=== PATIENT | female | born 1950 | race Caucasian/White ===

== ENCOUNTER 2016-08-06 13:12 | Emergency (ER) | payer OTHER ==
[~2016-08-06] VITALS: Ht 165.1 cm; Wt 105.0 kg
[~2016-08-06 13:12] MED LIST: ASPI81 PO; CALC600T34 PO; CYAN100017 PO; D32000CA PO; FISH1000 PO; GLYB1TAB51 PO; LISI-357 PO; METF-324 PO; SERT-132 PO; TAB-TAB PO
[2016-08-06 13:16] VITALS: BP 152/86; PULSE 102; RESP 18; TEMP 98; O2SAT 97
[2016-08-06] MEDS ORDERED: CALC1TAB87 PO (13:39)
[2016-08-06] MEDS ORDERED: SERT-132 PO (13:39)
[2016-08-06] MEDS ORDERED: LISI-519 PO (13:39)
[2016-08-06] MEDS ORDERED: ASPI1TAB69 PO (13:39)
[2016-08-06] MEDS ORDERED: GLYB5TAB3 PO (13:39)
[2016-08-06] MEDS ORDERED: METF1000 PO (13:39)
[2016-08-06] MEDS ORDERED: OMEG100037 PO (13:39)
[2016-08-06] MEDS ORDERED: D-20TAB3 PO (13:39)
[2016-08-06] MEDS ORDERED: MULT1TAB84 PO (13:39)
[2016-08-06] MEDS ORDERED: MOBI7.5T PO (13:39)
[2016-08-06] MEDS ORDERED: CYAN100025 SL (13:39)
[2016-08-06] MEDS ORDERED: LEVEMIR SQ (13:41)
--- NOTE | 2016-08-06 13:57 | PD ---
HPI Chief Complaint: Headache Time Seen by Provider: 13:37 Travel History International Travel<30 days: No Contact w/Intl Traveler<30days: No Traveled to known affect area: No History of Present Illness HPI The patient was seen and examined in the presence of the nurse. This patient complains of headache. Location is frontal in the forehead region. Duration 28 hours. Severity is moderate. No vomiting or fever or head injury. She takes a baby aspirin daily but no blood thinners. No thunderclap onset. No alleviating factors. PFSH Past Medical History Arthritis: Yes Blood Disorders: No Anxiety: No Depression: Yes Cancer: Yes (KIDNEY) Cardiovascular Problems: No High Cholesterol: Yes Diabetes: Yes Patient Takes Glucophage: Yes Diminished Hearing: No Endocrine: Yes Gastrointestinal Disorders: Yes (MULTIPLE HERNIA REPAIRS) Genitourinary: Yes (LEFT KIDNEY RENAL CELL CARCINOMA) Headaches: Yes Hypertension: Yes Immune Disorder: No Musculoskeletal: Yes Neurologic: Yes Psychiatric: Yes Reproductive: No Respiratory: No Tetanus Vaccination: < 5 Years Influenza Vaccination: Yes ?: Not Menopausal: Yes Past Surgical History Abdominal Surgery: Yes (MULTIPLE HERNIA REPAIRS) Appendectomy: Yes Cardiac Surgery: No Section: Yes Ear Surgery: No Endocrine Surgery: No Eye Surgery: No Genitourinary Surgery: No Gynecologic Surgery: Yes () Oral Surgery: No Thoracic Surgery: No Other Surgery: Yes (RENAL BIOPSY) Social History Alcohol Use: No Tobacco Use: No Substance Use: No Allergies-Medications (Allergen,Severity, Reaction): Coded Allergies: Rifampin (Verified Allergy, Severe, Nausea/Vomiting, 08/06/16) STOMACH CRAMPS Reported Meds & Prescriptions Reported Meds & Active Scripts Active Reported Mobic (Meloxicam) 7.5 Mg Tab Unknown Dose PO DAILY Sertraline (Sertraline HCl) 50 Mg Tab 50 Mg PO DAILY Fish Oil 1000 mg ([place]-3 Fatty Acids) 1 Cap Cap 1 Cap PO DAILY Multivitamin Adults (Multiple Vitamins W/ Minerals) 1 Tab 1 Tab PO DAILY Metformin (Metformin HCl) 1,000 Mg Tab 1,000 Mg PO TID With meals Lisinopril 5 Mg Tab 5 Mg PO DAILY Glyburide 5 Mg Tab 5 Mg PO DAILY Take with meals at the same time each day B-12 (Cyanocobalamin) 1,000 Mcg Subl 1,000 Mcg SL DAILY D-2000 Maximum Strength (Cholecalciferol) 2,000 Unit Tab 2,000 Units PO DAILY Calcium 600 with Vitamin D (Calcium Carbonate-Cholecalciferol) 600-400 mg-Unit Tab 1 Tab PO DAILY Aspirin 81 Mg Tabdr 81 Mg PO DAILY Levemir Inj (Insulin Detemir) 1,000 unit/ 10 ML Vial 20 Units SQ HS Do not mix with any other Insulin. Review of Systems General / Constitutional: No: Fever Eyes: No: Visual changes HENT: Positive: Headaches Cardiovascular: No: Chest Pain or Discomfort Respiratory: No: Shortness of Breath Gastrointestinal: No: Abdominal Pain Genitourinary: No: Dysuria Musculoskeletal: No: Pain Skin: No Rash Neurologic: Positive: Headache, No: Weakness Psychiatric: No: Depression Endocrine: No: Polydipsia Hematologic/Lymphatic: No: Easy Bruising Physical Exam Narrative GENERAL: Well-nourished, well-developed patient in no apparent distress. SKIN: Focused skin assessment reveals no rash and nodules. Skin is Warm and dry. HEAD: Atraumatic. Normocephalic. EYES: Pupils equal and round. No scleral icterus. No injection or drainage. ENT: No nasal bleeding or discharge. Mucous membranes pink and moist. NECK: Trachea midline. No JVD. No meningeal signs CARDIOVASCULAR: Regular rate and rhythm. No murmur appreciated. RESPIRATORY: No accessory muscle use. Clear to auscultation. Breath sounds equal bilaterally. GASTROINTESTINAL: Abdomen soft, non-tender, nondistended. Hepatic and splenic margins not palpable. MUSCULOSKELETAL: No obvious deformities. No clubbing. No cyanosis. No edema. NEUROLOGICAL: Awake and alert. No obvious cranial nerve deficits. Motor grossly within normal limits. Normal speech. PSYCHIATRIC: Appropriate mood and affect; insight and judgment normal. Data Data Last Documented VS Vital Signs Date Time Temp Pulse Resp B/P Pulse Ox O2 Delivery O2 Flow Rate FiO2 08/06/16 13:28 Room Air 08/06/16 13:16 98.0 102 18 152/[address] Brain W/O Iv Contrast(Rout) (08/06/16 ) [facility] Medical Decision Making Medical Screen Exam Complete: Yes Emergency Medical Condition: Yes Medical Record Reviewed: Yes Differential Diagnosis Differential diagnosis includes migraine, tension headache, cluster headache, meningitis. Narrative Course I have reviewed the patient's electronic medical record. Patient is neurologically intact. Presentation not consistent with subarachnoid hemorrhage or CVA Brain CT is normal Stable for outpatient follow-up. I wrote her some tramadol to try while she obtains follow-up with her physician Diagnosis Primary Impression: Headache Qualified Code: R51 - Acute nonintractable headache, unspecified headache type Additional Instructions: The patient was advised to follow up with their physician and return if they worsen. The patient was warned about potential sedation for the medications they will receive on prescription. Med/Other Pt SpecificInfo: Prescription(s) given Disposition: DISCHARGE HOME Condition: Stable Claude Delgadillo MD August 06, 2016 13:57
--- NOTE | 2016-08-06 15:33 | RADHPO ---
EXAM DATE/TIME: 08/06/2016 14:36 [facility] COMPARISON: No previous studies available for comparison. INDICATIONS : Cephalgia. RADIATION DOSE: 57.43 CTDIvol (mGy) MEDICAL HISTORY : Diabetes mellitus type 2. Renal cell carcinoma. Hypertension. SURGICAL HISTORY : Appendectomy. section. ENCOUNTER: Initial ACUITY: 1 day PAIN SCALE: 10/10 LOCATION: cranial TECHNIQUE: Multiple contiguous axial images were obtained of the head. Using automated exposure control and adj ustment of the mA and/or kV according to patient size, radiation dose was kept as low as reasonably a chievable to obtain optimal diagnostic quality images. FINDINGS: CEREBRUM: The ventricles are normal for age. No evidence of midline shift, mass lesion, hemorrhage or acute in farction. No extra-axial fluid collections are seen. POSTERIOR FOSSA: The cerebellum and brainstem are intact. The 4th ventricle is midline. The cerebellopontine angle i s unremarkable. EXTRACRANIAL: The visualized portion of the orbits is intact. SKULL: The calvaria is intact. No evidence of skull fracture. CONCLUSION: 1. No acute intracranial abnormality identified. Igor Leonard MD on August 06, 2016 at 15:30 Board Certified Radiologist. This report was verified electronically.
[2016-08-06] MEDS ORDERED: TRAM50TA PO (15:38)
[2016-08-06 15:59] VITALS: BP 138/86; PULSE 127; RESP 18; TEMP 101.4; TEMP 102.1; O2SAT 95
[2016-08-06 16:20] VITALS: BP 138/86; PULSE 127; RESP 18; TEMP 101.4; O2SAT 95
[2016-08-06] MEDS ORDERED: ACETAMINOPHEN 500 MG CPLT PO ONE (16:30)
[2016-08-06] MEDS ORDERED: cefTRIAXone INJ 1,000 MG in SODIUM CHLORIDE 0.9% INJ 100 ML IV ONE (16:30)
[2016-08-06 16:50] LABS: AUTOMATED NEUTROPHIL # 3.7 TH/MM3 (1.8-7.7); BASOPHIL % 0.2 % (0.0-2.0); EOSINOPHIL % 0.7 % (0.0-4.0); HEMATOCRIT 40.2 % (35.0-46.0); HEMO FLAGS DIFF FINAL; LYMPH % 11.9 % (9.0-44.0); LYMPHOCYTE # 0.5 TH/MM3 (1.0-4.8); MEAN CORPUSCULAR HEMOGLOBIN 27.7 PG (27.0-34.0); MEAN CORPUSCULAR HGB CONC 32.2 % (32.0-36.0); MONO % 4.5 % (0.0-8.0); NEUT % 82.7 % (16.0-70.0); PLATELET COUNT 161 TH/MM3 (150-450); RED BLOOD COUNT 4.67 MIL/MM3 (4.00-5.30); RED CELL DISTRIBUTION WIDTH 14.8 % (11.6-17.2); WHITE BLOOD COUNT 4.4 TH/MM3 (4.0-11.0)
[2016-08-06 16:54] LABS: POTASSIUM 4.5 MEQ/L (3.5-5.1)
[2016-08-06 16:57] LABS: BICARBONATE 26.6 MEQ/L (21.0-32.0)
--- NOTE | 2016-08-06 16:57 | RADHPO ---
EXAM DATE/TIME: 08/06/2016 16:39 [facility] COMPARISON: No previous studies available for comparison. INDICATIONS : Fever, weakness for 1 week MEDICAL HISTORY : None. SURGICAL HISTORY : None. ENCOUNTER: Initial ACUITY: 1 week PAIN SCORE: 0/10 LOCATION: Bilateral chest FINDINGS: The heart is normal in size. There are chronic appearing interstitial changes within the pulmonary pa renchyma. There surgical clips in the right axilla. The bony structures are grossly intact. CONCLUSION: Chronic appearing interstitial changes. No acute abnormality is identified. Igor Leonard MD on August 06, 2016 at 16:53 Board Certified Radiologist. This report was verified electronically.
[2016-08-06 16:58] LABS: APTT (PATIENT) 27.9 SEC (24.3-30.1); INTERNATIONAL NORMALIZED RATIO 1.1 RATIO; PROTHROMBIN TIME - PATIENT 12.3 SEC (9.8-11.6)
--- NOTE | 2016-08-06 17:09 | PD ---
Physical Exam Narrative Patient was seen by ED physician and signed out to me. Patient states that she has intermittent fever headache since yesterday. Patient denies earache sore throat. Patient denies any neck pain. Patient denies any coughing congestion. Patient denies chest pain or shortness of breath. Patient denies abdominal pain. Patient states that she has nausea but no vomiting diarrhea. Physical exam patient has no meningismus. Data Data Last Documented VS Vital Signs Date Time Temp Pulse Resp B/P Pulse Ox O2 Delivery O2 Flow Rate FiO2 08/06/16 17:39 99.9 112 22 156/79 97 08/06/16 15:[address] Brain W/O Iv Contrast(Rout) (08/06/16 ) Iv Access Insert/Monitor (08/06/16 16:24) Complete Blood Count With Diff (08/06/16 16:24) Basic Metabolic Panel (Bmp) (08/06/16 16:24) Prothrombin Time / Inr (Pt) (08/06/16 16:24) Act Partial Throm Time (Ptt) (08/06/16 16:24) Chest, Single Ap (08/06/16 ) Urinalysis - C+S If Indicated (08/06/16 16:24) Blood Culture (08/06/16 16:24) Acetaminophen (Tylenol) (08/06/16 16:30) Ceftriaxone Inj (Rocephin Inj) (08/06/16 16:30) Lactic Acid (08/06/16 16:31) Blood Culture (08/06/16 16:42) Influenzae A/B Antigen (08/06/16 16:42) W[place]gren Sedimentation Rate (08/06/16 16:51) Labs Laboratory Tests Test 08/06/16 08/06/16 08/06/16 16:30 16:35 17:45 White Blood Count 4.4 TH/MM3 Red Blood Count 4.67 MIL/MM3 Hemoglobin 12.9 GM/DL Hematocrit 40.2 % Mean Corpuscular Volume 86.0 FL Mean Corpuscular Hemoglobin 27.7 PG Mean Corpuscular Hemoglobin 32.2 % Concent Red Cell Distribution Width 14.8 % Platelet Count 161 TH/MM3 Mean Platelet Volume 7.6 FL Neutrophils (%) (Auto) 82.7 % Lymphocytes (%) (Auto) 11.9 % Monocytes (%) (Auto) 4.5 % Eosinophils (%) (Auto) 0.7 % Basophils (%) (Auto) 0.2 % Neutrophils # (Auto) 3.7 TH/MM3 Lymphocytes # (Auto) 0.5 TH/MM3 Monocytes # (Auto) 0.2 TH/MM3 Eosinophils # (Auto) 0.0 TH/MM3 Basophils # (Auto) 0.0 TH/MM3 CBC Comment DIFF FINAL Differential Comment Prothrombin Time 12.3 SEC Prothromb Time International 1.1 RATIO Ratio Activated Partial 27.9 SEC Thromboplast Time Sodium Level 133 MEQ/L Potassium Level 4.5 MEQ/L Chloride Level 96 MEQ/L Carbon Dioxide Level 26.6 MEQ/L Anion Gap 10 MEQ/L Blood Urea Nitrogen 20 MG/DL Creatinine 1.40 MG/DL Estimat Glomerular Filtration 38 ML/MIN Rate Random Glucose 324 MG/DL Lactic Acid Level 2.6 mmol/L Calcium Level 9.1 MG/DL Erythrocyte Sedimentation Rate 8 mm/hr Urine Collection Type CLEAN CATCH Urine Color YELLOW Urine Turbidity CLEAR Urine pH 6.0 Urine Specific [place] 1.032 Urine Protein 30 mg/dL Urine Glucose (UA) 1000 OR GREATER mg/dL Urine Ketones 15 mg/dL Urine Occult Blood NEG Urine Nitrite NEG Urine Bilirubin NEG Urine Leukocyte Esterase NEG Urine RBC 0-3 /hpf Urine WBC 0-2 /hpf Urine Squamous Epithelial 0-5 /hpf Cells Microscopic Urinalysis Comment CULT NOT INDICATED Urine Collection Time 17:45 [facility] Supervised Visit with [place]: No Interpretation(s) Last Impressions Head CT 08/06/16 0000 Signed Impressions: Service Date/Time: Saturday, August 06, 2016 14:36 - CONCLUSION: 1. No acute intracranial abnormality identified. Igor Leonard MD Chest X-Ray 08/06/16 0000 Signed Impressions: Service Date/Time: Saturday, August 06, 2016 16:39 - CONCLUSION: Chronic appearing interstitial changes. No acute abnormality is identified. Igor Leonard MD 1706 p.m. CBC within normal limit. Sodium 133. BUN 20. Creatinine 1.40. Lactic acid 2.6. Glucose 324. Influenza AB antigen negative. Sedimentation rate 8. 1809 PM. UA is negative. Diagnosis Primary Impression: Cephalgia Qualified Code: R51 - Acute nonintractable headache, unspecified headache type Additional Impression: Viral syndrome Referrals: ALDAIR WAGNER M.D. (PCP) as needed Patient Instructions: General Instructions, Acute Headache (ED) Departure Forms: Tests/Procedures Additional Instruction: Tylenol for fever and headache. Return in a.m. for recheck. Return immediately if increased severe headache, stiff neck, persistent vomiting. Scripts Tramadol 50 Mg Tab50 Mg PO Q6H PRN (PAIN) #15 TAB Ref 0 Prov:Claude Delgadillo MD 08/06/16 Disposition: 01 DISCHARGE HOME Condition: Stable Naren Knott MD August 06, 2016 17:09
[2016-08-06 17:39] VITALS: BP 156/79; PULSE 112; RESP 22; TEMP 99.9; O2SAT 97
[2016-08-06 17:59] LABS: BLOOD, URINE NEG (NEG); KETONE, URINE 15 mg/dL (NEG); NITRITE,URINE NEG (NEG)
[2016-08-06 18:00] LABS: GLUCOSE,URINE 1000 OR GREATER mg/dL (NEG)
[2016-08-06 18:04] LABS: METHOD OF COLLECTION CLEAN CATCH
[2016-08-06 18:05] LABS: COMMENT (UR) CULT NOT INDICATED; CULTURE IF INDICATED CULT NOT INDICATED; RBC, URINE 0-3 /hpf (0-3); SQUAMOUS EPITHELIAL CELL URINE 0-5 /hpf (0-5); URINE COLOR YELLOW (YELLW/STRAW); WBC, URINE 0-2 /hpf (0-5)
[2016-08-07] MEDS ORDERED: DIAZ10TA PO (10:45)
== END 2016-08-06 18:36 | disposition home or self-care (01) ==
LOC: PHED 13:12
DX: R51 Headache (principal); B34.9 Viral infection, unspecified; F32.9 Major depressive disorder, single episode, unspecified; E78.00 Pure hypercholesterolemia, unspecified; I10 Essential (primary) hypertension; E11.8 Type 2 diabetes mellitus with unspecified complications; Z79.4 Long term (current) use of insulin
CPT/HCPCS: 70450; 71010; 80048; 81001; 83605; 85025; 85610; 85652; 85730; 87040; 87804; 96365; 99284; J0696

== ENCOUNTER 2016-08-07 10:22 | Inpatient (IN) | payer OTHER, MEDICARE ==
[2016-08-07] VITALS (12 sets, daily range): BP systolic 111–147; BP diastolic 57–80; PULSE 92–121; RESP 16–21; TEMP 98.3–99.7; O2SAT 93–98
[~2016-08-07] VITALS: Ht 165.1 cm; Wt 107.8 kg
[~2016-08-07 10:22] MED LIST changes: +ASPI1TAB69 PO; -ASPI81 PO; +CALC1TAB87 PO; -CALC600T34 PO; -CYAN100017 PO; +CYAN100025 SL; +D-20TAB3 PO; -D32000CA PO; -FISH1000 PO; -GLYB1TAB51 PO; +GLYB5TAB3 PO; +LEVEMIR SQ; -LISI-357 PO; +LISI-519 PO; -METF-324 PO; +METF1000 PO; +MOBI7.5T PO; +MULT1TAB84 PO; +OMEG100037 PO; -TAB-TAB PO; +TRAM50TA PO
--- NOTE | 2016-08-07 10:43 | PD ---
HPI Chief Complaint: Headache Time Seen by Provider: 10:42 Travel History International Travel<30 days: No Contact w/Intl Traveler<30days: No Traveled to known affect area: No History of Present Illness HPI 66-year-old female came to the emergency room with history of headache, fever and body aches for past 3 days. Patient says that she was seen in the emergency room yesterday in this hospital where blood test and CAT scan was done and she was asked to return this morning to be reassessed. Patient was discharged home on Tramadol which she took for her headache but the headache still continues. She rates it 10 out of 10. She also had a temperature 102 this morning for which she took Tylenol. Patient was afebrile in triage. I looked at her visit yesterday and indeed she was seen and blood work was done. CAT scan was negative. All her blood test result except lactic acid were within acceptable range. Lactic acid was 2.6. No history of vomiting or diarrhea. She is awake and answering questions appropriately. Does not complain of any neck stiffness. No history of cough. No history of any other pain besides the headache. Patient had tachycardia in triage. [facility] Past Medical History Narrative Medical List of her past medical, surgical, social and family history is reviewed from the nursing note. Arthritis: Yes Blood Disorders: No Anxiety: No Depression: Yes Cancer: Yes (KIDNEY) Cardiovascular Problems: No High Cholesterol: Yes Diabetes: Yes Diminished Hearing: No Endocrine: Yes Gastrointestinal Disorders: Yes (MULTIPLE HERNIA REPAIRS) Genitourinary: Yes (LEFT KIDNEY RENAL CELL CARCINOMA) Headaches: Yes Hypertension: Yes Immune Disorder: No Musculoskeletal: Yes Neurologic: Yes Psychiatric: Yes Reproductive: No Respiratory: No Menopausal: Yes Past Surgical History Abdominal Surgery: Yes (MULTIPLE HERNIA REPAIRS) Appendectomy: Yes Cardiac Surgery: No Section: Yes Ear Surgery: No Endocrine Surgery: No Eye Surgery: No Genitourinary Surgery: No Gynecologic Surgery: Yes () Oral Surgery: No Thoracic Surgery: No Other Surgery: Yes (RENAL BIOPSY) Social History Alcohol Use: No Tobacco Use: No Substance Use: No Allergies-Medications (Allergen,Severity, Reaction): Coded Allergies: Rifampin (Verified Allergy, Severe, Nausea/Vomiting, 08/07/16) STOMACH CRAMPS Comments List of her allergies reviewed from the nursing note. Reported Meds & Prescriptions Reported Meds & Active Scripts Active Tramadol (Tramadol HCl) 50 Mg Tab 50 Mg PO Q6H PRN Reported Diazepam 10 Mg Tab 10 Mg PO BID Levemir Inj (Insulin Detemir) 1,000 unit/ 10 ML Vial 20 Units SQ HS Do not mix with any other Insulin. Mobic (Meloxicam) 7.5 Mg Tab Unknown Dose PO DAILY Sertraline (Sertraline HCl) 50 Mg Tab 50 Mg PO HS Fish Oil 1000 mg ([place]-3 Fatty Acids) 1 Cap Cap 1 Cap PO DAILY Multivitamin Adults (Multiple Vitamins W/ Minerals) 1 Tab 1 Tab PO DAILY Metformin (Metformin HCl) 1,000 Mg Tab 1,000 Mg PO TID With meals Lisinopril 5 Mg Tab 5 Mg PO DAILY Glyburide 5 Mg Tab 5 Mg PO DAILY Take with meals at the same time each day B-12 (Cyanocobalamin) 1,000 Mcg Subl 1,000 Mcg SL DAILY D-2000 Maximum Strength (Cholecalciferol) 2,000 Unit Tab 2,000 Units PO DAILY Calcium 600 with Vitamin D (Calcium Carbonate-Cholecalciferol) 600-400 mg-Unit Tab 1 Tab PO DAILY Aspirin 81 Mg Tabdr 81 Mg PO DAILY Narrative Medication List of her home medications reviewed from the nursing note. Review of Systems Except as stated in HPI: all other systems reviewed are Neg Physical Exam Narrative GENERAL: Awake, alert, obese, moderate distress SKIN: Focused skin assessment warm/dry. HEAD: Atraumatic. Normocephalic. EYES: Pupils equal and round. No scleral icterus. No injection or drainage. ENT: No nasal bleeding or discharge. Mucous membranes pink and moist. NECK: Trachea midline. No JVD. Neck is supple. CARDIOVASCULAR: Regular rate and rhythm. Tachycardia. No murmur appreciated. RESPIRATORY: No accessory muscle use. Clear to auscultation. Breath sounds equal bilaterally. GASTROINTESTINAL: Abdomen soft, non-tender, nondistended. Hepatic and splenic margins not palpable. MUSCULOSKELETAL: No obvious deformities. No clubbing. No cyanosis. No edema. NEUROLOGICAL: Awake and alert. No obvious cranial nerve deficits. Motor grossly within normal limits. Normal speech. PSYCHIATRIC: Appropriate mood and affect; insight and judgment normal. Data Data Last Documented VS Vital Signs Date Time Temp Pulse Resp B/P Pulse Ox O2 Delivery O2 Flow Rate FiO2 08/07/16 13:03 112 18 147/76 94 Room Air 08/07/16 10:29 98.3 Orders Complete Blood Count With Diff (08/07/16 10:59) Comprehensive Metabolic Panel (08/07/16 10:59) Lactic Acid Sepsis Protocol (08/07/16 10:59) Urinalysis - C+S If Indicated (08/07/16 10:59) Blood Culture (08/07/16 10:59) Blood Glucose (08/07/16 10:59) Ecg Monitoring (08/07/16 10:59) Iv Access Insert/Monitor (08/07/16 10:59) Oximetry (08/07/16 10:59) Oxygen Administration (08/07/16 10:59) Sodium Chlorid 0.9% 500 Ml Inj (Ns 500 M (08/07/16 11:00) Metoclopramide Inj (Reglan Inj) (08/07/16 11:00) Insulin Human Regular Inj (Novolin R Inj (08/07/16 11:45) Piperacil-Tazo 4.5 Gm Premix (Zosyn 4.5 (08/07/16 12:30) Vancomycin Inj (Vancomycin Inj) (08/07/16 12:30) Ceftriaxone Inj (Rocephin Inj) (08/07/16 12:30) Sodium Chlorid 0.9% 500 Ml Inj (Ns 500 M (08/07/16 12:30) Lidocaine 1% Inj (Xylocaine 1% Inj) (08/07/16 12:45) Lidocaine 1% Inj (50 Ml) (Xylocaine 1% I (08/07/16 12:45) Csf Culture And Gram Stain (08/07/16 13:03) Csf Cell Count + Differential (08/07/16 13:03) Glucose, Csf (08/07/16 13:03) Total Protein, Csf (08/07/16 13:03) Csf Hsv I/Ii Dna,Pcr (08/07/16 13:03) Csf Cytomegalovirus Dna (08/07/16 13:03) Acyclovir Inj (Zovirax Inj) (08/07/16 13:30) Admit Order (Ed Use Only) (08/07/16 13:21) Labs Laboratory Tests Test 08/07/16 08/07/16 11:15 13:05 White Blood Count 5.7 TH/MM3 Red Blood Count 4.44 MIL/MM3 Hemoglobin 12.4 GM/DL Hematocrit 37.6 % Mean Corpuscular Volume 84.7 FL Mean Corpuscular Hemoglobin 28.0 PG Mean Corpuscular Hemoglobin 33.0 % Concent Red Cell Distribution Width 14.0 % Platelet Count 178 TH/MM3 Mean Platelet Volume 8.1 FL Neutrophils (%) (Auto) 74.7 % Lymphocytes (%) (Auto) 15.5 % Monocytes (%) (Auto) 6.7 % Eosinophils (%) (Auto) 2.7 % Basophils (%) (Auto) 0.4 % Neutrophils # (Auto) 4.2 TH/MM3 Lymphocytes # (Auto) 0.9 TH/MM3 Monocytes # (Auto) 0.4 TH/MM3 Eosinophils # (Auto) 0.2 TH/MM3 Basophils # (Auto) 0.0 TH/MM3 CBC Comment DIFF FINAL Differential Comment Sodium Level 133 MEQ/L Potassium Level 4.1 MEQ/L Chloride Level 97 MEQ/L Carbon Dioxide Level 23.0 MEQ/L Anion Gap 13 MEQ/L Blood Urea Nitrogen 27 MG/DL Creatinine 1.70 MG/DL Estimat Glomerular Filtration 30 ML/MIN Rate Random Glucose 375 MG/DL Lactic Acid Level 4.8 mmol/L Calcium Level 9.3 MG/DL Total Bilirubin 0.6 MG/DL Aspartate Amino Transf 50 U/L (AST/SGOT) Alanine Aminotransferase 45 U/L (ALT/SGPT) Alkaline Phosphatase 44 U/L Total Protein 8.3 GM/DL Albumin 3.3 GM/DL CSF Volume (Tube 1) 1.5 ML CSF Supernatant Color (tube 1) CLEAR CSF Gross Blood (Tube 1) 0 CSF Volume (Tube 2) 1.2 ML CSF Supernatant Color (tube 2) CLEAR CSF Gross Blood (Tube 2) 0 CSF Volume (Tube 3) 1.0 ML CSF Supernatant Color (tube 3) CLEAR CSF Gross Blood (Tube 3) 0 CSF Volume (Tube 4) 1.0 ML CSF Supernatant Color (tube 4) CLEAR CSF Gross Blood (Tube 4) 0 CSF WBC (Tube 4) 0 /MM3 CSF RBC (Tube 4) 0 /MM3 CSF Neutrophils 0 % CSF Lymphocytes 0 % CSF Glucose 168 MG/DL CSF Total Protein 44.4 MG/DL CSF Cytomegalovirus DNA Quant Negative (PCR) Cytomegalovirus Specimen Spinal tap Source Herpes Simplex Virus I DNA Negative (PCR) Herpes Simplex Virus II DNA Negative (PCR) [facility] Medical Decision Making Medical Screen Exam Complete: Yes Emergency Medical Condition: Yes Medical Record Reviewed: Yes Differential Diagnosis Meningitis, encephalitis, viral illness Narrative Course 1:15 PM given patient's symptoms and lack of focality of the infection I was obligated to do a spinal tap. Her lactic acid came back significantly elevated. I have covered her with IV Zosyn, vancomycin and Rocephin. She has been given a liter of IV fluid bolus. I will order a second liter. Based on her initial blood sugar I ordered 10 units of subcutaneous insulin. Her anion gap is within normal limits. Patient consented for the spinal tap. Opening pressure was high. Based on that the admitting hospitalist requested an antiviral coverage as well. I will order IV acyclovir for the patient. She will be admitted. Patient has been instructed to lay flat on her back for an hour to prevent spinal headache. Critical Care Narrative Aggregate critical care time was 45 minutes. Time to perform other separately billable procedures was not included in the critical care time. My time did not include minutes spent treating any other patients simultaneously or on activities that did not directly contribute to the patient's treatment. The services I provided to this patient were to treat and/or prevent clinically significant deterioration that could result in: Sepsis, sepsis protocol, rule out meningitis coverage I provided critical care services requiring my management, as noted below: Chart data review, documentation time, medication orders and management, vital sign assessments/reviewing monitor data, ordering and reviewing lab tests, ordering and interpreting/reviewing x-rays and diagnostic studies, care of the patient and discussion of the patient with the admitting physicians. Procedures Procedure Narrative LUMBAR PUNCTURE: The patient was placed in the left lateral decubitus position. The lumbar area of the back was prepped with Betadine and sterilely draped. The L3 -- L4 interspace was infiltrated with 1% lidocaine plain. Number 18 gauge LP needle was placed in the interspace. Opening pressure was 33 mm of H2O. Number 10 milliliters of clear CSF were obtained. Patient tolerated procedure well. EKG Prior to Arrival: No Sepsis Criteria SIRS Criteria (2 or more): Temp > 100.9 or < 96.8, Heart rate over 90 Septic Shock Criteria: Lactic acid >=4 Diagnosis Primary Impression: Sepsis Qualified Code: A41.9 - Sepsis, due to unspecified organism Additional Impressions: rule out meningitis Hyperglycemia Lactic acidosis Admitting Information Admitting Physician Requests: Admit Carrie Ac MD August 07, 2016 10:43
[2016-08-07] MEDS ORDERED: DIAZ10TA PO (10:45)
[2016-08-07] MEDS ORDERED: METOCLOPRAMIDE HCL 10 MG/2 ML VIAL IV PUSH ONE (11:00)
[2016-08-07] MEDS ORDERED: SODIUM CHLORID 0.9% 500 ML INJ 500 ML IV ONE ×2 (11:00→12:30)
[2016-08-07 11:43] LABS: AUTOMATED NEUTROPHIL # 4.2 TH/MM3 (1.8-7.7); BASOPHIL % 0.4 % (0.0-2.0); EOSINOPHIL # 0.2 TH/MM3 (0-0.4); EOSINOPHIL % 2.7 % (0.0-4.0); HEMATOCRIT 37.6 % (35.0-46.0); HEMO FLAGS DIFF FINAL; LYMPH % 15.5 % (9.0-44.0); LYMPHOCYTE # 0.9 TH/MM3 (1.0-4.8); MEAN CELL VOLUME 84.7 FL (80.0-100.0); MONO % 6.7 % (0.0-8.0); NEUT % 74.7 % (16.0-70.0); PLATELET COUNT 178 TH/MM3 (150-450); RED BLOOD COUNT 4.44 MIL/MM3 (4.00-5.30); WHITE BLOOD COUNT 5.7 TH/MM3 (4.0-11.0)
[2016-08-07] MEDS ORDERED: INSULIN HUMAN REGULAR 1,000 UNITS/10 ML VIAL SQ ONE (11:45)
[2016-08-07 11:49] LABS: CHLORIDE 97 MEQ/L (98-107); POTASSIUM 4.1 MEQ/L (3.5-5.1); SODIUM (NA) 133 MEQ/L (136-145)
[2016-08-07 11:53] LABS: ANION GAP 13 MEQ/L (5-15); BLOOD UREA NITROGEN 27 MG/DL (7-18)
[2016-08-07 11:56] LABS: ALT (GPT) 45 U/L (10-53); AST (GOT) 50 U/L (15-37); GLOMERULAR FILTRATION RATE 30 ML/MIN (>89)
[2016-08-07 11:58] LABS: TOTAL BILIRUBIN ADULT 0.6 MG/DL (0.2-1.0)
[2016-08-07 11:59] LABS: ALKALINE PHOSPHATASE 44 U/L (45-117)
[2016-08-07] MEDS ORDERED: PIPERACIL-TAZO 4.5 GM PREMIX 100 ML IV ONE (12:30)
[2016-08-07] MEDS ORDERED: VANCOMYCIN INJ 1,000 MG in SODIUM CHLOR 0.9% 250 ML INJ 250 ML IV ONE (12:30)
[2016-08-07] MEDS ORDERED: cefTRIAXone INJ 2,000 MG in SODIUM CHLORIDE 0.9% INJ 100 ML IV ONE (12:30)
[2016-08-07] MEDS ORDERED: LIDOCAINE HCL 1% 50 ML VIAL INFIL ONE (12:45)
[2016-08-07] MEDS ORDERED: LIDOCAINE HCL 1% 30 ML VIAL INFIL ONE (12:45)
[2016-08-07] MEDS ORDERED: ACYCLOVIR INJ 500 MG in SODIUM CHLORIDE 0.9% INJ 100 ML IV ONE (13:30)
[2016-08-07 13:35] LABS: LACTIC ACID GHOST NOT REPORTABLE
[2016-08-07 14:05] LABS: GROSS BLOOD TUBE #1 0 (0); GROSS BLOOD TUBE #2 0 (0); GROSS BLOOD TUBE #3 0 (0); GROSS BLOOD TUBE #4 0 (0); SUPERNATE COLOR TUBE #1 CLEAR (CLEAR); SUPERNATE COLOR TUBE #2 CLEAR (CLEAR); SUPERNATE COLOR TUBE #3 CLEAR (CLEAR); SUPERNATE COLOR TUBE #4 CLEAR (CLEAR); VOLUME TUBE # 1 1.5 ML; VOLUME TUBE # 2 1.2 ML; WBC TUBE #4 0 /MM3 (0-10)
[2016-08-07 14:06] LABS: CSF LYMPHOCYTES 0 %; CSF NEUTROPHILS 0 %
[2016-08-07] MEDS ORDERED: ACETAMINOPHEN 325 MG TAB PO PRN (14:15)
[2016-08-07] MEDS ORDERED: NALOXONE HCL 0.4 MG/ML AMP IV PRN (14:15)
[2016-08-07] MEDS ORDERED: Vancomycin Consult Pharmacy 1 EA OTHER SCH (14:15)
[2016-08-07] MEDS ORDERED: ONDANSETRON HCL 4 MG/2 ML VIAL IVP PRN (14:15)
[2016-08-07] MEDS ORDERED: SODIUM CHLORIDE 0.9% FLUSH 10 ML FLUSH IV FLUSH PRN (14:15)
[2016-08-07] MEDS ORDERED: ACYCLOVIR INJ 1,050 MG in SODIUM CHLORIDE 0.9% INJ 150 ML IV SCH (14:15)
[2016-08-07] MEDS ORDERED: GLUCAGON 1 MG/ML VIAL OTHER PRN (14:30)
[2016-08-07] MEDS ORDERED: DEXTROSE 50% IN WATER 50 ML VIAL(D50) IV PRN (14:30)
[2016-08-07] MEDS: SODIUM CHLOR 0.9% 1000 ML INJ 1,000 ML IV SCH (17:43)
[2016-08-07] MEDS: INSULIN ASPART SUPPLEMENTAL SCALE SQ SCH ×2 (17:55→21:01)
[2016-08-07 18:47] LABS: BLOOD, URINE NEG (NEG); GLUCOSE,URINE 250 mg/dL (NEG); KETONE, URINE NEG (NEG); NITRITE,URINE NEG (NEG); PH, URINE 5.5 (5.0-8.5)
[2016-08-07 19:09] LABS: COMMENT (UR) CATH-CULT NOT IND; CULTURE IF INDICATED CATH CULTURE NOT IND; RBC, URINE 0-2 /hpf (0-3); SQUAMOUS EPITHELIAL CELL URINE 0-5 /hpf (0-5); URINE COLOR YELLOW (YELLW/STRAW); WBC, URINE 0-2 /hpf (0-5)
[2016-08-07] MEDS: SODIUM CHLORIDE 0.9% FLUSH 10 ML FLUSH IV FLUSH SCH (20:56)
[2016-08-07] MEDS: INSULIN DETEMIR 100 UNITS/ML VIAL SQ SCH (21:01)
[2016-08-08] VITALS (11 sets, daily range): BP systolic 106–143; BP diastolic 42–88; PULSE 90–112; RESP 18–32; TEMP 97.8–99.4; O2SAT 95–98
[2016-08-08] MEDS: ACYCLOVIR INJ 1,050 MG in SODIUM CHLORIDE 0.9% INJ 150 ML IV SCH ×4 (00:10→23:08)
[2016-08-08] MEDS: SODIUM CHLOR 0.9% 1000 ML INJ 1,000 ML IV SCH ×4 (00:10→20:55)
[2016-08-08 05:11] LABS: AUTOMATED NEUTROPHIL # 2.8 TH/MM3 (1.8-7.7); BASOPHIL % 0.4 % (0.0-2.0); EOSINOPHIL # 0.2 TH/MM3 (0-0.4); EOSINOPHIL % 3.7 % (0.0-4.0); HEMATOCRIT 32.4 % (35.0-46.0); HEMO FLAGS DIFF FINAL; LYMPH % 28.4 % (9.0-44.0); LYMPHOCYTE # 1.3 TH/MM3 (1.0-4.8); MEAN CELL VOLUME 84.8 FL (80.0-100.0); MONO % 8.3 % (0.0-8.0); NEUT % 59.2 % (16.0-70.0); PLATELET COUNT 117 TH/MM3 (150-450); RED BLOOD COUNT 3.82 MIL/MM3 (4.00-5.30); RED CELL DISTRIBUTION WIDTH 13.9 % (11.6-17.2); WHITE BLOOD COUNT 4.7 TH/MM3 (4.0-11.0)
[2016-08-08 05:26] LABS: BICARBONATE 24.1 MEQ/L (21.0-32.0); POTASSIUM 3.9 MEQ/L (3.5-5.1)
[2016-08-08] MEDS ORDERED: VANCOMYCIN INJ 1,400 MG in SODIUM CHLORID 0.9% 500 ML INJ 500 ML IV SCH (06:00)
[2016-08-08] MEDS: INSULIN ASPART SUPPLEMENTAL SCALE SQ SCH ×4 (06:44→20:24)
--- NOTE | 2016-08-08 07:48 | MB ---
cc: KUNAL RIVAS DATE OF CONSULTATION 08/08/2016 REASON FOR CONSULTATION Headache HISTORY OF PRESENT ILLNESS Ms. Lewis is a 66-year-old woman who developed a headache on Thursday which she describes as a severe bifrontal headache, a pressure sensation which she rates as a 10/10. She had temperatures as well up to 102 degrees. She came to the ER. CT scan of the brain was unremarkable. She represented to the ER with persistent headache and has been admitted. She has since undergone a lumbar puncture. She still has a headache. PAST MEDICAL HISTORY 1. She denies any previous history of headaches. 2. History of hypercholesterolemia. 3. Kidney cancer 4. Hernia repair surgery 5. Left renal cell carcinoma 6. in the past 7. Diabetes MEDICATIONS Past medicines at home: 1. Tramadol 2. Diazepam 3. Levemir 4. Mobic 5. Sertraline 6. Fish oil 7. Multivitamin 8. Metformin 9. Lisinopril 10. Glyburide 11. B12 12. Vitamin D 13. Aspirin 81 mg daily NEUROLOGIC EXAMINATION VITAL SIGNS: Blood pressure 106/70, pulse 104, respirations 18, temperature 97.8 degrees. Higher cortical function is normal. Cranial nerves are intact. She has no frontal sinus tenderness. There is no temporal artery tenderness. Her neck is supple with no meningeal signs. Motor exam is normal with no focal deficits. Reflexes symmetric. Sensation is normal. LABORATORY DATA White count 4700, hemoglobin 10.7, hematocrit 32.4%, platelets 117,000. Sodium is 139, potassium 3.9, chloride 105, CO2 is 24, BUN 23, creatinine 1.2, GFR is 45, glucose 159, AST 50, ALT is 45. Urinalysis, the pH is 5.5, specific gravity 1.028, protein is 30. CSF analysis, the WBC was 0, RBC 0, glucose 168, protein 44.4. Cultures pending. IMPRESSION Headache, probable tension headache. There is no sign of meningitis on her exam or on the lumbar puncture. RECOMMENDATIONS For further evaluation, I would like to get an MRI of the brain. We will also obtain a sed rate, rule out the remote chance of temporal arteritis. MD YAKOV Montilla/GAGAN /7:33 AM /7:40 AM
--- NOTE | 2016-08-08 08:06 | HHI.HP ---
HPI Service [facility] Primary Care Physician Agapito Estrella M.D. Admission Diagnosis sepsis, rule out meningitis Diagnoses: Chief Complaint: headache Travel History International Travel<30 Days: No Contact w/Intl Traveler <30 Da: No Traveled to Known Affected Are: No History of Present Illness [age]yo F with PMH of DM, HTN came to the ED for evaluation of headache. Patient reports headache, fever and body aches for past 3 days. Roommate sick. Patient says that she was seen in the emergency room yesterday in this hospital where blood test and CAT scan was done and she was asked to return this morning to be reassessed. Patient was discharged home on Emetrol which she took for her headache but the headache still continues. She rates it 10 out of 10. She also had a temperature 102 this morning for which she took Tylenol. Patient was afebrile in triage. I looked at her visit yesterday and indeed she was seen and blood work was done. CAT scan was negative. All her blood test result except lactic acid were within acceptable range. Lactic acid was 2.6. No history of vomiting or diarrhea. She is awake and answering questions appropriately. Does not complain of any neck stiffness. No history of cough. No history of any other pain besides the headache. Concern for mentingitis. Started IV abx and antivirals after LP in the ED. Patient has LP in the ED, reviewed, findings not consistent with infectious process. Consult neurology , evaluated by Dr Em neurology, recommends MRI brain. Patient headache seems improving. Patient complaints of diarrhea , 3 x n the morning. Will check for C diff. Review of Systems Except as stated in HPI: all other systems reviewed are Neg Past Family Social History Past Medical History DM, HTN H/o Left kidney renal cell ca Past Surgical History Renal biopsy CS Bilateral carpal tunnel sx Appendectomy 8 Hernia repair Reported Medications Reported Meds & Active Scripts Active Tramadol (Tramadol HCl) 50 Mg Tab 50 Mg PO Q6H PRN Reported Diazepam 10 Mg Tab 10 Mg PO BID Levemir Inj (Insulin Detemir) 1,000 unit/ 10 ML Vial 20 Units SQ HS Do not mix with any other Insulin. Mobic (Meloxicam) 7.5 Mg Tab Unknown Dose PO DAILY Sertraline (Sertraline HCl) 50 Mg Tab 50 Mg PO HS Fish Oil 1000 mg ([place]-3 Fatty Acids) 1 Cap Cap 1 Cap PO DAILY Multivitamin Adults (Multiple Vitamins W/ Minerals) 1 Tab 1 Tab PO DAILY Metformin (Metformin HCl) 1,000 Mg Tab 1,000 Mg PO TID With meals Lisinopril 5 Mg Tab 5 Mg PO DAILY Glyburide 5 Mg Tab 5 Mg PO DAILY Take with meals at the same time each day B-12 (Cyanocobalamin) 1,000 Mcg Subl 1,000 Mcg SL DAILY D-2000 Maximum Strength (Cholecalciferol) 2,000 Unit Tab 2,000 Units PO DAILY Calcium 600 with Vitamin D (Calcium Carbonate-Cholecalciferol) 600-400 mg-Unit Tab 1 Tab PO DAILY Aspirin 81 Mg Tabdr 81 Mg PO DAILY Allergies: Coded Allergies: Rifampin (Verified Allergy, Severe, Nausea/Vomiting, 08/07/16) STOMACH CRAMPS Family History Brother: bladder CA, DM Mother: lung problems, unspecified Father DM Social History Denies EtOH use, Tobacco use or illicit drug use. Physical Exam Vital Signs Vital Signs Date Time Temp Pulse Resp B/P Pulse Ox O2 Delivery O2 Flow Rate FiO2 08/08/16 06:00 90 08/08/16 04:00 97.8 104 18 106/70 95 08/08/16 04:00 104 08/08/16 02:00 99 08/08/16 00:00 99.4 104 20 143/42 96 08/08/16 00:00 104 08/07/16 22:00 104 08/07/16 20:00 98.9 94 18 134/60 98 08/07/16 20:00 119 08/07/16 18:00 108 08/07/16 16:00 100 08/07/16 16:00 98.7 100 19 111/65 96 08/07/16 15:00 92 08/07/16 14:40 99.7 92 21 138/67 08/07/16 14:20 99.4 94 16 126/63 94 Room Air 08/07/16 13:39 99.7 102 16 122/57 93 Room Air 08/07/16 13:03 112 18 147/76 94 Room Air 08/07/16 12:35 118 16 129/77 95 Room Air 08/07/16 11:29 120 16 129/59 95 Room Air 08/07/16 11:29 16 95 Room Air 08/07/16 10:29 98.3 121 16 131/80 96 Physical Exam GENERAL: This is a pleasant 66 yo female, with BMI 39, well-nourished, well- developed patient, in no apparent distress. SKIN: No rashes, ecchymoses or lesions. Cool and dry. HEAD: Atraumatic. Normocephalic. No temporal or scalp tenderness. EYES: Pupils equal round and reactive. Extraocular motions intact. No scleral icterus. No injection or drainage. ENT: Nose without bleeding, purulent drainage or septal hematoma. Throat without erythema, tonsillar hypertrophy or exudate. Uvula midline. Airway patent. NECK: Trachea midline. No JVD or lymphadenopathy. Supple, nontender, no meningeal signs. CARDIOVASCULAR: Regular rate and rhythm without murmurs, gallops, or rubs. RESPIRATORY: Clear to auscultation. Breath sounds equal bilaterally. No wheezes , rales, or rhonchi. GASTROINTESTINAL: Abdomen soft, obese, non-tender, nondistended. No hepato- splenomegaly, or palpable masses. No guarding. MUSCULOSKELETAL: Extremities without clubbing, cyanosis, or edema. No joint tenderness, effusion, or edema noted. No calf tenderness. Negative Homans sign bilaterally. NEUROLOGICAL: Awake and alert. Cranial nerves II through XII intact. Motor and sensory grossly within normal limits. Five out of 5 muscle strength in all muscle groups. Normal speech. Laboratory Laboratory Tests Test 08/07/16 08/07/16 08/07/16 08/07/16 11:15 13:05 13:48 17:50 White Blood Count 5.7 Red Blood Count 4.44 Hemoglobin 12.4 Hematocrit 37.6 Mean Corpuscular Volume 84.7 Mean Corpuscular Hemoglobin 28.0 Mean Corpuscular Hemoglobin 33.0 Concent Red Cell Distribution Width 14.0 Platelet Count 178 Mean Platelet Volume 8.1 Neutrophils (%) (Auto) 74.7 Lymphocytes (%) (Auto) 15.5 Monocytes (%) (Auto) 6.7 Eosinophils (%) (Auto) 2.7 Basophils (%) (Auto) 0.4 Neutrophils # (Auto) 4.2 Lymphocytes # (Auto) 0.9 Monocytes # (Auto) 0.4 Eosinophils # (Auto) 0.2 Basophils # (Auto) 0.0 CBC Comment DIFF FINAL Differential Comment Sodium Level 133 Potassium Level 4.1 Chloride Level 97 Carbon Dioxide Level 23.0 Anion Gap 13 Blood Urea Nitrogen 27 Creatinine 1.70 Estimat Glomerular Filtration 30 Rate Random Glucose 375 Lactic Acid Level 4.8 3.3 Calcium Level 9.3 Total Bilirubin 0.6 Aspartate Amino Transf 50 (AST/SGOT) Alanine Aminotransferase 45 (ALT/SGPT) Alkaline Phosphatase 44 Total Protein 8.3 Albumin 3.3 CSF Volume (Tube 1) 1.5 CSF Supernatant Color (tube 1) CLEAR CSF Gross Blood (Tube 1) 0 CSF Volume (Tube 2) 1.2 CSF Supernatant Color (tube 2) CLEAR CSF Gross Blood (Tube 2) 0 CSF Volume (Tube 3) 1.0 CSF Supernatant Color (tube 3) CLEAR CSF Gross Blood (Tube 3) 0 CSF Volume (Tube 4) 1.0 CSF Supernatant Color (tube 4) CLEAR CSF Gross Blood (Tube 4) 0 CSF WBC (Tube 4) 0 CSF RBC (Tube 4) 0 CSF Neutrophils 0 CSF Lymphocytes 0 CSF Glucose 168 CSF Total Protein 44.4 Urine Color YELLOW Urine Turbidity CLEAR Urine pH 5.5 Urine Specific [place] 1.028 Urine Protein 30 Urine Glucose (UA) 250 Urine Ketones NEG Urine Occult Blood NEG Urine Nitrite NEG Urine Bilirubin NEG Urine Leukocyte Esterase NEG Urine RBC 0-2 Urine WBC 0-2 Urine Squamous Epithelial 0-5 Cells Urine Bacteria NONE Microscopic Urinalysis Comment CATH-CULT NOT IND Test 08/08/16 04:35 White Blood Count 4.7 Red Blood Count 3.82 Hemoglobin 10.7 Hematocrit 32.4 Mean Corpuscular Volume 84.8 Mean Corpuscular Hemoglobin 28.0 Mean Corpuscular Hemoglobin 33.0 Concent Red Cell Distribution Width 13.9 Platelet Count 117 Mean Platelet Volume 8.4 Neutrophils (%) (Auto) 59.2 Lymphocytes (%) (Auto) 28.4 Monocytes (%) (Auto) 8.3 Eosinophils (%) (Auto) 3.7 Basophils (%) (Auto) 0.4 Neutrophils # (Auto) 2.8 Lymphocytes # (Auto) 1.3 Monocytes # (Auto) 0.4 Eosinophils # (Auto) 0.2 Basophils # (Auto) 0.0 CBC Comment DIFF FINAL Differential Comment Sodium Level 139 Potassium Level 3.9 Chloride Level 105 Carbon Dioxide Level 24.1 Anion Gap 10 Blood Urea Nitrogen 23 Creatinine 1.20 Estimat Glomerular Filtration 45 Rate Random Glucose 159 Calcium Level 8.1 Date/Time Procedure Status Source Growth 08/07/16 13:05 Gram Stain - Final Resulted Cerebral Spinal Fluid Lumbar Puncture 08/07/16 13:05 CSF Culture Resulted Cerebral Spinal Fluid Lumbar Puncture Pending 08/07/16 11:20 Aerobic Blood Culture Received Blood Peripheral Pending 08/07/16 11:20 Anaerobic Blood Culture Received Blood Peripheral Pending Result Diagram: 08/08/1643408/08/16434 Assessment and Plan Assessment and Plan Sepsis: patient with severe sepsis criteria on admission Temp > 100.9 or < 96.8, Heart rate over 90. Lactic acid >=4. Headache, rule out meningitis Lactic acidosis Diabetes mellitus HTN Diarrhea. Check for C diff . Start probiotic. Received IV zosyn vancomycin , rocephine, also started acyclovir to cover for viral infections. Blood cultures pending S/P LP. CSF analysis reviewed, low probability of infection Seen by Dr Weaver neurology, thinks patient has tention headache, less likely infection, recommends further evaluation with MRI brain Accuckecks, ISS. Monitor glucose level. Restart home meds. Hold metformin. Monitor VS Monitor Lactic acid, trending dowm. Continue IVF DVT ppx SCD/TEDs/lovenox Code Status full code Discussed Condition With patient, nurse Physician Certification 2 Midnight Certification Type: Admission for Inpatient Services Order for Inpatient Services The services are ordered in accordance with Medicare regulations or non- Medicare payer requirements, as applicable. In the case of services not specified as inpatient-only, they are appropriately provided as inpatient services in accordance with the 2-midnight benchmark. Estimated LOS (days): 3 days is the estimated time the patient will need to remain in the hospital, assuming treatment plan goals are met and no additional complications. Post-Hospital Plan: Home Josephine Cha MD August 08, 2016 08:06 viral infections. Blood cultures pending S/P LP. CSF analysis reviewed, low probability of infection Seen by Dr Weaver neurology, thinks patient has tention headache, less likely infection, recommends further evaluation with MRI brain Accuckecks, ISS. Monitor glucose level. Restart home meds. Monitor VS DVT ppx SCD/TEDs Code Status full code Discussed Condition With patient, nurse Physician Certification Order for Inpatient Services The services are ordered in accordance with Medicare regulations or non- Medicare payer requirements, as applicable. In the case of services not specified as inpatient-only, they are appropriately provided as inpatient services in accordance with the 2-midnight benchmark. days is the estimated time the patient will need to remain in the hospital, assuming treatment plan goals are met and no additional complications. Josephine Cha MD August 08, 2016 08:06
[2016-08-08] MEDS: CYANOCOBALAMIN 1,000 MCG TAB PO SCH (08:43)
[2016-08-08] MEDS: glyBURIDE 5 MG TAB PO SCH (08:43)
[2016-08-08] MEDS: LISINOPRIL 5 MG TAB PO SCH (08:44)
[2016-08-08] MEDS: SODIUM CHLORIDE 0.9% FLUSH 10 ML FLUSH IV FLUSH SCH ×2 (08:44→20:21)
[2016-08-08] MEDS: CHOLECALCIFEROL (VIT D3) 1000 UNIT TAB PO SCH (08:45)
[2016-08-08] MEDS ORDERED: SERTRALINE HCL 50 MG TAB PO SCH ×2 (09:00→21:00)
--- NOTE | 2016-08-08 11:19 | PD.CONS ---
History of Present Illness Service ID CONSULT DR SCHMIDT Consult Requested By ATTENDING Reason for Consult FEVER R/O MENIGITIS Primary Care Physician Agapito Estrella M.D. Diagnoses: (1) Cephalgia (2) Viral syndrome History of Present Illness 66 y/o female in normal health until Thursday when she developed a severe frontal headache radiating down into her cheeks. She states she started to have fever / chills / and nausea no vomiting. She has not had any bites or sick contacts. She states the CAMPBELL was a 9 out o f10. It is better now. She never had any nuchal ridgity. She had a little photophobia. She is diabetic and studies have been mostly running 200's./ She is a retired cake tool designer. Review of Systems Constitutional: COMPLAINS OF: Fever, DENIES: Change in appetite Endocrine: DENIES: Abnorml menstrual pattern, Polydipsia, Polyphagia Eyes: DENIES: Blurred vision, Eye pain, Photosensitivity Ears, nose, mouth, throat: COMPLAINS OF: Ear Pain, DENIES: Nasal discharge, Throat pain Respiratory: DENIES: Cough, Hemoptysis, Sputum production Cardiovascular: DENIES: Palpitations, Dyspnea on Exertion Gastrointestinal: COMPLAINS OF: Nausea, DENIES: Constipation, Difficulty Swallowing Genitourinary: DENIES: Dyspareunia, Urgency Musculoskeletal: DENIES: Joint Swelling Integumentary: DENIES: Pruritus, Rash Hematologic/lymphatic: DENIES: Lymphadenopathy Immunologic/allergic: DENIES: Urticaria Neurologic: COMPLAINS OF: Headache Psychiatric: DENIES: Confusion, Mood changes, Depression Except as stated in HPI: all other systems reviewed are Neg Past Family Social History Allergies: Coded Allergies: Rifampin (Verified Allergy, Severe, Nausea/Vomiting, 08/07/16) STOMACH CRAMPS Past Medical History Past Family Social History Past Medical History DM, HTN H/o Left kidney renal cell ca Past Surgical History Renal biopsy CS Bilateral carpal tunnel sx Appendectomy 8 Hernia repair Reported Medications Reported Medications Diazepam 10 Mg Tab 10 Mg PO BID Levemir Inj (Insulin Detemir) 1,000 unit/ 10 ML Vial 20 Units SQ HS Do not mix with any other Insulin. Mobic (Meloxicam) 7.5 Mg Tab Unknown Dose PO DAILY Sertraline (Sertraline HCl) 50 Mg Tab 50 Mg PO HS Fish Oil 1000 mg ([place]-3 Fatty Acids) 1 Cap Cap 1 Cap PO DAILY Multivitamin Adults (Multiple Vitamins W/ Minerals) 1 Tab 1 Tab PO DAILY Metformin (Metformin HCl) 1,000 Mg Tab 1,000 Mg PO TID With meals Lisinopril 5 Mg Tab 5 Mg PO DAILY Glyburide 5 Mg Tab 5 Mg PO DAILY Take with meals at the same time each day B-12 (Cyanocobalamin) 1,000 Mcg Subl 1,000 Mcg SL DAILY D-2000 Maximum Strength (Cholecalciferol) 2,000 Unit Tab 2,000 Units PO DAILY Calcium 600 with Vitamin D (Calcium Carbonate-Cholecalciferol) 600-400 mg-Unit Tab 1 Tab PO DAILY Aspirin 81 Mg Tabdr 81 Mg PO DAILY Active Ordered Medications TRAMADOL ROCEPHIN ACYCLOVIR VANCOMYCIN Family History Family History Brother: bladder CA, DM Mother: lung problems, unspecified Father DM Social History NO SMOKING ETOH OR DRUG USE SHE IS SHE IS FROM [place] AND LIVED HERE IN [facility] FOR 20YEARS Physical Exam Vital Signs Vital Signs Date Time Temp Pulse Resp B/P Pulse Ox O2 Delivery O2 Flow Rate FiO2 08/08/16 08:00 99.0 99 19 135/69 98 08/08/16 06:00 90 08/08/16 04:00 97.8 104 18 106/70 95 08/08/16 04:00 104 08/08/16 02:00 99 08/08/16 00:00 99.4 104 20 143/42 96 08/08/16 00:00 104 08/07/16 22:00 104 08/07/16 20:00 98.9 94 18 134/60 98 08/07/16 20:00 119 08/07/16 18:00 108 08/07/16 16:00 100 08/07/16 16:00 98.7 100 19 111/65 96 08/07/16 15:00 92 08/07/16 14:40 99.7 92 21 138/67 08/07/16 14:20 99.4 94 16 126/63 94 Room Air 08/07/16 13:39 99.7 102 16 122/57 93 Room Air 08/07/16 13:03 112 18 147/76 94 Room Air 08/07/16 12:35 118 16 129/77 95 Room Air 08/07/16 11:29 120 16 129/59 95 Room Air 08/07/16 11:29 16 95 Room Air Physical Exam GENERAL: This is a obese patient, in no apparent distress. SKIN: No rashes, ecchymoses or lesions. Cool and dry. HEAD: Atraumatic. Normocephalic. No temporal or scalp tenderness. EYES: Pupils equal round and reactive. Extraocular motions intact. No scleral icterus. No injection or drainage. ENT: Nose without bleeding, purulent drainage or septal hematoma. Throat without erythema, tonsillar hypertrophy or exudate. Uvula midline. Airway patent. NECK: Trachea midline. No JVD or lymphadenopathy. Supple, nontender, no meningeal signs. CARDIOVASCULAR: Regular rate and rhythm without murmurs, gallops, or rubs. RESPIRATORY: Clear to auscultation. Breath sounds equal bilaterally. No wheezes , rales, or rhonchi. GASTROINTESTINAL: Abdomen soft, non-tender, nondistended. No hepato-splenomegaly , or palpable masses. No guarding. MUSCULOSKELETAL: Extremities without clubbing, cyanosis, or edema. No joint tenderness, effusion, or edema noted. No calf tenderness. Negative Homans sign bilaterally. NEUROLOGICAL: Awake and alert. Cranial nerves II through XII intact. Motor and sensory grossly within normal limits. Five out of 5 muscle strength in all muscle groups. Normal speech. Laboratory Laboratory Tests Test 08/07/16 08/07/16 08/07/16 08/07/16 11:15 13:05 13:48 17:50 White Blood Count 5.7 Red Blood Count 4.44 Hemoglobin 12.4 Hematocrit 37.6 Mean Corpuscular Volume 84.7 Mean Corpuscular Hemoglobin 28.0 Mean Corpuscular Hemoglobin 33.0 Concent Red Cell Distribution Width 14.0 Platelet Count 178 Mean Platelet Volume 8.1 Neutrophils (%) (Auto) 74.7 Lymphocytes (%) (Auto) 15.5 Monocytes (%) (Auto) 6.7 Eosinophils (%) (Auto) 2.7 Basophils (%) (Auto) 0.4 Neutrophils # (Auto) 4.2 Lymphocytes # (Auto) 0.9 Monocytes # (Auto) 0.4 Eosinophils # (Auto) 0.2 Basophils # (Auto) 0.0 CBC Comment DIFF FINAL Differential Comment Sodium Level 133 Potassium Level 4.1 Chloride Level 97 Carbon Dioxide Level 23.0 Anion Gap 13 Blood Urea Nitrogen 27 Creatinine 1.70 Estimat Glomerular Filtration 30 Rate Random Glucose 375 Lactic Acid Level 4.8 3.3 Calcium Level 9.3 Total Bilirubin 0.6 Aspartate Amino Transf 50 (AST/SGOT) Alanine Aminotransferase 45 (ALT/SGPT) Alkaline Phosphatase 44 Total Protein 8.3 Albumin 3.3 CSF Volume (Tube 1) 1.5 CSF Supernatant Color (tube 1) CLEAR CSF Gross Blood (Tube 1) 0 CSF Volume (Tube 2) 1.2 CSF Supernatant Color (tube 2) CLEAR CSF Gross Blood (Tube 2) 0 CSF Volume (Tube 3) 1.0 CSF Supernatant Color (tube 3) CLEAR CSF Gross Blood (Tube 3) 0 CSF Volume (Tube 4) 1.0 CSF Supernatant Color (tube 4) CLEAR CSF Gross Blood (Tube 4) 0 CSF WBC (Tube 4) 0 CSF RBC (Tube 4) 0 CSF Neutrophils 0 CSF Lymphocytes 0 CSF Glucose 168 CSF Total Protein 44.4 CSF Cytomegalovirus DNA Quant Negative (PCR) Cytomegalovirus Specimen Spinal tap Source Urine Color YELLOW Urine Turbidity CLEAR Urine pH 5.5 Urine Specific [place] 1.028 Urine Protein 30 Urine Glucose (UA) 250 Urine Ketones NEG Urine Occult Blood NEG Urine Nitrite NEG Urine Bilirubin NEG Urine Leukocyte Esterase NEG Urine RBC 0-2 Urine WBC 0-2 Urine Squamous Epithelial 0-5 Cells Urine Bacteria NONE Microscopic Urinalysis Comment CATH-CULT NOT IND Test 08/08/16 04:35 White Blood Count 4.7 Red Blood Count 3.82 Hemoglobin 10.7 Hematocrit 32.4 Mean Corpuscular Volume 84.8 Mean Corpuscular Hemoglobin 28.0 Mean Corpuscular Hemoglobin 33.0 Concent Red Cell Distribution Width 13.9 Platelet Count 117 Mean Platelet Volume 8.4 Neutrophils (%) (Auto) 59.2 Lymphocytes (%) (Auto) 28.4 Monocytes (%) (Auto) 8.3 Eosinophils (%) (Auto) 3.7 Basophils (%) (Auto) 0.4 Neutrophils # (Auto) 2.8 Lymphocytes # (Auto) 1.3 Monocytes # (Auto) 0.4 Eosinophils # (Auto) 0.2 Basophils # (Auto) 0.0 CBC Comment DIFF FINAL Differential Comment Erythrocyte Sedimentation Rate 58 Sodium Level 139 Potassium Level 3.9 Chloride Level 105 Carbon Dioxide Level 24.1 Anion Gap 10 Blood Urea Nitrogen 23 Creatinine 1.20 Estimat Glomerular Filtration 45 Rate Random Glucose 159 Calcium Level 8.1 Date/Time Procedure Status Source Growth 08/07/16 13:05 Gram Stain - Final Resulted Cerebral Spinal Fluid Lumbar Puncture 08/07/16 13:05 CSF Culture - Preliminary Resulted Cerebral Spinal Fluid Lumbar Puncture NO GROWTH IN 24 HOURS. 08/07/16 11:20 Aerobic Blood Culture Received Blood Peripheral Pending 08/07/16 11:20 Anaerobic Blood Culture Received Blood Peripheral Pending Result Diagram: 08/08/16 0435 08/08/16 0435 Assessment and Plan Problem List: (1) Viral syndrome Status: Acute Plan: fevers better should be able to dc vanco / rocephin soon as no clinical evidence of bacterial infection monitor serology hsv pending continue acyclovir for now explained to patient viral menigitis is more symptomatic relief further orders to follow (2) Cephalgia Status: Acute Problem Qualifiers (1) Cephalgia: Kesha Coronado August 08, 2016 11:19
[2016-08-08] MEDS ORDERED: ENOXAPARIN SODIUM 40 MG/0.4 ML SYRINGE SQ SCH (12:00)
[2016-08-08 13:31] LABS: HSV 1,PCR Negative (Negative)
[2016-08-08] MEDS ORDERED: LORazepam 2 MG/ML VIAL IV PUSH ONE (14:00)
[2016-08-08] MEDS ORDERED: cefTRIAXone INJ 1,000 MG in SODIUM CHLORIDE 0.9% INJ 100 ML IV SCH (14:00)
[2016-08-08 15:11] LABS: C. DIFF EPI 027 PRESUMPTIVE NEGATIVE (NEGATIVE); C. DIFF TOXIN PCR NEGATIVE (NEGATIVE)
--- NOTE | 2016-08-08 15:43 | RADHPO ---
EXAM DATE/TIME: 08/08/2016 13:53 [facility] COMPARISON: No previous studies available for comparison. INDICATIONS : Cephalgia. Dizziness MEDICAL HISTORY : Renal cell carcinoma. Diabetes mellitus type 2. SURGICAL HISTORY : Appendectomy. Inguinal hernia repair. section. ENCOUNTER: Initial ACUITY: 2 day PAIN SCORE: 0/10 LOCATION: Head TECHNIQUE: Multiplanar, multisequence MRI of the brain was performed without contrast. FINDINGS: CEREBRUM: The ventricles are normal for age. No evidence of midline shift, mass lesion, hemorrhage or acute in farction. No extraaxial fluid collections are seen. The pituitary gland and suprasellar cistern are normal in configuration. WHITE MATTER: No significant signal abnormalities are seen in the white matter. POSTERIOR FOSSA: The cerebellum and brainstem are intact. The 4th ventricle is midline. The cerebellopontine angle is unremarkable. The cerebellar tonsils are normal in position. DIFFUSION IMAGING: No focal areas of restricted diffusion are seen. No evidence of acute infarction. EXTRACRANIAL: The visualized portions of the orbits and paranasal sinuses are unremarkable. CONCLUSION: 1. Negative examination. Igor Leonard MD on August 08, 2016 at 15:35 Board Certified Radiologist. This report was verified electronically.
[2016-08-08] MEDS: INSULIN DETEMIR 100 UNITS/ML VIAL SQ SCH (20:25)
[2016-08-09] VITALS: BP 119/67; PULSE 86; RESP 18; TEMP 97.8; O2SAT 96
[2016-08-09 04:00] VITALS: BP 142/79; PULSE 96; RESP 15; TEMP 98.2; O2SAT 97
[2016-08-09 06:13] LABS: AUTOMATED NEUTROPHIL # 2.6 TH/MM3 (1.8-7.7); BASOPHIL % 0.5 % (0.0-2.0); EOSINOPHIL # 0.2 TH/MM3 (0-0.4); EOSINOPHIL % 4.5 % (0.0-4.0); HEMATOCRIT 33.6 % (35.0-46.0); HEMO FLAGS DIFF FINAL; LYMPHOCYTE # 1.4 TH/MM3 (1.0-4.8); MEAN CELL VOLUME 85.4 FL (80.0-100.0); MEAN CORPUSCULAR HEMOGLOBIN 27.1 PG (27.0-34.0); MEAN CORPUSCULAR HGB CONC 31.7 % (32.0-36.0); MONO % 8.2 % (0.0-8.0); NEUT % 55.8 % (16.0-70.0); PLATELET COUNT 168 TH/MM3 (150-450); RED BLOOD COUNT 3.93 MIL/MM3 (4.00-5.30); RED CELL DISTRIBUTION WIDTH 14.5 % (11.6-17.2); WHITE BLOOD COUNT 4.6 TH/MM3 (4.0-11.0)
[2016-08-09 06:19] LABS: POTASSIUM 4.2 MEQ/L (3.5-5.1)
[2016-08-09 06:24] LABS: BICARBONATE 25.8 MEQ/L (21.0-32.0); MAGNESIUM 1.7 MG/DL (1.5-2.5)
--- NOTE | 2016-08-09 07:53 | HHI.DS ---
Discharge Summary Admission Date August 07, 2016 at 13:22 Discharge Date: August 09, 2016 Admitting Diagnosis sepsis, rule out meningitis (1) Cephalgia ICD Code: R51 Diagnosis: Principal (2) Lactic acidosis ICD Code: E87.2 Diagnosis: Principal (3) Sepsis ICD Code: A41.9 Diagnosis: Principal (4) Viral syndrome ICD Code: B34.9 Diagnosis: Principal (5) Hyperglycemia ICD Code: R73.9 Diagnosis: Secondary (6) Headache ICD Code: R51 Diagnosis: Principal Procedures LP Brief History - From Admission [age]yo F with PMH of DM, HTN came to the ED for evaluation of headache. Patient reports headache, fever and body aches for past 3 days. Roommate sick. Patient says that she was seen in the emergency room yesterday in this hospital where blood test and CAT scan was done and she was asked to return this morning to be reassessed. Patient was discharged home on Emetrol which she took for her headache but the headache still continues. She rates it 10 out of 10. She also had a temperature 102 this morning for which she took Tylenol. Patient was afebrile in triage. I looked at her visit yesterday and indeed she was seen and blood work was done. CAT scan was negative. All her blood test result except lactic acid were within acceptable range. Lactic acid was 2.6. No history of vomiting or diarrhea. She is awake and answering questions appropriately. Does not complain of any neck stiffness. No history of cough. No history of any other pain besides the headache. Concern for mentingitis. Started IV abx and antivirals after LP in the ED. Patient has LP in the ED, reviewed, findings not consistent with infectious process. Consult neurology , evaluated by Dr Em neurology, recommends MRI brain. Patient headache seems improving. Patient complaints of diarrhea , 3 x n the morning. Will check for C diff. CBC/BMP: 08/09/16 0542 08/09/16 0542 Significant Findings Laboratory Tests Test 08/07/16 08/07/16 08/07/16 08/07/16 11:15 13:05 13:48 17:50 Neutrophils (%) (Auto) 74.7 % (16.0-70.0) Lymphocytes # (Auto) 0.9 TH/MM3 (1.0-4.8) Sodium Level 133 MEQ/L (136-145) Chloride Level 97 MEQ/L (98-107) Blood Urea Nitrogen 27 MG/DL (7-18) Creatinine 1.70 MG/DL (0.50-1.00) Estimat Glomerular Filtration 30 ML/MIN (>89) Rate Random Glucose 375 MG/DL (74-106) Lactic Acid Level 4.8 mmol/L 3.3 mmol/L (0.4-2.0) (0.4-2.0) Aspartate Amino Transf 50 U/L (15-37) (AST/SGOT) Alkaline Phosphatase 44 U/L (45-117) Total Protein 8.3 GM/DL (6.4-8.2) Albumin 3.3 GM/DL (3.4-5.0) CSF Glucose 168 MG/DL (40-80) Urine Protein 30 mg/dL (NEG-TRACE) Urine Glucose (UA) 250 mg/dL (NEG) Test 08/08/16 08/09/16 04:35 05:42 Red Blood Count 3.82 MIL/MM3 3.93 MIL/MM3 (4.00-5.30) (4.00-5.30) Hemoglobin 10.7 GM/DL 10.6 GM/DL (11.6-15.3) (11.6-15.3) Hematocrit 32.4 % 33.6 % (35.0-46.0) (35.0-46.0) Platelet Count 117 TH/MM3 (150-450) Monocytes (%) (Auto) 8.3 % (0.0-8.0) 8.2 % (0.0-8.0) Erythrocyte Sedimentation Rate 58 mm/hr (0-30) Blood Urea Nitrogen 23 MG/DL (7-18) Creatinine 1.20 MG/DL (0.50-1.00) Estimat Glomerular Filtration 45 ML/MIN (>89) 56 ML/MIN (>89) Rate Random Glucose 159 MG/DL 238 MG/DL (74-106) (74-106) Calcium Level 8.1 MG/DL 8.1 MG/DL (8.5-10.1) (8.5-10.1) Mean Corpuscular Hemoglobin 31.7 % Concent (32.0-36.0) Eosinophils (%) (Auto) 4.5 % (0.0-4.0) Imaging Last Impressions Brain MRI 08/08/16 0000 Signed Impressions: Service Date/Time: Monday, August 08, 2016 13:53 - CONCLUSION: 1. Negative examination. Igor Leonard MD Pt update on day of discharge Patient in nad. Says she feels much better and wants to go home. Headache subsided. Walkin without any problems. No n/v/d/c. Eating well. No fevr or chills. No motor or sensory deficit./ No change in vision. Back to normal. Hospital Course Sepsis: patient with severe sepsis criteria on admission. Temp > 100.9 or < 96.8, Heart rate over 90. Lactic acid >=4. Headache, rule out meningitis. Lactic acidosis. LA back to normal. Patient likely with viral syndrom. Diabetes mellitus HTN Diarrhea. Resolved. Check for C diff is negative . Received probiotic. Received IV zosyn vancomycin , rocephine, also started acyclovir to cover for viral infections. Seen by ID and DC abx and antivirals. Blood cultures pending S/P LP. CSF analysis reviewed, low probability of infection Seen by Dr Weaver neurology, thinks patient has tension headache, less likely infection, recommends further evaluation with MRI brain. MRI brain reviewed and normal. Accuckecks, ISS. Monitor glucose level. Restart home meds. Hold metformin inpatient. patient to continue as OP. Monitor VS Monitor Lactic acid, trending dowm. DC IVF DVT ppx SCD/TEDs/lovenox Patient improved. MRI normal. Off abx and antivirals. Likely viral syndrom . Headache resolved. Labs improved. Patient is DC home in stable condition. To follow up as OP with PCP and consultants. Pt Condition on Discharge: Stable Discharge Disposition: Discharge Home Discharge Time: > 30 minutes Discharge Instructions DIET: Follow Instructions for: Heart Healthy Diet, Diabetic Diet Activities you can perform: Regular-No Restrictions Follow up Referrals: PCP Follow-up - 3-5 Days Continued Medications: Aspirin (Aspirin) 81 Mg Tabdr 81 MG PO DAILY TAB Calcium Carbonate-Cholecalciferol (Calcium 600 with Vitamin D) 600-400 mg-Unit Tab 1 TAB PO DAILY Calcium Supplement Ref 0 TAB Cholecalciferol (D-2000 Maximum Strength) 2,000 Unit Tab 2000 UNITS PO DAILY Nutritional Supplement #30 Ref 0 TAB Cyanocobalamin (B-12) 1,000 Mcg Subl 1000 MCG SL DAILY Nutritional Supplement Ref 0 TAB.SL Diazepam (Diazepam) 10 Mg Tab 10 MG PO BID Ref 0 TAB Glyburide (Glyburide) 5 Mg Tab 5 MG PO DAILY Take with meals at the same time each day Blood Sugar Management # 30 Ref 0 TAB Insulin Detemir Inj (Levemir Inj) 1,000 unit/ 10 ML Vial 20 UNITS SQ HS Do not mix with any other Insulin. Blood Sugar Management Ref 0 VIAL Lisinopril (Lisinopril) 5 Mg Tab 5 MG PO DAILY Blood Pressure Management #30 Ref 0 TAB Meloxicam (Mobic) 7.5 Mg Tab Unknown Dose PO DAILY Pain Ref 0 TAB Metformin (Metformin) 1,000 Mg Tab 1000 MG PO TID With meals Blood Sugar Management #60 Ref 0 TAB Multiple Vitamins W/ Minerals (Multivitamin Adults) 1 Tab 1 TAB PO DAILY Nutritional Supplement Ref 0 TAB [place]-3 Fatty Acids (Fish Oil 1000 mg) 1 Cap Cap 1 CAP PO DAILY Sertraline (Sertraline) 50 Mg Tab 50 MG PO HS #30 Ref 0 TAB Tramadol (Tramadol) 50 Mg Tab 50 MG PO Q6H PRN PAIN #15 Ref 0 TAB Josephine Cha MD August 09, 2016 07:52
[2016-08-09 08:00] VITALS: BP 137/75; PULSE 85; PULSE 87; RESP 17; TEMP 99.4; O2SAT 98
[2016-08-09] MEDS: ACYCLOVIR INJ 1,050 MG in SODIUM CHLORIDE 0.9% INJ 150 ML IV SCH (08:00)
[2016-08-09] MEDS: INSULIN ASPART SUPPLEMENTAL SCALE SQ SCH (08:00)
[2016-08-09] MEDS: CHOLECALCIFEROL (VIT D3) 1000 UNIT TAB PO SCH (08:20)
[2016-08-09] MEDS: CYANOCOBALAMIN 1,000 MCG TAB PO SCH (08:20)
[2016-08-09] MEDS: glyBURIDE 5 MG TAB PO SCH (08:21)
[2016-08-09] MEDS: SODIUM CHLORIDE 0.9% FLUSH 10 ML FLUSH IV FLUSH SCH (08:21)
[2016-08-09] MEDS: LISINOPRIL 5 MG TAB PO SCH (08:21)
[2016-08-10] MEDS ORDERED: PHARMACY ORDERED LAB ONE (05:45)
== END 2016-08-09 09:50 | disposition home or self-care (01) | DRG 871 ==
LOC: PHED 10:22 → PHEDA 13:22 → PHICU 14:40
PROVIDERS: ADMIT Hospitalist; ATTEND Hospitalist
PROC: 009U3ZX Drainage of Spinal Canal, Percutaneous Approach, Diagnostic (ICD-10-PCS; principal; 2016-08-09)
DX: A41.9 Sepsis, unspecified organism (principal); R65.21 Severe sepsis with septic shock; E87.2 Acidosis; E11.65 Type 2 diabetes mellitus with hyperglycemia; E78.00 Pure hypercholesterolemia, unspecified; G44.209 Tension-type headache, unspecified, not intractable; I10 Essential (primary) hypertension; B34.9 Viral infection, unspecified; F32.9 Major depressive disorder, single episode, unspecified; Z85.528 Personal history of other malignant neoplasm of kidney; Z79.4 Long term (current) use of insulin
CPT/HCPCS: 62270; 70450; 70551; 71010; 80048; 80053; 81001; 82945; 82948; 83605; 83735; 84157; 85025; 85610; 85652; 85730; 87040; 87070; 87205; 87493; 87497; 87529; 87804; 89051; 96361; 96365; 96372; 96375; J0133; J0696; J1650; J1815; J2060; J2543; J2765; J3370; J7030; J7040; J7050

== ENCOUNTER 2016-09-15 10:47 | Inpatient (IN) | payer OTHER, MEDICARE ==
[~2016-09-15] VITALS: Ht 165.1 cm; Wt 100.1 kg
[2016-09-15] VITALS (8 sets, daily range): BP systolic 91–139; BP diastolic 51–91; PULSE 90–135; RESP 16–18; TEMP 98.1–99.7; O2SAT 95–100
[~2016-09-15 10:47] MED LIST changes: +DIAZ10TA PO
[2016-09-15] MEDS ORDERED: FENO145T2 PO (11:07)
[2016-09-15] MEDS ORDERED: GLIM4TAB PO (11:07)
[2016-09-15] MEDS ORDERED: FISH1000 PO (11:07)
[2016-09-15] MEDS ORDERED: ALEN1TAB48 PO (11:07)
[2016-09-15] MEDS ORDERED: DILT30TA PO (11:07)
[2016-09-15] MEDS ORDERED: GABA100C4 PO (11:07)
[2016-09-15] MEDS ORDERED: ASPI81CH3 CHEW (11:07)
[2016-09-15] MEDS ORDERED: MULTTAB27 PO (11:07)
[2016-09-15] MEDS ORDERED: SODIUM CHLOR 0.9% 1000 ML INJ 1,000 ML IV ONE ×3 (11:16→13:30)
[2016-09-15] MEDS ORDERED: INSULIN HUMAN REGULAR 1,000 UNITS/10 ML VIAL IV PUSH ONE ×2 (11:30→15:00)
[2016-09-15 11:56] LABS: BASOPHIL % 0.2 % (0.0-2.0); EOSINOPHIL % 0.1 % (0.0-4.0); HEMATOCRIT 30.5 % (35.0-46.0); LYMPHOCYTE # 0.4 TH/MM3 (1.0-4.8); MEAN CELL VOLUME 83.5 FL (80.0-100.0); MEAN CORPUSCULAR HGB CONC 33.5 % (32.0-36.0); MONO % 2.1 % (0.0-8.0); NEUT % 94.6 % (16.0-70.0); PLATELET COUNT 188 TH/MM3 (150-450); RED BLOOD COUNT 3.65 MIL/MM3 (4.00-5.30); RED CELL DISTRIBUTION WIDTH 14.9 % (11.6-17.2); WHITE BLOOD COUNT 12.7 TH/MM3 (4.0-11.0)
[2016-09-15 11:59] LABS: HEMO FLAGS DIFF FINAL
[2016-09-15 12:04] LABS: CHLORIDE 95 MEQ/L (98-107); POTASSIUM 4.5 MEQ/L (3.5-5.1); SODIUM (NA) 129 MEQ/L (136-145)
[2016-09-15 12:08] LABS: ANION GAP 16 MEQ/L (5-15)
[2016-09-15 12:18] LABS: ALKALINE PHOSPHATASE 41 U/L (45-117); ALT (GPT) 36 U/L (10-53); AST (GOT) 46 U/L (15-37); BLOOD UREA NITROGEN 55 MG/DL (7-18); GLOMERULAR FILTRATION RATE 13 ML/MIN (>89); MAGNESIUM 1.5 MG/DL (1.5-2.5); TOTAL BILIRUBIN ADULT 0.5 MG/DL (0.2-1.0)
[2016-09-15 12:28] LABS: BETA-HYDROXYBUTYRATE 0.56 MMOL/L (0.00-0.39)
[2016-09-15 12:40] LABS: GLUCOSE,URINE 250 mg/dL (NEG); KETONE, URINE NEG (NEG); NITRITE,URINE NEG (NEG)
--- NOTE | 2016-09-15 12:45 | PD ---
HPI Chief Complaint: General Weakness Time Seen by Provider: 11:02 Travel History International Travel<30 days: No Contact w/Intl Traveler<30days: No Traveled to known affect area: No History of Present Illness HPI 66 yo F c/o patient reports feeling generally weak. She reports dysuria and oliguria. She also reports feeling shaky. Diaphoresis reported as well as decreased appetite. She reports her blood glucose this morning was 500. No fever. EMS reports her blood pressure was approx 80/40. Pt states she normally takes lisinopril for HTN. She deneis cp/sob. She denies abdominal pain. No vomiting or diarrhea. 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 NOT SURE IF ALL Cardiac Surgery: No Section: Yes Ear Surgery: No Endocrine Surgery: No Eye Surgery: No Genitourinary Surgery: No Gynecologic Surgery: Yes () Neurologic Surgery: No Oral Surgery: No Thoracic Surgery: No Other Surgery: Yes (RENAL BIOPSY) Social History Alcohol Use: No Tobacco Use: No (QUIT 1992) Substance Use: No Allergies-Medications (Allergen,Severity, Reaction): Coded Allergies: Rifampin (Verified Allergy, Severe, Nausea/Vomiting, 09/15/16) STOMACH CRAMPS Reported Meds & Prescriptions Reported Meds & Active Scripts Active Reported Multi-Day Vitamins (Multiple Vitamin) 1 Tab Tab 1 Tab PO DAILY Fish Oil ([place]-3 Fatty Acids) 1,000 Mg Cap 1 Cap PO TID Aspirin 81 Low Dose (Aspirin) 81 Mg Chew 81 Mg CHEW DAILY Alendronate (Alendronate Sodium) 70 Mg Tab 70 Mg PO Q7D Glimepiride 4 Mg Tab 4 Mg PO DAILY Take with breakfast or first main meal Fenofibrate 145 Mg Tab 145 Mg PO DAILY Diltiazem (Diltiazem HCl) 30 Mg Tab 30 Mg PO BID Gabapentin 100 Mg Cap 100 Mg PO TID Levemir Inj (Insulin Detemir) 1,000 unit/ 10 ML Vial 25 Units SQ HS Do not mix with any other Insulin. Mobic (Meloxicam) 7.5 Mg Tab 15 Mg PO DAILY Sertraline (Sertraline HCl) 50 Mg Tab 50 Mg PO HS Metformin (Metformin HCl) 1,000 Mg Tab 1,000 Mg PO TID With meals Lisinopril 5 Mg Tab 10 Mg PO DAILY B-12 (Cyanocobalamin) 1,000 Mcg Subl 1,000 Mcg SL DAILY D-2000 Maximum Strength (Cholecalciferol) 2,000 Unit Tab 2,000 Units PO DAILY Calcium 600 with Vitamin D (Calcium Carbonate-Cholecalciferol) 600-400 mg-Unit Tab 1 Tab PO BID Review of Systems Except as stated in HPI: all other systems reviewed are Neg Physical Exam Narrative GENERAL: 66 yo F, WNWD, mild distress SKIN: Warm and dry. HEAD: Atraumatic. Normocephalic. EYES: Pupils equal and round. No scleral icterus. No injection or drainage. ENT: No nasal bleeding or discharge. Mucous membranes pink and moist. NECK: Trachea midline. No JVD. CARDIOVASCULAR: Regular rate and rhythm. RESPIRATORY: No accessory muscle use. Clear to auscultation. Breath sounds equal bilaterally. GASTROINTESTINAL: Soft. No focus of tenderness. MUSCULOSKELETAL: Extremities without clubbing, cyanosis, or edema. No obvious deformities. NEUROLOGICAL: Awake and alert. No obvious cranial nerve deficits. Motor grossly within normal limits. Five out of 5 muscle strength in the arms and legs. Normal speech. PSYCHIATRIC: Appropriate mood and affect; insight and judgment normal. Data Data Last Documented VS Vital Signs Date Time Temp Pulse Resp B/P Pulse Ox O2 Delivery O2 Flow Rate FiO2 09/15/16 12:53 92 18 95/51 96 Room Air 09/15/16 10:55 98.1 VS reviewed Orders Complete Blood Count With Diff (09/15/16 11:16) Comprehensive Metabolic Panel (09/15/16 11:16) Magnesium (Mg) (09/15/16 11:16) Beta Hydroxybutyrate (Acetone) (09/15/16 11:16) Lactic Acid (09/15/16 11:16) Urinalysis - C+S If Indicated (09/15/16 11:16) Blood Culture (09/15/16 11:16) Blood Glucose (09/15/16 11:16) Blood Glucose (09/15/16 12:16) Ecg Monitoring (09/15/16 11:16) Iv Access Insert/Monitor (09/15/16 11:16) Oximetry (09/15/16 11:16) NPO (09/15/16 11:16) Sodium Chlor 0.9% 1000 Ml Inj (Ns 1000 M (09/15/16 11:16) Sodium Chlor 0.9% 1000 Ml Inj (Ns 1000 M (09/15/16 11:46) Sodium Chloride 0.9% Flush (Ns Flush) (09/15/16 11:30) ^ Straight Catheter (09/15/16 11:16) Electrocardiogram (09/15/16 ) Insulin Human Regular Inj (Novolin R Inj (09/15/16 11:30) Chest, Single Ap (09/15/16 ) Urine Culture (09/15/16 12:30) Ceftriaxone Inj (Rocephin Inj) (09/15/16 13:00) Admit Order (Ed Use Only) (09/15/16 13:03) Labs Laboratory Tests Test 09/15/16 09/15/16 11:30 12:30 White Blood Count 12.7 TH/MM3 Red Blood Count 3.65 MIL/MM3 Hemoglobin 10.2 GM/DL Hematocrit 30.5 % Mean Corpuscular Volume 83.5 FL Mean Corpuscular Hemoglobin 28.0 PG Mean Corpuscular Hemoglobin 33.5 % Concent Red Cell Distribution Width 14.9 % Platelet Count 188 TH/MM3 Mean Platelet Volume 8.9 FL Neutrophils (%) (Auto) 94.6 % Lymphocytes (%) (Auto) 3.0 % Monocytes (%) (Auto) 2.1 % Eosinophils (%) (Auto) 0.1 % Basophils (%) (Auto) 0.2 % Neutrophils # (Auto) 12.0 TH/MM3 Lymphocytes # (Auto) 0.4 TH/MM3 Monocytes # (Auto) 0.3 TH/MM3 Eosinophils # (Auto) 0.0 TH/MM3 Basophils # (Auto) 0.0 TH/MM3 CBC Comment DIFF FINAL Differential Comment Sodium Level 129 MEQ/L Potassium Level 4.5 MEQ/L Chloride Level 95 MEQ/L Carbon Dioxide Level 18.0 MEQ/L Anion Gap 16 MEQ/L Blood Urea Nitrogen 55 MG/DL Creatinine 3.50 MG/DL Estimat Glomerular Filtration 13 ML/MIN Rate Random Glucose 449 MG/DL Lactic Acid Level 5.1 mmol/L Calcium Level 9.3 MG/DL Magnesium Level 1.5 MG/DL Total Bilirubin 0.5 MG/DL Aspartate Amino Transf 46 U/L (AST/SGOT) Alanine Aminotransferase 36 U/L (ALT/SGPT) Alkaline Phosphatase 41 U/L Total Protein 8.5 GM/DL Albumin 2.4 GM/DL B-Hydroxybutyrate 0.56 MMOL/L Urine Collection Type CATH Urine Color YELLOW Urine Turbidity MARKED Urine pH 5.0 Urine Specific [place] 1.019 Urine Protein 30 mg/dL Urine Glucose (UA) 250 mg/dL Urine Ketones NEG mg/dL Urine Occult Blood MOD Urine Nitrite NEG Urine Bilirubin NEG Urine Leukocyte Esterase MOD Urine WBC 50-99 /hpf Urine WBC Clumps MOD Urine Squamous Epithelial 0-2 /hpf Cells Urine Transitional Epithelial 0-2 /hpf Cells Urine Amorphous Sediment FEW Urine Bacteria FEW /hpf Microscopic Urinalysis Comment CULTURE INDICATED MDM Medical Decision Making Medical Screen Exam Complete: Yes Emergency Medical Condition: Yes Medical Record Reviewed: Yes Differential Diagnosis Hyperglycemia, diabetic ketoacidosis, pneumonia, UTI, renal failure Narrative Course CBC & BMP Diagram 09/15/16 11:30 Neutrophils 94.6% LA 5.1 AST 46 Alk phos 41 Albumin 2.4 AG 16 UA: UTI present Beta hydroxybutyrate: 0.56 Pt has LEON. 2L NS given. 10units insulin given. repeat glucose 270. Rocephin started. pt reports feeling much better at 13:00. d/w Dr Cook. Critical Care Narrative Aggregate critical care time was 35 minutes. Time to perform other separately billable procedures was not included in the critical care time. My time did not include minutes spent treating any other patients simultaneously or on activities that did not directly contribute to the patient's treatment. The services I provided to this patient were to treat and/or prevent clinically significant deterioration that could result in: Multiorgan failure, septic shock I provided critical care services requiring my management, as noted below: Chart data review, documentation time, medication orders and management, vital sign assessments/reviewing monitor data, ordering and reviewing lab tests, ordering and interpreting/reviewing x-rays and diagnostic studies, care of the patient and discussion of the patient with the admitting physicians. Diagnosis Primary Impression: Sepsis Qualified Code: A41.9 - Sepsis, due to unspecified organism Additional Impressions: UTI (urinary tract infection) Qualified Code: N39.0 - Urinary tract infection with hematuria, site unspecified LEON (acute kidney injury) Hyperglycemia Admitting Information Admitting Physician Requests: Igor Santiago MD Sep 15, 2016 12:45
[2016-09-15 12:47] LABS: BLOOD, URINE MOD (NEG)
[2016-09-15 12:48] LABS: METHOD OF COLLECTION CATH; URINE COLOR YELLOW (YELLW/STRAW)
[2016-09-15 12:51] LABS: BACTERIA, URINE FEW /hpf; SQUAMOUS EPITHELIAL CELL URINE 0-2 /hpf (0-5); TRANSITIONAL EPI CELLS, URINE 0-2 /hpf
[2016-09-15 12:53] LABS: COMMENT (UR) CULTURE INDICATED; CULTURE IF INDICATED CULTURE INDICATED
[2016-09-15] MEDS ORDERED: cefTRIAXone INJ 1,000 MG in SODIUM CHLORIDE 0.9% INJ 100 ML IV ONE (13:00)
--- NOTE | 2016-09-15 13:22 | RADRPT ---
EXAM DATE/TIME: 09/15/2016 12:49 [facility] COMPARISON: CHEST SINGLE AP, August 06, 2016, 16:39. INDICATIONS : Fever and short of breath MEDICAL HISTORY : Hypercholesterolemia. Hypertension Renal cell carcinoma. Renal failure SURGICAL HISTORY : None. ENCOUNTER: Initial ACUITY: 1 day PAIN SCORE: 0/10 LOCATION: Bilateral chest FINDINGS: Portable AP view of the chest demonstrates a normal-sized cardiac silhouette. No effusion, consolidat ion, or pneumothorax is visualized. The bones and soft tissues demonstrate no acute abnormality. Ther e are multiple clips in the right axilla. CONCLUSION: No acute cardiopulmonary abnormality is identified. Nehemias Giordano MD on September 15, 2016 at 13:19 Board Certified Radiologist. This report was verified electronically.
[2016-09-15] MEDS ORDERED: SODIUM CHLOR 0.9% 1000 ML INJ 1,000 ML IV SCH ×2 (13:30→15:00)
[2016-09-15] MEDS ORDERED: SODIUM BICARBONATE 8.4% SOLN 50 MEQ/50 ML VIAL IV PRN ×2 (14:15)
[2016-09-15] MEDS ORDERED: POTASSIUM CHLOR 40 MEQ PREMIX 100 ML IV PRN ×2 (14:15)
[2016-09-15] MEDS ORDERED: POTASSIUM CHLOR 20 MEQ PREMIX 100 ML IV PRN ×6 (14:15→15:00)
[2016-09-15] MEDS ORDERED: CHLORHEXIDINE GLUCONATE 2 % 1 PACK (2 CLOTHS) TOP PRN (14:15)
[2016-09-15] MEDS ORDERED: SODIUM PHOSPHATE INJ 15 MMOL in SODIUM CHLORIDE 0.9% INJ 100 ML IV PRN (14:15)
[2016-09-15] MEDS ORDERED: MISCELLANEOUS NURSING INFORMATION XX SCH (14:15)
[2016-09-15] MEDS ORDERED: INSULIN REGULAR (IV INFUSION) 100 UNITS in SODIUM CHLORIDE 0.9% INJ 99 ML IV SCH (15:00)
[2016-09-15] MEDS ORDERED: DEXT 5%-NACL 0.9% 1000 ML INJ 1,000 ML IV SCH (15:00)
--- NOTE | 2016-09-15 15:31 | HHI.HP ---
HPI Service [facility] Hospitalists Primary Care Physician Agapito Estrella M.D. Admission Diagnosis Sepsis (UTI); LEON; Hypotension Diagnoses: Chief Complaint: chills, weakness, unable to urinate Travel History International Travel<30 Days: No Contact w/Intl Traveler <30 Da: No Traveled to Known Affected Are: No History of Present Illness This is a 66-year-old female with past medical history significant for insulin- dependent diabetes mellitus, renal cancer, who presents to [facility] complaining of chills, weakness as well as inability to urinate this morning. The patient states that she was hospitalized a month ago over at this institution in August 08 and states she was diagnosed with sepsis. Upon review of records it is noted that the patient presented with tachycardia, headache and elevated lactic acid more than 4. At the time the patient was worked up with a negative urinalysis and underwent an LP which did not show any signs of meningitis. The patient states that she never felt fine after she was discharged. The patient states that yesterday she started feeling very weak, had chills, denies fevers however she stated that she felt very hot. The patient also states she vomited and had one episode of diarrhea and vomiting and this morning she could not urinate with her last urination been at 8 PM last night. The patient then called EMS as per ED physician's records the patient's blood pressure was in the systolic 80s and was given IV fluids and Route to the emergency department. In the emergency department the patient has gotten 3 L of IV normal saline bolus and as per RN report the patient has not voided yet. Review of Systems As per history of present illness, other systems reviewed by me and negative Past Family Social History Past Medical History 1. Insulin-dependent diabetes mellitus. 2. Left renal cancer status post freezing 3. Hypertriglyceridemia. Past Surgical History 1. 8 incisional hernia repairs. 2. C-sections. 3. Bilateral carpal tunnel surgery 4. Left kidney freezing and right lumpectomy. Reported Medications Multi-Day Vitamins (Multiple Vitamin) 1 Tab Tab 1 Tab PO DAILY Fish Oil ([place]-3 Fatty Acids) 1,000 Mg Cap 1 Cap PO TID Aspirin 81 Low Dose (Aspirin) 81 Mg Chew 81 Mg CHEW DAILY Alendronate (Alendronate Sodium) 70 Mg Tab 70 Mg PO Q7D Glimepiride 4 Mg Tab 4 Mg PO DAILY Take with breakfast or first main meal Fenofibrate 145 Mg Tab 145 Mg PO DAILY Diltiazem (Diltiazem HCl) 30 Mg Tab 30 Mg PO BID Gabapentin 100 Mg Cap 100 Mg PO TID Levemir Inj (Insulin Detemir) 1,000 unit/ 10 ML Vial 25 Units SQ HS Do not mix with any other Insulin. Mobic (Meloxicam) 7.5 Mg Tab 15 Mg PO DAILY Sertraline (Sertraline HCl) 50 Mg Tab 50 Mg PO HS Metformin (Metformin HCl) 1,000 Mg Tab 1,000 Mg PO TID With meals Lisinopril 5 Mg Tab 10 Mg PO DAILY B-12 (Cyanocobalamin) 1,000 Mcg Subl 1,000 Mcg SL DAILY D-2000 Maximum Strength (Cholecalciferol) 2,000 Unit Tab 2,000 Units PO DAILY Calcium 600 with Vitamin D (Calcium Carbonate-Cholecalciferol) 600-400 mg-Unit Tab 1 Tab PO BID Allergies: Coded Allergies: Rifampin (Verified Allergy, Severe, Nausea/Vomiting, 09/15/16) STOMACH CRAMPS Active Ordered Medications Current Medications Medications (Trade) Dose Ordered Sig/Cosme Route Start Time Stop Time Status Last Admin Sodium Chloride 2 ml 2 ml UNSCH PRN IVF 09/15/16 11:30 Sodium Chloride 1,000 ml @ 125 mls/hr Q8H IV 09/15/16 13:30 09/15/16 14:39 Sodium Chloride 1,000 ml @ 250 mls/hr Q4H IV 09/15/16 15:00 Dextrose/Sodium Chloride 1,000 ml @ 200 mls/hr Q5H IV 09/15/16 15:00 Insulin Human Regular 100 units/ Sodium Chloride 100 ml @ 0 mls/hr TITRATE IV 09/15/16 15:00 Potassium Chloride 100 ml @ 100 mls/hr Q1H PRN IV 09/15/16 14:15 Potassium Chloride 100 ml @ 50 mls/hr Q2H PRN IV 09/15/16 14:15 Potassium Chloride 100 ml @ 100 mls/hr Q1H PRN IV 09/15/16 14:15 Potassium Chloride 100 ml @ 100 mls/hr Q1H PRN IV 09/15/16 14:15 Potassium Chloride 100 ml @ 50 mls/hr Q2H PRN IV 09/15/16 15:00 Potassium Chloride 100 ml @ 50 mls/hr Q2H PRN IV 09/15/16 14:15 Potassium Chloride 100 ml @ 50 mls/hr Q2H PRN IV 09/15/16 14:15 (KCl 20 Meq Premix Inj) 100 ml @ 50 mls/hr Q2H PRN IV 09/15/16 14:15 (Sodium Bicarbonate 8.4% Inj) 100 meq UNSCH PRN IV 09/15/16 14:15 Sodium Bicarbonate 50 meq 50 meq UNSCH PRN IV 09/15/16 14:15 (Sodium Phosphate Inj/NS Inj) 105 ml @ 25 mls/hr UNSCH PRN IV 09/15/16 14:15 Miscellaneous Information 1 Q361D XX 09/15/16 14:15 (Chlorhexidine 2% Cloth) 3 pack Taper DAILY@04 TOP 09/16/16 04:00 09/12/17 03:59 Chlorhexidine Gluconate 3 pack 3 pack UNSCH PRN TOP 09/15/16 14:15 (Rocephin Inj/NS Inj) 100 ml @ 200 mls/hr Q24H IV 09/16/16 13:00 Family History Father brother with diabetes. Brother had renal cancer. Social History Denies smoking, denies alcohol or illicit drug use. Physical Exam Vital Signs Vital Signs Date Time Temp Pulse Resp B/P Pulse Ox O2 Delivery O2 Flow Rate FiO2 09/15/16 15:00 90 18 139/59 99 Room Air 09/15/16 14:02 90 18 103/53 100 Room Air 09/15/16 12:53 92 18 95/51 96 Room Air 09/15/16 12:12 18 96 Room Air 09/15/16 11:54 92 18 94/51 96 Room Air 09/15/16 10:55 98.1 100 18 91/60 95 Physical Exam GENERAL: This is a well-nourished, well-developed patient, in no apparent distress. SKIN: No rashes, ecchymoses or lesions. Cool and dry. HEAD: Atraumatic. Normocephalic. No temporal or scalp tenderness. EYES: Pupils equal round and reactive. Extraocular motions intact. No scleral icterus. No injection or drainage. ENT: Nose without bleeding, purulent drainage or septal hematoma. Throat without erythema, tonsillar hypertrophy or exudate. Uvula midline. Airway patent. NECK: Trachea midline. No JVD or lymphadenopathy. Supple, nontender, no meningeal signs. CARDIOVASCULAR: Regular rate and rhythm without murmurs, gallops, or rubs. RESPIRATORY: Clear to auscultation. Breath sounds equal bilaterally. No wheezes , rales, or rhonchi. GASTROINTESTINAL: Abdomen soft, non-tender, nondistended. No hepato-splenomegaly , or palpable masses. No guarding. MUSCULOSKELETAL: Extremities without clubbing, cyanosis, or edema. No joint tenderness, effusion, or edema noted. No calf tenderness. Negative Homans sign bilaterally. NEUROLOGICAL: Awake and alert. Cranial nerves II through XII intact. Motor and sensory grossly within normal limits. Five out of 5 muscle strength in all muscle groups. Normal speech. Laboratory Laboratory Tests Test 09/15/16 09/15/16 11:30 12:30 White Blood Count 12.7 Red Blood Count 3.65 Hemoglobin 10.2 Hematocrit 30.5 Mean Corpuscular Volume 83.5 Mean Corpuscular Hemoglobin 28.0 Mean Corpuscular Hemoglobin 33.5 Concent Red Cell Distribution Width 14.9 Platelet Count 188 Mean Platelet Volume 8.9 Neutrophils (%) (Auto) 94.6 Lymphocytes (%) (Auto) 3.0 Monocytes (%) (Auto) 2.1 Eosinophils (%) (Auto) 0.1 Basophils (%) (Auto) 0.2 Neutrophils # (Auto) 12.0 Lymphocytes # (Auto) 0.4 Monocytes # (Auto) 0.3 Eosinophils # (Auto) 0.0 Basophils # (Auto) 0.0 CBC Comment DIFF FINAL Differential Comment Sodium Level 129 Potassium Level 4.5 Chloride Level 95 Carbon Dioxide Level 18.0 Anion Gap 16 Blood Urea Nitrogen 55 Creatinine 3.50 Estimat Glomerular Filtration 13 Rate Random Glucose 449 Lactic Acid Level 5.1 Calcium Level 9.3 Magnesium Level 1.5 Total Bilirubin 0.5 Aspartate Amino Transf 46 (AST/SGOT) Alanine Aminotransferase 36 (ALT/SGPT) Alkaline Phosphatase 41 Total Protein 8.5 Albumin 2.4 B-Hydroxybutyrate 0.56 Urine Collection Type CATH Urine Color YELLOW Urine Turbidity MARKED Urine pH 5.0 Urine Specific [place] 1.019 Urine Protein 30 Urine Glucose (UA) 250 Urine Ketones NEG Urine Occult Blood MOD Urine Nitrite NEG Urine Bilirubin NEG Urine Leukocyte Esterase MOD Urine WBC 50-99 Urine WBC Clumps MOD Urine Squamous Epithelial 0-2 Cells Urine Transitional Epithelial 0-2 Cells Urine Amorphous Sediment FEW Urine Bacteria FEW Microscopic Urinalysis Comment CULTURE INDICATED Date/Time Procedure Status Source Growth 09/15/16 12:30 Urine Culture Received Urine Catheterized Urine Pending 09/15/16 11:40 Aerobic Blood Culture Received Blood Peripheral Pending 09/15/16 11:40 Anaerobic Blood Culture Received Blood Peripheral Pending Result Diagram: 09/15/16 1130 09/15/16 1130 Imaging Last Impressions Chest X-Ray 09/15/16 0000 Signed Impressions: Service Date/Time: Thursday, September 15, 2016 12:49 - CONCLUSION: No acute cardiopulmonary abnormality is identified. Nehemias Giordano MD Septic Shock Reassessment Heart: Regular rate and rhythm Lungs: Clear Peripheral Pulses: Weak Right Radial Weak Left Radial Weak Left Dorsalis Pedis Weak Right Posterior Tibial Capillary Refill: <2 seconds Assessment and Plan Problem List: (1) Sepsis ICD Code: A41.9 Status: Acute Plan: Sepsis secondary to urinary tract infection. Admit the patient to the intensive care unit since there is concomitant DKA Continue IV fluids, IV Rocephin, follow-up blood cultures obtained emergency department Follow-up urine culture (2) UTI (urinary tract infection) ICD Code: N39.0 Status: Acute Plan: Continue the antibiotics as above. (3) LEON (acute kidney injury) ICD Code: N17.9 Status: Acute Plan: Likely secondary to prerenal azotemia and severe dehydration due to urinary tract infection, sepsis and concomitant diabetes ketoacidosis with hyperglycemia. Continue IV fluids, continue to monitor BUN/creatinine, monitor strict I's and O 's, would nephrotoxins I will order a renal ultrasound to rule out hydronephrosis or any obstructive pathology and also a bladder scan to rule out urinary retention. (4) Anuria and oliguria ICD Code: R34 Status: Acute Plan: As above. Continue to monitor strict I's and O's. Suspect secondary to acute kidney injury. (5) Elevated lactic acid level ICD Code: R79.89 Status: Acute Plan: Patient with elevated lactic acid level 5.1. Likely multifactorial and secondary to severe dehydration, sepsis, and possibly secondary to use of metformin. Please note that the patient had lactic acid of more than 4 on past admission on July 2016 where her lactic acid went up to 4 with no clear infection to explain the patient was in sepsis. I think the patient should have the metformin discontinued permanently since it can cause lactic acidosis. (6) Hypotension ICD Code: I95.9 Status: Acute Plan: Secondary to sepsis and severe dehydration secondary to DKA. I will continue IV fluids. The patient status post 3 L IV normal saline boluses in the emergency department but still significantly dehydrated with dry mucous membranes on exam. (7) Hyponatremia ICD Code: E87.1 Status: Acute Plan: Likely hypovolemic hyponatremia from severe dehydration. Continue normal saline and continue to monitor BMP. (8) High anion gap metabolic acidosis ICD Code: E87.2 Status: Acute Plan: Anion gap metabolic acidosis with elevated hydroxybutyric acid, secondary to DKA. I will order a stat BMP and confirm the patient's elevated anion gap. Blood sugars much better as per RN down to 175. If BMP shows a closed anion gap then will admit to the medical floor on subcutaneous insulin, more specifically basal bolus therapy with insulin Levemir and prandial insulin NovoLog. I will also cover blood sugars with SSI on insulin NovoLog. (9) Elevated AST (SGOT) ICD Code: R74.0 Status: Acute Plan: Unknown etiology. I will order a hepatitis profile and continue to monitor LFTs. We'll also check a liver ultrasound. (10) Generalized weakness ICD Code: R53.1 Status: Acute Plan: Secondary to overall medical conditions. I will consult physical therapy. Assessment and Plan Prophylaxis: We'll place on PPI. DVT prophylaxis: SCDs, Lovenox of tenderness. Code Status Full code Discussed Condition With ED physician, RN Physician Certification 2 Midnight Certification Type: Admission for Inpatient Services Order for Inpatient Services The services are ordered in accordance with Medicare regulations or non- Medicare payer requirements, as applicable. In the case of services not specified as inpatient-only, they are appropriately provided as inpatient services in accordance with the 2-midnight benchmark. Estimated LOS (days): 2 days is the estimated time the patient will need to remain in the hospital, assuming treatment plan goals are met and no additional complications. Post-Hospital Plan: Not yet determined Problem Qualifiers (1) Sepsis: Qualified Code: A41.9 - Sepsis, due to unspecified organism (2) UTI (urinary tract infection): Qualified Code: N30.00 - Acute cystitis without hematuria (3) Hypotension: Qualified Code: I95.9 - Hypotension, unspecified hypotension type Colby Sepulveda MD Sep 15, 2016 15:31
[2016-09-15 15:41] LABS: BICARBONATE 19.4 MEQ/L (21.0-32.0); POTASSIUM 4.2 MEQ/L (3.5-5.1)
[2016-09-15] MEDS: INSULIN ASPART SUPPLEMENTAL SCALE SQ SCH ×2 (16:00→21:00)
[2016-09-15] MEDS ORDERED: DEXTROSE 50% IN WATER 50 ML VIAL(D50) IV PRN (16:00)
[2016-09-15] MEDS: SODIUM CHLOR 0.9% 1000 ML INJ 1,000 ML IV SCH ×2 (16:00→23:35)
[2016-09-15] MEDS ORDERED: GLUCAGON 1 MG/ML VIAL OTHER PRN (16:00)
[2016-09-15 17:21] LABS: LACTIC ACID GHOST NOT REPORTABLE
[2016-09-15] MEDS ORDERED: INSULIN DETEMIR 100 UNITS/ML VIAL SQ SCH (21:00)
[2016-09-16] VITALS: BP 146/70; PULSE 140; RESP 18; TEMP 101.7; O2SAT 97
[2016-09-16] MEDS ORDERED: SODIUM CHLOR 0.9% 1000 ML INJ 1,000 ML IV SCH (00:30)
[2016-09-16] MEDS ORDERED: ACETAMINOPHEN 325 MG TAB PO PRN ×2 (01:15→09:45)
[2016-09-16] MEDS ORDERED: DEXT 5%-NACL 0.9% 1000 ML INJ 1,000 ML IV SCH (03:30)
[2016-09-16] MEDS ORDERED: CHLORHEXIDINE GLUCONATE 2 % 1 PACK (2 CLOTHS) TOP SCH (04:00)
[2016-09-16] MEDS: INSULIN ASPART SUPPLEMENTAL SCALE SQ SCH ×4 (06:38→21:00)
[2016-09-16 06:45] LABS: BASOPHIL % 0.2 % (0.0-2.0); EOSINOPHIL % 0.5 % (0.0-4.0); HEMATOCRIT 29.6 % (35.0-46.0); LYMPH % 6.4 % (9.0-44.0); LYMPHOCYTE # 0.6 TH/MM3 (1.0-4.8); MEAN CELL VOLUME 84.5 FL (80.0-100.0); MEAN CORPUSCULAR HEMOGLOBIN 27.6 PG (27.0-34.0); MEAN CORPUSCULAR HGB CONC 32.7 % (32.0-36.0); MONO % 2.3 % (0.0-8.0); NEUT % 90.6 % (16.0-70.0); PLATELET COUNT 159 TH/MM3 (150-450); RED BLOOD COUNT 3.51 MIL/MM3 (4.00-5.30); RED CELL DISTRIBUTION WIDTH 14.8 % (11.6-17.2); WHITE BLOOD COUNT 8.8 TH/MM3 (4.0-11.0)
[2016-09-16 06:52] LABS: CHLORIDE 103 MEQ/L (98-107); POTASSIUM 4.5 MEQ/L (3.5-5.1); SODIUM (NA) 136 MEQ/L (136-145)
[2016-09-16 06:57] LABS: HEMO FLAGS AUTO DIFF
[2016-09-16 06:59] LABS: ANION GAP 13 MEQ/L (5-15); BICARBONATE 20.3 MEQ/L (21.0-32.0); MAGNESIUM 1.4 MG/DL (1.5-2.5)
[2016-09-16 07:00] LABS: BLOOD UREA NITROGEN 46 MG/DL (7-18)
[2016-09-16 07:02] LABS: ALKALINE PHOSPHATASE 40 U/L (45-117); ALT (GPT) 42 U/L (10-53); AST (GOT) 66 U/L (15-37); GLOMERULAR FILTRATION RATE 25 ML/MIN (>89)
[2016-09-16 07:04] LABS: TOTAL BILIRUBIN ADULT 0.4 MG/DL (0.2-1.0)
[2016-09-16 07:24] LABS: SCAN/DIFF AUTO DIFF CONFIRMED
[2016-09-16 08:00] VITALS: BP 136/72; PULSE 124; RESP 18; TEMP 100.9; O2SAT 98
[2016-09-16] MEDS: ASPIRIN 81 MG CHEW TAB CHEW SCH (08:43)
--- NOTE | 2016-09-16 08:46 | EKG ---
Date Performed: 09/15/2016 Time Performed: 11:29:46 PTAGE: 66 years EKG: Sinus rhythm LOW QRS VOLTAGE IN PRECORDIAL LEADS POSSIBLE INFERIOR MYOCARDIAL INFARCTION ABNORMAL ECG PREVIOUS TRACING : 08/16/2005 11.33 DOCTOR: Isaura Fairchild Interpretating Date/Time 09/16/2016 08:42:43
--- NOTE | 2016-09-16 09:01 | PD.PN.STU ---
Subjective Remarks Patient reports that she is feeling better. Overnight she had hypoglycemic events, glucose in the 50s. Nurse held her Novolog and administered glucagon. She reports sweating profusely all night. Barney catheter in place. Denies chest pain, shortness of breath. Objective Vitals Vital Signs Date Time Temp Pulse Resp B/P Pulse Ox O2 Delivery O2 Flow Rate FiO2 09/16/16 00:00 101.7 140 18 146/70 97 09/15/16 20:00 99.7 135 16 130/91 96 09/15/16 15:43 100 18 131/60 98 Room Air 09/15/16 15:00 90 18 139/59 99 Room Air 09/15/16 14:02 90 18 103/53 100 Room Air 09/15/16 12:53 92 18 95/51 96 Room Air 09/15/16 12:12 18 96 Room Air 09/15/16 11:54 92 18 94/51 96 Room Air 09/15/16 10:55 98.1 100 18 91/60 95 I/O 09/15/16 09/15/16 09/15/16 09/16/16 09/16/16 09/16/16 07:00 15:00 23:00 07:00 15:00 23:00 Intake Total 3000 ml 400 ml 0 ml Output Total 300 ml 1050 ml Balance 3000 ml 100 ml -1050 ml Intake Oral 400 ml 0 ml IV Total 3000 ml Output Urine Total 300 ml 1050 ml # Voids 1 # Bowel Movements 0 Result Diagram: 09/16/16 0525 09/16/16 0525 Objective Remarks GENERAL: pleasant well appearing female in no acute distress. SKIN: Warm and dry. HEAD: Normocephalic. EYES: No scleral icterus. No injection or drainage. NECK: Supple, trachea midline. No JVD or lymphadenopathy. CARDIOVASCULAR: Regular rate and rhythm without murmurs, gallops, or rubs. RESPIRATORY: Breath sounds equal bilaterally. No accessory muscle use. GASTROINTESTINAL: Abdomen soft, non-tender, nondistended. A/P Assessment and Plan Sepsis: - Sepsis secondary to urinary tract infection. - Continue IV fluids, IV Rocephin, blood cultures pending - Patient is still tachycardic, blood pressure elevated - WBC count trending down UTI: - UA showed 50-99 WBCs and moderate WBC clumps. - Continue the antibiotics as above. - Barney catheter in place, follow up with urine culture Diabetes: - not well controlled - at home patient is on metformin, glyburide and levemir - FBG is 500s on admission - on Novolog sliding scale and Levemir in house Hypoglycemia: - overnight hypoglycemia events with FBG in the 50s - patient was sweating profusely - nurse held Novolog injections and administered Glucagon. LEON: - Likely secondary to prerenal azotemia and severe dehydration due to urinary tract infection, sepsis and concomitant diabetes ketoacidosis with hyperglycemia. - Continue IV fluids, continue to monitor BUN/creatinine, monitor strict I's and O's, will avoid nephrotoxins - Renal ultrasound is pending to rule out hydronephrosis or any obstructive pathology - Bladder scan to rule out urinary retention. Anuria and oliguria: - As above. - Continue to monitor strict I's and O's. Suspect secondary to acute kidney injury. Elevated Lactic Acid: - Patient with elevated lactic acid level 5.1. Likely multifactorial and secondary to severe dehydration, sepsis, and possibly secondary to use of metformin. - Will discontinue metformin and consider permanent discontinuation due to history of lactic acidosis on previous admission as well. - 09/16 Lactic acid improved 2.2 Hypotension: - Secondary to sepsis and severe dehydration secondary to DKA. - Blood pressure is elevated today, reduce fluid infusion rate Hyponatremia: - Likely hypovolemic hyponatremia from severe dehydration. - 09/16 improved, Na 136 High AG metabolic acidosis: - Anion gap metabolic acidosis on admission at 14 with elevated lactic acid and hydroxybutyric acid, secondary to DKA. - Anion gap has decreased, most recent 13 - Lactic acid level has decreased Elevated AST: - Unknown etiology - hepatitis profile and continue to monitor LFTs. - Liver ultrasound pending Anna Miranda Sep 16, 2016 09:00 Colby Sepulveda MD Sep 17, 2016 13:55
--- NOTE | 2016-09-16 10:09 | RADRPT ---
EXAM DATE/TIME: 09/16/2016 07:55 [facility] COMPARISON: No previous studies available for comparison. INDICATIONS : Enlarged liver. Increased BUN/creatinine. MEDICAL HISTORY : Hypercholesterolemia. Arthritis. Osteoporosis. Left renal cancer - frozen. Headache. HTN. Stage III r enal failure. Diabetes. Depression. SURGICAL HISTORY : Appendectomy. section. Multiple hernia repairs. Bilateral carpel tunnel release. Renal bio psy. ENCOUNTER: Initial ACUITY: 2 days PAIN SCORE: 0/10 LOCATION: Abdomen. MEASUREMENTS: LIVER: 22.3 cm length COMMON DUCT: 9 mm RIGHT KIDNEY: 13.0 x 5.3 x 5.0 cm LEFT KIDNEY: 10.5 x 5.0 x 4.3 cm SPLEEN: 20.0 cm length AORTA: 2.2cm maximal FINDINGS: The liver is enlarged. Mild diffuse increased echogenicity is noted consistent with probable fatty i nfiltration. No focal hepatic mass is noted. There is mild prominence of the common bile duct which measures 9 mm. Correlation with alkaline phosphatase and bilirubin levels is suggested to rule out biliary obstruction. Hepatopetal flow is noted within the portal vein. The wall of the gallbladder is minimally thickened. Multiple calculi are noted within the expected region of the neck of the gall bladder. If there is clinical concern for acute cholecystitis a hepatobiliary scan may be helpful to confirm cystic duct obstruction. No pericholecystic fluid or sonographic Carroll's sign is noted. T he head and body of the pancreas are unremarkable. The tail of the pancreas is obscured by overlying bowel gas. The kidneys are unremarkable without mass, hydronephrosis or stone. The spleen is enlar ged. The abdominal aorta is unremarkable. CONCLUSION: 1. Thick-walled gallbladder containing stones. If there is clinical concern for acute cholecystitis a hepatobiliary scan may be helpful to confirm cystic duct obstruction. 2. Mild prominence of the common bile duct. Correlation with alkaline phosphatase and bilirubin lev els is suggested to rule out hepatobiliary obstruction. 3. Enlarged fatty liver. 4. Splenomegaly. Antonio Maza MD on September 16, 2016 at 9:31 Board Certified Radiologist. This report was verified electronically.
[2016-09-16] MEDS ORDERED: VANCOMYCIN INJ 1,000 MG in SODIUM CHLOR 0.9% 250 ML INJ 250 ML IV SCH (10:15)
[2016-09-16] MEDS ORDERED: Vancomycin Consult Pharmacy 1 EA OTHER SCH ×2 (10:15)
[2016-09-16] MEDS ORDERED: FUROSEMIDE 40 MG/4 ML VIAL IV PUSH ONE (10:15)
[2016-09-16] MEDS ORDERED: VANCOMYCIN INJ 2,000 MG in SODIUM CHLORID 0.9% 500 ML INJ 500 ML IV ONE (11:30)
[2016-09-16] MEDS: MAGNESIUM SULFATE 1 GM PREMIX 100 ML IV SCH ×2 (11:39→11:46)
[2016-09-16] MEDS: PIPERACIL-TAZO 2.25 GM PREMIX 50 ML IV SCH ×3 (11:40→23:47)
--- NOTE | 2016-09-16 11:42 | RADRPT ---
EXAM DATE/TIME: 09/16/2016 11:03 [facility] COMPARISON: CHEST SINGLE AP, September 15, 2016, 12:49. INDICATIONS : Shortness of breath started this morning. MEDICAL HISTORY : Hypercholesterolemia. Arthritis. Osteoporosis. Left renal cancer - frozen. Headache. HTN. Stage III r enal failure. Diabetes. Depression. SURGICAL HISTORY : Appendectomy. section. Multiple hernia repairs. Bilateral carpel tunnel release. Renal biops y. ENCOUNTER: Subsequent ACUITY: 2 days PAIN SCORE: 0/10 LOCATION: Chest FINDINGS: The heart is enlarged. Pulmonary infiltrates are noted consistent with moderate pulmonary vascular c ongestion versus pneumonia. Clinical correlation is recommended. CONCLUSION: 1. Pulmonary infiltrates consistent with moderate pulmonary vascular congestion versus pneumonia. C linical correlation is recommended. 2. Cardiomegaly. Antonio Maza MD on September 16, 2016 at 11:35 Board Certified Radiologist. This report was verified electronically.
[2016-09-16 12:00] VITALS: BP 129/79; PULSE 108; RESP 18; TEMP 99.1; O2SAT 99
--- NOTE | 2016-09-16 12:33 | RADRPT ---
EXAM DATE/TIME: 09/16/2016 11:36 [facility] COMPARISON: No previous studies available for comparison. INDICATIONS : Bilateral leg swelling. MEDICAL HISTORY : Hypercholesterolemia. Hypertension. Arthritis. Diabetes. Anticoagulant therapy, Aspirin 81mg. SURGICAL HISTORY : Appendectomy. section. Renal biopsy. ENCOUNTER: Initial ACUITY: 1 day PAIN SCORE: 0/10 LOCATION: Bilateral legs. TECHNIQUE: Venous ultrasound of the left and right leg was performed from the inguinal ligament to the proximal calf. Real-time, color Doppler and spectral tracing, compression and augmentation techniques were us ed. FINDINGS: RIGHT LEG: There is normal compressibility of the deep venous system from the inguinal region to the proximal ca lf. No echogenic clot is seen in the lumen of the common femoral, femoral, popliteal, and posterior tibial veins. There is a normal response of the venous system to proximal and distal augmentation an d respiration. LEFT LEG: There is normal compressibility of the deep venous system from the inguinal region to the proximal ca lf. No echogenic clot is seen in the lumen of the common femoral, femoral, popliteal, and posterior tibial veins. There is a normal response of the venous system to proximal and distal augmentation an d respiration. CONCLUSION: No evidence of deep venous thrombosis within the lower extremities. Antonio Maza MD on September 16, 2016 at 12:30 Board Certified Radiologist. This report was verified electronically.
[2016-09-16 12:47] LABS: HEMOGLOBIN A1a 1.7 %; HEMOGLOBIN A1b 1.5 %; HEMOGLOBIN Ao 75.6 %; HEMOGLOBIN F 1.9 %; HEMOGLOBIN LA1C 3.8 %; HEMOGLOBIN P3 5.5 %
[2016-09-16] MEDS ORDERED: cefTRIAXone INJ 2,000 MG in SODIUM CHLORIDE 0.9% INJ 100 ML IV SCH (13:00)
[2016-09-16 13:11] LABS: LACTIC ACID GHOST NOT REPORTABLE
--- NOTE | 2016-09-16 13:57 | HHI.PR ---
Subjective Remarks Deferred entry patient seen Patient c/o sob which started 30 minutes prior to be seen denies chest pain had fevers with a Tmax of 101.7 good oxygen saturation Patient had episode of hypoglycemia into the 50s Objective Vitals Vital Signs Date Time Temp Pulse Resp B/P Pulse Ox O2 Delivery O2 Flow Rate FiO2 09/16/16 12:00 99.1 108 18 129/79 99 09/16/16 08:00 100.9 124 18 136/72 98 09/16/16 00:00 101.7 140 18 146/70 97 09/15/16 20:00 99.7 135 16 130/91 96 09/15/16 15:43 100 18 131/60 98 Room Air 09/15/16 15:00 90 18 139/59 99 Room Air 09/15/16 14:02 90 18 103/53 100 Room Air I/O 09/15/16 09/15/16 09/15/16 09/16/16 09/16/16 09/16/16 07:00 15:00 23:00 07:00 15:00 23:00 Intake Total 3000 ml 400 ml 0 ml Output Total 300 ml 1050 ml Balance 3000 ml 100 ml -1050 ml Intake Oral 400 ml 0 ml IV Total 3000 ml Output Urine Total 300 ml 1050 ml # Voids 1 # Bowel Movements 0 1 Result Diagram: 09/16/16 0525 09/16/16 0525 Imaging Last Impressions Lower Extremity Ultrasound 09/16/16 0000 Signed Impressions: Service Date/Time: Friday, September 16, 2016 11:36 - CONCLUSION: No evidence of deep venous thrombosis within the lower extremities. Antonio Maza MD Abdomen Ultrasound 09/16/16 0000 Signed Impressions: Service Date/Time: Friday, September 16, 2016 07:55 - CONCLUSION: 1. Thick- walled gallbladder containing stones. If there is clinical concern for acute cholecystitis a hepatobiliary scan may be helpful to confirm cystic duct obstruction. 2. Mild prominence of the common bile duct. Correlation with alkaline phosphatase and bilirubin levels is suggested to rule out hepatobiliary obstruction. 3. Enlarged fatty liver. 4. Splenomegaly. Antonio Maza MD Chest X-Ray 09/15/16 0000 Signed Impressions: Service Date/Time: Thursday, September 15, 2016 12:49 - CONCLUSION: No acute cardiopulmonary abnormality is identified. Nehemias Giordano MD Objective Remarks GENERAL: This is a well-nourished, well-developed patient, in moderate distress due to shortness of breath. SKIN: No rashes, ecchymoses or lesions. Cool and dry. HEAD: Atraumatic. Normocephalic. No temporal or scalp tenderness. EYES: Pupils equal round and reactive. Extraocular motions intact. No scleral icterus. No injection or drainage. ENT: Nose without bleeding, purulent drainage or septal hematoma. Throat without erythema, tonsillar hypertrophy or exudate. Uvula midline. Airway patent. NECK: Trachea midline. No JVD or lymphadenopathy. Supple, nontender, no meningeal signs. CARDIOVASCULAR: Regular rate and rhythm without murmurs, gallops, or rubs. RESPIRATORY: Bilateral bibasilar crackles at the bases. No rhonchi or wheezing auscultated. GASTROINTESTINAL: Abdomen soft, non-tender, nondistended. No hepato-splenomegaly , or palpable masses. No guarding. MUSCULOSKELETAL: Extremities without clubbing, cyanosis, or edema. No joint tenderness, effusion, or edema noted. No calf tenderness. Negative Homans sign bilaterally. NEUROLOGICAL: Awake and alert. Cranial nerves II through XII intact. Motor and sensory grossly within normal limits. Five out of 5 muscle strength in all muscle groups. Normal speech Medications and IVs Current Medications Medications (Trade) Dose Ordered Sig/Cosme Route Start Time Stop Time Status Last Admin (NS Flush) 2 ml UNSCH PRN IVF 09/15/16 11:30 (Aspirin Chew) 81 mg DAILY CHEW 09/16/16 09:00 09/16/16 08:43 (D50w (Vial) Inj) 50 ml UNSCH PRN IV 09/15/16 16:00 Glucagon 1 mg 1 mg UNSCH PRN OTHER 09/15/16 16:00 09/16/16 05:25 (D5W-NS 1000 ml Inj) 1,000 ml @ 100 mls/hr Q10H IV 09/16/16 03:30 Hold 09/16/16 03:24 Acetaminophen 650 mg 650 mg Q4H PRN PO 09/16/16 09:45 Piperacillin Sod/ Tazobactam Sod 50 ml @ 100 mls/hr Q6H IV 09/16/16 11:00 09/16/16 11:40 (Vancomycin Consult Pharmacy) 0 ml @ 0 mls/hr UNSCH OTHER 09/16/16 10:15 Urinary Catheter: No Vascular Central Line Catheter: No A/P Problem List: (1) Sepsis ICD Code: A41.9 Status: Acute Plan: Sepsis secondary to urinary tract infection. Patient was admitted to the medical floor given that his blood sugars improved and now Closed prior to being admitted. Patient's Eulalia IV Rocephin. 09/16 blood cultures are growing Staphylococcus aureus. Urine cultures growing Staphylococcus aureus. I will DC IV Rocephin for now and brought in IV antibiotic coverage with IV vancomycin and IV Zosyn. I will also consult infectious disease. (2) UTI (urinary tract infection) ICD Code: N39.0 Status: Acute Plan: Continue the antibiotics as above. (3) LEON (acute kidney injury) ICD Code: N17.9 Status: Acute Plan: Likely secondary to prerenal azotemia and severe dehydration due to urinary tract infection, sepsis and concomitant diabetes ketoacidosis with hyperglycemia. Continue IV fluids, continue to monitor BUN/creatinine, monitor strict I's and O 's, would nephrotoxins 09/16 abdominal ultrasound ordered, it showed thick-walled gallbladder containing stones. Mild prominence of the common bile duct. Enlarged fatty liver. Splenomegaly. Creatinine trending down, continue IV fluids and pain control. (4) Anuria and oliguria ICD Code: R34 Status: Acute Plan: Patient without urine output upon admission. Started on IV fluids. The patient has good urine output, oliguric improving, continue IV fluids. (5) Elevated lactic acid level ICD Code: R79.89 Status: Acute Plan: Patient with elevated lactic acid level 5.1. Likely multifactorial and secondary to severe dehydration, sepsis, and possibly secondary to use of metformin. Please note that the patient had lactic acid of more than 4 on past admission on July 2016 where her lactic acid went up to 4 with no clear infection to explain the patient was in sepsis. I think the patient should have the metformin discontinued permanently since it can cause lactic acidosis. 09/16 lactic acid down to a normal level of 2.0 after IV fluid administration. (6) Hypotension ICD Code: I95.9 Status: Acute Plan: Secondary to sepsis and severe dehydration secondary to DKA. Status post IV normal saline bolus and admitted maintenance fluids the patient status post 3 L IV normal saline boluses in the emergency department but still significantly dehydrated with dry mucous membranes on exam. 09/16 hypotension now resolved with stable blood pressures. Continue to monitor vital signs. (7) Hyponatremia ICD Code: E87.1 Status: Acute Plan: Likely hypovolemic hyponatremia from severe dehydration. Continue normal saline and continue to monitor BMP. / resolved after IV fluid administration. Continue to monitor BMP (8) High anion gap metabolic acidosis ICD Code: E87.2 Status: Acute Plan: Anion gap metabolic acidosis with elevated hydroxybutyric acid, secondary to DKA. I will order a stat BMP and confirm the patient's elevated anion gap. Blood sugars much better as per RN down to 175. If BMP shows a closed anion gap then will admit to the medical floor on subcutaneous insulin, more specifically basal bolus therapy with insulin Levemir and prandial insulin NovoLog. I will also cover blood sugars with SSI on insulin NovoLog. 09/16 had episode of hypoglycemia. I will discontinue insulin Levemir and continue to monitor Accu-Cheks and cover if necessary with SSI with insulin NovoLog. (9) Elevated AST (SGOT) ICD Code: R74.0 Status: Acute Plan: Possibly secondary to fatty liver as described in abdominal ultrasound. There is also a thick-walled gallbladder containing stones, however patient is asymptomatic without abdominal pain. Continue to monitor liver function test. (10) Generalized weakness ICD Code: R53.1 Status: Acute Plan: Physical therapy evaluation. (11) Respiratory distress ICD Code: R06.00 Status: Acute Plan: Patient is complaining of shots of breath and tachypneic and in moderate respiratory distress on exam. Chest x-ray order stat and reviewed by me showed pulmonary infiltrates likely due to moderate pulmonary congestion versus pneumonia. Check 2-D echocardiogram, bilateral venous Dopplers since left lower extremity looks slightly greater than the right lower extremity. I will broaden the antibiotic coverage to IV Zosyn and IV vancomycin given positive blood cultures. Given pulmonary vessel congestion I will give 40 mg of IV Lasix and hold IV fluids for now. (12) Bacteremia ICD Code: R78.81 Status: Acute Plan: The patient is growing Staphylococcus aureus and blood cultures. Consult infectious disease. Continue IV antibiotics as stated above. Repeat blood cultures 2. (13) Hypomagnesemia ICD Code: E83.42 Status: Acute Plan: Likely due to nutritional deficiency. I will replace with IV magnesium sulfate. (14) Hypoglycemia ICD Code: E16.2 Status: Acute Plan: Hold insulin Levemir, continue SSI with insulin NovoLog. Patient was started on D5NS overnight. I will hold given fluid overload. Assessment and Plan GI prophylaxis: Will add PPI. DVT prophylaxis: SCDs, Lovenox subcutaneously. Discharge Planning Continue to monitor in the medical floor. Patient is bacteremic and still sick , ID consulted. Problem Qualifiers (1) Sepsis: Qualified Code: A41.9 - Sepsis, due to unspecified organism (2) UTI (urinary tract infection): Qualified Code: N30.00 - Acute cystitis without hematuria (3) Hypotension: Qualified Code: I95.9 - Hypotension, unspecified hypotension type Colby Sepulveda MD Sep 16, 2016 13:57
[2016-09-16] MEDS: PANTOPRAZOLE SOD 40 MG DELAYED RELEASE TAB PO SCH (15:00)
[2016-09-16 16:00] VITALS: BP 150/84; PULSE 125; RESP 19; TEMP 98.9; O2SAT 98
--- NOTE | 2016-09-16 17:20 | EKG ---
Date Performed: 09/16/2016 Time Performed: 10:39:06 PTAGE: 66 years EKG: SINUS TACHYCARDIA LOW QRS VOLTAGE IN PRECORDIAL LEADS ABNORMAL RHYTHM ECG PREVIOUS TRACING : 09/15/2016 11.29 Compared to prior tracing no significant change DOCTOR: Lee Shahid Interpretating Date/Time 09/16/2016 17:18:11
[2016-09-16 20:00] VITALS: BP 156/72; PULSE 128; RESP 18; TEMP 98.2; O2SAT 98
[2016-09-16 23:22] LABS: CREATINE KINASE 25 U/L (26-192)
[2016-09-16] MEDS ORDERED: MORPHINE SULFATE 8 MG/ML INJ IV PUSH ONE (23:30)
[2016-09-16] MEDS: HEPARIN SODIUM - SQ 10,000 UNITS/ML VIAL SQ SCH (23:46)
[2016-09-17] VITALS (7 sets, daily range): BP systolic 109–122; BP diastolic 6–82; PULSE 99–114; RESP 17–22; TEMP 97–98.3; O2SAT 94–99
[2016-09-17] MEDS: HEPARIN SODIUM - SQ 10,000 UNITS/ML VIAL SQ SCH ×3 (05:53→21:23)
[2016-09-17] MEDS: PIPERACIL-TAZO 2.25 GM PREMIX 50 ML IV SCH (05:53)
[2016-09-17] MEDS: INSULIN ASPART SUPPLEMENTAL SCALE SQ SCH ×4 (05:54→21:00)
--- NOTE | 2016-09-17 08:35 | PD.CONS ---
History of Present Illness Service Infectious disease Consult Requested By Dr Cook Reason for Consult Sepsis Primary Care Physician Agapito Estrella M.D. Diagnoses: (1) Staphylococcus aureus bacteremia with sepsis History of Present Illness Patient with known Diabetes was admitted a month ago with fever, altered mental status and was diagnosed with sepsis- she had a LP which was negative then. Patient says she has been weak since that admission but when it got to the point when she had difficulty ambulating and she had vomiting and episode with diarrhea- also with chills. Review of Systems Constitutional: COMPLAINS OF: Diaphoretic episodes, Fatigue, Chills Endocrine: DENIES: Polyuria Eyes: DENIES: Diplopia, Eye pain Ears, nose, mouth, throat: DENIES: Oral lesions, Throat pain, Hoarseness Respiratory: COMPLAINS OF: Shortness of breath, DENIES: Cough Cardiovascular: DENIES: Chest pain, Palpitations, Lower Extremity Edema Gastrointestinal: COMPLAINS OF: Diarrhea, Nausea, Vomiting, DENIES: Abdominal pain Genitourinary: COMPLAINS OF: Urinary frequency, DENIES: Hematuria Musculoskeletal: COMPLAINS OF: Muscle aches, DENIES: Joint pain, Joint Swelling Integumentary: DENIES: Abnormal pigmentation, Pruritus Hematologic/lymphatic: DENIES: Lymphadenopathy Neurologic: COMPLAINS OF: Paresthesias, DENIES: Seizures Psychiatric: DENIES: Confusion Past Family Social History Allergies: Coded Allergies: Rifampin (Verified Allergy, Severe, Nausea/Vomiting, 09/15/16) STOMACH CRAMPS Past Medical History . Insulin-dependent diabetes mellitus. 2. Left renal cancer status post freezing 3. Hypertriglyceridemia. Past Surgical History 1. 8 incisional hernia repairs. 2. C-sections. 3. Bilateral carpal tunnel surgery 4. Left kidney freezing and right lumpectomy. Reported Medications IV Vancomycin and Zosyn Family History Positive for Diabetes Social History Lives with boyfriend Non smoker Physical Exam Vital Signs Vital Signs Date Time Temp Pulse Resp B/P Pulse Ox O2 Delivery O2 Flow Rate FiO2 09/17/16 08:00 97.4 105 18 116/71 99 09/17/16 00:00 97.0 114 20 109/73 96 09/16/16 20:00 98.2 128 18 156/72 98 09/16/16 16:00 98.9 125 19 150/84 98 09/16/16 12:00 99.1 108 18 129/79 99 Physical Exam GENERAL: This is a obese chronically ill pt with some shortness of breath SKIN: No rashes, ecchymoses . Cool and dry.Superficial skin breakdown on back HEAD: Atraumatic. Normocephalic. No temporal or scalp tenderness. EYES: Pupils equal round and reactive. Extraocular motions intact. No scleral icterus. No injection or drainage. ENT: Nose without bleeding, purulent drainage or septal hematoma. Throat without erythema, tonsillar hypertrophy or exudate. Uvula midline. Airway patent. NECK: Trachea midline. No JVD or lymphadenopathy. Supple, nontender, no meningeal signs. CARDIOVASCULAR: Regular rate and rhythm with a systolic murmur, no, gallops, or rubs. RESPIRATORY: Clear to auscultation. Breath sounds equal bilaterally. No wheezes , rales, or rhonchi. GASTROINTESTINAL: Abdomen soft, non-tender, nondistended. No hepato-splenomegaly , or palpable masses. No guarding. MUSCULOSKELETAL: Extremities without clubbing, cyanosis, or edema. No joint tenderness, effusion, or edema noted. No calf tenderness. Negative Homans sign bilaterally. NEUROLOGICAL: Awake and alert. Cranial nerves II through XII intact. Patient with generalized weakness though power > 3/5 Laboratory Laboratory Tests Test 09/16/16 09/16/16 09/16/16 09/16/16 10:40 13:40 16:15 22:25 Lactic Acid Level 2.3 2.0 Total Creatine Kinase 37 26 25 Troponin I 0.02 0.02 LESS THAN 0.02 Thyroid Stimulating Hormone 1.030 3rd Gen Date/Time Procedure Status Source Growth 09/16/16 10:45 Aerobic Blood Culture Received Blood Peripheral Pending 09/16/16 10:45 Anaerobic Blood Culture Received Blood Peripheral Pending 09/15/16 12:30 Urine Culture - Preliminary Resulted Urine Catheterized Urine Staphylococcus Aureus 09/15/16 11:40 Aerobic Blood Culture - Preliminary Resulted Blood Peripheral Staphylococcus Aureus 09/15/16 11:40 Anaerobic Blood Culture - Preliminary Resulted Gram Positive Cocci Result Diagram: 09/16/1652409/16/16524 Assessment and Plan Problem List: (1) Staphylococcus aureus bacteremia with sepsis Status: Acute Plan: 1. Continue IV Vancomycin - with pharmacy to dose 2. Stop IV Zosyn 3. Start Cefazolin 1 g IV q8hrs 4. Check Echocardiogram 5. Check MRI Lumbosacral spine - Staph aureus bacteremia, urinary retention, weakness (2) UTI (urinary tract infection) Status: Acute (3) LEON (acute kidney injury) Status: Acute Problem Qualifiers (1) UTI (urinary tract infection): Qualified Code: N30.00 - Acute cystitis without hematuria Janice Whaley MD Sep 17, 2016 08:35
[2016-09-17] MEDS: ASPIRIN 81 MG CHEW TAB CHEW SCH (08:52)
[2016-09-17] MEDS: PANTOPRAZOLE SOD 40 MG DELAYED RELEASE TAB PO SCH (08:52)
--- NOTE | 2016-09-17 09:14 | PD.PN.STU ---
Subjective Remarks Patient is still short of breath and is complaining of abdominal pain that began yesterday. She says her abdominal pain is not as bad today as it was yesterday. Localized to right upper quadrant and across her lower abdomen. Does not radiate. She did not have this pain at home. Denies diarrhea or vomiting. She has not eaten since her admission. She is also sweating profusely. Her shortness of breath at rest has not improved. She denies chest pain. Her CXR yesterday showed pulmonary infiltrates consistent with pulmonary vascular congestion vs. pneumonia. Objective Vitals Vital Signs Date Time Temp Pulse Resp B/P Pulse Ox O2 Delivery O2 Flow Rate FiO2 09/17/16 08:00 97.4 105 18 116/71 99 09/17/16 00:00 97.0 114 20 109/73 96 09/16/16 20:00 98.2 128 18 156/72 98 09/16/16 16:00 98.9 125 19 150/84 98 09/16/16 12:00 99.1 108 18 129/79 99 I/O 09/16/16 09/16/16 09/16/16 09/17/16 09/17/16 09/17/16 07:00 15:00 23:00 07:00 15:00 23:00 Intake Total 0 ml 140 ml 640 ml Output Total 1050 ml 3000 ml 450 ml 1350 ml Balance -1050 ml -3000 ml -310 ml -710 ml Intake Oral 0 ml 140 ml 480 ml IV Total 160 ml Output Urine Total 1050 ml 3000 ml 450 ml 1350 ml # Voids 0 # Bowel Movements 1 0 0 Result Diagram: 09/16/16 0525 09/16/16 0525 Imaging Allergies Coded Allergies Type Severity Reaction Last Updated Verified Rifampin Allergy Severe Nausea/Vomiting 09/15/16 Yes Recent Impressions Lower Extremity Ultrasound 09/16/16 0000 Signed Impressions: Service Date/Time: Friday, September 16, 2016 11:36 - CONCLUSION: No evidence of deep venous thrombosis within the lower extremities. Antonio Maza MD Chest X-Ray 09/16/16 0000 Signed Impressions: Service Date/Time: Friday, September 16, 2016 11:03 - CONCLUSION: 1. Pulmonary infiltrates consistent with moderate pulmonary vascular congestion versus pneumonia. Clinical correlation is recommended. 2. Cardiomegaly. Antonio Maza MD Abdomen Ultrasound 09/16/16 0000 Signed Impressions: Service Date/Time: Friday, September 16, 2016 07:55 - CONCLUSION: 1. Thick- walled gallbladder containing stones. If there is clinical concern for acute cholecystitis a hepatobiliary scan may be helpful to confirm cystic duct obstruction. 2. Mild prominence of the common bile duct. Correlation with alkaline phosphatase and bilirubin levels is suggested to rule out hepatobiliary obstruction. 3. Enlarged fatty liver. 4. Splenomegaly. Antonio Maza MD Chest X-Ray 09/15/16 0000 Signed Impressions: Service Date/Time: Thursday, September 15, 2016 12:49 - CONCLUSION: No acute cardiopulmonary abnormality is identified. Nehemias Giordano MD //// 06:00 18:00 06:00 18:00 06:00 18:00 Intake Total 3000 ml 400 ml 780 ml Output Total 50 ml 1300 ml 3450 ml 1350 ml Balance 2950 ml -900 ml -3450 ml -570 ml Intake Oral 400 ml 620 ml IV Total 3000 ml 160 ml Output Urine Total 50 ml 1300 ml 3450 ml 1350 ml # Voids 1 0 # Bowel Movements 0 1 0 Laboratory Tests Test 09/15/16 09/15/16 09/15/16 09/15/16 11:30 12:30 15:15 17:48 Sodium Level 129 MEQ/L 137 MEQ/L Potassium Level 4.5 MEQ/L 4.2 MEQ/L Chloride Level 95 MEQ/L 104 MEQ/L Carbon Dioxide Level 18.0 MEQ/L 19.4 MEQ/L Anion Gap 16 MEQ/L 14 MEQ/L Blood Urea Nitrogen 55 MG/DL 54 MG/DL Creatinine 3.50 MG/DL 3.00 MG/DL Estimat Glomerular Filtration 13 ML/MIN 16 ML/MIN Rate Random Glucose 449 MG/DL 118 MG/DL Lactic Acid Level 5.1 mmol/L 3.4 mmol/L 3.7 mmol/L Calcium Level 9.3 MG/DL 8.7 MG/DL Magnesium Level 1.5 MG/DL Total Bilirubin 0.5 MG/DL Aspartate Amino Transf 46 U/L (AST/SGOT) Alanine Aminotransferase 36 U/L (ALT/SGPT) Alkaline Phosphatase 41 U/L Total Protein 8.5 GM/DL Albumin 2.4 GM/DL B-Hydroxybutyrate 0.56 MMOL/L White Blood Count 12.7 TH/MM3 Red Blood Count 3.65 MIL/MM3 Hemoglobin 10.2 GM/DL Hematocrit 30.5 % Mean Corpuscular Volume 83.5 FL Mean Corpuscular Hemoglobin 28.0 PG Mean Corpuscular Hemoglobin 33.5 % Concent Red Cell Distribution Width 14.9 % Platelet Count 188 TH/MM3 Mean Platelet Volume 8.9 FL Neutrophils (%) (Auto) 94.6 % Lymphocytes (%) (Auto) 3.0 % Monocytes (%) (Auto) 2.1 % Eosinophils (%) (Auto) 0.1 % Basophils (%) (Auto) 0.2 % Neutrophils # (Auto) 12.0 TH/MM3 Lymphocytes # (Auto) 0.4 TH/MM3 Monocytes # (Auto) 0.3 TH/MM3 Eosinophils # (Auto) 0.0 TH/MM3 Basophils # (Auto) 0.0 TH/MM3 CBC Comment DIFF FINAL Differential Comment Hemoglobin A1c 10.0 % Urine Collection Type CATH Urine Color YELLOW Urine Turbidity MARKED Urine pH 5.0 Urine Specific [place] 1.019 Urine Protein 30 mg/dL Urine Glucose (UA) 250 mg/dL Urine Ketones NEG mg/dL Urine Occult Blood MOD Urine Nitrite NEG Urine Bilirubin NEG Urine Leukocyte Esterase MOD Urine WBC 50-99 /hpf Urine WBC Clumps MOD Urine Squamous Epithelial 0-2 /hpf Cells Urine Transitional Epithelial 0-2 /hpf Cells Urine Amorphous Sediment FEW Urine Bacteria FEW /hpf Microscopic Urinalysis Comment CULTURE INDICATED Test 09/16/16 09/16/16 09/16/16 09/16/16 05:25 10:40 13:40 16:15 White Blood Count 8.8 TH/MM3 Red Blood Count 3.51 MIL/MM3 Hemoglobin 9.7 GM/DL Hematocrit 29.6 % Mean Corpuscular Volume 84.5 FL Mean Corpuscular Hemoglobin 27.6 PG Mean Corpuscular Hemoglobin 32.7 % Concent Red Cell Distribution Width 14.8 % Platelet Count 159 TH/MM3 Mean Platelet Volume 8.5 FL Neutrophils (%) (Auto) 90.6 % Lymphocytes (%) (Auto) 6.4 % Monocytes (%) (Auto) 2.3 % Eosinophils (%) (Auto) 0.5 % Basophils (%) (Auto) 0.2 % Neutrophils # (Auto) 8.0 TH/MM3 Lymphocytes # (Auto) 0.6 TH/MM3 Monocytes # (Auto) 0.2 TH/MM3 Eosinophils # (Auto) 0.0 TH/MM3 Basophils # (Auto) 0.0 TH/MM3 CBC Comment AUTO DIFF Differential Comment AUTO DIFF CONFIRMED Sodium Level 136 MEQ/L Potassium Level 4.5 MEQ/L Chloride Level 103 MEQ/L Carbon Dioxide Level 20.3 MEQ/L Anion Gap 13 MEQ/L Blood Urea Nitrogen 46 MG/DL Creatinine 2.00 MG/DL Estimat Glomerular Filtration 25 ML/MIN Rate Random Glucose 57 MG/DL Lactic Acid Level 2.2 mmol/L 2.3 mmol/L 2.0 mmol/L Calcium Level 8.4 MG/DL Phosphorus Level 2.9 MG/DL Magnesium Level 1.4 MG/DL Total Bilirubin 0.4 MG/DL Aspartate Amino Transf 66 U/L (AST/SGOT) Alanine Aminotransferase 42 U/L (ALT/SGPT) Alkaline Phosphatase 40 U/L Total Protein 7.5 GM/DL Albumin 2.1 GM/DL Total Creatine Kinase 37 U/L 26 U/L Troponin I 0.02 NG/ML 0.02 NG/ML Thyroid Stimulating Hormone 1.030 uIU/ML 3rd Gen Test 09/16/16 22:25 Total Creatine Kinase 25 U/L Troponin I LESS THAN 0.02 NG/ML Procedure Category Date Status Time Complete Blood Count LAB 09/15/16 Complete With Diff 11:16 Comprehensive LAB 09/15/16 Complete Metabolic Panel 11:16 Magnesium (Mg) LAB 09/15/16 Complete 11:16 Beta Hydroxybutyrate LAB 09/15/16 Complete (Acetone) 11:16 Lactic Acid LAB 09/15/16 Complete 11:16 Urinalysis - C+S If LAB 09/15/16 Complete Indicated 11:16 Blood Culture MARIANNE 09/15/16 In Process 11:16 Blood Glucose TX 09/15/16 Transmitted 11:16 Blood Glucose TX 09/15/16 Transmitted 12:16 Ecg Monitoring TX 09/15/16 Transmitted 11:16 Iv Access TX 09/15/16 Transmitted Insert/Monitor 11:16 Oximetry TX 09/15/16 Transmitted 11:16 NPO TX 09/15/16 Transmitted 11:16 Sodium Chlor 0.9% MED 09/15/16 Complete 1000 Ml Inj (Ns 1000 M 11:16 Sodium Chlor 0.9% MED 09/15/16 Complete 1000 Ml Inj (Ns 1000 M 11:46 Sodium Chloride 0.9% MED 09/15/16 In Process Flush (Ns Flush) 11:30 ^ Straight Catheter KENIA 09/15/16 In Process 11:16 Electrocardiogram CAV 09/15/16 Resulted Insulin Human Regular MED 09/15/16 Complete Inj (Novolin R Inj 11:30 Chest, Single Ap RADDIAG 09/15/16 Resulted Urine Culture MARIANNE 09/15/16 In Process 12:30 Ceftriaxone Inj MED 09/15/16 Complete (Rocephin Inj) 13:00 Admit Order (Ed Use ADMITTING 09/15/16 Transmitted Only) 13:03 Sodium Chlor 0.9% MED 09/15/16 Complete 1000 Ml Inj (Ns 1000 M 13:30 Sodium Chlor 0.9% MED 09/15/16 Complete 1000 Ml Inj (Ns 1000 M 13:30 Sodium Chlor 0.9% MED 09/15/16 Complete 1000 Ml Inj (Ns 1000 M 15:00 Dext 5%-Nacl 0.9% MED 09/15/16 Complete 1000 Ml Inj (D5w-Ns 10 15:00 Insulin Human Regular MED 09/15/16 Complete Inj (Novolin R Inj 15:00 Insulin Regular (Iv MED 09/15/16 Complete Infusion) (Novolin R 15:00 Potassium Chlor 40 MED 09/15/16 Complete Meq Premix (Kcl 40 Me 14:15 Potassium Chlor 40 MED 09/15/16 Complete Meq Premix (Kcl 40 Me 14:15 Potassium Chlor 20 MED 09/15/16 Complete Meq Premix (Kcl 20 Me 14:15 Potassium Chlor 20 MED 09/15/16 Complete Meq Premix (Kcl 20 Me 14:15 Potassium Chlor 20 MED 09/15/16 Complete Meq Premix (Kcl 20 Me 15:00 Potassium Chlor 20 MED 09/15/16 Complete Meq Premix (Kcl 20 Me 14:15 Potassium Chlor 20 MED 09/15/16 Complete Meq Premix (Kcl 20 Me 14:15 Potassium Chlor 20 MED 09/15/16 Complete Meq Premix (Kcl 20 Me 14:15 Sodium Bicarbonate MED 09/15/16 Complete 8.4% Inj (Sodium Bica 14:15 Sodium Bicarbonate MED 09/15/16 Complete 8.4% Inj (Sodium Bica 14:15 Sodium Phosphate Inj MED 09/15/16 Complete (Sodium Phosphate I 14:15 Misc Nursing MED 09/15/16 Complete Information 14:15 Chlorhexidine 2% MED 09/16/16 Complete Cloth (Chlorhexidine 04:00 Chlorhexidine 2% MED 09/15/16 Complete Cloth (Chlorhexidine 14:15 Inpatient ADMITTING 09/15/16 Transmitted Certification Lactic Acid Sepsis LAB 09/15/16 Complete Protocol 14:12 Phosphorus (Po4) LAB 09/16/16 Complete 06:00 Lactic Acid LAB 09/16/16 Complete 06:00 Complete Blood Count LAB 09/16/16 Complete With Diff 06:00 Comprehensive LAB 09/16/16 Complete Metabolic Panel 06:00 Magnesium (Mg) LAB 09/16/16 Complete 06:00 Ceftriaxone Inj MED 09/16/16 Complete (Rocephin Inj) 13:00 Basic Metabolic Panel LAB 09/15/16 Complete (Bmp) 14:42 Bladder Scan KENIA 09/15/16 In Process 15:41 Aspirin Chew (Aspirin MED 09/16/16 In Process Chew) 09:00 Insulin Detemir Inj MED 09/15/16 Complete (Levemir Inj) 21:00 Bedside Glucose KENIA 09/15/16 In Process 15:50 Blood Glucose Goal KENIA 09/15/16 In Process (Criteria) 15:50 Hypoglycemia 70 Mg/Dl KENIA 09/15/16 In Process Or < 15:[address]: Yury KENIA 09/15/16 In Process 15:50 Dextrose 50% In Lisa MED 09/15/16 In Process (Vial) Inj (D50w (Vi 16:00 Glucagon Inj MED 09/15/16 In Process (Glucagon Inj) 16:00 Insulin Aspart MED 09/15/16 In Process Supplemtl Scale 16:00 Hemoglobin (Hgb) A1c LAB 09/15/16 Complete 15:50 Sodium Chlor 0.9% MED 09/15/16 Complete 1000 Ml Inj (Ns 1000 M 16:00 Instruction KENIA 09/15/16 In Process Diet 1800 Ada Cons DIET 09/15/16 Transmitted Carb Dinner Instruction KENIA 09/15/16 In Process 18:10 Sodium Chlor 0.9% MED 09/16/16 Complete 1000 Ml Inj (Ns 1000 M 00:30 Acetaminophen MED 09/16/16 Complete (Tylenol) 01:15 Dext 5%-Nacl 0.9% MED 09/16/16 In Process 1000 Ml Inj (D5w-Ns 10 03:30 ^ Other Nursing Orders KENIA 09/16/16 In Process 06:45 Us Abdomen Complete RADUS 09/16/16 Resulted Acetaminophen MED 09/16/16 In Process (Tylenol) 09:45 Consult Pt Eval & PT 09/16/16 Logged Treat 09:32 Blood Culture MARIANNE 09/16/16 In Process 09:32 Chest, Single Ap RADDIAG 09/16/16 Resulted Creatine Kinase (Cpk) LAB 09/16/16 Complete 10:07 Creatine Kinase (Cpk) LAB 09/16/16 Complete 16:07 Creatine Kinase (Cpk) LAB 09/16/16 Complete 22:07 Troponin I LAB 09/16/16 Complete 10:07 Troponin I LAB 09/16/16 Complete 16:07 Troponin I LAB 09/16/16 Complete 22:07 Electrocardiogram CAV 09/16/16 Resulted 10:07 Electrocardiogram CAV 09/16/16 Complete 16:07 Electrocardiogram CAV 09/16/16 Complete 22:07 Magnesium Sulfate 1 MED 09/16/16 Complete Gm Premix (Magnesium 10:15 Thyroid Stimulating LAB 09/16/16 Complete Hormone 10:07 Furosemide Inj (Lasix MED 09/16/16 Complete Inj) 10:15 Lactic Acid Sepsis LAB 09/16/16 Complete Protocol 10:13 Complete Blood Count LAB 09/17/16 In Process With Diff 06:00 Comprehensive LAB 09/17/16 In Process Metabolic Panel 06:00 Magnesium (Mg) LAB 09/17/16 In Process 06:00 Phosphorus (Po4) LAB 09/17/16 In Process 06:00 Piperacil-Tazo 2.25 MED 09/16/16 Complete Gm Premix (Zosyn 2.2 11:00 Vancomycin Consult MED 09/16/16 In Process Pharmacy (Vancomycin 10:15 Us Leg Venous Doppler RADUS 09/16/16 Resulted Bilat Vancomycin Inj MED 09/16/16 Complete (Vancomycin Inj) 11:30 Random Vancomycin LAB 09/18/16 Verified 06:00 Pantoprazole MED 09/16/16 In Process (Protonix) 15:00 Heparin Inj (Heparin MED 09/16/16 In Process Inj) 22:00 Consult Infectious CONS 09/16/16 Transmitted Disease Echo 2d Comp With ECH 09/17/16 Logged Doppler (Hub Use Only)Inp Phy CONS 09/16/16 Transmitted Cons/Ref Morphine Inj MED 09/16/16 Complete (Morphine Inj) 23:30 Cefazolin Inj (Ancef MED 09/17/16 In Process Inj) 08:00 Creatinine LAB 09/18/16 Verified 06:00 Creatinine LAB 09/20/16 Verified 06:00 Creatinine LAB 09/22/16 Verified 06:00 Creatinine LAB 09/24/16 Verified 06:00 Creatinine LAB 09/26/16 Verified 06:00 Mri L Spine W/O RADMR 09/17/16 Logged Contrast Mri T Spine W/O RADMR 09/17/16 Logged Contrast Vital Signs Date Time Temp Pulse Resp B/P Pulse Ox O2 Delivery O2 Flow Rate FiO2 09/17/16 08:00 97.4 105 18 116/71 99 09/17/16 00:00 97.0 114 20 109/73 96 09/16/16 20:00 98.2 128 18 156/72 98 09/16/16 16:00 98.9 125 19 150/84 98 09/16/16 12:00 99.1 108 18 129/79 99 09/16/16 08:00 100.9 124 18 136/72 98 09/16/16 00:00 101.7 140 18 146/70 97 09/15/16 20:00 99.7 135 16 130/91 96 09/15/16 15:43 100 18 131/60 98 Room Air 09/15/16 15:00 90 18 139/59 99 Room Air 09/15/16 14:02 90 18 103/53 100 Room Air 09/15/16 12:53 92 18 95/51 96 Room Air 09/15/16 12:12 18 96 Room Air 09/15/16 11:54 92 18 94/51 96 Room Air 09/15/16 10:55 98.1 100 18 91/60 95 Objective Remarks GENERAL: Pleasant female laying down in hospital bed. Appears to be short of breath, but able to maintain adequate conversation with eye contact. SKIN: Warm and dry. HEAD: Normocephalic. EYES: No scleral icterus. No injection or drainage. NECK: Supple, trachea midline. No JVD or lymphadenopathy. CARDIOVASCULAR: Regular rate and rhythm without murmurs, gallops, or rubs. RESPIRATORY: Breath sounds equal bilaterally. No accessory muscle use. GASTROINTESTINAL: Abdomen soft, nondistended. Abdominal tenderness elicited with palpation of RUQ. MUSCULOSKELETAL: No cyanosis, or edema. BACK: Nontender without obvious deformity. No CVA tenderness. A/P Assessment and Plan Sepsis: - Sepsis secondary to methicillin sensitive staph aureus urinary tract infection and subsequent methicillin sensitive staph aureus bacteremia - Continue IV fluids - Patient is still tachycardic, blood pressure has normalized, afebrile - WBC count trending down - ID consulted and recommended continuation of IV Vancomycin with pharmacy to dose, discontinuation of IV Zosyn and initiation of Cefazolin 1 g IV q8hrs - Echocardiogram pending - Check MRI Lumbosacral spine - Staph aureus bacteremia, urinary retention, weakness UTI: - UA showed 50-99 WBCs and moderate WBC clumps. - Continue the antibiotics as above. - Barney catheter in place - Urine culture grew staph aureus Diabetes: - not well controlled - at home patient is on metformin, glyburide and levemir - FBG is 500s on admission - on Novolog sliding scale and Levemir in house Respiratory distress: - Patient is complaining of shortness of breath and tachypneic and in moderate respiratory distress on exam. - CXR order stat and showed pulmonary infiltrates likely due to moderate pulmonary congestion versus pneumonia. - Check 2-D echocardiogram - bilateral venous Dopplers since left lower extremity looks slightly greater than the right lower extremity - Given pulmonary vessel congestion, gave 40 mg of IV Lasix and hold IV fluids for now. Hypoglycemia: - hypoglycemia events 09/16 with FBG in the 50s - patient was sweating profusely - nurse held Novolog injections and administered D5 - montor levels with acccheck LEON: - Likely secondary to prerenal azotemia and severe dehydration due to urinary tract infection, sepsis and concomitant diabetes ketoacidosis with hyperglycemia. - Continue IV fluids, continue to monitor BUN/creatinine, monitor strict I's and O's, will avoid nephrotoxins - Renal ultrasound was unremarkable and did not show hydronephrosis, renal stones or obstructive pathology Anuria and oliguria: - As above. - Continue to monitor strict I's and O's. Suspect secondary to acute kidney injury. - Barney catheter in place Elevated Lactic Acid: - Patient with elevated lactic acid level 5.1. Likely multifactorial and secondary to severe dehydration, sepsis, and possibly secondary to use of metformin. - Will discontinue metformin and consider permanent discontinuation due to history of lactic acidosis on previous admission as well. - 09/16 Lactic acid improved 2.2 Hypotension: - Secondary to sepsis and severe dehydration secondary to DKA. - Blood pressure normalized at this time Hyponatremia: - Likely hypovolemic hyponatremia from severe dehydration. - 09/16 improved, Na 136 High AG metabolic acidosis: - Anion gap metabolic acidosis on admission at 14 with elevated lactic acid and hydroxybutyric acid, secondary to DKA. - Anion gap has decreased, most recent 13 - Lactic acid level has decreased Elevated AST: - Unknown etiology - hepatitis profile and continue to monitor LFTs. - Abdominal ultrasound showed: Thick-walled gallbladder containing stones and mild prominence of the common bile duct, enlarged fatty liver and splenomegaly. - Patient is currently have RUQ abdominal pain that began overnight. - Order HIDA scan for evaluation of acute cholecystitis Anna Miranda Sep 17, 2016 09:14 Colby Sepulveda MD Sep 17, 2016 14:25
[2016-09-17 09:22] LABS: AUTOMATED NEUTROPHIL # 4.8 TH/MM3 (1.8-7.7); BASOPHIL % 0.3 % (0.0-2.0); EOSINOPHIL # 0.1 TH/MM3 (0-0.4); EOSINOPHIL % 1.4 % (0.0-4.0); HEMATOCRIT 27.7 % (35.0-46.0); LYMPH % 9.3 % (9.0-44.0); LYMPHOCYTE # 0.5 TH/MM3 (1.0-4.8); MEAN CELL VOLUME 84.9 FL (80.0-100.0); MEAN CORPUSCULAR HEMOGLOBIN 27.7 PG (27.0-34.0); MEAN CORPUSCULAR HGB CONC 32.6 % (32.0-36.0); MONO % 4.7 % (0.0-8.0); NEUT % 84.3 % (16.0-70.0); PLATELET COUNT 147 TH/MM3 (150-450); RED BLOOD COUNT 3.27 MIL/MM3 (4.00-5.30); RED CELL DISTRIBUTION WIDTH 15.4 % (11.6-17.2); WHITE BLOOD COUNT 5.7 TH/MM3 (4.0-11.0)
[2016-09-17 09:26] LABS: HEMO FLAGS DIFF FINAL
[2016-09-17 10:05] LABS: ALKALINE PHOSPHATASE 42 U/L (45-117); ALT (GPT) 45 U/L (10-53); ANION GAP 10 MEQ/L (5-15); AST (GOT) 43 U/L (15-37); BICARBONATE 24.8 MEQ/L (21.0-32.0); BLOOD UREA NITROGEN 30 MG/DL (7-18); CHLORIDE 101 MEQ/L (98-107); GLOMERULAR FILTRATION RATE 35 ML/MIN (>89); POTASSIUM 4.2 MEQ/L (3.5-5.1); SODIUM (NA) 136 MEQ/L (136-145); TOTAL BILIRUBIN ADULT 0.6 MG/DL (0.2-1.0)
--- NOTE | 2016-09-17 10:44 | RADRPT ---
EXAM DATE/TIME: 09/17/2016 10:26 [facility] COMPARISON: CHEST SINGLE AP, September 16, 2016, 11:03. INDICATIONS : Shortness of breath, infiltrate. MEDICAL HISTORY : Hypercholesterolemia. Arthritis. Osteoporosis. Left renal cancer - frozen. Headache. HTN. Stage III r enal failure. Diabetes. Depression. SURGICAL HISTORY : Appendectomy. section. Multiple hernia repairs. Bilateral carpel tunnel release. Renal biops y. ENCOUNTER: Subsequent ACUITY: 3 days PAIN SCORE: 0/10 LOCATION: Chest FINDINGS: There is interval slight improvement of the diffuse bilateral pulmonary infiltrates with mild residua l infiltrates remaining. The heart is stable. CONCLUSION: 1. Slight interval improved aeration of the diffuse infiltrates with mild infiltrates remaining. Antonio Maza MD on September 17, 2016 at 10:35 Board Certified Radiologist. This report was verified electronically.
--- NOTE | 2016-09-17 12:54 | HHI.PR ---
Subjective Remarks Patient c/o abdominal pain - localized in right upper quadrant and epigastric region denies cp, sob is improved. patient sating 99% on 3 liters nasal canula Objective Vitals Vital Signs Date Time Temp Pulse Resp B/P Pulse Ox O2 Delivery O2 Flow Rate FiO2 09/17/16 08:55 99 Nasal Cannula 3.00 09/17/16 08:00 97.4 105 18 116/71 99 09/17/16 00:00 97.0 114 20 109/73 96 09/16/16 20:00 98.2 128 18 156/72 98 09/16/16 16:00 98.9 125 19 150/84 98 I/O 09/16/16 09/16/16 09/16/16 09/17/16 09/17/16 09/17/16 07:00 15:00 23:00 07:00 15:00 23:00 Intake Total 0 ml 140 ml 640 ml Output Total 1050 ml 3000 ml 450 ml 1350 ml Balance -1050 ml -3000 ml -310 ml -710 ml Intake Oral 0 ml 140 ml 480 ml IV Total 160 ml Output Urine Total 1050 ml 3000 ml 450 ml 1350 ml # Voids 0 # Bowel Movements 1 0 0 Result Diagram: 09/17/16 0850 09/17/16 0850 Imaging Last Impressions Chest X-Ray 09/17/16 0000 Signed Impressions: Service Date/Time: Saturday, September 17, 2016 10:26 - CONCLUSION: 1. Slight interval improved aeration of the diffuse infiltrates with mild infiltrates remaining. Antonio Maza MD Lower Extremity Ultrasound 09/16/16 0000 Signed Impressions: Service Date/Time: Friday, September 16, 2016 11:36 - CONCLUSION: No evidence of deep venous thrombosis within the lower extremities. Antonio Maza MD Abdomen Ultrasound 09/16/16 0000 Signed Impressions: Service Date/Time: Friday, September 16, 2016 07:55 - CONCLUSION: 1. Thick- walled gallbladder containing stones. If there is clinical concern for acute cholecystitis a hepatobiliary scan may be helpful to confirm cystic duct obstruction. 2. Mild prominence of the common bile duct. Correlation with alkaline phosphatase and bilirubin levels is suggested to rule out hepatobiliary obstruction. 3. Enlarged fatty liver. 4. Splenomegaly. Antonio Maza MD Objective Remarks GENERAL: This is a well-nourished, well-developed patient, not in respiratory distress SKIN: No rashes, ecchymoses or lesions. Cool and dry. HEAD: Atraumatic. Normocephalic. No temporal or scalp tenderness. EYES: Pupils equal round and reactive. Extraocular motions intact. No scleral icterus. No injection or drainage. ENT: Nose without bleeding, purulent drainage or septal hematoma. Throat without erythema, tonsillar hypertrophy or exudate. Uvula midline. Airway patent. NECK: Trachea midline. No JVD or lymphadenopathy. Supple, nontender, no meningeal signs. CARDIOVASCULAR: Regular rate and rhythm without murmurs, gallops, or rubs. RESPIRATORY: clear to auscultation BL. No wheezing, rhonchi auscultated. GASTROINTESTINAL: Abdomen soft, non-tender, nondistended. No hepato-splenomegaly , or palpable masses. No guarding. MUSCULOSKELETAL: Extremities without clubbing, cyanosis, or edema. No joint tenderness, effusion, or edema noted. No calf tenderness. Negative Homans sign bilaterally. NEUROLOGICAL: Awake and alert. Cranial nerves II through XII intact. Motor and sensory grossly within normal limits. Five out of 5 muscle strength in all muscle groups. Normal speech Medications and IVs Current Medications Medications (Trade) Dose Ordered Sig/Cosme Route Start Time Stop Time Status Last Admin (NS Flush) 2 ml UNSCH PRN IVF 09/15/16 11:30 (Aspirin Chew) 81 mg DAILY CHEW 09/16/16 09:00 09/17/16 08:52 (D50w (Vial) Inj) 50 ml UNSCH PRN IV 09/15/16 16:00 (Glucagon Inj) 1 mg UNSCH PRN OTHER 09/15/16 16:00 09/16/16 05:25 Acetaminophen 650 mg 650 mg Q4H PRN PO 09/16/16 09:45 (Vancomycin Consult Pharmacy) 0 ml @ 0 mls/hr UNSCH OTHER 09/16/16 10:15 (Protonix) 40 mg DAILY PO 09/16/16 15:00 09/17/16 08:52 Heparin Sodium (Porcine) 5000 units 5,000 units Q8HR SQ 09/16/16 22:00 09/17/16 05:53 Cefazolin Sodium 1000 mg/Sodium Chloride 100 ml @ 200 mls/hr Q8H IV 09/17/16 08:00 09/17/16 08:38 (NS 1000 ml Inj) 1,000 ml @ 42 mls/hr [id number] IV 09/17/16 14:00 UNV Urinary Catheter: No Vascular Central Line Catheter: No A/P Problem List: (1) Sepsis ICD Code: A41.9 Status: Acute Plan: Sepsis secondary to urinary tract infection. Patient was admitted to the medical floor given that his blood sugars improved and now Closed prior to being admitted. Patient's Eulalia IV Rocephin. Blood cultures growing Staphylococcus aureus, urine cultures are positive for staph aureus as well. On 09/16 Rocephin was discontinued and the patient started in IV vancomycin and IV Zosyn and ID consulted. 09/17 appreciate ID consultation. Recommended to continue IV vancomycin and discontinue Zosyn and start cephalexin. Repeat blood cultures are still positive. Continue IV antibiotics as per ID recommendations. (2) UTI (urinary tract infection) ICD Code: N39.0 Status: Acute Plan: Continue the antibiotics as above. (3) LEON (acute kidney injury) ICD Code: N17.9 Status: Acute Plan: Likely secondary to prerenal azotemia and severe dehydration due to urinary tract infection, sepsis and concomitant diabetes ketoacidosis with hyperglycemia. Continue IV fluids, continue to monitor BUN/creatinine, monitor strict I's and O 's, would nephrotoxins 09/16 abdominal ultrasound ordered, it showed thick-walled gallbladder containing stones. Mild prominence of the common bile duct. Enlarged fatty liver. Splenomegaly. Creatinine trending down, continue IV fluids and pain control. 09/17 creatinine continues to trend down, 1.5 today. I will resume IV normal saline very gently at 42 mL per hour. (4) Anuria and oliguria ICD Code: R34 Status: Acute Plan: Patient without urine output upon admission. Started on IV fluids. 09/17 excellent urine output, continue IV fluids. (5) Elevated lactic acid level ICD Code: R79.89 Status: Acute Plan: Patient with elevated lactic acid level 5.1. Likely multifactorial and secondary to severe dehydration, sepsis, and possibly secondary to use of metformin. Please note that the patient had lactic acid of more than 4 on past admission on July 2016 where her lactic acid went up to 4 with no clear infection to explain the patient was in sepsis. I think the patient should have the metformin discontinued permanently since it can cause lactic acidosis. 09/16 lactic acid down to a normal level of 2.0 after IV fluid administration. (6) Hypotension ICD Code: I95.9 Status: Acute Plan: Secondary to sepsis and severe dehydration secondary to DKA. Status post IV normal saline bolus and admitted maintenance fluids the patient status post 3 L IV normal saline boluses in the emergency department but still significantly dehydrated with dry mucous membranes on exam. 09/16 hypotension now resolved with stable blood pressures. Continue to monitor vital signs. (7) Hyponatremia ICD Code: E87.1 Status: Acute Plan: Likely hypovolemic hyponatremia from severe dehydration. Continue normal saline and continue to monitor BMP. / resolved after IV fluid administration. Continue to monitor BMP (8) High anion gap metabolic acidosis ICD Code: E87.2 Status: Acute Plan: Anion gap metabolic acidosis with elevated hydroxybutyric acid, secondary to DKA. I will order a stat BMP and confirm the patient's elevated anion gap. Blood sugars much better as per RN down to 175. If BMP shows a closed anion gap then will admit to the medical floor on subcutaneous insulin, more specifically basal bolus therapy with insulin Levemir and prandial insulin NovoLog. I will also cover blood sugars with SSI on insulin NovoLog. 09/17 Metabolic acidosis resolved. Anion gap closed. (9) Elevated AST (SGOT) ICD Code: R74.0 Status: Acute Plan: Possibly secondary to fatty liver as described in abdominal ultrasound. There is also a thick-walled gallbladder containing stones, however patient is asymptomatic without abdominal pain. Continue to monitor liver function test. 09/17 AST trending down. check hepatitis profile. Will order a HIDA scan. (10) Generalized weakness ICD Code: R53.1 Status: Acute Plan: Physical therapy evaluation. (11) Respiratory distress ICD Code: R06.00 Status: Acute Plan: Patient is complaining of shots of breath and tachypneic and in moderate respiratory distress on exam. Chest x-ray order stat and reviewed by me showed pulmonary infiltrates likely due to moderate pulmonary congestion versus pneumonia. 09/17 DVT ruled out with venous Doppler. Patient states had a 2-D echocardiogram recently at [facility]. Will request records. Respiratory distress much improved. Status post 40 mg IV of IV Lasix on 09/16. (12) Bacteremia ICD Code: R78.81 Status: Acute Plan: The patient is growing Staphylococcus aureus and blood cultures. Consult infectious disease. Continue IV antibiotics as stated above. 09/17 Still has positive cultures growing gram positive cocci on repeat blood cultures. Management as per ID. (13) Hypomagnesemia ICD Code: E83.42 Status: Acute Plan: Likely due to nutritional deficiency. Replaced with magnesium sulfate IV. Magnesium within normal range today. (14) Hypoglycemia ICD Code: E16.2 Status: Acute Plan: Continue to Hold insulin Levemir, continue SSI with insulin NovoLog. Patient was started on D5NS will review was placed on hold due to fluid overload. 09/17 Blood sugars stable, no further hypoglycemia. Discontinue D5. Assessment and Plan GI prophylaxis: Will add PPI. DVT prophylaxis: SCDs, Lovenox subcutaneously. Discharge Planning Continue to monitor in the medical floor. Patient Bacteremic. HIDA scan pending. Problem Qualifiers (1) Sepsis: Qualified Code: A41.9 - Sepsis, due to unspecified organism (2) UTI (urinary tract infection): Qualified Code: N30.00 - Acute cystitis without hematuria (3) Hypotension: Qualified Code: I95.9 - Hypotension, unspecified hypotension type Colby Sepulveda MD Sep 17, 2016 12:54
[2016-09-17] MEDS ORDERED: GADOBENATE DIM PF 529 MG/ML 20ML VIAL (for RAD MRI) IV ONE (15:42)
[2016-09-17] MEDS: SODIUM CHLOR 0.9% 1000 ML INJ 1,000 ML IV SCH (15:42)
--- NOTE | 2016-09-17 15:51 | RADRPT ---
EXAM DATE/TIME: 09/17/2016 13:59 [facility] COMPARISON: No previous studies available for comparison. INDICATIONS : Abscess. Unable to ambulate. CONTRAST: 20 cc Multihance (gadobenate) IV MEDICAL HISTORY : Renal insufficiency, chronic. SURGICAL HISTORY : Inguinal hernia repair. ENCOUNTER: Initial ACUITY: 3 day PAIN SCORE: 4/10 LOCATION: Back TECHNIQUE: Multiplanar multisequence MRI of the lumbar spine was performed with and without contrast. FINDINGS: The most caudal appearing lumbar vertebra is numbered as L5. VERTEBRAE: Homogeneous signal. Normal alignment. CONUS: Normal level and configuration. Lipoma of the filum terminale is noted. POST CONTRAST: No abnormal areas of contrast enhancement are seen. There is no evidence of abscess collection. T12-L1: The thecal sac has a normal diameter. No evidence of disc bulge or protrusion. The neural foramina are patent bilaterally. L1-L2: The thecal sac has a normal diameter. No evidence of disc bulge or protrusion. The neural foramina are patent bilaterally. L2-L3: The thecal sac has a normal diameter. No evidence of disc bulge or protrusion. The neural foramina are patent bilaterally. L3-L4: The thecal sac has a normal diameter. No evidence of disc bulge or protrusion. The neural foramina are patent bilaterally. L4-L5: The thecal sac has a normal diameter. No evidence of disc bulge or protrusion. The neural foramina are patent bilaterally. L5-S1: The thecal sac has a normal diameter. No evidence of disc bulge or protrusion. The neural foramina are patent bilaterally. CONCLUSION: 1. No evidence of abscess collection. 2. No spinal stenosis, focal disc herniation, fracture or osteomyelitis. 3. Lipoma of the filum terminale. Antonio Maza MD on September 17, 2016 at 15:41 Board Certified Radiologist. This report was verified electronically.
--- NOTE | 2016-09-17 16:01 | RADRPT ---
EXAM DATE/TIME: 09/17/2016 13:59 [facility] COMPARISON: No previous studies available for comparison. INDICATIONS : Abscess. Unable to ambulate. CONTRAST: 20 cc MultiHance (gadobenate) IV MEDICAL HISTORY : Renal insufficiency, chronic. SURGICAL HISTORY : Inguinal hernia repair. ENCOUNTER: Initial ACUITY: 3 day PAIN SCORE: 3/10 LOCATION: Back TECHNIQUE: Multiplanar multisequence MRI of the thoracic spine was performed. FINDINGS: By MRI, the marrow signal in the thoracic vertebrae is inhomogeneous. There is no evidence for cord compression. There is no abnormal enhancement to suggest an inflammatory process. There are mild degenerative changes at T7-T8, T8-T9 and T9-T10, worse at T9-T10. These do not cause significant impingement. T1-T2: Normal. T2-T3: The thecal sac has a normal diameter. No evidence of disc bulge or protrusion. T3-T4: The thecal sac has a normal diameter. No evidence of disc bulge or protrusion. T4-T5: The thecal sac has a normal diameter. No evidence of disc bulge or protrusion. T5-T6: The thecal sac has a normal diameter. No evidence of disc bulge or protrusion. T6-T7: The thecal sac has a normal diameter. No evidence of disc bulge or protrusion. T7-T8: The thecal sac has a normal diameter. No evidence of disc bulge or protrusion. T8-T9: The thecal sac has a normal diameter. No evidence of disc bulge or protrusion. T9-T10: The thecal sac has a normal diameter. No evidence of disc bulge or protrusion. T10-T11: The thecal sac has a normal diameter. No evidence of disc bulge or protrusion. T11-T12: The thecal sac has a normal diameter. No evidence of disc bulge or protrusion. T12-L1: The thecal sac has a normal diameter. No evidence of disc bulge or protrusion. CONCLUSION: I do not see evidence for an abscess. I do not see any radiographic reason for the patient's inabili ty to ambulate. Ulises Leonard MD FACR on September 17, 2016 at 15:54 Board Certified Radiologist. This report was verified electronically.
--- NOTE | 2016-09-17 23:17 | EKG ---
Date Performed: 09/16/2016 Time Performed: 22:21:16 PTAGE: 66 years EKG: SINUS TACHYCARDIA LOW QRS VOLTAGE IN PRECORDIAL LEADS ABNORMAL RHYTHM ECG PREVIOUS TRACING : 09/16/2016 16.12 Compared to prior tracing no significant change DOCTOR: Walker Mcclendon Interpretating Date/Time 09/17/2016 23:15:37
--- NOTE | 2016-09-17 23:34 | EKG ---
Date Performed: 09/16/2016 Time Performed: 16:12:20 PTAGE: 66 years EKG: SINUS TACHYCARDIA LOW QRS VOLTAGE IN PRECORDIAL LEADS ABNORMAL RHYTHM ECG PREVIOUS TRACING : 09/16/2016 10.39 Compared to prior tracing no significant change DOCTOR: Walker Mcclendon Interpretating Date/Time 09/17/2016 23:33:25
[2016-09-18] VITALS (7 sets, daily range): BP systolic 106–139; BP diastolic 66–73; PULSE 85–97; RESP 16–22; TEMP 96–97.7; O2SAT 94–100
[2016-09-18] MEDS: HEPARIN SODIUM - SQ 10,000 UNITS/ML VIAL SQ SCH ×3 (05:41→21:03)
[2016-09-18 06:15] LABS: AUTOMATED NEUTROPHIL # 4.4 TH/MM3 (1.8-7.7); BASOPHIL % 0.4 % (0.0-2.0); EOSINOPHIL # 0.1 TH/MM3 (0-0.4); EOSINOPHIL % 1.7 % (0.0-4.0); HEMATOCRIT 27.1 % (35.0-46.0); LYMPH % 11.5 % (9.0-44.0); LYMPHOCYTE # 0.6 TH/MM3 (1.0-4.8); MEAN CELL VOLUME 83.8 FL (80.0-100.0); MEAN CORPUSCULAR HEMOGLOBIN 26.8 PG (27.0-34.0); MONO % 4.7 % (0.0-8.0); NEUT % 81.7 % (16.0-70.0); PLATELET COUNT 144 TH/MM3 (150-450); RED BLOOD COUNT 3.23 MIL/MM3 (4.00-5.30); RED CELL DISTRIBUTION WIDTH 14.8 % (11.6-17.2); WHITE BLOOD COUNT 5.4 TH/MM3 (4.0-11.0)
[2016-09-18 06:17] LABS: HEMO FLAGS DIFF FINAL
[2016-09-18 06:25] LABS: CHLORIDE 104 MEQ/L (98-107); POTASSIUM 3.8 MEQ/L (3.5-5.1); SODIUM (NA) 139 MEQ/L (136-145)
[2016-09-18 06:30] LABS: ANION GAP 12 MEQ/L (5-15); BICARBONATE 23.5 MEQ/L (21.0-32.0); BLOOD UREA NITROGEN 33 MG/DL (7-18)
[2016-09-18 06:33] LABS: ALT (GPT) 35 U/L (10-53); AST (GOT) 31 U/L (15-37); GLOMERULAR FILTRATION RATE 41 ML/MIN (>89)
[2016-09-18 06:34] LABS: TOTAL BILIRUBIN ADULT 0.5 MG/DL (0.2-1.0)
[2016-09-18 06:36] LABS: ALKALINE PHOSPHATASE 51 U/L (45-117)
[2016-09-18] MEDS: INSULIN ASPART SUPPLEMENTAL SCALE SQ SCH ×4 (07:00→21:00)
[2016-09-18] MEDS: ASPIRIN 81 MG CHEW TAB CHEW SCH (10:10)
[2016-09-18] MEDS: PANTOPRAZOLE SOD 40 MG DELAYED RELEASE TAB PO SCH (10:10)
--- NOTE | 2016-09-18 10:58 | RADRPT ---
EXAM DATE/TIME: 09/18/2016 08:12 [facility] COMPARISON: No previous studies available for comparison. INDICATIONS : Abdominal pain. DOSE: 4.3 mCi Tc99m Mebrofenin IV MEDICAL HISTORY : Hypertension. Diabetes mellitus type 2. Carcinoma, renal. SURGICAL HISTORY : Appendectomy. ENCOUNTER: Initial ACUITY: 1 day PAIN SCALE: 5/10 LOCATION: Right upper quadrant TECHNIQUE: Following the intravenous administration of radiotracer, dynamic sequential images were performed wit h continuous acquisition. FINDINGS: HEPATIC KINETICS: There is prompt uptake of radiotracer in the liver. No focal defects are seen. There is normal rate of washout from the hepatic parenchyma. BILIARY CLEARANCE: Activity is first seen in the extrahepatic biliary system at 15 minutes. There is normal excretion i nto the small bowel. GALLBLADDER: Activity is first seen in the gallbladder at 15 minutes. Common bile duct kinetics are normal and th ere is no evidence of biliary obstruction. BILIARY ENTRIC REFLUX: None observed. CONCLUSION: Negative study Nehemias Gonsales MD on September 18, 2016 at 10:55 Board Certified Radiologist. This report was verified electronically.
[2016-09-18] MEDS: VANCOMYCIN INJ 1,600 MG in SODIUM CHLORID 0.9% 500 ML INJ 500 ML IV SCH (12:16)
[2016-09-18] MEDS: SODIUM CHLOR 0.9% 1000 ML INJ 1,000 ML IV SCH (12:16)
--- NOTE | 2016-09-18 12:34 | PD.WCN.NOT ---
Wound Consult Description: Patient seen on 3rd floor [facility] for screening of possible pressure injury noted with nursing documentation. Patient turned to L side with assistance of telegraphic typewriter installer. Removed adhesive foam dressing in place to reveal unstageable pressure injury to coccyx area. Cleansed wound with normal saline. Wound bed presents with 50% pink tissue and 50% yellow slough.Wound noted with minimal sero-sanguinous drainage without odor. Wound measures 3cm x 0.8 cm x slough. Periwound is noted with erythema that is blanchable. Wound appears to have mixed etiology of pressure , moisture,and friction. Applied skin prep to periwound and covered wound with Optifoam gentle adhesive foam 6 x 6 dressing. Pillow placed under patient's L buttock to offload pressure.Positioned patient for comfort before lowering bed to safe height. Patient unable to tell telegraphic typewriter installer how or when wound occurred.When asked patient if she is sitting or laying in place for long periods of time at home. Patient nodded and agreed that she tends to not move. Discussed the importance of repositioning in bed to relieve pressure with patient.Patient verbalizes understanding and adherence with repositioning in bed. Communicated with: VIET Farah [facility] and Doctor Mcdaniel Recommendation: Please cleanse wound to coccyx with normal saline only and apply Santyl ointment megan thick coverage to wound bed and cover with dry cover dressing. Please change dressing daily.Please apply skin prep to periwound before applying adhesives to the skin Additional Information: If patient remains in hospital, patient will need a specialty pressure relieving bed. Case Finisher is following patient. Greer Self [facility] Sep 18, 2016 12:34
--- NOTE | 2016-09-18 16:39 | HHI.PR ---
Subjective Remarks She seen and evaluated today in follow-up for MSSA sepsis due to bacteremia and UTI. Currently tolerating antibiotics. Patient's echo is pending. Objective Vitals Vital Signs Date Time Temp Pulse Resp B/P Pulse Ox O2 Delivery O2 Flow Rate FiO2 09/18/16 12:00 97.2 85 20 122/67 100 09/18/16 08:05 97 Nasal Cannula 2.00 09/18/16 08:00 97.7 92 22 106/66 97 09/18/16 00:00 96.0 97 18 110/72 100 09/17/16 21:25 95 Nasal Cannula 2.00 09/17/16 20:00 Nasal Cannula 2.00 09/17/16 20:00 98.3 106 22 122/6 94 I/O 09/17/16 09/17/16 09/17/16 09/18/16 09/18/16 09/18/16 06:59 14:59 22:59 06:59 14:59 22:59 Intake Total 640 ml 910 ml 560 ml Output Total 1350 ml 850 ml 800 ml Balance -710 ml 60 ml -240 ml Intake Oral 480 ml 560 ml IV Total 160 ml 910 ml Output Urine Total 1350 ml 850 ml 800 ml # Bowel Movements 0 3 Result Diagram: 09/18/16 0520 09/18/16 0520 Imaging Last Impressions Hepatobiliary Scan Nuclear Medicine 09/18/16 0000 Signed Impressions: Service Date/Time: August 08:12 - CONCLUSION: Negative study Nehemias Gonsales MD Thoracic Spine MRI 09/17/16 0000 Signed Impressions: Service Date/Time: Saturday, September 17, 2016 13:59 - CONCLUSION: I do not see evidence for an abscess. I do not see any radiographic reason for the patient' s inability to ambulate. Ulises Leonard MD FACR Lumbar Spine MRI 09/17/16 0000 Signed Impressions: Service Date/Time: Saturday, September 17, 2016 13:59 - CONCLUSION: 1. No evidence of abscess collection. 2. No spinal stenosis, focal disc herniation, fracture or osteomyelitis. 3. Lipoma of the filum terminale. Antonio Maza MD Chest X-Ray 09/17/16 0000 Signed Impressions: Service Date/Time: Saturday, September 17, 2016 10:26 - CONCLUSION: 1. Slight interval improved aeration of the diffuse infiltrates with mild infiltrates remaining. Antonio Maza MD Lower Extremity Ultrasound 09/16/16 0000 Signed Impressions: Service Date/Time: Friday, September 16, 2016 11:36 - CONCLUSION: No evidence of deep venous thrombosis within the lower extremities. Antonio Maza MD Abdomen Ultrasound 09/16/16 0000 Signed Impressions: Service Date/Time: Friday, September 16, 2016 07:55 - CONCLUSION: 1. Thick- walled gallbladder containing stones. If there is clinical concern for acute cholecystitis a hepatobiliary scan may be helpful to confirm cystic duct obstruction. 2. Mild prominence of the common bile duct. Correlation with alkaline phosphatase and bilirubin levels is suggested to rule out hepatobiliary obstruction. 3. Enlarged fatty liver. 4. Splenomegaly. Antonio Maza MD Objective Remarks GENERAL: This is a frail obese, well-developed patient, in no apparent distress. CARDIOVASCULAR: Regular rate and rhythm without murmurs, gallops, or rubs. RESPIRATORY: Clear to auscultation. Breath sounds equal bilaterally. No wheezes , rales, or rhonchi. GASTROINTESTINAL: Abdomen soft, non-tender, nondistended. Normal active bowel sounds MUSCULOSKELETAL: Extremities without clubbing, cyanosis, or edema. NEURO: Alert & Oriented x4 to person, place, time, situation. Moves all ext x4 A/P Problem List: (1) Sepsis ICD Code: A41.9 Status: Acute Plan: Sepsis secondary to MSSA urinary tract infection/bacteremia. continue IV vancomycin and cephalexin. Repeat blood cultures are still positive. Need to repeat blood cultures after antibiotics have continued ID following (2) UTI (urinary tract infection) ICD Code: N39.0 Status: Acute Plan: MSSA, continue current antibiotic plan (3) LEON (acute kidney injury) ICD Code: N17.9 Status: Acute Plan: Improved after IV fluids (4) Hypotension ICD Code: I95.9 Status: Resolved Plan: Multifactorial due to severe dehydration and sepsis, continue IV fluids Patient normally hypertensive, we'll continue to hold lisinopril until renal function and blood pressure has stabilized (5) Elevated AST (SGOT) ICD Code: R74.0 Status: Acute Plan: improved HIDA negative (6) Generalized weakness ICD Code: R53.1 Status: Acute Plan: Physical therapy evaluation Patient lives at home Problem Qualifiers (1) Sepsis: Qualified Code: A41.9 - Sepsis, due to unspecified organism (2) UTI (urinary tract infection): Qualified Code: N30.00 - Acute cystitis without hematuria (3) Hypotension: Qualified Code: I95.9 - Hypotension, unspecified hypotension type Carmen Mcdaniel MD Sep 18, 2016 16:39
--- NOTE | 2016-09-18 18:49 | HHI.IDPN ---
Subjective Subjective Remarks ID FU DR WHALEY NO FEVER OR CHILLS STILL C/O DIZZINESS / NO NVD MORE AWAKE Antibiotics VANCOMYCIN ANCEF (Kesha Coronado) Remarks No more fevers Antibiotics IV Cefazolin (Janice Whaley MD) Allergies: Coded Allergies: Rifampin (Verified Allergy, Severe, Nausea/Vomiting, 09/15/16) STOMACH CRAMPS Review of Systems Constitutional Constitutional: Weakness (Kesha Coronado) Musculoskeletal Musculoskeletal: Weakness (Kesha Coronado) Objective . Vital Signs Date Time Temp Pulse Resp B/P Pulse Ox O2 Delivery O2 Flow Rate FiO2 09/18/16 16:00 96.8 87 20 126/72 97 09/18/16 12:00 97.2 85 20 122/67 100 09/18/16 08:05 97 Nasal Cannula 2.00 09/18/16 08:00 97.7 92 22 106/66 97 09/18/16 00:00 96.0 97 18 110/72 100 09/17/16 21:25 95 Nasal Cannula 2.00 09/17/16 20:00 Nasal Cannula 2.00 09/17/16 20:00 98.3 106 22 122/6 94 09/17/16 09/17/16 09/18/16 15:00 23:00 07:00 Intake Total 910 ml 560 ml Output Total 850 ml 800 ml Balance 60 ml -240 ml Intake Oral 560 ml IV Total 910 ml Output Urine Total 850 ml 800 ml # Bowel Movements 3 . Laboratory Tests Test 09/17/16 09/18/16 08:50 05:20 White Blood Count 5.7 TH/MM3 5.4 TH/MM3 Red Blood Count 3.27 MIL/MM3 3.23 MIL/MM3 Hemoglobin 9.0 GM/DL 8.7 GM/DL Hematocrit 27.7 % 27.1 % Mean Corpuscular Volume 84.9 FL 83.8 FL Mean Corpuscular Hemoglobin 27.7 PG 26.8 PG Mean Corpuscular Hemoglobin 32.6 % 32.0 % Concent Red Cell Distribution Width 15.4 % 14.8 % Platelet Count 147 TH/MM3 144 TH/MM3 Mean Platelet Volume 8.6 FL 8.6 FL Neutrophils (%) (Auto) 84.3 % 81.7 % Lymphocytes (%) (Auto) 9.3 % 11.5 % Monocytes (%) (Auto) 4.7 % 4.7 % Eosinophils (%) (Auto) 1.4 % 1.7 % Basophils (%) (Auto) 0.3 % 0.4 % Neutrophils # (Auto) 4.8 TH/MM3 4.4 TH/MM3 Lymphocytes # (Auto) 0.5 TH/MM3 0.6 TH/MM3 Monocytes # (Auto) 0.3 TH/MM3 0.3 TH/MM3 Eosinophils # (Auto) 0.1 TH/MM3 0.1 TH/MM3 Basophils # (Auto) 0.0 TH/MM3 0.0 TH/MM3 CBC Comment DIFF FINAL DIFF FINAL Differential Comment Laboratory Tests Test 09/16/16 09/17/16 09/18/16 22:25 08:50 05:20 Total Creatine Kinase 25 U/L Troponin I LESS THAN 0.02 NG/ML Sodium Level 136 MEQ/L 139 MEQ/L Potassium Level 4.2 MEQ/L 3.8 MEQ/L Chloride Level 101 MEQ/L 104 MEQ/L Carbon Dioxide Level 24.8 MEQ/L 23.5 MEQ/L Anion Gap 10 MEQ/L 12 MEQ/L Blood Urea Nitrogen 30 MG/DL 33 MG/DL Creatinine 1.50 MG/DL 1.30 MG/DL Estimat Glomerular Filtration 35 ML/MIN 41 ML/MIN Rate Random Glucose 133 MG/DL 144 MG/DL Calcium Level 7.6 MG/DL 7.7 MG/DL Phosphorus Level 2.5 MG/DL 2.2 MG/DL Magnesium Level 2.0 MG/DL 2.0 MG/DL Total Bilirubin 0.6 MG/DL 0.5 MG/DL Aspartate Amino Transf 43 U/L 31 U/L (AST/SGOT) Alanine Aminotransferase 45 U/L 35 U/L (ALT/SGPT) Alkaline Phosphatase 42 U/L 51 U/L B-Type Natriuretic Peptide 81 PG/ML Total Protein 7.3 GM/DL 7.3 GM/DL Albumin 1.9 GM/DL 1.8 GM/DL Microbiology Date/Time Procedure Status Source Growth 09/16/16 10:30 Aerobic Blood Culture - Final Complete Blood Peripheral Staphylococcus Aureus 09/16/16 10:30 Anaerobic Blood Culture - Final Complete Staphylococcus Aureus 09/16/16 10:45 Aerobic Blood Culture - Final Complete Blood Peripheral Staphylococcus Aureus 09/16/16 10:45 Anaerobic Blood Culture - Final Complete Staphylococcus Aureus Physical Exam GENERAL: A/ OX3 HEENT: PERRL NS CHEST: LUNGS DIMINISHED EQUAL CARDIAC: DISTANT ABD : ROUND SOFT/ ACTIVE EXT : NO FEVER / GENERAL WEAKNESS (Kesha Coronado) Physical Exam No cellulitis (Janice Whaley MD) Assessment & Plan Diagnosis: (1) Bacteremia (2) Sepsis (3) Staphylococcus aureus bacteremia with sepsis Plan: PT WITH HIGH GRADE BACTEREMIA NO OBVIOUS SOURCE MRI/ NEGATIVE SO FAR HIDA NORMAL NEEDS ECHO( PT REPORTS HAVING ONE AT [facility] 2 WEEKS AGO) IF NEGATIVE WILL NEED PERLA STOP VANCOMYCIN CONTINUE ANCEF FU SEEN EXAM WITH DR WHALEY (Kesha Coronado) Diagnosis: (1) Bacteremia (2) Sepsis (3) Staphylococcus aureus bacteremia with sepsis Plan: PT WITH HIGH GRADE BACTEREMIA NO OBVIOUS SOURCE MRI/ NEGATIVE SO FAR HIDA NORMAL NEEDS ECHO( PT REPORTS HAVING ONE AT [facility] 2 WEEKS AGO) IF NEGATIVE WILL NEED PERLA STOP VANCOMYCIN CONTINUE ANCEF FU SEEN EXAM WITH DR WHALEY If Echocardiogram is negative - will need PERLA. (Janice Whaley MD) Problem Qualifiers (1) Sepsis: Qualified Code: A41.9 - Sepsis, due to unspecified organism Kesha Coronado Sep 18, 2016 18:49 Janice Whaley MD Sep 18, 2016 19:44
[2016-09-19] VITALS (7 sets, daily range): BP systolic 122–157; BP diastolic 66–76; PULSE 58–95; RESP 14–20; TEMP 96.7–98.9; O2SAT 93–100
[2016-09-19] MEDS: HEPARIN SODIUM - SQ 10,000 UNITS/ML VIAL SQ SCH ×3 (06:06→20:07)
[2016-09-19] MEDS: INSULIN ASPART SUPPLEMENTAL SCALE SQ SCH ×4 (06:08→20:07)
[2016-09-19] MEDS: PANTOPRAZOLE SOD 40 MG DELAYED RELEASE TAB PO SCH (08:27)
[2016-09-19] MEDS: ASPIRIN 81 MG CHEW TAB CHEW SCH (09:00)
--- NOTE | 2016-09-19 13:08 | ECHRPT ---
Indication: sepsis poss endocarditis CONCLUSIONS BP: / HR: Rhythm: MEASUREMENTS (Male / Female) Normal Values Technical Quality:Fair 2D ECHO LV Diastolic Diameter PLAX 4.0 cm 4.2 - 5.9 / 3.9 - 5.3 cm LV Systolic Diameter PLAX 2.7 cm IVS Diastolic Thickness 1.3 cm 0.6 - 1.0 / 0.6 - 0.9 cm LVPW Diastolic Thickness 1.1 cm 0.6 - 1.0 / 0.6 - 0.9 cm LV Relative Wall Thickness 0.6 RV Internal Dim ED PLAX 2.9 cm M-MODE Aortic Root Diameter MM 2.6 cm LA Systolic Diameter MM 2.9 cm LA Ao Ratio MM 1.1 AV Cusp Separation MM 2.3 cm DOPPLER MV Area PHT 2.5 cm Mitral E Point Velocity 52.8 cm/s Mitral A Point Velocity 68.6 cm/s Mitral E to A Ratio 0.8 LV E' Lateral Velocity 6.9 cm/s Mitral E to LV E' Lateral Ratio 7.6 LV E' Septal Velocity 7.4 cm/s Mitral E to LV E' Septal Ratio 7.1 TR Peak Velocity 314.0 cm/s TR Peak Gradient 39.4 mmHg FINDINGS LEFT VENTRICLE Normal left ventricular size. Borderline left ventricular hypertrophy. The left ventricular systolic function is normal with an estimated ejection fraction in the range of 60-65%. RIGHT VENTRICLE Normal right ventricular size and systolic function. LEFT ATRIUM The left atrial size is normal. RIGHT ATRIUM The right atrial size is normal. ATRIAL SEPTUM Normal atrial septal thickness without atrial level shunting by limited color doppler interrogation. AORTA The aortic root and proximal ascending aorta are normal in size on limited imaging. MITRAL VALVE Mild mitral annular calcification. Trace mitral valve regurgitation. AORTIC VALVE Trileaflet aortic valve. No aortic valve stenosis or regurgitation. TRICUSPID VALVE Structurally normal tricuspid valve. There is mild tricuspid valve regurgitation. The estimated pulmonary arterial pressure is _39_ mmHg. PULMONARY VALVE No pulmonary valve regurgitation or stenosis. VESSELS The inferior vena cava was not well visualized. PERICARDIUM No pericardial effusion. Carlyle Diaz MD (Electronically Signed) Final Date:19 September 2016 13:07
[2016-09-19] MEDS: VANCOMYCIN INJ 1,600 MG in SODIUM CHLORID 0.9% 500 ML INJ 500 ML IV SCH (14:34)
--- NOTE | 2016-09-19 14:53 | HHI.PR ---
Subjective Remarks Patient seen in follow up for sepsis due to uti and bactermia No fevers, Patient feels better Outpatient echo 09/08 unremarkable, inpatient echo 09/19 unremarkable Objective Vitals Vital Signs Date Time Temp Pulse Resp B/P Pulse Ox O2 Delivery O2 Flow Rate FiO2 09/19/16 12:40 98.0 89 14 126/76 95 09/19/16 09:53 96.9 58 16 137/72 100 09/19/16 07:50 98 Nasal Cannula 1.00 09/19/16 00:00 96.7 94 18 122/66 97 09/18/16 20:45 94 Nasal Cannula 1.00 09/18/16 20:00 Nasal Cannula 1.00 09/18/16 20:00 97.2 94 16 139/73 96 09/18/16 16:00 96.8 87 20 126/72 97 I/O 09/18/16 09/18/16 09/18/16 09/19/16 09/19/16 09/19/16 07:00 15:00 23:00 07:00 15:00 23:00 Intake Total 560 ml 450 ml 2344 ml 463 ml Output Total 800 ml 800 ml Balance -240 ml -350 ml 2344 ml 463 ml Intake Oral 560 ml 450 ml 550 ml IV Total 1794 ml 463 ml Output Urine Total 800 ml 800 ml # Bowel Movements 3 2 1 Result Diagram: 09/18/1651909/18/16 05 Objective Remarks GENERAL: This is a frail obese, well-developed patient, in no apparent distress. CARDIOVASCULAR: Regular rate and rhythm without murmurs, gallops, or rubs. RESPIRATORY: Clear to auscultation. Breath sounds equal bilaterally. No wheezes , rales, or rhonchi. GASTROINTESTINAL: Abdomen soft, non-tender, nondistended. Normal active bowel sounds MUSCULOSKELETAL: Extremities without clubbing, cyanosis, or edema. NEURO: Alert & Oriented x4 to person, place, time, situation. Moves all ext x4 gluteal cleft ulcers, pink A/P Problem List: (1) Sepsis ICD Code: A41.9 Status: Acute Plan: Sepsis secondary to MSSA urinary tract infection/bacteremia. continue IV cephalexin. Repeat blood cultures are still positive. Need to repeat blood cultures after antibiotics have continued ID following (2) UTI (urinary tract infection) ICD Code: N39.0 Status: Acute Plan: MSSA, continue current antibiotic plan (3) LEON (acute kidney injury) ICD Code: N17.9 Status: Resolved Plan: Improved after IV fluids (4) Hypotension ICD Code: I95.9 Status: Resolved Plan: Multifactorial due to severe dehydration and sepsis, continue IV fluids Patient normally hypertensive, we'll add coreg (5) Elevated AST (SGOT) ICD Code: R74.0 Status: Resolved Plan: improved HIDA negative (6) Generalized weakness ICD Code: R53.1 Status: Acute Plan: Physical therapy evaluation appreciated Patient lives at home sacral ulcers noted, cont wound care Discharge Planning Repeat blood cultures Problem Qualifiers (1) Sepsis: Qualified Code: A41.9 - Sepsis, due to unspecified organism (2) UTI (urinary tract infection): Qualified Code: N30.00 - Acute cystitis without hematuria (3) Hypotension: Qualified Code: I95.9 - Hypotension, unspecified hypotension type Carmen Mcdaniel MD Sep 19, 2016 14:53
[2016-09-19] MEDS: CARVEDILOL 6.25 MG TAB PO SCH (20:07)
[2016-09-20] VITALS: BP 117/74; PULSE 83; RESP 20; TEMP 96.4; O2SAT 94
[2016-09-20] MEDS: HEPARIN SODIUM - SQ 10,000 UNITS/ML VIAL SQ SCH ×3 (04:52→21:15)
[2016-09-20] MEDS: INSULIN ASPART SUPPLEMENTAL SCALE SQ SCH ×4 (07:00→21:00)
[2016-09-20 08:00] VITALS: BP 156/82; PULSE 80; RESP 20; TEMP 97.6; O2SAT 96
[2016-09-20 08:13] LABS: AUTOMATED NEUTROPHIL # 3.1 TH/MM3 (1.8-7.7); BASOPHIL % 0.3 % (0.0-2.0); EOSINOPHIL # 0.1 TH/MM3 (0-0.4); EOSINOPHIL % 2.3 % (0.0-4.0); HEMATOCRIT 27.3 % (35.0-46.0); HEMO FLAGS DIFF FINAL; LYMPH % 19.4 % (9.0-44.0); LYMPHOCYTE # 0.9 TH/MM3 (1.0-4.8); MEAN CELL VOLUME 83.9 FL (80.0-100.0); MEAN CORPUSCULAR HEMOGLOBIN 26.5 PG (27.0-34.0); MEAN CORPUSCULAR HGB CONC 31.6 % (32.0-36.0); MONO % 6.7 % (0.0-8.0); NEUT % 71.3 % (16.0-70.0); PLATELET COUNT 217 TH/MM3 (150-450); RED BLOOD COUNT 3.25 MIL/MM3 (4.00-5.30); WHITE BLOOD COUNT 4.4 TH/MM3 (4.0-11.0)
[2016-09-20 08:24] LABS: POTASSIUM 4.4 MEQ/L (3.5-5.1)
[2016-09-20 08:26] VITALS: O2SAT 94
[2016-09-20 08:26] LABS: BICARBONATE 23.4 MEQ/L (21.0-32.0)
[2016-09-20] MEDS: ASPIRIN 81 MG CHEW TAB CHEW SCH (09:00)
[2016-09-20] MEDS: CARVEDILOL 6.25 MG TAB PO SCH ×2 (09:00→21:15)
[2016-09-20] MEDS: PANTOPRAZOLE SOD 40 MG DELAYED RELEASE TAB PO SCH (09:00)
[2016-09-20 12:01] VITALS: BP 133/75; PULSE 80; RESP 20; TEMP 97; O2SAT 94
--- NOTE | 2016-09-20 12:28 | HHI.PR ---
Subjective Remarks Seen in room. Feels better today. No new complaints today and blood cultures have been taken. Blood pressures improved on Coreg. We will plan of treatment discussed with patient and spouse at bedside Objective Vitals Vital Signs Date Time Temp Pulse Resp B/P Pulse Ox O2 Delivery O2 Flow Rate FiO2 09/20/16 12:01 97.0 80 20 133/75 94 09/20/16 08:26 94 09/20/16 08:00 97.6 80 20 156/82 96 09/20/16 07:38 Room Air 09/20/16 00:00 96.4 83 20 117/74 94 09/19/16 20:35 93 21 09/19/16 20:00 97.6 92 20 143/74 95 09/19/16 20:00 Nasal Cannula 1.00 09/19/16 16:30 98.9 95 16 157/75 95 09/19/16 15:19 Nasal Cannula 1.00 09/19/16 12:40 98.0 89 14 126/76 95 I/O 09/19/16 09/19/16 09/19/16 09/20/16 09/20/16 09/20/16 07:00 15:00 23:00 07:00 15:00 23:00 Intake Total 463 ml 1060 ml 1230 ml Output Total 500 ml 750 ml Balance 463 ml 560 ml 480 ml Intake Oral 1060 ml 60 ml IV Total 463 ml 1170 ml Output Urine Total 500 ml 750 ml # Voids 2 # Bowel Movements 1 1 Result Diagram: 09/20/16 0754 09/20/16 0754 Objective Remarks GENERAL: This is a frail obese, well-developed patient, in no apparent distress. CARDIOVASCULAR: Regular rate and rhythm without murmurs, gallops, or rubs. RESPIRATORY: Clear to auscultation. Breath sounds equal bilaterally. No wheezes , rales, or rhonchi. GASTROINTESTINAL: Abdomen soft, non-tender, nondistended. Normal active bowel sounds MUSCULOSKELETAL: Extremities without clubbing, cyanosis, or edema. NEURO: Alert & Oriented x4 to person, place, time, situation. Moves all ext x4 gluteal cleft ulcers, pink A/P Problem List: (1) Sepsis ICD Code: A41.9 Status: Acute Plan: resolving sepsis secondary to MSSA urinary tract infection/bacteremia. continue IV cephalexin. 09/16 blood cultures are still positive. Repeat blood cultures completed today ID following may need robert if bc still positive for possible endocarditis (TTE 09/08, and here are neg) (2) UTI (urinary tract infection) ICD Code: N39.0 Status: Acute Plan: MSSA, continue current antibiotic plan repeat ua (3) Hypotension ICD Code: I95.9 Status: Resolved Plan: Multifactorial due to severe dehydration and sepsis, continue IV fluids Patient normally hypertensive, cont coreg, dc acei (4) Generalized weakness ICD Code: R53.1 Status: Acute (5) DM2 (diabetes mellitus, type 2) ICD Code: E11.9 Status: Acute Plan: uncontroleld; resume amaryl Hemoglobin A1c is 10 cont ssi Assessment and Plan heparin dvt ppx Discharge Planning may need robert Problem Qualifiers (1) Sepsis: Qualified Code: A41.9 - Sepsis, due to unspecified organism (2) UTI (urinary tract infection): Qualified Code: N30.00 - Acute cystitis without hematuria (3) Hypotension: Qualified Code: I95.9 - Hypotension, unspecified hypotension type Carmen Mcdaniel MD Sep 20, 2016 12:28
[2016-09-20 16:01] VITALS: BP 145/91; PULSE 89; RESP 19; TEMP 98.3; O2SAT 94
[2016-09-20 19:53] LABS: BLOOD, URINE SMALL (NEG); KETONE, URINE NEG (NEG); NITRITE,URINE NEG (NEG)
[2016-09-20 20:03] LABS: GLUCOSE,URINE 1000 OR GREATER mg/dL (NEG)
[2016-09-20 20:05] LABS: URINE COLOR YELLOW (YELLW/STRAW)
[2016-09-20 20:06] LABS: RBC, URINE 0-3 /hpf (0-3); SQUAMOUS EPITHELIAL CELL URINE 0-5 /hpf (0-5)
[2016-09-20 20:07] LABS: COMMENT (UR) CATH-CULTURE IND; CULTURE IF INDICATED CATH CULTURE IND; WBC, URINE 15-19 /hpf (0-5)
[2016-09-20 20:23] VITALS: BP 138/66; PULSE 91; RESP 18; TEMP 97.7; O2SAT 92; O2SAT 93
[2016-09-21] VITALS (17 sets, daily range): BP systolic 100–159; BP diastolic 66–85; PULSE 71–93; RESP 12–20; TEMP 96.4–98.6; O2SAT 91–98
[2016-09-21] MEDS: HEPARIN SODIUM - SQ 10,000 UNITS/ML VIAL SQ SCH ×3 (06:11→20:51)
[2016-09-21] MEDS: INSULIN ASPART SUPPLEMENTAL SCALE SQ SCH ×5 (06:18→20:59)
--- NOTE | 2016-09-21 08:22 | HHI.PR ---
Subjective Remarks Patient seen today in room in follow-up for bacteremia. No new complaints Objective Vitals Vital Signs Date Time Temp Pulse Resp B/P Pulse Ox O2 Delivery O2 Flow Rate FiO2 09/21/16 07:53 93 09/21/16 00:58 96.4 82 12 142/73 93 09/20/16 20:23 92 21 09/20/16 20:23 97.7 91 18 138/66 93 09/20/16 19:00 96 Room Air 09/20/16 16:01 98.3 89 19 145/91 94 09/20/16 12:01 97.0 80 20 133/75 94 09/20/16 08:26 94 I/O 09/20/16 09/20/16 09/20/16 09/21/16 09/21/16 09/21/16 07:00 15:00 23:00 07:00 15:00 23:00 Intake Total 1230 ml 800 ml Output Total 750 ml 300 ml 1000 ml 330 ml Balance 480 ml 500 ml -1000 ml -330 ml Intake Oral 60 ml 800 ml IV Total 1170 ml Output Urine Total 750 ml 300 ml 1000 ml 330 ml # Bowel Movements 1 2 Result Diagram: 09/20/16 0754 09/20/16 0754 Objective Remarks GENERAL: This is a frail obese, well-developed patient, in no apparent distress. CARDIOVASCULAR: Regular rate and rhythm without murmurs, gallops, or rubs. RESPIRATORY: Clear to auscultation. Breath sounds equal bilaterally. No wheezes , rales, or rhonchi. GASTROINTESTINAL: Abdomen soft, non-tender, nondistended. Normal active bowel sounds MUSCULOSKELETAL: Extremities without clubbing, cyanosis, or edema. NEURO: Alert & Oriented x4 to person, place, time, situation. Moves all ext x4 gluteal cleft ulcers, pink A/P Problem List: (1) Sepsis ICD Code: A41.9 Status: Acute Plan: resolving sepsis secondary to MSSA urinary tract infection/bacteremia. continue IV cephalexin. 09/16 blood cultures are still positive. Repeat blood cultures and urine culture pending from 09/20 ID following may need robert if bc still positive for possible endocarditis (TTE 09/08, and here are neg) (2) UTI (urinary tract infection) ICD Code: N39.0 Status: Acute Plan: MSSA, continue current antibiotic plan Repeat culture pending (3) Generalized weakness ICD Code: R53.1 Status: Acute Plan: Activity encourage, patient poorly motivated PT eval appreciated (4) DM2 (diabetes mellitus, type 2) ICD Code: E11.9 Status: Acute Plan: Uncontrolled Continue amaryl, add levemir 8 units Hemoglobin A1c is 10 cont ssi (5) HTN (hypertension) ICD Code: I10 Status: Acute Plan: cont coreg, Previously hypotensive and medications have been adjusted due to hypotension and acute kidney injury Assessment and Plan heparin dvt ppx Discharge Planning may need robert Problem Qualifiers (1) Sepsis: Qualified Code: A41.9 - Sepsis, due to unspecified organism (2) UTI (urinary tract infection): Qualified Code: N30.00 - Acute cystitis without hematuria Carmen Mcdaniel MD Sep 21, 2016 08:22
[2016-09-21] MEDS: COLLAGENASE OINT 30 GM TUBE TOPICAL SCH (09:00)
--- NOTE | 2016-09-21 09:16 | HHI.IDPN ---
Subjective Subjective Remarks No more fevers Sitting up in chair Feels a lot better No shortness of breath Antibiotics IV Cefazolin Past Medical History 1. Insulin-dependent diabetes mellitus. 2. Left renal cancer status post freezing 3. Hypertriglyceridemia. Past Surgical History 1. 8 incisional hernia repairs. 2. C-sections. 3. Bilateral carpal tunnel surgery 4. Left kidney freezing and right lumpectomy. Reported Medications IV Vancomycin and Zosyn Family History Positive for Diabetes Social History Lives with boyfriend Non smoker Allergies: Coded Allergies: Rifampin (Verified Allergy, Severe, Nausea/Vomiting, 09/15/16) STOMACH CRAMPS Review of Systems Constitutional Constitutional Remarks No fevers Pulmonary Pulmonary Remarks No shortness of breath Objective . Vital Signs Date Time Temp Pulse Resp B/P Pulse Ox O2 Delivery O2 Flow Rate FiO2 09/21/16 08:00 96.4 79 19 159/85 91 09/21/16 07:53 93 09/21/16 00:58 96.4 82 12 142/73 93 09/20/16 20:23 92 21 09/20/16 20:23 97.7 91 18 138/66 93 09/20/16 19:00 96 Room Air 09/20/16 16:01 98.3 89 19 145/91 94 09/20/16 12:01 97.0 80 20 133/75 94 09/20/16 09/20/16 09/21/16 15:00 23:00 07:00 Intake Total 800 ml Output Total 300 ml 1000 ml 330 ml Balance 500 ml -1000 ml -330 ml Intake Oral 800 ml Output Urine Total 300 ml 1000 ml 330 ml # Bowel Movements 2 . Laboratory Tests Test 09/20/16 07:54 White Blood Count 4.4 TH/MM3 Red Blood Count 3.25 MIL/MM3 Hemoglobin 8.6 GM/DL Hematocrit 27.3 % Mean Corpuscular Volume 83.9 FL Mean Corpuscular Hemoglobin 26.5 PG Mean Corpuscular Hemoglobin 31.6 % Concent Red Cell Distribution Width 15.0 % Platelet Count 217 TH/MM3 Mean Platelet Volume 8.3 FL Neutrophils (%) (Auto) 71.3 % Lymphocytes (%) (Auto) 19.4 % Monocytes (%) (Auto) 6.7 % Eosinophils (%) (Auto) 2.3 % Basophils (%) (Auto) 0.3 % Neutrophils # (Auto) 3.1 TH/MM3 Lymphocytes # (Auto) 0.9 TH/MM3 Monocytes # (Auto) 0.3 TH/MM3 Eosinophils # (Auto) 0.1 TH/MM3 Basophils # (Auto) 0.0 TH/MM3 CBC Comment DIFF FINAL Differential Comment Laboratory Tests Test 09/20/16 07:54 Sodium Level 144 MEQ/L Potassium Level 4.4 MEQ/L Chloride Level 111 MEQ/L Carbon Dioxide Level 23.4 MEQ/L Anion Gap 10 MEQ/L Blood Urea Nitrogen 17 MG/DL Creatinine 0.91 MG/DL Estimat Glomerular Filtration 62 ML/MIN Rate Random Glucose 240 MG/DL Calcium Level 7.9 MG/DL Microbiology Date/Time Procedure Status Source Growth 09/20/16 07:54 Aerobic Blood Culture Received Blood Peripheral Pending 09/20/16 07:54 Anaerobic Blood Culture Received Blood Peripheral Pending 09/20/16 08:00 Aerobic Blood Culture Received Blood Peripheral Pending 09/20/16 08:00 Anaerobic Blood Culture Received Blood Peripheral Pending 09/20/16 19:20 Urine Culture Received Urine Catheterized Urine Pending Physical Exam GENERAL: This is a obese chronically ill pt in no distress SKIN: No rashes, ecchymoses . Cool and dry.Superficial skin breakdown on back HEAD: Atraumatic. Normocephalic. No temporal or scalp tenderness. EYES: Pupils equal round and reactive. Extraocular motions intact. No scleral icterus. No injection or drainage. ENT: Nose without bleeding, purulent drainage or septal hematoma. Throat without erythema, tonsillar hypertrophy or exudate. Uvula midline. Airway patent. NECK: Trachea midline. No JVD or lymphadenopathy. Supple, nontender, no meningeal signs. CARDIOVASCULAR: Regular rate and rhythm with a systolic murmur, no, gallops, or rubs. RESPIRATORY: Clear to auscultation. Breath sounds equal bilaterally. No wheezes , rales, or rhonchi. GASTROINTESTINAL: Abdomen soft, non-tender, nondistended. No hepato-splenomegaly , or palpable masses. No guarding. MUSCULOSKELETAL: Extremities without clubbing, cyanosis, or edema. No joint tenderness, effusion, or edema noted. No calf tenderness. Negative Homans sign bilaterally. NEUROLOGICAL: Awake and alert. Cranial nerves II through XII intact. No motor deficit Assessment & Plan Diagnosis: (1) Bacteremia (2) Sepsis (3) Staphylococcus aureus bacteremia with sepsis Plan: Follow repeat blood cultures Continue IV Cefazolin Reviewed 2 D echo- no vegetation In view of high grade bacteremia- patient will require a PERLA. Problem Qualifiers (1) Sepsis: Qualified Code: A41.01 - Sepsis due to methicillin susceptible Staphylococcus aureus Janice Whaley MD Sep 21, 2016 09:16
[2016-09-21] MEDS: PANTOPRAZOLE SOD 40 MG DELAYED RELEASE TAB PO SCH (10:12)
[2016-09-21] MEDS: CARVEDILOL 6.25 MG TAB PO SCH ×2 (10:12→20:50)
[2016-09-21] MEDS: GLIMEPIRIDE 4 MG TAB PO SCH (10:13)
[2016-09-21] MEDS: ASPIRIN 81 MG CHEW TAB CHEW SCH (10:13)
[2016-09-21] MEDS ORDERED: VANCOMYCIN TROUGH ONE (11:45)
[2016-09-21] MEDS ORDERED: ACETAMINOPHEN 325 MG TAB PO PRN (19:45)
[2016-09-21] MEDS: oxyCODONE/ACETAMINOPHEN 7.5 MG/325 MG TAB PO PRN (20:50)
[2016-09-21] MEDS: LACTOBACILLUS ACIDOPHILUS TAB PO SCH (20:50)
[2016-09-21] MEDS: INSULIN DETEMIR 100 UNITS/ML VIAL SQ SCH (20:59)
[2016-09-21] MEDS: SODIUM CHLORIDE 0.9% FLUSH 10 ML FLUSH IVF PRN (21:05)
[2016-09-22] VITALS (27 sets, daily range): BP systolic 125–170; BP diastolic 69–86; PULSE 66–110; RESP 16–24; TEMP 98.3–99.1; O2SAT 93–96
--- NOTE | 2016-09-22 06:00 | MB ---
cc: NOELLE SEXTON M.D. DATE OF CONSULTATION September 21, 2016 REASON FOR CONSULTATION Evaluation for a transesophageal echo. HISTORY OF PRESENT ILLNESS This is a 66-year-old woman with Staph bacteremia who I have been requested by Infectious Disease to do a PERLA. The patient has a previous cardiac history. She has had palpitations before but has not been diagnosed with any arrhythmias. She has Staph aureus bacteremia. The patient does not have any trouble swallowing. She wears dentures. PAST MEDICAL HISTORY 1. Diabetes. 2. Left renal cancer status post freezing. 3. Hypertriglyceridemia. 4. Obesity. PAST SURGICAL HISTORY 1. Incisional hernia repair. 2. C-sections. 3. Carpal tunnel surgery. 4. Left kidney freezing. 5. Right lumpectomy. CURRENT MEDICATIONS Currently she is on IV antibiotics. SOCIAL HISTORY She is a nonsmoker. PHYSICAL EXAMINATION GENERAL: Physical exam reveals an obese, pleasant white female. VITAL SIGNS: Charted. HEENT: Exam is unremarkable. CHEST: Clear to auscultation. CARDIAC EXAM: Normal first and second heart sounds, regular rate and rhythm without murmurs or gallops. EXTREMITIES: No peripheral edema. IMAGING STUDIES She has had an echocardiogram Doppler study which shows normal left ventricular function with borderline left ventricular hypertrophy. There was some mild mitral annular calcification, trace mitral regurgitation, mild tricuspid regurgitation. No other valvular lesions. Labs and chest x-ray are charted. IMPRESSION Staph bacteremia. No contraindications to a PERLA. PLAN Informed consent has been obtained for a PERLA which will be performed tomorrow morning. All of her questions were answered. MD OSIRIS Wiseman/PERFECTO /3:36 PM /5:58 AM
[2016-09-22] MEDS: HEPARIN SODIUM - SQ 10,000 UNITS/ML VIAL SQ SCH ×3 (06:35→21:14)
[2016-09-22] MEDS: INSULIN ASPART SUPPLEMENTAL SCALE SQ SCH ×4 (06:39→21:00)
[2016-09-22] MEDS: COLLAGENASE OINT 30 GM TUBE TOPICAL SCH (09:00)
[2016-09-22] MEDS: PANTOPRAZOLE SOD 40 MG DELAYED RELEASE TAB PO SCH (09:20)
[2016-09-22] MEDS: ASPIRIN 81 MG CHEW TAB CHEW SCH (09:20)
[2016-09-22] MEDS: LACTOBACILLUS ACIDOPHILUS TAB PO SCH ×2 (09:20→21:08)
[2016-09-22] MEDS: GLIMEPIRIDE 4 MG TAB PO SCH (09:20)
[2016-09-22] MEDS: CARVEDILOL 6.25 MG TAB PO SCH ×2 (09:20→21:08)
--- NOTE | 2016-09-22 13:55 | ECHRPT ---
Indication: endocarditis CONCLUSIONS No evidence of endocarditis BP: / HR: Rhythm: Technical Quality: Medications Complications There were no complications prior to, during or in recovery from the transesophag eal echocardiogram.. Proc. Components The patient tolerated the procedure well and there were no complications.. FINDINGS LEFT VENTRICLE Normal left ventricular size and wall thickness. The left ventricular systolic function is normal wi th an estimated ejection fraction in the range of 60-65%. Left ventricular diastolic function parameters a re normal. RIGHT VENTRICLE Normal right ventricular size and systolic function. LEFT ATRIUM The left atrial size is normal. RIGHT ATRIUM The right atrial size is normal. ATRIAL APPENDAGES Normal left atrial appendage size with no evidence of thrombus formation. ATRIAL SEPTUM Normal atrial septal thickness without atrial level shunting by limited color doppler interrogation. AORTA The aortic root and proximal ascending aorta are normal in size on limited imaging. MITRAL VALVE Structurally normal mitral valve. Trace mitral valve regurgitation. AORTIC VALVE Trileaflet aortic valve. No aortic valve stenosis or regurgitation. TRICUSPID VALVE [id number] regurgitation VESSELS The inferior vena cava is normal in size. PULMONARY VALVE No pulmonary valve regurgitation or stenosis. PERICADIUM No pericardial effusion. Carlyle Diaz MD (Electronically Signed) Final Date:22 September 2016 13:55
--- NOTE | 2016-09-22 16:42 | HHI.PR ---
Subjective Remarks no complains tolerated PERLA no diarrhea, cough, urinary symptoms Objective Vitals Vital Signs Date Time Temp Pulse Resp B/P Pulse Ox O2 Delivery O2 Flow Rate FiO2 09/22/16 16:00 85 09/22/16 16:00 98.7 87 18 143/75 94 09/22/16 16:00 Room Air 09/22/16 15:00 84 09/22/16 14:00 84 09/22/16 13:00 82 09/22/16 12:00 98.8 85 18 131/69 96 09/22/16 12:00 Room Air 09/22/16 12:00 81 09/22/16 11:00 80 09/22/16 10:00 86 09/22/16 09:00 80 09/22/16 08:00 99.1 80 18 170/77 95 09/22/16 08:00 76 09/22/16 08:00 Room Air 09/22/16 07:44 94 09/22/16 07:00 74 09/22/16 06:00 72 09/22/16 05:00 76 09/22/16 04:00 70 09/22/16 03:39 98.7 75 16 125/72 96 09/22/16 03:00 72 09/22/16 02:00 70 09/22/16 01:00 66 09/22/16 00:00 72 09/21/16 23:46 98.0 74 16 100/66 95 09/21/16 23:00 71 09/21/16 22:00 74 09/21/16 21:00 80 09/21/16 20:47 95 Room Air 09/21/16 20:32 98.6 84 16 136/73 95 09/21/16 20:00 82 09/21/16 19:00 93 09/21/16 18:07 87 09/21/16 17:32 93 I/O 09/21/16 09/21/16 09/21/16 09/22/16 09/22/16 09/22/16 06:59 14:59 22:59 06:59 14:59 22:59 Intake Total 480 ml 390 ml 480 ml Output Total 330 ml 1200 ml 300 ml 400 ml Balance -330 ml -720 ml 90 ml 80 ml Intake Oral 480 ml 240 ml 480 ml IV Total 150 ml Output Urine Total 330 ml 1200 ml 300 ml 400 ml # Bowel Movements 1 0 0 Result Diagram: 09/20/16 0754 09/22/16 0421 Imaging Last Impressions Hepatobiliary Scan Nuclear Medicine 09/18/16 0000 Signed Impressions: Service Date/Time: August 08:12 - CONCLUSION: Negative study Nehemias Gonsales MD Thoracic Spine MRI 09/17/16 0000 Signed Impressions: Service Date/Time: Saturday, September 17, 2016 13:59 - CONCLUSION: I do not see evidence for an abscess. I do not see any radiographic reason for the patient' s inability to ambulate. Ulises Leonard MD FACR Lumbar Spine MRI 09/17/16 0000 Signed Impressions: Service Date/Time: Saturday, September 17, 2016 13:59 - CONCLUSION: 1. No evidence of abscess collection. 2. No spinal stenosis, focal disc herniation, fracture or osteomyelitis. 3. Lipoma of the filum terminale. Antonio Maza MD Chest X-Ray 09/17/16 0000 Signed Impressions: Service Date/Time: Saturday, September 17, 2016 10:26 - CONCLUSION: 1. Slight interval improved aeration of the diffuse infiltrates with mild infiltrates remaining. Antonio Maza MD Lower Extremity Ultrasound 09/16/16 0000 Signed Impressions: Service Date/Time: Friday, September 16, 2016 11:36 - CONCLUSION: No evidence of deep venous thrombosis within the lower extremities. Antonio Maza MD Abdomen Ultrasound 09/16/16 0000 Signed Impressions: Service Date/Time: Friday, September 16, 2016 07:55 - CONCLUSION: 1. Thick- walled gallbladder containing stones. If there is clinical concern for acute cholecystitis a hepatobiliary scan may be helpful to confirm cystic duct obstruction. 2. Mild prominence of the common bile duct. Correlation with alkaline phosphatase and bilirubin levels is suggested to rule out hepatobiliary obstruction. 3. Enlarged fatty liver. 4. Splenomegaly. Antonio Maza MD Objective Remarks awake and alert, NAD anicteric lungs clear regular rhythm abdomen soft, nontender extremities no edema neuro exam- non focal Urinary Catheter: Yes Assessment to: Remove Date of Removal: Sep 22, 2016 A/P Problem List: (1) Sepsis ICD Code: A41.9 Status: Acute (2) UTI (urinary tract infection) ICD Code: N39.0 Status: Acute (3) Generalized weakness ICD Code: R53.1 Status: Acute (4) DM2 (diabetes mellitus, type 2) ICD Code: E11.9 Status: Acute (5) HTN (hypertension) ICD Code: I10 Status: Acute Assessment and Plan (1) Sepsis ICD Code: A41.9 Status: Acute Plan: resolving sepsis secondary to MSSA - urinary tract infection/bacteremia. continue IV cephalexin. 09/15 09/16 blood cultures positive. Repeat blood cultures 09/20- negative so faR ID following PERLA negative (2) UTI (urinary tract infection)-MSSA 09/15 ICD Code: N39.0 Status: Acute Plan: MSSA, continue current antibiotic plan Repeat UA- growing yeast - 09/20 babin removed today 09/22 . recheck UA (3) Generalized weakness ICD Code: R53.1 Status: Acute Plan: Activity encourage, patient - up and ambulated today- more motivated (4) DM2 (diabetes mellitus, type 2) ICD Code: E11.9 Status: chronic Plan: Uncontrolled Continue amaryl, add levemir 8 units Hemoglobin A1c is 10 cont ssi (5) HTN (hypertension) ICD Code: I10 Status: Acute Plan: cont coreg, Previously hypotensive and medications have been adjusted due to hypotension and acute kidney injury 6. Acute Kidney injury- resolved - creatinine normal -monitor periodically Problem Qualifiers (1) Sepsis: Qualified Code: A41.01 - Sepsis due to methicillin susceptible Staphylococcus aureus (2) UTI (urinary tract infection): Qualified Code: N30.00 - Acute cystitis without hematuria Khoa Gonsales MD Sep 22, 2016 16:42
[2016-09-22] MEDS: INSULIN DETEMIR 100 UNITS/ML VIAL SQ SCH (21:14)
[2016-09-23] VITALS (24 sets, daily range): BP systolic 130–148; BP diastolic 64–78; PULSE 71–88; RESP 18–26; TEMP 97.7–99; O2SAT 94–98
[2016-09-23] MEDS: HEPARIN SODIUM - SQ 10,000 UNITS/ML VIAL SQ SCH ×3 (05:19→21:28)
[2016-09-23] MEDS: INSULIN ASPART SUPPLEMENTAL SCALE SQ SCH ×4 (05:23→21:00)
--- NOTE | 2016-09-23 08:18 | HHI.PR ---
Subjective Remarks no complains - voiding spontaneously no nausea or vomiting good formed brown BM this am - babin removed 08/23 Objective Vitals Vital Signs Date Time Temp Pulse Resp B/P Pulse Ox O2 Delivery O2 Flow Rate FiO2 09/23/16 06:00 74 09/23/16 05:00 74 09/23/16 04:05 Room Air 09/23/16 04:00 98.7 73 18 148/78 96 09/23/16 04:00 73 09/23/16 03:00 76 09/23/16 02:00 74 09/23/16 01:00 74 09/23/16 00:00 98.9 83 18 138/76 94 09/23/16 00:00 76 09/23/16 00:00 Room Air 09/22/16 23:00 76 09/22/16 22:00 80 09/22/16 21:00 80 09/22/16 20:00 99.1 87 18 142/79 94 09/22/16 20:00 81 09/22/16 19:15 Room Air 09/22/16 19:00 90 09/22/16 18:00 88 09/22/16 17:46 94 21 09/22/16 17:00 84 09/22/16 16:00 85 09/22/16 16:00 98.7 87 18 143/75 94 09/22/16 16:00 Room Air 09/22/16 15:00 84 09/22/16 14:00 84 09/22/16 13:00 82 09/22/16 12:00 98.8 85 18 131/69 96 09/22/16 12:00 Room Air 09/22/16 12:00 81 09/22/16 11:00 80 09/22/16 10:00 86 09/22/16 09:00 80 I/O 09/22/16 09/22/16 09/22/16 09/23/16 09/23/16 09/23/16 07:00 15:00 23:00 07:00 15:00 23:00 Intake Total 480 ml 1020 ml 240 ml Output Total 400 ml 650 ml 700 ml Balance 80 ml 370 ml -460 ml Intake Oral 480 ml 780 ml 240 ml IV Total 240 ml Output Urine Total 400 ml 650 ml 700 ml # Bowel Movements 0 1 Result Diagram: 09/20/16 0754 09/22/16 0421 Imaging Last Impressions Hepatobiliary Scan Nuclear Medicine 09/18/16 0000 Signed Impressions: Service Date/Time: August 08:12 - CONCLUSION: Negative study Nehemias Gonsales MD Thoracic Spine MRI 09/17/16 0000 Signed Impressions: Service Date/Time: Saturday, September 17, 2016 13:59 - CONCLUSION: I do not see evidence for an abscess. I do not see any radiographic reason for the patient' s inability to ambulate. Ulises Leonard MD FACR Lumbar Spine MRI 09/17/16 0000 Signed Impressions: Service Date/Time: Saturday, September 17, 2016 13:59 - CONCLUSION: 1. No evidence of abscess collection. 2. No spinal stenosis, focal disc herniation, fracture or osteomyelitis. 3. Lipoma of the filum terminale. Antonio Maza MD Chest X-Ray 09/17/16 0000 Signed Impressions: Service Date/Time: Saturday, September 17, 2016 10:26 - CONCLUSION: 1. Slight interval improved aeration of the diffuse infiltrates with mild infiltrates remaining. Antonio Maza MD Lower Extremity Ultrasound 09/16/16 0000 Signed Impressions: Service Date/Time: Friday, September 16, 2016 11:36 - CONCLUSION: No evidence of deep venous thrombosis within the lower extremities. Antonio Maza MD Abdomen Ultrasound 09/16/16 0000 Signed Impressions: Service Date/Time: Friday, September 16, 2016 07:55 - CONCLUSION: 1. Thick- walled gallbladder containing stones. If there is clinical concern for acute cholecystitis a hepatobiliary scan may be helpful to confirm cystic duct obstruction. 2. Mild prominence of the common bile duct. Correlation with alkaline phosphatase and bilirubin levels is suggested to rule out hepatobiliary obstruction. 3. Enlarged fatty liver. 4. Splenomegaly. Antonio Maza MD Objective Remarks awake and alert, NAD anicteric lungs clear regular rhythm abdomen soft, nontender extremities no edema, no calf tenderness neuro exam- non focal Procedures 09/22- PERLA- negative Date of Removal: Sep 22, 2016 A/P Problem List: (1) Sepsis ICD Code: A41.9 Status: Acute (2) UTI (urinary tract infection) ICD Code: N39.0 Status: Acute (3) Generalized weakness ICD Code: R53.1 Status: Acute (4) DM2 (diabetes mellitus, type 2) ICD Code: E11.9 Status: Acute (5) HTN (hypertension) ICD Code: I10 Status: Acute Assessment and Plan (1) Sepsis secondary to MSSA - urinary tract infection/bacteremia. continue IV cephalexin. 09/15 09/16 blood cultures positive. Repeat blood cultures 09/20- negative so faR ID following PERLA negative- 09/22 (2) UTI (urinary tract infection)-MSSA 09/15 ICD Code: N39.0 Status: Acute Plan: MSSA, continue current antibiotic plan Repeat UA- growing yeast - 09/20 babin removed today 09/22 .recheck UA (3) Generalized weakness ICD Code: R53.1 Status: Acute Plan: Activity encourage, patient - up and ambulating - more motivated. Improving (4) DM2 (diabetes mellitus, type 2) ICD Code: E11.9 Status: chronic Plan: Uncontrolled Continue amaryl, add levemir 8 units- increase dose (at home was on 25 units Hemoglobin A1c is 10 cont ssi (5) HTN (hypertension) ICD Code: I10 Status: Acute Plan: cont coreg, and adjust. Previously hypotensive and medications have been adjusted due to hypotension and acute kidney injury 6. Acute Kidney injury- resolved - creatinine normal -monitor periodically continue increase activity PICC line ordered 09/22 Problem Qualifiers (1) Sepsis: Qualified Code: A41.01 - Sepsis due to methicillin susceptible Staphylococcus aureus (2) UTI (urinary tract infection): Qualified Code: N30.00 - Acute cystitis without hematuria Khoa Gonsales MD Sep 23, 2016 08:18
[2016-09-23] MEDS: ASPIRIN 81 MG CHEW TAB CHEW SCH (08:54)
[2016-09-23] MEDS: COLLAGENASE OINT 30 GM TUBE TOPICAL SCH (08:54)
[2016-09-23] MEDS: PANTOPRAZOLE SOD 40 MG DELAYED RELEASE TAB PO SCH (08:54)
[2016-09-23] MEDS: CARVEDILOL 6.25 MG TAB PO SCH ×2 (08:54→21:28)
[2016-09-23] MEDS: LACTOBACILLUS ACIDOPHILUS TAB PO SCH ×2 (08:54→21:28)
[2016-09-23] MEDS: GLIMEPIRIDE 4 MG TAB PO SCH (08:54)
[2016-09-23] MEDS: INSULIN DETEMIR 100 UNITS/ML VIAL SQ SCH (21:00)
[2016-09-24] VITALS (31 sets, daily range): BP systolic 126–144; BP diastolic 66–83; PULSE 68–88; RESP 16–20; TEMP 98.1–99; O2SAT 95–98
[2016-09-24 00:52] LABS: BACTERIA, URINE RARE /hpf; BLOOD, URINE NEG (NEG); GLUCOSE,URINE 70 mg/dL (NEG); KETONE, URINE NEG (NEG); MUCUS URINE FEW /lpf (OCC); NITRITE,URINE NEG (NEG); PH, URINE 5.5 (5.0-8.5); SQUAMOUS EPITHELIAL CELL URINE <1 /hpf (0-5); URINE COLOR YELLOW (YELLW/STRAW)
[2016-09-24 00:54] LABS: COMMENT (UR) CULTURE INDICATED; CULTURE IF INDICATED CULTURE INDICATED
[2016-09-24] MEDS: HEPARIN SODIUM - SQ 10,000 UNITS/ML VIAL SQ SCH ×3 (05:36→23:08)
[2016-09-24] MEDS: INSULIN ASPART SUPPLEMENTAL SCALE SQ SCH ×4 (06:31→23:20)
[2016-09-24] MEDS: PANTOPRAZOLE SOD 40 MG DELAYED RELEASE TAB PO SCH (09:52)
[2016-09-24] MEDS: CARVEDILOL 6.25 MG TAB PO SCH ×2 (09:52→23:02)
[2016-09-24] MEDS: LACTOBACILLUS ACIDOPHILUS TAB PO SCH (09:52)
[2016-09-24] MEDS: ASPIRIN 81 MG CHEW TAB CHEW SCH (09:53)
[2016-09-24] MEDS: COLLAGENASE OINT 30 GM TUBE TOPICAL SCH (09:53)
[2016-09-24] MEDS: GLIMEPIRIDE 4 MG TAB PO SCH (09:53)
--- NOTE | 2016-09-24 10:57 | HHI.PR ---
Subjective Remarks patient feels great, no burning or dysuria on urination no flank pain no vaginal itching or discharge Objective Vitals Vital Signs Date Time Temp Pulse Resp B/P Pulse Ox O2 Delivery O2 Flow Rate FiO2 09/24/16 08:24 69 09/24/16 06:00 72 09/24/16 05:00 72 09/24/16 04:00 68 09/24/16 03:00 95 Room Air 09/24/16 03:00 71 09/24/16 03:00 98.1 73 20 143/83 95 09/24/16 02:00 74 09/24/16 01:00 78 09/24/16 00:00 88 09/23/16 23:00 71 09/23/16 23:00 98 Room Air 09/23/16 23:00 98.5 82 26 146/75 98 09/23/16 22:00 76 09/23/16 21:00 76 09/23/16 20:00 78 09/23/16 19:00 82 09/23/16 19:00 95 Room Air 09/23/16 19:00 99.0 84 24 135/70 95 09/23/16 18:01 85 09/23/16 17:08 84 09/23/16 17:08 98 21 09/23/16 16:42 81 09/23/16 15:05 97.8 82 18 130/64 98 09/23/16 15:05 98 Room Air 09/23/16 15:05 86 09/23/16 14:07 82 09/23/16 13:49 88 09/23/16 12:04 76 09/23/16 11:06 97.7 75 18 142/72 94 09/23/16 11:06 97 Room Air 09/23/16 11:06 78 I/O 09/23/16 09/23/16 09/23/16 09/24/16 09/24/16 09/24/16 07:00 15:00 23:00 07:00 15:00 23:00 Intake Total 240 ml 900 ml 340 ml Output Total 700 ml 750 ml 400 ml Balance -460 ml 150 ml -60 ml Intake Oral 240 ml 600 ml 240 ml IV Total 300 ml 100 ml Output Urine Total 700 ml 750 ml 400 ml # Bowel Movements 2 Result Diagram: 09/20/16 0754 09/22/16 0421 Imaging Last Impressions Hepatobiliary Scan Nuclear Medicine 09/18/16 0000 Signed Impressions: Service Date/Time: August 08:12 - CONCLUSION: Negative study Nehemias Gonsales MD Thoracic Spine MRI 09/17/16 0000 Signed Impressions: Service Date/Time: Saturday, September 17, 2016 13:59 - CONCLUSION: I do not see evidence for an abscess. I do not see any radiographic reason for the patient' s inability to ambulate. Ulises Leonard MD FACR Lumbar Spine MRI 09/17/16 0000 Signed Impressions: Service Date/Time: Saturday, September 17, 2016 13:59 - CONCLUSION: 1. No evidence of abscess collection. 2. No spinal stenosis, focal disc herniation, fracture or osteomyelitis. 3. Lipoma of the filum terminale. Antonio Maza MD Chest X-Ray 09/17/16 0000 Signed Impressions: Service Date/Time: Saturday, September 17, 2016 10:26 - CONCLUSION: 1. Slight interval improved aeration of the diffuse infiltrates with mild infiltrates remaining. Antonio Maza MD Lower Extremity Ultrasound 09/16/16 0000 Signed Impressions: Service Date/Time: Friday, September 16, 2016 11:36 - CONCLUSION: No evidence of deep venous thrombosis within the lower extremities. Antonio Maza MD Abdomen Ultrasound 09/16/16 0000 Signed Impressions: Service Date/Time: Friday, September 16, 2016 07:55 - CONCLUSION: 1. Thick- walled gallbladder containing stones. If there is clinical concern for acute cholecystitis a hepatobiliary scan may be helpful to confirm cystic duct obstruction. 2. Mild prominence of the common bile duct. Correlation with alkaline phosphatase and bilirubin levels is suggested to rule out hepatobiliary obstruction. 3. Enlarged fatty liver. 4. Splenomegaly. Antonio Maza MD Objective Remarks awake and alert, NAD anicteric lungs clear regular rhythm abdomen soft, nontender, no CVA tenderness extremities no edema, no calf tenderness neuro exam- non focal Procedures 09/22- PERLA- negative Date of Removal: Sep 22, 2016 A/P Assessment and Plan (1) Sepsis secondary to MSSA - urinary tract infection/bacteremia. continue IV cephalexin. 09/15 09/16 blood cultures positive. Repeat blood cultures 09/20- negative so faR ID following- IV Cefazolin 1 gm q 8 PERLA negative- 09/22 (2) UTI (urinary tract infection)-MSSA 09/15- Candiduria - Asymptomatic ICD Code: N39.0 Status: Acute Plan: MSSA, continue current antibiotic plan Repeat UA- growing yeast - 09/20 babin removed 09/22- voiding get a renal ultrasound to r/o and make sure no obstruction as etio for UTI d/w ID- no need for antifungal treatment (3) Generalized weakness- Improved ICD Code: R53.1 Status: Acute Plan: Activity encourage, patient - up and ambulating - more motivated. Improving (4) DM2 (diabetes mellitus, type 2) ICD Code: E11.9 Status: chronic Plan: Uncontrolled Continue amaryl, evemir 8 units- increase dose (at home was on 25 units Hemoglobin A1c is 10 cont ssi - better readings- continue to adjust (5) HTN (hypertension) ICD Code: I10 Status: Acute Plan: cont coreg, and adjust. Previously hypotensive and medications have been adjusted due to hypotension and acute kidney injury 6. Acute Kidney injury- resolved - creatinine normal -monitor periodically continue increase activity PICC line ordered- Vascular access - d/w them today- they want specific info and - ID clearance- for this and a stop date for antibiotic regimen. wll d.w ID- Dr. 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 Shahid ADD: 6 pm Renal ultrasound back cannot rule out abscess- get a CT to further define this . consider Urology consult if + Khoa Gonsales MD Sep 24, 2016 10:57 CM for DC planning- Problem Qualifiers (1) Sepsis: Qualified Code: A41.01 - Sepsis due to methicillin susceptible Staphylococcus aureus (2) UTI (urinary tract infection): Qualified Code: N30.00 - Acute cystitis without hematuria Khoa Gonsales MD Sep 24, 2016 10:57
[2016-09-24 14:25] LABS: HEMATOCRIT 27.1 % (35.0-46.0); MEAN CELL VOLUME 86.1 FL (80.0-100.0); MEAN CORPUSCULAR HEMOGLOBIN 27.3 PG (27.0-34.0); MEAN CORPUSCULAR HGB CONC 31.7 % (32.0-36.0); PLATELET COUNT 259 TH/MM3 (150-450); RED BLOOD COUNT 3.15 MIL/MM3 (4.00-5.30); RED CELL DISTRIBUTION WIDTH 16.9 % (11.6-17.2); REVIEW FLAG FINAL
[2016-09-24 14:34] LABS: INTERNATIONAL NORMALIZED RATIO 1.1 RATIO
--- NOTE | 2016-09-24 16:16 | RADRPT ---
EXAM DATE/TIME: 09/24/2016 11:32 [facility] COMPARISON: No previous studies available for comparison. INDICATIONS : Funguria. MEDICAL HISTORY : Hypercholesterolemia. Hypertension. Dyspnea. Headache. Kidney cancer. Stage 3 renal failure. Osteop orosis. Arthritis. Diabetes. SURGICAL HISTORY : Appendectomy. section. Hernia repairs. Carpal tunnel release bilateral hands. ENCOUNTER: Initial ACUITY: 1 day PAIN SCORE: 0/10 LOCATION: Bilateral flank MEASUREMENTS: RIGHT KIDNEY: 12.0 x 5.2 x 4.8 cm LEFT KIDNEY: 12.1 x 5.6 x 4.8 cm FINDINGS: There is a complex cystic area in the lower pole the right kidney measuring 4 cm in diameter. This is peripherally hypoechoic with central areas of increased echogenicity. The left kidney is unremarkabl e. CONCLUSION: 1. Complex cystic mass in the lower pole the right kidney. Abscess is not excluded. CT scan is recomm ended for further evaluation if clinically indicated. Alan Yadav MD on September 24, 2016 at 15:50 Board Certified Radiologist. This report was verified electronically.
--- NOTE | 2016-09-24 19:49 | HHI.IDPN ---
Subjective Subjective Remarks Chart reveiewed 66 yo ,female [facility] She presented 10 days ago with fever, altered mental stutus and was found to have persistent MSSA bacteremia Her last blood clx is finally negative @ 4th day She is on cefazoline and her 2 D echo is negative Fever resolved MS back to normal Co nback pain No hematuria Today's renal ultrasound showed complex cystic mass in the lower pole the right kidney, possibly abscess Antibiotics IV Cefazolin Past Medical History 1. Insulin-dependent diabetes mellitus. 2. Left renal cancer status post freezing 3. Hypertriglyceridemia. Past Surgical History 1. 8 incisional hernia repairs. 2. C-sections. 3. Bilateral carpal tunnel surgery 4. Left kidney freezing and right lumpectomy. Reported Medications IV Vancomycin and Zosyn Family History Positive for Diabetes Social History Lives with boyfriend Non smoker Allergies: Coded Allergies: Rifampin (Verified Allergy, Severe, Nausea/Vomiting, 09/15/16) STOMACH CRAMPS Objective . Vital Signs Date Time Temp Pulse Resp B/P Pulse Ox O2 Delivery O2 Flow Rate FiO2 09/24/16 18:00 80 09/24/16 17:00 80 09/24/16 16:00 80 09/24/16 15:30 98 Room Air 09/24/16 15:30 98.8 84 16 144/72 98 09/24/16 15:00 78 09/24/16 14:30 96 09/24/16 14:00 80 09/24/16 13:00 86 09/24/16 12:00 79 09/24/16 11:30 97 Room Air 09/24/16 11:30 99.0 77 18 137/66 97 09/24/16 11:00 82 09/24/16 10:00 80 09/24/16 09:00 88 09/24/16 08:30 96 Room Air 09/24/16 08:30 82 18 135/71 96 09/24/16 08:24 69 09/24/16 08:00 69 09/24/16 06:00 72 09/24/16 05:00 72 09/24/16 04:00 68 09/24/16 03:00 95 Room Air 09/24/16 03:00 71 09/24/16 03:00 98.1 73 20 143/83 95 09/24/16 02:00 74 09/24/16 01:00 78 09/24/16 00:00 88 09/23/16 23:00 71 09/23/16 23:00 98 Room Air 09/23/16 23:00 98.5 82 26 146/75 98 09/23/16 22:00 76 09/23/16 21:00 76 09/23/16 20:00 78 09/23/16 09/23/16 09/24/16 15:00 23:00 07:00 Intake Total 900 ml 340 ml Output Total 750 ml 400 ml Balance 150 ml -60 ml Intake Oral 600 ml 240 ml IV Total 300 ml 100 ml Output Urine Total 750 ml 400 ml # Bowel Movements 2 . Laboratory Tests Test 09/24/16 14:13 White Blood Count 6.0 TH/MM3 Red Blood Count 3.15 MIL/MM3 Hemoglobin 8.6 GM/DL Hematocrit 27.1 % Mean Corpuscular Volume 86.1 FL Mean Corpuscular Hemoglobin 27.3 PG Mean Corpuscular Hemoglobin 31.7 % Concent Red Cell Distribution Width 16.9 % Platelet Count 259 TH/MM3 Mean Platelet Volume 7.4 FL Microbiology Date/Time Procedure Status Source Growth 09/24/16 00:01 Urine Culture Received Urine Clean Catch Pending Imaging Last Impressions Renal Ultrasound 09/24/16 0000 Signed Impressions: Service Date/Time: Saturday, September 24, 2016 11:32 - CONCLUSION: 1. Complex cystic mass in the lower pole the right kidney. Abscess is not excluded. CT scan is recommended for further evaluation if clinically indicated. Alan Yadav MD Hepatobiliary Scan Nuclear Medicine 09/18/16 0000 Signed Impressions: Service Date/Time: August 08:12 - CONCLUSION: Negative study Nehemias Gonsales MD Thoracic Spine MRI 09/17/16 0000 Signed Impressions: Service Date/Time: Saturday, September 17, 2016 13:59 - CONCLUSION: I do not see evidence for an abscess. I do not see any radiographic reason for the patient' s inability to ambulate. Ulises Leonard MD FACR Lumbar Spine MRI 09/17/16 0000 Signed Impressions: Service Date/Time: Saturday, September 17, 2016 13:59 - CONCLUSION: 1. No evidence of abscess collection. 2. No spinal stenosis, focal disc herniation, fracture or osteomyelitis. 3. Lipoma of the filum terminale. Antonio Maza MD Chest X-Ray 09/17/16 Signed Impressions: Service Date/Time: Saturday, September 17, 2016 10:26 - CONCLUSION: 1. Slight interval improved aeration of the diffuse infiltrates with mild infiltrates remaining. Antonio Maza MD Lower Extremity Ultrasound 09/16/16 0000 Signed Impressions: Service Date/Time: Friday, September 16, 2016 11:36 - CONCLUSION: No evidence of deep venous thrombosis within the lower extremities. Antonio Maza MD Abdomen Ultrasound 09/16/16 Signed Impressions: Service Date/Time: Friday, September 16, 2016 07:55 - CONCLUSION: 1. Thick- walled gallbladder containing stones. If there is clinical concern for acute cholecystitis a hepatobiliary scan may be helpful to confirm cystic duct obstruction. 2. Mild prominence of the common bile duct. Correlation with alkaline phosphatase and bilirubin levels is suggested to rule out hepatobiliary obstruction. 3. Enlarged fatty liver. 4. Splenomegaly. Antonio Maza MD Physical Exam GENERAL: This is a obese chronically ill pt in no distress SKIN: No rashes, ecchymoses . Cool and dry.Superficial skin breakdown on back HEAD: Atraumatic. Normocephalic. EYES: Pupils equal round and reactive. Extraocular motions intact. No scleral icterus. No injection or drainage. ENT: Nose without bleeding, purulent drainage or septal hematoma. Throat without erythema, tonsillar hypertrophy or exudate. Uvula midline. Airway patent. NECK: Trachea midline. No JVD or lymphadenopathy. Supple, nontender, no meningeal signs. CARDIOVASCULAR: Regular rate and rhythm with a systolic murmur, no, gallops, or rubs. RESPIRATORY: Clear to auscultation. Breath sounds equal bilaterally. No wheezes , rales, or rhonchi. GASTROINTESTINAL: Abdomen soft, non-tender, nondistended. No hepato-splenomegaly , or palpable masses. No guarding. MUSCULOSKELETAL: Extremities without clubbing, cyanosis, or edema. No joint tenderness, effusion, or edema noted. BACK: no tenderness to palpation over the spine : no CVA tenderness b/l NEUROLOGICAL: Awake and alert. Cranial nerves II through XII intact. No motor deficit Normal speech PSYCH: pt is calm and cooperative Assessment & Plan Remarks Persistent high grade MSSA bacteremia - last clx neg @ 4 days - 2 D echo negative ? R renal abscess ARF - resolved Multiple med problems REC's: cont cefazoline, increase to 2 gm q 8 agree with plan for PERLA - agree with plan for CT , change to contrasted dw Tamela Rosen MD Sep 24, 2016 19:49
[2016-09-24] MEDS: INSULIN DETEMIR 100 UNITS/ML VIAL SQ SCH (21:00)
[2016-09-24] MEDS ORDERED: DIATRIZOATE MEGLUM/DIATRIZOATE SOD 9 ML CUP PO ONE (21:15)
[2016-09-25] VITALS (24 sets, daily range): BP systolic 119–141; BP diastolic 60–75; PULSE 66–83; RESP 15–18; TEMP 97.9–98.7; O2SAT 96–98
[2016-09-25] MEDS ORDERED: IOHEXOL 350 MG/ML 10 ML VIAL (for RAD DIAG) IV ONE (01:54)
[2016-09-25] MEDS: LACTOBACILLUS ACIDOPHILUS TAB PO SCH ×3 (01:58→23:58)
--- NOTE | 2016-09-25 02:00 | RADRPT ---
EXAM DATE/TIME: 09/25/2016 01:38 [place] COMPARISON: US KIDNEY/RENAL/BLADDER, September 24, 2016, 11:32. INDICATIONS : Evaluate right renal mass. Abnormal ultrasound. IV CONTRAST: 85 cc Omnipaque 350 (iohexol) IV ORAL CONTRAST: Prescribed oral contrast ingested. RADIATION DOSE: 26.43 CTDIvol (mGy) MEDICAL HISTORY : Hypertension. Diabetes mellitus type 2. Renal insufficiency.Renal cancer SURGICAL HISTORY : Appendectomy. section.Hernia repair ENCOUNTER: Initial ACUITY: 1 day PAIN SCALE: 0/10 LOCATION: abdomen TECHNIQUE: Volumetric scanning of the abdomen and pelvis was performed. Using automated exposure control and ad justment of the mA and/or kV according to patient size, radiation dose was kept as low as reasonably achievable to obtain optimal diagnostic quality images. DICOM format image data is available electro nically for review and comparison. FINDINGS: LOWER LUNGS: The visualized lower lungs are clear. Small right pleural effusion. LIVER: Homogeneous density without lesion. There is no dilation of the biliary tree. Calcified gallstone. SPLEEN: Normal size without lesion. PANCREAS: Within normal limits. KIDNEYS: Normal in size and shape. There is no mass, stone or hydronephrosis on the left. Solid appearing mas s along the posterior right mid kidney measures 3.2 x 4.5 x 5.5 cm. Nonobstructing right renal calcul us measures 2-3 mm. Low-density involving the left kidney is likely benign.. ADRENAL GLANDS: Within normal limits. VASCULAR: There is no aortic aneurysm. BOWEL/MESENTERY: The stomach, small bowel, and colon demonstrate no acute abnormality. There is no free intraperitone al air or fluid. ABDOMINAL WALL: Within normal limits. RETROPERITONEUM: There is no lymphadenopathy. BLADDER: No wall thickening or mass. And urinary bladder. REPRODUCTIVE: Within normal limits. INGUINAL: There is no lymphadenopathy or hernia. MUSCULOSKELETAL: Within normal limits for patient age. CONCLUSION: 1. Solid appearing right renal mass measures 3.2 x 4.5 x 5.5 cm. Contrasted MRI recommended. 2. Cholelithiasis. 3. Punctate nonobstructing right renal calculus. 4. Air in urinary bladder likely iatrogenic. Sivakumar Ferguson MD on September 25, 2016 at 1:53 Board Certified Radiologist. This report was verified electronically.
[2016-09-25] MEDS: HEPARIN SODIUM - SQ 10,000 UNITS/ML VIAL SQ SCH ×3 (06:02→20:14)
[2016-09-25] MEDS: INSULIN ASPART SUPPLEMENTAL SCALE SQ SCH ×4 (06:11→20:19)
[2016-09-25] MEDS: CARVEDILOL 6.25 MG TAB PO SCH ×2 (08:35→20:15)
[2016-09-25] MEDS: PANTOPRAZOLE SOD 40 MG DELAYED RELEASE TAB PO SCH (08:35)
[2016-09-25] MEDS: GLIMEPIRIDE 4 MG TAB PO SCH (08:35)
[2016-09-25] MEDS: COLLAGENASE OINT 30 GM TUBE TOPICAL SCH (08:36)
[2016-09-25] MEDS: ASPIRIN 81 MG CHEW TAB CHEW SCH (08:36)
--- NOTE | 2016-09-25 10:00 | HHI.PR ---
Addendum to Inpatient Note Addendum Reason: Additional Documentation Additional Information PERLA negative for endocarditis Pt was seen and examined full note to follow Tamela Shahid MD Sep 25, 2016 10:00
--- NOTE | 2016-09-25 11:46 | HHI.IDPN ---
Subjective Subjective Remarks No fever No back pain No hematuria PERLA negative CT abd/pel showed solid mass Antibiotics IV Cefazolin Past Medical History 1. Insulin-dependent diabetes mellitus. 2. Left renal cancer status post freezing 3. Hypertriglyceridemia. Past Surgical History 1. 8 incisional hernia repairs. 2. C-sections. 3. Bilateral carpal tunnel surgery 4. Left kidney freezing and right lumpectomy. Reported Medications IV Vancomycin and Zosyn Family History Positive for Diabetes Social History Lives with boyfriend Non smoker Allergies: Coded Allergies: Rifampin (Verified Allergy, Severe, Nausea/Vomiting, 09/15/16) STOMACH CRAMPS Objective . Vital Signs Date Time Temp Pulse Resp B/P Pulse Ox O2 Delivery O2 Flow Rate FiO2 09/25/16 11:07 81 09/25/16 10:00 75 09/25/16 09:00 70 09/25/16 08:16 98 21 09/25/16 08:16 98 Room Air 09/25/16 08:04 73 09/25/16 08:00 78 09/25/16 07:42 97.9 74 16 128/64 98 09/25/16 07:00 72 09/25/16 05:23 98 Room Air 09/25/16 03:00 66 09/25/16 02:00 72 09/25/16 01:00 74 09/25/16 00:00 80 09/24/16 23:16 98.8 77 16 126/83 98 09/24/16 23:15 98 Room Air 09/24/16 23:00 81 09/24/16 22:00 80 09/24/16 21:00 80 09/24/16 20:48 97 21 09/24/16 20:00 80 09/24/16 19:40 98.8 73 16 130/73 98 09/24/16 19:15 98 Room Air 09/24/16 19:00 82 09/24/16 18:00 80 09/24/16 17:00 80 09/24/16 16:00 80 09/24/16 15:30 98 Room Air 09/24/16 15:30 98.8 84 16 144/72 98 09/24/16 15:00 78 09/24/16 14:30 96 09/24/16 14:00 80 09/24/16 13:00 86 09/24/16 12:00 79 09/24/16 09/24/16 09/25/16 15:00 23:00 07:00 Intake Total 1060 ml 480 ml Output Total 1102 ml 1050 ml Balance -42 ml -570 ml Intake Oral 960 ml 480 ml IV Total 100 ml Output Urine Total 1100 ml 1050 ml Stool Total 2 ml # Voids 1 . Laboratory Tests Test 09/24/16 14:13 White Blood Count 6.0 TH/MM3 Red Blood Count 3.15 MIL/MM3 Hemoglobin 8.6 GM/DL Hematocrit 27.1 % Mean Corpuscular Volume 86.1 FL Mean Corpuscular Hemoglobin 27.3 PG Mean Corpuscular Hemoglobin 31.7 % Concent Red Cell Distribution Width 16.9 % Platelet Count 259 TH/MM3 Mean Platelet Volume 7.4 FL Microbiology Date/Time Procedure Status Source Growth 09/24/16 00:01 Urine Culture Received Urine Clean Catch Pending Imaging Last Impressions Renal Ultrasound 09/24/16 0000 Signed Impressions: Service Date/Time: Saturday, September 24, 2016 11:32 - CONCLUSION: 1. Complex cystic mass in the lower pole the right kidney. Abscess is not excluded. CT scan is recommended for further evaluation if clinically indicated. Alan Yadav MD Abdomen/Pelvis CT 09/24/16 0000 Signed Impressions: Service Date/Time: September 01:38 - CONCLUSION: 1. Solid appearing right renal mass measures 3.2 x 4.5 x 5.5 cm. Contrasted MRI recommended. 2. Cholelithiasis. 3. Punctate nonobstructing right renal calculus. 4. Air in urinary bladder likely iatrogenic. Sivakumar Ferguson MD Hepatobiliary Scan Nuclear Medicine 09/18/16 0000 Signed Impressions: Service Date/Time: August 08:12 - CONCLUSION: Negative study Nehemias Gonsales MD Thoracic Spine MRI 09/17/16 0000 Signed Impressions: Service Date/Time: Saturday, September 17, 2016 13:59 - CONCLUSION: I do not see evidence for an abscess. I do not see any radiographic reason for the patient' s inability to ambulate. Ulises Leonard MD FACR Lumbar Spine MRI 09/17/16 0000 Signed Impressions: Service Date/Time: Saturday, September 17, 2016 13:59 - CONCLUSION: 1. No evidence of abscess collection. 2. No spinal stenosis, focal disc herniation, fracture or osteomyelitis. 3. Lipoma of the filum terminale. Antonio Maza MD Chest X-Ray 09/17/16 0000 Signed Impressions: Service Date/Time: Saturday, September 17, 2016 10:26 - CONCLUSION: 1. Slight interval improved aeration of the diffuse infiltrates with mild infiltrates remaining. Antonio Maza MD Lower Extremity Ultrasound 09/16/16 Signed Impressions: Service Date/Time: Friday, September 16, 2016 11:36 - CONCLUSION: No evidence of deep venous thrombosis within the lower extremities. Antonio Maza MD Abdomen Ultrasound 09/16/16 Signed Impressions: Service Date/Time: Friday, September 16, 2016 07:55 - CONCLUSION: 1. Thick- walled gallbladder containing stones. If there is clinical concern for acute cholecystitis a hepatobiliary scan may be helpful to confirm cystic duct obstruction. 2. Mild prominence of the common bile duct. Correlation with alkaline phosphatase and bilirubin levels is suggested to rule out hepatobiliary obstruction. 3. Enlarged fatty liver. 4. Splenomegaly. Antonio Maza MD Physical Exam GENERAL: This is a obese chronically ill pt in no distress SKIN: No rashes, ecchymoses . Cool and dry.Superficial skin breakdown on back HEAD: Atraumatic. Normocephalic. EYES: Pupils equal round and reactive. Extraocular motions intact. No scleral icterus. No injection or drainage. CARDIOVASCULAR: Regular rate and rhythm with a systolic murmur, no, gallops, or rubs. RESPIRATORY: Clear to auscultation. Breath sounds equal bilaterally. No wheezes , rales, or rhonchi. GASTROINTESTINAL: Abdomen soft, non-tender, nondistended. No hepato-splenomegaly , or palpable masses. No guarding. MUSCULOSKELETAL: Extremities without clubbing, cyanosis, or edema. No joint tenderness, effusion, or edema noted. NEUROLOGICAL: Awake and alert. Cranial nerves II through XII intact. No motor deficit Normal speech PSYCH: pt is calm and cooperative Assessment & Plan Remarks Persistent high grade MSSA bacteremia - last clx neg @ 4 days - PERLA negative No e/o R renal abscess, solid mass on CT ARF - resolved Multiple med problems REC's: cont cefazoline, 2 gm q 8, anticipate at least 4 weeks from the 1st negative blood clx - agree with plan for CT , change to contrasted Tamela Shahid MD Sep 25, 2016 11:46
--- NOTE | 2016-09-25 15:39 | PQ ---
Physician Query Response Document PATIENT: CARMEN MANZANO : 1950 ADMIT DATE: 09/15/2016 1:04 PM DISCH DATE: RESPONDING PROVIDER #: [email or web address] QUERY TEXT: Acuity Specificity _SEPSIS DOCUMENTATION in the Medical Record. Please specify the acuity of this condition with terms such as: -- SEPSIS -- SEVERE SEPSIS -- SEPTIC SHOCK -- SIRS NON INFECTIOUS -- Other (please specify in the medical record) The patient's Clinical Indicators include: ON ADMISSION SEPSIS, LEON, HYPOTENSION, DKA LACTIC ACID 5.1 AND 3/4 WBC 12.7 , HR 100 BLOOD AND URNE CULTURES W STAPH AUREUS TX IV FLUID BOLUS 3L Query created by: Ludmila Sebastian on 09/17/2016 11:27 AM RESPONSE TEXT: Severe Sepsis Electronically signed by: Colby An MD 09/25/2016 3:35 PM
--- NOTE | 2016-09-25 16:09 | HHI.PR ---
Subjective Remarks Follow-up for MSSA bacteremia Patient stated that she feels great she has no complaints. She is very anxious to go home. Denies any fevers or chills. She stated that she feels a lot stronger. Denies any urinary symptoms. She remained afebrile. Objective Vitals Vital Signs Date Time Temp Pulse Resp B/P Pulse Ox O2 Delivery O2 Flow Rate FiO2 09/25/16 14:40 83 09/25/16 13:00 79 09/25/16 13:00 94 Room Air 09/25/16 12:14 98.7 82 15 141/75 98 09/25/16 11:07 81 09/25/16 10:00 75 09/25/16 09:00 70 09/25/16 08:16 98 21 09/25/16 08:16 98 Room Air 09/25/16 08:04 73 09/25/16 08:00 78 09/25/16 07:42 97.9 74 16 128/64 98 09/25/16 07:00 72 09/25/16 05:23 98 Room Air 09/25/16 03:00 66 09/25/16 02:00 72 09/25/16 01:00 74 09/25/16 00:00 80 09/24/16 23:16 98.8 77 16 126/83 98 09/24/16 23:15 98 Room Air 09/24/16 23:00 81 09/24/16 22:00 80 09/24/16 21:00 80 09/24/16 20:48 97 21 09/24/16 20:00 80 09/24/16 19:40 98.8 73 16 130/73 98 09/24/16 19:15 98 Room Air 09/24/16 19:00 82 09/24/16 18:00 80 09/24/16 17:00 80 I/O 09/24/16 09/24/16 09/24/16 09/25/16 09/25/16 09/25/16 07:00 15:00 23:00 07:00 15:00 23:00 Intake Total 340 ml 1060 ml 480 ml Output Total 400 ml 1102 ml 1050 ml Balance -60 ml -42 ml -570 ml Intake Oral 240 ml 960 ml 480 ml IV Total 100 ml 100 ml Output Urine Total 400 ml 1100 ml 1050 ml Stool Total 2 ml # Voids 1 Result Diagram: 09/24/16 1413 09/22/16 0421 Imaging Last Impressions Renal Ultrasound 09/24/16 0000 Signed Impressions: Service Date/Time: Saturday, September 24, 2016 11:32 - CONCLUSION: 1. Complex cystic mass in the lower pole the right kidney. Abscess is not excluded. CT scan is recommended for further evaluation if clinically indicated. Alan Yadav MD Abdomen/Pelvis CT 09/24/16 0000 Signed Impressions: Service Date/Time: September 01:38 - CONCLUSION: 1. Solid appearing right renal mass measures 3.2 x 4.5 x 5.5 cm. Contrasted MRI recommended. 2. Cholelithiasis. 3. Punctate nonobstructing right renal calculus. 4. Air in urinary bladder likely iatrogenic. Sivakumar Ferguson MD Hepatobiliary Scan Nuclear Medicine 09/18/16 0000 Signed Impressions: Service Date/Time: August 08:12 - CONCLUSION: Negative study Nehemias Gonsales MD Thoracic Spine MRI 09/17/16 0000 Signed Impressions: Service Date/Time: Saturday, September 17, 2016 13:59 - CONCLUSION: I do not see evidence for an abscess. I do not see any radiographic reason for the patient' s inability to ambulate. Ulises Leonrad MD FACR Lumbar Spine MRI 09/17/16 0000 Signed Impressions: Service Date/Time: Saturday, September 17, 2016 13:59 - CONCLUSION: 1. No evidence of abscess collection. 2. No spinal stenosis, focal disc herniation, fracture or osteomyelitis. 3. Lipoma of the filum terminale. Antonio Maza MD Chest X-Ray 09/17/16 0000 Signed Impressions: Service Date/Time: Saturday, September 17, 2016 10:26 - CONCLUSION: 1. Slight interval improved aeration of the diffuse infiltrates with mild infiltrates remaining. Antonio Maza MD Lower Extremity Ultrasound 09/16/16 0000 Signed Impressions: Service Date/Time: Friday, September 16, 2016 11:36 - CONCLUSION: No evidence of deep venous thrombosis within the lower extremities. Antonio Maza MD Abdomen Ultrasound 09/16/16 0000 Signed Impressions: Service Date/Time: Friday, September 16, 2016 07:55 - CONCLUSION: 1. Thick- walled gallbladder containing stones. If there is clinical concern for acute cholecystitis a hepatobiliary scan may be helpful to confirm cystic duct obstruction. 2. Mild prominence of the common bile duct. Correlation with alkaline phosphatase and bilirubin levels is suggested to rule out hepatobiliary obstruction. 3. Enlarged fatty liver. 4. Splenomegaly. Antonio Maza MD Objective Remarks GENERAL: in NAD SKIN: Warm and dry. HEAD: Normocephalic. EYES: No scleral icterus. No injection or drainage. NECK: Supple, trachea midline. No JVD or lymphadenopathy. CARDIOVASCULAR: Regular rate and rhythm without murmurs, gallops, or rubs. RESPIRATORY: Breath sounds equal bilaterally. No accessory muscle use. GASTROINTESTINAL: Abdomen soft, non-tender, nondistended. MUSCULOSKELETAL: No cyanosis, or edema. BACK: Nontender without obvious deformity. No CVA tenderness. Procedures 09/22- PERLA- negative Medications and IVs Current Medications Sodium Chloride 1,000 ml @ 2,000 mls/hr Q30M ONCE IV Last administered on 09/15 11:51; Start 09/15/16 at 11:16; Stop 09/15/16 at 11:45; Status DC Sodium Chloride (NS 1000 ml Inj) 1,000 ml @ 2,000 mls/hr Q30M ONCE IV Last administered on 09/15/16 11:51; Start 09/15/16 at 11:46; Stop 09/15/16 at 12:15 ; Status DC Sodium Chloride (NS Flush) 2 ml UNSCH PRN IVF FLUSH AFTER USING IV ACCESS Last administered on 09/21/16 21:05; Start 09/15/16 at 11:30 Insulin Human Regular 10 units 10 units ONCE ONCE IV PUSH Last administered on 09/15/16 11:50; Start 09/15/16 at 11:30; Stop 09/15/16 at 11:31; Status DC Ceftriaxone Sodium 1000 mg/ Sodium Chloride 100 ml @ 200 mls/hr ONCE ONCE IV Last administered on 09/15/16 13:04; Start 09/15/16 at 13:00; Stop 09/15/16 at 13:29; Status DC Sodium Chloride 1,000 ml @ 999 mls/hr BOLUS ONCE IV Last administered on 6/26 /17at 13:30; Start 09/15/16 at 13:30; Stop 09/15/16 at 14:30; Status DC Sodium Chloride 1,000 ml @ 125 mls/hr Q8H IV Last administered on 09/15/16t 14 :39; Start 09/15/16 at 13:30; Stop 09/15/16 at 16:12; Status DC Sodium Chloride 1,000 ml @ 250 mls/hr Q4H IV ; Start 09/15/16 at 15:00; Stop at 15:50; Status DC Dextrose/Sodium Chloride (D5W-NS 1000 ml Inj) 1,000 ml @ 200 mls/hr Q5H IV ; Start 09/15/16 at 15:00; Stop 09/15/16 at 15:50; Status DC Insulin Human Regular 10 units 10 units BOLUS ONCE IV PUSH ; Start 09/15/16 at 15:00; Stop 09/15/16 at 15:50; Status DC Insulin Human Regular 100 units/ Sodium Chloride 100 ml @ 0 mls/hr TITRATE IV ; Start 09/15/16 at 15:00; Stop 09/15/16 at 15:51; Status DC Potassium Chloride 100 ml @ 100 mls/hr Q1H PRN IV SEE LABEL COMMENTS; Start at 14:15; Stop 09/15/16 at 15:51; Status DC Potassium Chloride 100 ml @ 50 mls/hr Q2H PRN IV SEE LABEL COMMENTS; Start at 14:15; Stop 09/15/16 at 15:51; Status DC Potassium Chloride 100 ml @ 100 mls/hr Q1H PRN IV SEE LABEL COMMENTS; Start at 14:15; Stop 09/15/16 at 15:51; Status DC Potassium Chloride 100 ml @ 100 mls/hr Q1H PRN IV SEE LABEL COMMENTS; Start at 14:15; Stop 09/15/16 at 15:52; Status DC Potassium Chloride 100 ml @ 50 mls/hr Q2H PRN IV SEE LABEL COMMENTS; Start at 15:00; Stop 09/15/16 at 15:52; Status DC Potassium Chloride 100 ml @ 50 mls/hr Q2H PRN IV SEE LABEL COMMENTS; Start at 14:15; Stop 09/15/16 at 15:52; Status DC Potassium Chloride 100 ml @ 50 mls/hr Q2H PRN IV SEE LABEL COMMENTS; Start at 14:15; Stop 09/15/16 at 15:52; Status DC Potassium Chloride (KCl 20 Meq Premix Inj) 100 ml @ 50 mls/hr Q2H PRN IV SEE LABEL COMMENTS; Start 09/15/16 at 14:15; Stop 09/15/16 at 15:53; Status DC Sodium Bicarbonate (Sodium Bicarbonate 8.4% Inj) 100 meq UNSCH PRN IV SEE LABEL COMMENTS; Start 09/15/16 at 14:15; Stop 09/15/16 at 15:53; Status DC Sodium Bicarbonate 50 meq 50 meq UNSCH PRN IV SEE LABEL COMMENTS; Start at 14:15; Stop 09/15/16 at 15:53; Status DC Sodium Phosphate/ Sodium Chloride (Sodium Phosphate Inj/NS Inj) 105 ml @ 25 mls /hr UNSCH PRN IV SEE LABEL COMMENTS; Start 09/15/16 at 14:15; Stop 09/15/16 at 15:53; Status DC Miscellaneous Information 1 [id number] XX ; Start 09/15/16 at 14:15; Stop 09/15/16 at 15:50; Status DC Chlorhexidine Gluconate (Chlorhexidine 2% Cloth) 3 pack Taper DAILY@04 TOP ; Start 09/16/16 at 04:00; Stop 09/16/16 at 04:00; Status DC Chlorhexidine Gluconate 3 pack 3 pack UNSCH PRN TOP HYGIENIC CARE; Start at 14:15; Stop 09/15/16 at 15:49; Status DC Ceftriaxone Sodium/Sodium Chloride (Rocephin Inj/NS Inj) 100 ml @ 200 mls/hr Q24H IV ; Start 09/16/16 at 13:00; Stop 09/16/16 at 13:00; Status DC Aspirin (Aspirin Chew) 81 mg DAILY CHEW Last administered on 09/25/16t 08:36; Start 09/16/16 at 09:00 Insulin Detemir (Levemir Inj) 25 units HS SQ ; Start 09/15/16 at 21:00; Stop at 09:30; Status DC Dextrose (D50w (Vial) Inj) 50 ml UNSCH PRN IV HYPOGLYCEMIA-SEE COMMENTS; Start 09/15/16 at 16:00 Glucagon (Glucagon Inj) 1 mg UNSCH PRN OTHER HYPOGLYCEMIA-SEE COMMENTS Last administered on 09/16/16 05:25; Start 09/15/16 at 16:00 Insulin Aspart 1 1 ACHS SLIDING SCALE SQ Last administered on 09/24/16 23:20; Start 09/15/16 at 16:00 Sodium Chloride 1,000 ml @ 125 mls/hr Q8H IV Last administered on 09/15/16 23 :35; Start 09/15/16 at 16:00; Stop 09/16/16 at 00:27; Status DC Sodium Chloride (NS 1000 ml Inj) 1,000 ml @ 150 mls/hr Q6H40M IV Last administered on 09/16/16 00:30; Start 09/16/16 at 00:30; Stop 09/16/16 at 03:17 ; Status DC Acetaminophen 650 mg 650 mg Q4H PRN PO fever >101 Last administered on 01:13; Start 09/16/16 at 01:15; Stop 09/16/16 at 09:34; Status DC Dextrose/Sodium Chloride (D5W-NS 1000 ml Inj) 1,000 ml @ 100 mls/hr Q10H IV Last administered on 09/16/16 03:24; Start 09/16/16 at 03:30; Stop 09/17/16 at 13:54; Status DC Acetaminophen 650 mg 650 mg Q4H PRN PO FEVER; Start 09/16/16 at 09:45; Stop 09/21/16 at 16:57; Status DC Magnesium Sulfate/ Dextrose (Magnesium Sulfate 1 Gm Premix) 100 ml @ 100 mls/ hr Q1H IV Last administered on 09/16/16 11:46; Start 09/16/16 at 10:15; Stop 09/16/16 at 12:14; Status DC Furosemide 40 mg 40 mg ONCE ONCE IV PUSH Last administered on 09/16/16 10:15 ; Start 09/16/16 at 10:15; Stop 09/16/16 at 10:24; Status DC Piperacillin Sod/ Tazobactam Sod 50 ml @ 100 mls/hr Q6H IV Last administered on 09/17/16 05:53; Start 09/16/16 at 11:00; Stop 09/17/16 at 07:00; Status DC Vancomycin HCl 1000 mg/Sodium Chloride 250 ml @ 250 mls/hr Q24H IV ; Start at 10:15; Status UNV Pharmacy Profile Note 0 ml @ 0 mls/hr UNSCH OTHER ; Start 09/16/16 at 10:15; Status UNV Pharmacy Profile Note 0 ml @ 0 mls/hr UNSCH OTHER ; Start 09/16/16 at 10:15; Stop 09/19/16 at 14:53; Status DC Vancomycin HCl/ Sodium Chloride (Vancomycin Inj/ NS 500 ml Inj) 520 ml @ 250 mls/hr ONCE ONCE IV Last administered on 09/16/16 11:40; Start 09/16/16 at 11 :30; Stop 09/16/16 at 13:35; Status DC Pantoprazole Sodium (Protonix) 40 mg DAILY PO Last administered on 09/25/16 08: 35; Start 09/16/16 at 15:00 Heparin Sodium (Porcine) (Heparin Inj) 5,000 units Q8HR SQ Last administered on 09/25/16 06:02; Start 09/16/16 at 22:00 Morphine Sulfate 2 mg 2 mg ONCE ONCE IV PUSH Last administered on 09/16/16 23 :46; Start 09/16/16 at 23:30; Stop 09/16/16 at 23:31; Status DC Cefazolin Sodium 1000 mg/Sodium Chloride 100 ml @ 200 mls/hr Q8H IV Last administered on 09/24/16 17:49; Start 09/17/16 at 08:00; Stop 09/24/16 at 19:53; Status DC Sodium Chloride (NS 1000 ml Inj) 1,000 ml @ 42 mls/hr [id number] IV Last administered on 09/18/16 12:16; Start 09/17/16 at 14:00; Stop 09/19/16 at 14:15 ; Status DC Gadobenate Dimeglumine 20 ml 20 ml STK-MED ONCE IV Last administered on 15:42; Start 09/17/16 at 15:42; Stop 09/17/16 at 15:43; Status DC Vancomycin HCl/ Sodium Chloride (Vancomycin Inj/ NS 500 ml Inj) 516 ml @ 250 mls/hr Q24H IV Last administered on 09/19/16 14:34; Start 09/18/16 at 12:00; Stop 09/19/16 at 14:53; Status DC Miscellaneous Information SPECIFIC LAB TO BE DRAWN:VANCOMY... ONCE ONCE .XX ; Start 09/21/16 at 11:45; Stop 09/21/16 at 11:46; Status DC Carvedilol (Coreg) 6.25 mg Q12HR PO Last administered on 09/25/16 08:35; Start 09/19/16 at 21:00 Glimepiride (Amaryl) 4 mg DAILY@08 PO Last administered on 09/25/16 08:35; Start 09/21/16 at 08:00 Collagenase (Santyl Oint) 1 applic DAILY TOPICAL Last administered on 09/25/16 08:36; Start 09/21/16 at 09:00 Insulin Detemir (Levemir Inj) 8 units HS SQ Last administered on 09/22/16 21:14 ; Start 09/21/16 at 21:00; Stop 09/23/16 at 08:20; Status DC Lactobacillus Acidophilus (Lactinex) 1 tab Q12HR PO Last administered on 08:36; Start 09/21/16 at 21:00 Acetaminophen (Tylenol) 650 mg Q6H PRN PO Fever, headache, pain 1-4; Start 09/21 at 19:45 Oxycodone/ Acetaminophen (Percocet 7.5-325 Mg) 1 tab Q6H PRN PO PAIN SCALE 5 TO 10 Last administered on 09/21/16 20:50; Start 09/21/16 at 17:00 Insulin Detemir 10 units 10 units HS SQ Last administered on 09/24/16 21:00; Start 09/23/16 at 21:00 Cefazolin Sodium/ Sodium Chloride (Ancef Inj/NS Inj) 100 ml @ 200 mls/hr Q8H IV Last administered on 09/25/16 08:35; Start 09/25/16 at 00:00 Diatrizoate Meglum/ Diatrizoate Sod ( Gastroview Liq) 18 ml ONCE ONCE PO Last administered on 09/24/16 19:15; Start 7/5/17 at 21:15; Stop 09/24/16 at 21: 16; Status DC Iohexol (Omnipaque 350 Inj) 85 ml STK-MED ONCE IV Last administered on t 01:54; Start 09/25/16 at 01:54; Stop 09/25/16 at 01:55; Status DC Date of Removal: Sep 22, 2016 A/P Problem List: (1) Sepsis ICD Code: A41.9 Status: Acute (2) UTI (urinary tract infection) ICD Code: N39.0 Status: Acute (3) Generalized weakness ICD Code: R53.1 Status: Acute (4) DM2 (diabetes mellitus, type 2) ICD Code: E11.9 Status: Acute (5) HTN (hypertension) ICD Code: I10 Status: Acute Assessment and Plan Sepsis -secondary to MSSA - urinary tract infection/bacteremia. -Improved with treatment. MSSA bacteremia 09/15 09/16 blood cultures positive. Repeat blood cultures 09/20- negative so faR EPRLA negative- 09/22 Infectious disease following and stated to continue with cefazoline, 2 gm q 8, anticipate at least 4 weeks from the 1st negative blood clx Acute Kidney injury - resolved. Most likely secondary to sepsis. Questionable renal mass -Will get MRI of the kidneys as recommended. -Patient aware of findings. UTI (urinary tract infection)-MSSA 09/15- Candiduria - Asymptomatic Repeat UA- growing yeast - 09/20 UA grew MSSA. babin removed 09/22- voiding renal ultrasound to r/o and make sure no obstruction as etio for UTI CT scan show possible renal mass. MRI ordered. Generalized weakness- Improved -Due to sepsis. Seemed to resolved. DM2 (diabetes mellitus, type 2), Uncontrolled -Continue amaryl, evemir 8 units- increase dose (at home was on 25 units -Hemoglobin A1c is 10 -cont ssi - better readings- continue to adjust HTN (hypertension) - cont coreg, and adjust. -Previously hypotensive and medications have been adjusted due to hypotension and acute kidney injury Problem Qualifiers (1) Sepsis: Qualified Code: A41.01 - Sepsis due to methicillin susceptible Staphylococcus aureus (2) UTI (urinary tract infection): Qualified Code: N30.00 - Acute cystitis without hematuria Tsering Germain MD Sep 25, 2016 16:09
--- NOTE | 2016-09-25 17:32 | PQ ---
Physician Query Response Document PATIENT: CARMEN MANZANO : 1950 ADMIT DATE: 09/15/2016 1:04 PM DISCH DATE: RESPONDING PROVIDER #: [email or web address] QUERY TEXT: Kidney Disease, Chronic CKD Stage Chronic Kidney Disease (CKD) is documented in the Medical Record. Please specify the disease stage ( includes probable or suspected) Such as: CKD STAGE 1 (GFR >90) CKD STAGE 2 (GFR 60-89) CKD STAGE 3 (GFR 30-59) CKD STAGE 4 (GFR 15-29) CKD STAGE 5 (GFR <15) ESRD (NEED FOR DIALYSIS) Unable to determine (*please explain) Other (*please specify) The patient's Clinical Indicators include: LAB REPORT SHOWS on: 09/16/16 GFR= 13 CREATININE 3.50, BUN 55 LAB REPORT SHOWS on: 09/16/16 GFR= 35 CREATININE 1.59, BUN 30 HX OF CKD 3 Query created by: Ludmila Sebastian on 09/17/2016 11:37 AM RESPONSE TEXT: CKD stage III Electronically signed by: Colby An MD 09/25/2016 5:28 PM
[2016-09-25] MEDS ORDERED: GADODIAMIDE PF 287 MG/ML 10 ML VIAL (for RAD MRI) IV ONE (18:08)
--- NOTE | 2016-09-25 18:42 | RADRPT ---
EXAM DATE/TIME: 09/25/2016 17:38 [facility] COMPARISON: CT ABDOMEN & PELVIS W CONTRAST, September 25, 2016, 1:38. INDICATIONS : Renal mass. CONTRAST: 10 cc Omniscan (gadodiamide) IV MEDICAL HISTORY : Diabetes mellitus type 2. Renal cancer. SURGICAL HISTORY : section. Carpal tunnel syndrome. Lumpectomy and hernia repair. ENCOUNTER: Initial ACUITY: 2 day PAIN SCORE: 3/10 LOCATION: Abdomen. TECHNIQUE: Multiplanar, multisequence magnetic resonance imaging of the abdomen was performed without and with i ntravenous contrast. FINDINGS: LIVER: Normal size with normal signal intensity. No lesion is identified. Portal vein is within normal limi ts. BILIARY: There is no intra- or extra-hepatic biliary ductal dilatation. Solitary gallstone measuring 8 mm.. SPLEEN: Within normal limits. PANCREAS: Within normal limits. ADRENALS: Within normal limits. KIDNEYS: Examination was performed to characterize a exophytic mass from the right kidney. There is a cystic mass exophytic from the midpole of the right kidney which measures 5.9 cm in superior/inferior extent . There is enhancement in the septa between the multiple cystic components. There is also a solid c omponent in the midpole cortex and medula which measures 3 cm in width, in continuity with the cystic mass. There is a heterogeneous pattern of enhancement in the solid component. Multiple small cysts are seen in the left kidney cortex and there is a focal indentation in the midpole the left kidney s uggestive of chronic pyelonephritis. No evidence of hydronephrosis. OTHER: Aorta is nonaneurysmal. There is no lymphadenopathy. No filling defects in the IVC. CONCLUSION: Right renal mass measures 5.9 cm and has both a solid and cystic component with enhancing septa betwe en the cystic components. The findings are suspicious for malignancy. Nathaniel Chapa MD on September 25, 2016 at 18:32 Board Certified Radiologist. This report was verified electronically.
[2016-09-25] MEDS: INSULIN DETEMIR 100 UNITS/ML VIAL SQ SCH (20:19)
[2016-09-26] VITALS (13 sets, daily range): BP systolic 128–148; BP diastolic 59–95; PULSE 40–83; RESP 16–20; TEMP 96.5–98.5; O2SAT 94–98
[2016-09-26] MEDS: HEPARIN SODIUM - SQ 10,000 UNITS/ML VIAL SQ SCH ×4 (03:15→21:22)
[2016-09-26] MEDS: INSULIN ASPART SUPPLEMENTAL SCALE SQ SCH ×4 (07:00→21:25)
--- NOTE | 2016-09-26 09:33 | HHI.PR ---
Subjective Remarks f/u for bacteremia and renal mass patient stated she had left renal mass in the past and had cryotherapy. She stated "it was frozen and resolved." patient has no complaints. Patient feels like she is doing well. Objective Vitals Vital Signs Date Time Temp Pulse Resp B/P Pulse Ox O2 Delivery O2 Flow Rate FiO2 09/26/16 08:00 77 09/26/16 08:00 98.5 80 16 148/95 96 09/26/16 06:00 78 09/26/16 05:00 71 09/26/16 04:02 68 09/26/16 03:19 98.1 71 18 131/71 97 09/26/16 03:00 69 09/26/16 02:12 40 09/26/16 02:00 69 09/26/16 00:01 74 09/25/16 23:59 98.1 74 18 119/60 97 09/25/16 23:00 74 09/25/16 22:00 72 09/25/16 21:00 76 09/25/16 20:00 74 09/25/16 19:49 98.1 77 18 121/63 97 09/25/16 19:15 21 09/25/16 19:00 73 09/25/16 18:14 82 09/25/16 16:30 98.1 78 16 138/66 96 09/25/16 14:40 83 09/25/16 13:00 79 09/25/16 13:00 94 Room Air 09/25/16 12:14 98.7 82 15 141/75 98 09/25/16 11:07 81 09/25/16 10:00 75 I/O 09/25/16 09/25/16 09/25/16 09/26/16 09/26/16 09/26/16 07:00 15:00 23:00 07:00 15:00 23:00 Intake Total 480 ml 880 ml 340 ml Output Total 1050 ml 1350 ml 1300 ml Balance -570 ml -470 ml -960 ml Intake Oral 480 ml 680 ml 240 ml IV Total 200 ml 100 ml Output Urine Total 1050 ml 1350 ml 1300 ml # Bowel Movements 0 Result Diagram: 09/24/16 1413 09/22/16 0421 Imaging Last Impressions Abdomen MRI 09/25/16 0000 Signed Impressions: Service Date/Time: September 17:38 - CONCLUSION: Right renal mass measures 5.9 cm and has both a solid and cystic component with enhancing septa between the cystic components. The findings are suspicious for malignancy. Nathaniel Chapa MD Renal Ultrasound 09/24/16 Signed Impressions: Service Date/Time: Saturday, September 24, 2016 11:32 - CONCLUSION: 1. Complex cystic mass in the lower pole the right kidney. Abscess is not excluded. CT scan is recommended for further evaluation if clinically indicated. Alan Yadav MD Abdomen/Pelvis CT 09/24/16 Signed Impressions: Service Date/Time: September 01:38 - CONCLUSION: 1. Solid appearing right renal mass measures 3.2 x 4.5 x 5.5 cm. Contrasted MRI recommended. 2. Cholelithiasis. 3. Punctate nonobstructing right renal calculus. 4. Air in urinary bladder likely iatrogenic. Sivakumar eFrguson MD Hepatobiliary Scan Nuclear Medicine 09/18/16 Signed Impressions: Service Date/Time: August 08:12 - CONCLUSION: Negative study Nehemias Gonsales MD Thoracic Spine MRI 09/17/16 Signed Impressions: Service Date/Time: Saturday, September 17, 2016 13:59 - CONCLUSION: I do not see evidence for an abscess. I do not see any radiographic reason for the patient' s inability to ambulate. Ulises Leonard MD FACR Lumbar Spine MRI 09/17/16 Signed Impressions: Service Date/Time: Saturday, September 17, 2016 13:59 - CONCLUSION: 1. No evidence of abscess collection. 2. No spinal stenosis, focal disc herniation, fracture or osteomyelitis. 3. Lipoma of the filum terminale. Antonio Maza MD Chest X-Ray 09/17/16 Signed Impressions: Service Date/Time: Saturday, September 17, 2016 10:26 - CONCLUSION: 1. Slight interval improved aeration of the diffuse infiltrates with mild infiltrates remaining. Antonio Maza MD Lower Extremity Ultrasound 09/16/16 Signed Impressions: Service Date/Time: Friday, September 16, 2016 11:36 - CONCLUSION: No evidence of deep venous thrombosis within the lower extremities. Antonio Maza MD Abdomen Ultrasound 09/16/16 0000 Signed Impressions: Service Date/Time: Friday, September 16, 2016 07:55 - CONCLUSION: 1. Thick- walled gallbladder containing stones. If there is clinical concern for acute cholecystitis a hepatobiliary scan may be helpful to confirm cystic duct obstruction. 2. Mild prominence of the common bile duct. Correlation with alkaline phosphatase and bilirubin levels is suggested to rule out hepatobiliary obstruction. 3. Enlarged fatty liver. 4. Splenomegaly. Antonio Maza MD Objective Remarks GENERAL: in NAD SKIN: Warm and dry. HEAD: Normocephalic. EYES: No scleral icterus. No injection or drainage. NECK: Supple, trachea midline. No JVD or lymphadenopathy. CARDIOVASCULAR: Regular rate and rhythm without murmurs, gallops, or rubs. RESPIRATORY: Breath sounds equal bilaterally. No accessory muscle use. GASTROINTESTINAL: Abdomen soft, non-tender, nondistended. MUSCULOSKELETAL: No cyanosis, or edema. BACK: Nontender without obvious deformity. No CVA tenderness. Procedures 09/22- PERLA- negative Medications and IVs Current Medications Sodium Chloride 1,000 ml @ 2,000 mls/hr Q30M ONCE IV Last administered on 09/15 11:51; Start 09/15/16 at 11:16; Stop 09/15/16 at 11:45; Status DC Sodium Chloride (NS 1000 ml Inj) 1,000 ml @ 2,000 mls/hr Q30M ONCE IV Last administered on 09/15/16 11:51; Start 09/15/16 at 11:46; Stop 09/15/16 at 12:15 ; Status DC Sodium Chloride (NS Flush) 2 ml UNSCH PRN IVF FLUSH AFTER USING IV ACCESS Last administered on 09/21/16 21:05; Start 09/15/16 at 11:30 Insulin Human Regular 10 units 10 units ONCE ONCE IV PUSH Last administered on 09/15/16 11:50; Start 09/15/16 at 11:30; Stop 09/15/16 at 11:31; Status DC Ceftriaxone Sodium 1000 mg/ Sodium Chloride 100 ml @ 200 mls/hr ONCE ONCE IV Last administered on 09/15/16 13:04; Start 09/15/16 at 13:00; Stop 09/15/16 at 13:29; Status DC Sodium Chloride 1,000 ml @ 999 mls/hr BOLUS ONCE IV Last administered on 09/15t 13:30; Start 09/15/16 at 13:30; Stop 09/15/16 at 14:30; Status DC Sodium Chloride 1,000 ml @ 125 mls/hr Q8H IV Last administered on 09/15/16t 14 :39; Start 09/15/16 at 13:30; Stop 09/15/16 at 16:12; Status DC Sodium Chloride 1,000 ml @ 250 mls/hr Q4H IV ; Start 09/15/16 at 15:00; Stop at 15:50; Status DC Dextrose/Sodium Chloride (D5W-NS 1000 ml Inj) 1,000 ml @ 200 mls/hr Q5H IV ; Start 09/15/16 at 15:00; Stop 09/15/16 at 15:50; Status DC Insulin Human Regular 10 units 10 units BOLUS ONCE IV PUSH ; Start 09/15/16 at 15:00; Stop 09/15/16 at 15:50; Status DC Insulin Human Regular 100 units/ Sodium Chloride 100 ml @ 0 mls/hr TITRATE IV ; Start 09/15/16 at 15:00; Stop 09/15/16 at 15:51; Status DC Potassium Chloride 100 ml @ 100 mls/hr Q1H PRN IV SEE LABEL COMMENTS; Start at 14:15; Stop 09/15/16 at 15:51; Status DC Potassium Chloride 100 ml @ 50 mls/hr Q2H PRN IV SEE LABEL COMMENTS; Start at 14:15; Stop 09/15/16 at 15:51; Status DC Potassium Chloride 100 ml @ 100 mls/hr Q1H PRN IV SEE LABEL COMMENTS; Start at 14:15; Stop 09/15/16 at 15:51; Status DC Potassium Chloride 100 ml @ 100 mls/hr Q1H PRN IV SEE LABEL COMMENTS; Start at 14:15; Stop 09/15/16 at 15:52; Status DC Potassium Chloride 100 ml @ 50 mls/hr Q2H PRN IV SEE LABEL COMMENTS; Start at 15:00; Stop 09/15/16 at 15:52; Status DC Potassium Chloride 100 ml @ 50 mls/hr Q2H PRN IV SEE LABEL COMMENTS; Start at 14:15; Stop 09/15/16 at 15:52; Status DC Potassium Chloride 100 ml @ 50 mls/hr Q2H PRN IV SEE LABEL COMMENTS; Start at 14:15; Stop 09/15/16 at 15:52; Status DC Potassium Chloride (KCl 20 Meq Premix Inj) 100 ml @ 50 mls/hr Q2H PRN IV SEE LABEL COMMENTS; Start 09/15/16 at 14:15; Stop 09/15/16 at 15:53; Status DC Sodium Bicarbonate (Sodium Bicarbonate 8.4% Inj) 100 meq UNSCH PRN IV SEE LABEL COMMENTS; Start 09/15/16 at 14:15; Stop 09/15/16 at 15:53; Status DC Sodium Bicarbonate 50 meq 50 meq UNSCH PRN IV SEE LABEL COMMENTS; Start at 14:15; Stop 09/15/16 at 15:53; Status DC Sodium Phosphate/ Sodium Chloride (Sodium Phosphate Inj/NS Inj) 105 ml @ 25 mls /hr UNSCH PRN IV SEE LABEL COMMENTS; Start 09/15/16 at 14:15; Stop 09/15/16 at 15:53; Status DC Miscellaneous Information 1 Q361D XX ; Start 09/15/16 at 14:15; Stop 09/15/16 at 15:50; Status DC Chlorhexidine Gluconate (Chlorhexidine 2% Cloth) 3 pack Taper DAILY@04 TOP ; Start 09/16/16 at 04:00; Stop 09/16/16 at 04:00; Status DC Chlorhexidine Gluconate 3 pack 3 pack UNSCH PRN TOP HYGIENIC CARE; Start at 14:15; Stop 09/15/16 at 15:49; Status DC Ceftriaxone Sodium/Sodium Chloride (Rocephin Inj/NS Inj) 100 ml @ 200 mls/hr Q24H IV ; Start 09/16/16 at 13:00; Stop 09/16/16 at 13:00; Status DC Aspirin (Aspirin Chew) 81 mg DAILY CHEW Last administered on 09/25/16t 08:36; Start 09/16/16 at 09:00 Insulin Detemir (Levemir Inj) 25 units HS SQ ; Start 09/15/16 at 21:00; Stop at 09:30; Status DC Dextrose (D50w (Vial) Inj) 50 ml UNSCH PRN IV HYPOGLYCEMIA-SEE COMMENTS; Start 09/15/16 at 16:00 Glucagon (Glucagon Inj) 1 mg UNSCH PRN OTHER HYPOGLYCEMIA-SEE COMMENTS Last administered on 09/16/16 05:25; Start 09/15/16 at 16:00 Insulin Aspart 1 1 ACHS SLIDING SCALE SQ Last administered on 09/25/16 20:19; Start 09/15/16 at 16:00 Sodium Chloride 1,000 ml @ 125 mls/hr Q8H IV Last administered on 09/15/16 23 :35; Start 09/15/16 at 16:00; Stop 09/16/16 at 00:27; Status DC Sodium Chloride (NS 1000 ml Inj) 1,000 ml @ 150 mls/hr Q6H40M IV Last administered on 09/16/16 00:30; Start 09/16/16 at 00:30; Stop 09/16/16 at 03:17 ; Status DC Acetaminophen 650 mg 650 mg Q4H PRN PO fever >101 Last administered on 01:13; Start 09/16/16 at 01:15; Stop 09/16/16 at 09:34; Status DC Dextrose/Sodium Chloride (D5W-NS 1000 ml Inj) 1,000 ml @ 100 mls/hr Q10H IV Last administered on 09/16/16 03:24; Start 09/16/16 at 03:30; Stop 09/17/16 at 13:54; Status DC Acetaminophen 650 mg 650 mg Q4H PRN PO FEVER; Start 09/16/16 at 09:45; Stop 09/21/16 at 16:57; Status DC Magnesium Sulfate/ Dextrose (Magnesium Sulfate 1 Gm Premix) 100 ml @ 100 mls/ hr Q1H IV Last administered on 09/16/16 11:46; Start 09/16/16 at 10:15; Stop 09/16/16 at 12:14; Status DC Furosemide 40 mg 40 mg ONCE ONCE IV PUSH Last administered on 09/16/16 10:15 ; Start 09/16/16 at 10:15; Stop 09/16/16 at 10:24; Status DC Piperacillin Sod/ Tazobactam Sod 50 ml @ 100 mls/hr Q6H IV Last administered on 09/17/16 05:53; Start 09/16/16 at 11:00; Stop 09/17/16 at 07:00; Status DC Vancomycin HCl 1000 mg/Sodium Chloride 250 ml @ 250 mls/hr Q24H IV ; Start at 10:15; Status UNV Pharmacy Profile Note 0 ml @ 0 mls/hr UNSCH OTHER ; Start 09/16/16 at 10:15; Status UNV Pharmacy Profile Note 0 ml @ 0 mls/hr UNSCH OTHER ; Start 09/16/16 at 10:15; Stop 09/19/16 at 14:53; Status DC Vancomycin HCl/ Sodium Chloride (Vancomycin Inj/ NS 500 ml Inj) 520 ml @ 250 mls/hr ONCE ONCE IV Last administered on 09/16/16 11:40; Start 09/16/16 at 11 :30; Stop 09/16/16 at 13:35; Status DC Pantoprazole Sodium (Protonix) 40 mg DAILY PO Last administered on 09/25/16 08: 35; Start 09/16/16 at 15:00 Heparin Sodium (Porcine) (Heparin Inj) 5,000 units Q8HR SQ Last administered on 09/26/16 03:15; Start 09/16/16 at 22:00 Morphine Sulfate 2 mg 2 mg ONCE ONCE IV PUSH Last administered on 09/16/16 23 :46; Start 09/16/16 at 23:30; Stop 09/16/16 at 23:31; Status DC Cefazolin Sodium 1000 mg/Sodium Chloride 100 ml @ 200 mls/hr Q8H IV Last administered on 09/24/16 17:49; Start 09/17/16 at 08:00; Stop 09/24/16 at 19:53; Status DC Sodium Chloride (NS 1000 ml Inj) 1,000 ml @ 42 mls/hr [id number] IV Last administered on 09/18/16 12:16; Start 09/17/16 at 14:00; Stop 09/19/16 at 14:15 ; Status DC Gadobenate Dimeglumine 20 ml 20 ml STK-MED ONCE IV Last administered on 15:42; Start 09/17/16 at 15:42; Stop 09/17/16 at 15:43; Status DC Vancomycin HCl/ Sodium Chloride (Vancomycin Inj/ NS 500 ml Inj) 516 ml @ 250 mls/hr Q24H IV Last administered on 09/19/16 14:34; Start 09/18/16 at 12:00; Stop 09/19/16 at 14:53; Status DC Miscellaneous Information SPECIFIC LAB TO BE DRAWN:VANCOMY... ONCE ONCE .XX ; Start 09/21/16 at 11:45; Stop 09/21/16 at 11:46; Status DC Carvedilol (Coreg) 6.25 mg Q12HR PO Last administered on 09/25/16 20:15; Start 09/19/16 at 21:00 Glimepiride (Amaryl) 4 mg DAILY@08 PO Last administered on 09/25/16 08:35; Start 09/21/16 at 08:00 Collagenase (Santyl Oint) 1 applic DAILY TOPICAL Last administered on 09/25/16 08:36; Start 09/21/16 at 09:00 Insulin Detemir (Levemir Inj) 8 units HS SQ Last administered on 09/22/16 21:14 ; Start 09/21/16 at 21:00; Stop 09/23/16 at 08:20; Status DC Lactobacillus Acidophilus (Lactinex) 1 tab Q12HR PO Last administered on 23:58; Start 09/21/16 at 21:00 Acetaminophen (Tylenol) 650 mg Q6H PRN PO Fever, headache, pain 1-4; Start 09/21 at 19:45 Oxycodone/ Acetaminophen (Percocet 7.5-325 Mg) 1 tab Q6H PRN PO PAIN SCALE 5 TO 10 Last administered on 09/21/16 20:50; Start 09/21/16 at 17:00 Insulin Detemir 10 units 10 units HS SQ Last administered on 09/25/16 20:19; Start 09/23/16 at 21:00 Cefazolin Sodium/ Sodium Chloride (Ancef Inj/NS Inj) 100 ml @ 200 mls/hr Q8H IV Last administered on 09/26/16 00:09; Start 09/25/16 at 00:00 Diatrizoate Meglum/ Diatrizoate Sod ( Gastroview Liq) 18 ml ONCE ONCE PO Last administered on 09/24/16 19:15; Start 09/24/16 at 21:15; Stop 09/24/16 at 21: 16; Status DC Iohexol (Omnipaque 350 Inj) 85 ml STK-MED ONCE IV Last administered on 01:54; Start 09/25/16 at 01:54; Stop 09/25/16 at 01:55; Status DC Gadodiamide (Omniscan Pf Inj) 10 ml STK-MED ONCE IV Last administered on 18:08; Start 09/25/16 at 18:08; Stop 09/25/16 at 18:09; Status DC Date of Removal: Sep 22, 2016 A/P Problem List: (1) Sepsis ICD Code: A41.9 Status: Acute (2) UTI (urinary tract infection) ICD Code: N39.0 Status: Acute (3) Generalized weakness ICD Code: R53.1 Status: Acute (4) DM2 (diabetes mellitus, type 2) ICD Code: E11.9 Status: Acute (5) HTN (hypertension) ICD Code: I10 Status: Acute Assessment and Plan Sepsis -secondary to MSSA - urinary tract infection/bacteremia. -Improved with treatment. MSSA bacteremia 09/15 09/16 blood cultures positive. Repeat blood cultures 09/20- negative so faR PERLA negative- 09/22 Infectious disease following and stated to continue with cefazoline, 2 gm q 8, anticipate at least 4 weeks from the 1st negative blood clx Acute Kidney injury - resolved. Most likely secondary to sepsis. Renal mass -Found on CT scan. MRI showed right renal mass measures 5.9 cm and has both a solid and cystic component with enhancing septa between the cystic components. -Patient stated that she has a history of left renal mass and had cryotherapy. She stated that mass resolved. -Consult urologist for further recommendation. UTI (urinary tract infection)-MSSA 09/15- Candiduria - Asymptomatic Repeat UA- growing yeast - 09/20 UA grew MSSA. babin removed 09/22- voiding Generalized weakness- Improved -Due to sepsis. Seemed to resolved. DM2 (diabetes mellitus, type 2), Uncontrolled -Continue amaryl, evemir 8 units- increase dose (at home was on 25 units -Hemoglobin A1c is 10 -cont ssi - better readings- continue to adjust HTN (hypertension) - cont coreg, and adjust. -Previously hypotensive and medications have been adjusted due to hypotension and acute kidney injury Problem Qualifiers (1) Sepsis: Qualified Code: A41.01 - Sepsis due to methicillin susceptible Staphylococcus aureus (2) UTI (urinary tract infection): Qualified Code: N30.00 - Acute cystitis without hematuria Tsering Germain MD Sep 26, 2016 09:33
[2016-09-26] MEDS: ASPIRIN 81 MG CHEW TAB CHEW SCH (10:13)
[2016-09-26] MEDS: CARVEDILOL 6.25 MG TAB PO SCH ×2 (10:13→21:22)
[2016-09-26] MEDS: LACTOBACILLUS ACIDOPHILUS TAB PO SCH ×2 (10:14→21:22)
[2016-09-26] MEDS: PANTOPRAZOLE SOD 40 MG DELAYED RELEASE TAB PO SCH (10:14)
[2016-09-26] MEDS: COLLAGENASE OINT 30 GM TUBE TOPICAL SCH (10:33)
[2016-09-26] MEDS: GLIMEPIRIDE 4 MG TAB PO SCH (10:33)
--- NOTE | 2016-09-26 12:41 | RADRPT ---
EXAM DATE/TIME: 09/26/2016 12:14 [facility] COMPARISON: CHEST SINGLE AP, September 17, 2016, 10:26. INDICATIONS : Post PICC line image. MEDICAL HISTORY : Hypertension. Diabetes mellitus type II. SURGICAL HISTORY : None. ENCOUNTER: Initial ACUITY: 1 day PAIN SCORE: 0/10 LOCATION: Bilateral chest FINDINGS: A single view of the chest demonstrates the lungs to be symmetrically aerated without evidence of mas s, infiltrate or effusion. There is a right PICC line in place which appears to be in good position. No pneumothorax. The cardiomediastinal contours are unremarkable. Osseous structures are intact. CONCLUSION: Right PICC line in good position. No pneumothorax. Armando Carmen MD on September 26, 2016 at 12:40 Board Certified Radiologist. This report was verified electronically.
[2016-09-26] MEDS ORDERED: IOHEXOL 350 MG/ML 10 ML VIAL (for RAD DIAG) IV ONE (18:07)
--- NOTE | 2016-09-26 18:46 | PD.CONS ---
HPI Service Urology Consult Requested By Reason for Consult Renal mass, UTI Primary Care Physician Agapito Estrella M.D. Diagnosis: (1) Sepsis ICD Code: A41.9 (2) UTI (urinary tract infection) ICD Code: N39.0 (3) Generalized weakness ICD Code: R53.1 (4) DM2 (diabetes mellitus, type 2) ICD Code: E11.9 (5) HTN (hypertension) ICD Code: I10 History of Present Illness 66yo female with history of DM and prior Renal cancer seen in consultation for new renal mass. Patient has been seen by Dr. Longoria in 2010 where she was found to have RCC of the left kidney that was treated with cryoablation with subsequent imaging studies at that time indicating successful resolution of the cancer. She then moved to [place] where she did not follow-up with Urology and recently moved back. Recent CT scan while admitted identified a renal mass within the right kidney, which she reports was not present years ago. She denies any pain, no hematuria. Upon admit the patient's creatinine was elevated however this has since improved to baseline of 0.7. Review of Systems ROS Limitations: Clinical Condition Constitutional: COMPLAINS OF: Fever Endocrine: DENIES: Heat/cold intolerance Eyes: DENIES: Blurred vision Ears, nose, mouth, throat: DENIES: Hearing loss Respiratory: DENIES: Apneas, Cough Cardiovascular: DENIES: Chest pain Gastrointestinal: DENIES: Abdominal pain Genitourinary: DENIES: Urinary incontinence, Urgency, Hematuria Musculoskeletal: DENIES: Muscle aches Integumentary: DENIES: Abnormal pigmentation Hematologic/lymphatic: DENIES: Bruising Immunologic/allergic: DENIES: Eczema Neurologic: DENIES: Abnormal gait Psychiatric: DENIES: Anxiety Except as stated in HPI: all other systems reviewed are Neg Past Family Social History Past Medical History Insulin-dependent diabetes mellitus. Left renal cancer status post cryo Hypertriglyceridemia. Past Surgical History 8 incisional hernia repairs. C-sections. Bilateral carpal tunnel surgery Left kidney freezing and right lumpectomy. Reported Medications Reported Meds & Active Scripts Active Reported Multi-Day Vitamins (Multiple Vitamin) 1 Tab Tab 1 Tab PO DAILY Fish Oil ([place]-3 Fatty Acids) 1,000 Mg Cap 1 Cap PO TID Aspirin 81 Low Dose (Aspirin) 81 Mg Chew 81 Mg CHEW DAILY Alendronate (Alendronate Sodium) 70 Mg Tab 70 Mg PO Q7D Glimepiride 4 Mg Tab 4 Mg PO DAILY Take with breakfast or first main meal Fenofibrate 145 Mg Tab 145 Mg PO DAILY Diltiazem (Diltiazem HCl) 30 Mg Tab 30 Mg PO BID Gabapentin 100 Mg Cap 100 Mg PO TID Levemir Inj (Insulin Detemir) 1,000 unit/ 10 ML Vial 25 Units SQ HS Do not mix with any other Insulin. Mobic (Meloxicam) 7.5 Mg Tab 15 Mg PO DAILY Sertraline (Sertraline HCl) 50 Mg Tab 50 Mg PO HS Lisinopril 5 Mg Tab 10 Mg PO DAILY B-12 (Cyanocobalamin) 1,000 Mcg Subl 1,000 Mcg SL DAILY D-2000 Maximum Strength (Cholecalciferol) 2,000 Unit Tab 2,000 Units PO DAILY Calcium 600 with Vitamin D (Calcium Carbonate-Cholecalciferol) 600-400 mg-Unit Tab 1 Tab PO BID Allergies: Coded Allergies: Rifampin (Verified Allergy, Severe, Nausea/Vomiting, 09/15/16) STOMACH CRAMPS Active Ordered Medications Current Medications Medications (Trade) Dose Ordered Sig/Cosme Route Start Time Stop Time Status Last Admin (NS Flush) 2 ml UNSCH PRN IVF 09/15/16 11:30 09/21/16 21:05 (Aspirin Chew) 81 mg DAILY CHEW 09/16/16 09:00 Hold 09/26/16 10:13 (D50w (Vial) Inj) 50 ml UNSCH PRN IV 09/15/16 16:00 (Glucagon Inj) 1 mg UNSCH PRN OTHER 09/15/16 16:00 09/16/16 05:25 (Protonix) 40 mg DAILY PO 09/16/16 15:00 09/26/16 10:14 (Heparin Inj) 5,000 units Q8HR SQ 09/16/16 22:00 09/26/16 12:44 (Coreg) 6.25 mg Q12HR PO 09/19/16 21:00 09/26/16 10:13 (Amaryl) 4 mg DAILY@08 PO 09/21/16 08:00 09/26/16 10:33 (Santyl Oint) 1 applic DAILY TOPICAL 09/21/16 09:00 09/26/16 10:33 (Lactinex) 1 tab Q12HR PO 09/21/16 21:00 09/26/16 10:14 (Tylenol) 650 mg Q6H PRN PO 09/21/16 19:45 (Percocet 7.5-325 Mg) 1 tab Q6H PRN PO 09/21/16 17:00 09/21/16 20:50 Insulin Detemir 10 units 10 units HS SQ 09/23/16 21:00 09/25/16 20:19 (Ancef Inj/NS Inj) 100 ml @ 200 mls/hr Q8H IV 09/25/16 00:00 09/26/16 16:00 Family History Father brother with diabetes. Brother had renal cancer. Social History Denies smoking, denies alcohol or illicit drug use. Physical Exam Vital Signs Date Time Temp Pulse Resp B/P Pulse Ox O2 Delivery O2 Flow Rate FiO2 09/26/16 17:59 96.5 83 20 138/66 97 09/26/16 11:30 75 09/26/16 11:30 98.0 75 18 148/95 96 09/26/16 10:03 94 09/26/16 08:00 77 09/26/16 08:00 98.5 80 16 148/95 96 09/26/16 06:00 78 09/26/16 05:00 71 09/26/16 04:02 68 09/26/16 03:19 98.1 71 18 131/71 97 09/26/16 03:00 69 09/26/16 02:12 40 09/26/16 02:00 69 09/26/16 00:01 74 09/25/16 23:59 98.1 74 18 119/60 97 09/25/16 23:00 74 09/25/16 22:00 72 09/25/16 21:00 76 09/25/16 20:00 74 09/25/16 19:49 98.1 77 18 121/63 97 09/25/16 19:15 21 09/25/16 19:00 73 Physical Exam GENERAL: This is a well-nourished, well-developed patient, in no apparent distress. SKIN: No rashes, ecchymoses or lesions. Cool and dry. HEAD: Atraumatic. Normocephalic. EYES: Extraocular motions intact. No scleral icterus. No injection or drainage. ENT: Nose without bleeding, purulent drainage. Airway patent. NECK: Trachea midline. No JVD or lymphadenopathy. CARDIOVASCULAR: Normal pulses, well perfused extremities RESPIRATORY: nonlabored, equal chest rise GASTROINTESTINAL: Abdomen soft, nondistended MUSCULOSKELETAL: Extremities without clubbing, cyanosis, or edema. NEUROLOGICAL: Awake and alert. Motor and sensory grossly within normal limits. Normal speech. Lab results reviewed: Yes Date/Time Procedure Status Source Growth 09/24/16 00:01 Urine Culture - Final Complete Urine Clean Catch Emilee Glabrata Result Diagram: 09/24/16 1413 09/22/16 0421 Personally reviewed images: Yes Imaging Last Impressions Chest X-Ray 09/26/16 0000 Signed Impressions: Service Date/Time: Monday, September 26, 2016 12:14 - CONCLUSION: Right PICC line in good position. No pneumothorax. Armando Carmen MD Abdomen MRI 09/25/16 0000 Signed Impressions: Service Date/Time: September 17:38 - CONCLUSION: Right renal mass measures 5.9 cm and has both a solid and cystic component with enhancing septa between the cystic components. The findings are suspicious for malignancy. Nathaniel Chapa MD Renal Ultrasound 09/24/16 0000 Signed Impressions: Service Date/Time: Saturday, September 24, 2016 11:32 - CONCLUSION: 1. Complex cystic mass in the lower pole the right kidney. Abscess is not excluded. CT scan is recommended for further evaluation if clinically indicated. Alan Yadav MD Abdomen/Pelvis CT 09/24/16 0000 Signed Impressions: Service Date/Time: September 01:38 - CONCLUSION: 1. Solid appearing right renal mass measures 3.2 x 4.5 x 5.5 cm. Contrasted MRI recommended. 2. Cholelithiasis. 3. Punctate nonobstructing right renal calculus. 4. Air in urinary bladder likely iatrogenic. Sivakumar Ferguson MD Hepatobiliary Scan Nuclear Medicine 09/18/16 0000 Signed Impressions: Service Date/Time: August 08:12 - CONCLUSION: Negative study Nehemias Gonsales MD Thoracic Spine MRI 09/17/16 0000 Signed Impressions: Service Date/Time: Saturday, September 17, 2016 13:59 - CONCLUSION: I do not see evidence for an abscess. I do not see any radiographic reason for the patient' s inability to ambulate. Ulises Leonard MD FACR Lumbar Spine MRI 09/17/16 0000 Signed Impressions: Service Date/Time: Saturday, September 17, 2016 13:59 - CONCLUSION: 1. No evidence of abscess collection. 2. No spinal stenosis, focal disc herniation, fracture or osteomyelitis. 3. Lipoma of the filum terminale. Antonio Maza MD Lower Extremity Ultrasound 09/16/16 0000 Signed Impressions: Service Date/Time: Friday, September 16, 2016 11:36 - CONCLUSION: No evidence of deep venous thrombosis within the lower extremities. Antonio Maza MD Abdomen Ultrasound 09/16/16 0000 Signed Impressions: Service Date/Time: Friday, September 16, 2016 07:55 - CONCLUSION: 1. Thick- walled gallbladder containing stones. If there is clinical concern for acute cholecystitis a hepatobiliary scan may be helpful to confirm cystic duct obstruction. 2. Mild prominence of the common bile duct. Correlation with alkaline phosphatase and bilirubin levels is suggested to rule out hepatobiliary obstruction. 3. Enlarged fatty liver. 4. Splenomegaly. Antonio Maza MD Assessment and Plan Problem List: (1) DM2 (diabetes mellitus, type 2) ICD Code: E11.9 Status: Acute (2) UTI (urinary tract infection) ICD Code: N39.0 Status: Acute Assessment and Plan -CT images reviewed with large right posterior renal mass noted -Findings discussed with patient -At this time, recommend continued medical management for her DM and overall medical status. No urological intervention indicated at this time. -Once cleared for discharge patient may follow-up with Urology in clinic to further discuss treatment options for her renal masses -Please call with questions Problem Qualifiers (1) Sepsis: Qualified Code: A41.01 - Sepsis due to methicillin susceptible Staphylococcus aureus (2) UTI (urinary tract infection): Qualified Code: N30.00 - Acute cystitis without hematuria (3) UTI (urinary tract infection): Qualified Code: N39.0 - Urinary tract infection with hematuria, site unspecified Jonathan Quintero MD Sep 26, 2016 18:46
--- NOTE | 2016-09-26 18:49 | RADRPT ---
EXAM DATE/TIME: 09/26/2016 17:54 [facility] COMPARISON: No previous studies available for comparison. INDICATIONS : Evaluate for metastasis. IV CONTRAST: 75 cc Omnipaque 350 (iohexol) IV RADIATION DOSE: 9.89 CTDIvol (mGy) MEDICAL HISTORY : Hypertension. Renal cancer. SURGICAL HISTORY : Appendectomy. Hernia repairs. ENCOUNTER: Initial ACUITY: 1 day PAIN SCALE: 1/10 LOCATION: Bilateral chest TECHNIQUE: Volumetric scanning of the chest was performed. Using automated exposure control and adjustment of t he mA and/or kV according to patient size, radiation dose was kept as low as reasonably achievable to obtain optimal diagnostic quality images. DICOM format image data is available electronically for review and comparison. FINDINGS: There are small bilateral pleural effusions larger on the right than the left occupying approximately 10% of the hemithorax. There are no suspicious lung lesions identified. There is no axillary adenopathy. There is no mediastinal adenopathy. Portion of the liver and splee n identified are free of focal defects. Review of bone windows reveals no evidence of metastatic disease. CONCLUSION: I see no evidence for metastatic disease in this patient with possible renal cell carcinoma. Ulises Leonard MD FACR on September 26, 2016 at 18:29 Board Certified Radiologist. This report was verified electronically.
--- NOTE | 2016-09-26 19:29 | HHI.IDPN ---
Subjective Subjective Remarks MRI cnfirmed renal tumor H/o contralateral renal ca few yrs ago sp endoscopical procedure No fever No back pain No hematuria PERLA negative CT abd/pel showed solid mass in R kidney Antibiotics IV Cefazolin Past Medical History 1. Insulin-dependent diabetes mellitus. 2. Left renal cancer status post freezing 3. Hypertriglyceridemia. Past Surgical History 1. 8 incisional hernia repairs. 2. C-sections. 3. Bilateral carpal tunnel surgery 4. Left kidney freezing and right lumpectomy. Reported Medications IV Vancomycin and Zosyn Family History Positive for Diabetes Social History Lives with boyfriend Non smoker Allergies: Coded Allergies: Rifampin (Verified Allergy, Severe, Nausea/Vomiting, 09/15/16) STOMACH CRAMPS Objective . Vital Signs Date Time Temp Pulse Resp B/P Pulse Ox O2 Delivery O2 Flow Rate FiO2 09/26/16 17:59 96.5 83 20 138/66 97 09/26/16 11:30 75 09/26/16 11:30 98.0 75 18 148/95 96 09/26/16 10:03 94 09/26/16 08:00 77 09/26/16 08:00 98.5 80 16 148/95 96 09/26/16 06:00 78 09/26/16 05:00 71 09/26/16 04:02 68 09/26/16 03:19 98.1 71 18 131/71 97 09/26/16 03:00 69 09/26/16 02:12 40 09/26/16 02:00 69 09/26/16 00:01 74 09/25/16 23:59 98.1 74 18 119/60 97 09/25/16 23:00 74 09/25/16 22:00 72 09/25/16 21:00 76 09/25/16 20:00 74 09/25/16 19:49 98.1 77 18 121/63 97 09/25/16 09/25/16 09/26/16 15:00 23:00 07:00 Intake Total 880 ml 340 ml Output Total 1350 ml 1300 ml Balance -470 ml -960 ml Intake Oral 680 ml 240 ml IV Total 200 ml 100 ml Output Urine Total 1350 ml 1300 ml # Bowel Movements 0 . Microbiology Date/Time Procedure Status Source Growth 09/24/16 00:01 Urine Culture - Final Complete Urine Clean Catch Emilee Glabrata Imaging Last Impressions Chest X-Ray 09/26/16 Signed Impressions: Service Date/Time: Monday, September 26, 2016 12:14 - CONCLUSION: Right PICC line in good position. No pneumothorax. Armando Carmen MD Chest CT 09/26/16 Signed Impressions: Service Date/Time: Monday, September 26, 2016 17:54 - CONCLUSION: I see no evidence for metastatic disease in this patient with possible renal cell carcinoma. Ulises Leonard MD FACR Abdomen MRI 09/25/16 Signed Impressions: Service Date/Time: September 17:38 - CONCLUSION: Right renal mass measures 5.9 cm and has both a solid and cystic component with enhancing septa between the cystic components. The findings are suspicious for malignancy. Nathaniel Chapa MD Renal Ultrasound 09/24/16 Signed Impressions: Service Date/Time: Saturday, September 24, 2016 11:32 - CONCLUSION: 1. Complex cystic mass in the lower pole the right kidney. Abscess is not excluded. CT scan is recommended for further evaluation if clinically indicated. Alan Yadav MD Abdomen/Pelvis CT 09/24/16 Signed Impressions: Service Date/Time: September 01:38 - CONCLUSION: 1. Solid appearing right renal mass measures 3.2 x 4.5 x 5.5 cm. Contrasted MRI recommended. 2. Cholelithiasis. 3. Punctate nonobstructing right renal calculus. 4. Air in urinary bladder likely iatrogenic. Sivakumar Ferguson MD Hepatobiliary Scan Nuclear Medicine 09/18/16 Signed Impressions: Service Date/Time: August 08:12 - CONCLUSION: Negative study Nehemias Gonsales MD Thoracic Spine MRI 09/17/16 0000 Signed Impressions: Service Date/Time: Saturday, September 17, 2016 13:59 - CONCLUSION: I do not see evidence for an abscess. I do not see any radiographic reason for the patient' s inability to ambulate. Ulises Leonard MD FACR Lumbar Spine MRI 09/17/16 0000 Signed Impressions: Service Date/Time: Saturday, September 17, 2016 13:59 - CONCLUSION: 1. No evidence of abscess collection. 2. No spinal stenosis, focal disc herniation, fracture or osteomyelitis. 3. Lipoma of the filum terminale. Antonio Maza MD Lower Extremity Ultrasound 09/16/16 0000 Signed Impressions: Service Date/Time: Friday, September 16, 2016 11:36 - CONCLUSION: No evidence of deep venous thrombosis within the lower extremities. Antonio Maza MD Abdomen Ultrasound 09/16/16 0000 Signed Impressions: Service Date/Time: Friday, September 16, 2016 07:55 - CONCLUSION: 1. Thick- walled gallbladder containing stones. If there is clinical concern for acute cholecystitis a hepatobiliary scan may be helpful to confirm cystic duct obstruction. 2. Mild prominence of the common bile duct. Correlation with alkaline phosphatase and bilirubin levels is suggested to rule out hepatobiliary obstruction. 3. Enlarged fatty liver. 4. Splenomegaly. Antonio Maza MD Physical Exam GENERAL: This is a obese chronically ill pt in no distress SKIN: No rashes, ecchymoses . Cool and dry.Superficial skin breakdown on back HEAD: Atraumatic. Normocephalic. EYES: Pupils equal round and reactive. Extraocular motions intact. No scleral icterus. No injection or drainage. CARDIOVASCULAR: Regular rate and rhythm with a systolic murmur, no, gallops, or rubs. RESPIRATORY: Clear to auscultation. Breath sounds equal bilaterally. No wheezes , rales, or rhonchi. GASTROINTESTINAL: Abdomen soft, non-tender, nondistended. No hepato-splenomegaly , or palpable masses. No guarding. MUSCULOSKELETAL: Extremities without clubbing, cyanosis, or edema. No joint tenderness, effusion, or edema noted. NEUROLOGICAL: Awake and alert. Cranial nerves II through XII intact. No motor deficit Normal speech PSYCH: pt is calm and cooperative Assessment & Plan Remarks High grade sustained MSSA bacteremia of unknown source - last clx neg @ 4 days - PERLA negative - L spine/T spine MRI negative - abd CT negative for abscess No e/o R renal abscess, solid mass on CT ARF - resolved Multiple med problems REC's: cont cefazoline, 2 gm q 8, anticipate at least 4 weeks from the 1st negative blood clx, then we will repeat blood clx after 2 weeks of treatment or with fever pt will be scheduled for CT guided bx sp PICC OK to [facility] from [facility] after other bustamante and procedures are completed Tamela Shahid MD Sep 26, 2016 19:29
--- NOTE | 2016-09-26 19:30 | HHI.FF ---
Infusion Therapy Location of Infusion Therapy: Home Health Care IV Infusion Order Patient Information Patient Weight 108 kg Diagnosis: Coded Allergies: Rifampin (Verified Allergy, Severe, Nausea/Vomiting, 09/15/16) STOMACH CRAMPS Administer Medication Cefazolin 2 grams IV q 8 hours Start Treatment: Sep 27, 2016 Stop Treatment: Oct 17, 2016 Additional Information Venous access: PICC Line Additional Instructions [x] Peripheral flush and dressing changes per protocol [x] Implanted port and central facepiece line supervisor: * Implanted port: 10 ml Normal Saline followed by 5 ml Heparin 100 units/ml Heparin flush after each use and monthly to maintain. [] May leave port accessed during therapy. [] May leave peripheral site accessed for duration of therapy. [x] If patient has SOB or respiratory distress, check oxygen saturation. If less than 90% or clinical signs of respiratory distress, administer oxygen at 2 L/min. via nasal cannula and notify physician. [x] Anaphylaxis/Reaction orders: * Stop infusion. * Keep IV line open with saline flush. * Notify physician. * Monitor vital signs every 15 minutes until symptoms resolve. * Check Oxygen saturation; Oxygen at 2 L/min. via nasal cannula if less than 90% or clinical signs of respiratory distress. * Administer diphenhydramine (Benadryl) 25 mg IV STAT, (unless patient has received as pre-med). May repeat once, if necessary. * Solu-Cortef 250 mg IVP over 30-60 seconds, use 100 mg vials for each dissolution. * Epinephrine (1mg/1 ml) 0.3 mg subcutaneously or IVP now with any signs of respiratory distress. * Check with physician for new additional pre-med orders if patient is re- challenged or re-treated. [x] May remove PICC line when treatment complete, after confirming with Physician. [x] If the patient is admitted to the hospital, the ED, or transferred via [facility] , complete transfer form including medication reconciliation order sheet. Laboratory Tests Weekly Labs: CBC w/diff, Creatinine Additional Information blood cultures on November 03 x 2 Tamela Shahid MD Sep 26, 2016 19:30
[2016-09-26] MEDS: INSULIN DETEMIR 100 UNITS/ML VIAL SQ SCH (21:24)
[2016-09-27] VITALS: BP 139/84; PULSE 73; RESP 18; TEMP 96.5; O2SAT 100
[2016-09-27 04:00] VITALS: BP 146/72; PULSE 74; RESP 20; TEMP 96.5; O2SAT 93
[2016-09-27 04:33] LABS: HEMATOCRIT 25.4 % (35.0-46.0); MEAN CELL VOLUME 86.5 FL (80.0-100.0); MEAN CORPUSCULAR HEMOGLOBIN 27.3 PG (27.0-34.0); MEAN CORPUSCULAR HGB CONC 31.5 % (32.0-36.0); PLATELET COUNT 213 TH/MM3 (150-450); RED BLOOD COUNT 2.94 MIL/MM3 (4.00-5.30); RED CELL DISTRIBUTION WIDTH 16.8 % (11.6-17.2); REVIEW FLAG FINAL; WHITE BLOOD COUNT 5.8 TH/MM3 (4.0-11.0)
[2016-09-27 05:15] LABS: BICARBONATE 26.5 MEQ/L (21.0-32.0); POTASSIUM 3.8 MEQ/L (3.5-5.1)
[2016-09-27] MEDS: INSULIN ASPART SUPPLEMENTAL SCALE SQ SCH ×4 (05:52→21:00)
[2016-09-27] MEDS: HEPARIN SODIUM - SQ 10,000 UNITS/ML VIAL SQ SCH ×3 (06:54→21:21)
[2016-09-27] MEDS: GLIMEPIRIDE 4 MG TAB PO SCH (09:32)
[2016-09-27] MEDS: LACTOBACILLUS ACIDOPHILUS TAB PO SCH ×2 (09:33→21:21)
[2016-09-27] MEDS: CARVEDILOL 6.25 MG TAB PO SCH ×2 (09:33→21:21)
[2016-09-27] MEDS: PANTOPRAZOLE SOD 40 MG DELAYED RELEASE TAB PO SCH (09:33)
[2016-09-27] MEDS: COLLAGENASE OINT 30 GM TUBE TOPICAL SCH (09:33)
[2016-09-27] MEDS ORDERED: LACT PO (09:47)
[2016-09-27] MEDS ORDERED: LEVEMIR SQ (09:47)
[2016-09-27] MEDS ORDERED: CARV6.25 PO (09:47)
--- NOTE | 2016-09-27 11:25 | HHI.FF ---
Face to Face Verification Diagnosis: (1) UTI (urinary tract infection) (2) Staphylococcus aureus bacteremia with sepsis (3) Hypotension (4) LEON (acute kidney injury) (5) DM2 (diabetes mellitus, type 2) (6) HTN (hypertension) (7) Generalized weakness (8) Renal mass Physical Therapy Order: Evaluate and Treat, Improve ambulation, Strength and gait training Home Health Nursing Order: Medical education Signs/symptoms of disease process Diabetic education Medication education-adverse effect Nursing assessment with vital signs IV medication administration I have seen patient Alley Lewis on 09/27/16. My clinical findings support the need for the requested home health care services because: Ltd mobility - disease progression Infection w/ risk of complications Injectable med education/admin I certify that my clinical findings support that this patient is homebound because: Poor cardiac reserve Tsering Germain MD Sep 27, 2016 11:24
--- NOTE | 2016-09-27 12:22 | HHI.DS ---
Discharge Summary Admission Date Sep 15, 2016 at 13:04 Admitting Diagnosis Sepsis (UTI); LEON; Hypotension (1) Sepsis ICD Code: A41.9 (2) UTI (urinary tract infection) ICD Code: N39.0 (3) Generalized weakness ICD Code: R53.1 (4) DM2 (diabetes mellitus, type 2) ICD Code: E11.9 (5) HTN (hypertension) ICD Code: I10 Procedures 09/22- PERLA- negative Brief History - From Admission This is a 66-year-old female with past medical history significant for insulin- dependent diabetes mellitus, renal cancer, who presents to [facility] complaining of chills, weakness as well as inability to urinate this morning. The patient states that she was hospitalized a month ago over at this institution in August 08 and states she was diagnosed with sepsis. Upon review of records it is noted that the patient presented with tachycardia, headache and elevated lactic acid more than 4. At the time the patient was worked up with a negative urinalysis and underwent an LP which did not show any signs of meningitis. The patient states that she never felt fine after she was discharged. The patient states that yesterday she started feeling very weak, had chills, denies fevers however she stated that she felt very hot. The patient also states she vomited and had one episode of diarrhea and vomiting and this morning she could not urinate with her last urination been at 8 PM last night. The patient then called EMS as per ED physician's records the patient's blood pressure was in the systolic 80s and was given IV fluids and Route to the emergency department. In the emergency department the patient has gotten 3 L of IV normal saline bolus and as per RN report the patient has not voided yet. CBC/BMP: 09/27/16 0413 09/27/16 041 Significant Findings Laboratory Tests Test 09/24/16 09/27/16 14:13 04:13 Red Blood Count 3.15 MIL/MM3 2.94 MIL/MM3 (4.00-5.30) (4.00-5.30) Hemoglobin 8.6 GM/DL 8.0 GM/DL (11.6-15.3) (11.6-15.3) Hematocrit 27.1 % 25.4 % (35.0-46.0) (35.0-46.0) Mean Corpuscular Hemoglobin 31.7 % 31.5 % Concent (32.0-36.0) (32.0-36.0) Prothrombin Time 12.0 SEC (9.8-11.6) Chloride Level 111 MEQ/L (98-107) Estimat Glomerular Filtration 85 ML/MIN (>89) Rate Calcium Level 7.8 MG/DL (8.5-10.1) PE at Discharge GENERAL: in NAD SKIN: Warm and dry. HEAD: Normocephalic. EYES: No scleral icterus. No injection or drainage. NECK: Supple, trachea midline. No JVD or lymphadenopathy. CARDIOVASCULAR: Regular rate and rhythm without murmurs, gallops, or rubs. RESPIRATORY: Breath sounds equal bilaterally. No accessory muscle use. GASTROINTESTINAL: Abdomen soft, non-tender, nondistended. MUSCULOSKELETAL: No cyanosis, or edema. BACK: Nontender without obvious deformity. No CVA tenderness. Pt Condition on Discharge: Good Discharge Disposition: Disch w/ Home Health Serv Discharge Instructions DIET: Follow Instructions for: Heart Healthy Diet Activities you can perform: Regular-No Restrictions Tsering Germain MD Sep 27, 2016 12:22
[2016-09-27] MEDS ORDERED: SOLU250I IV PUSH (12:30)
[2016-09-27] MEDS ORDERED: EPIN1INJ21 IV PUSH (12:30)
[2016-09-27] MEDS ORDERED: CEFA2SOL IV (12:30)
[2016-09-27] MEDS ORDERED: EPIN1INJ21 SQ (12:30)
--- NOTE | 2016-09-27 13:39 | HHI.IDPN ---
Subjective Subjective Remarks co diaphoresis improved with eating carbs No fever No back pain No hematuria PERLA negative CT abd/pel showed solid mass in R kidney MRI showed septated cyst Antibiotics IV Cefazolin Past Medical History 1. Insulin-dependent diabetes mellitus. 2. Left renal cancer status post freezing 3. Hypertriglyceridemia. Past Surgical History 1. 8 incisional hernia repairs. 2. C-sections. 3. Bilateral carpal tunnel surgery 4. Left kidney freezing and right lumpectomy. Reported Medications IV Vancomycin and Zosyn Family History Positive for Diabetes Social History Lives with boyfriend Non smoker Allergies: Coded Allergies: Rifampin (Verified Allergy, Severe, Nausea/Vomiting, 09/15/16) STOMACH CRAMPS Objective . Vital Signs Date Time Temp Pulse Resp B/P Pulse Ox O2 Delivery O2 Flow Rate FiO2 09/27/16 04:00 96.5 74 20 146/72 93 09/27/16 00:00 96.5 73 18 139/84 100 09/26/16 20:00 96.5 73 18 128/59 98 09/26/16 17:59 96.5 83 20 138/66 97 09/26/16 09/26/16 09/27/16 15:00 23:00 07:00 Intake Total 600 ml 100 ml Balance 600 ml 100 ml Intake Oral 480 ml IV Total 120 ml 100 ml # Voids 2 3 # Bowel Movements 0 . Laboratory Tests Test 09/27/16 04:13 White Blood Count 5.8 TH/MM3 Red Blood Count 2.94 MIL/MM3 Hemoglobin 8.0 GM/DL Hematocrit 25.4 % Mean Corpuscular Volume 86.5 FL Mean Corpuscular Hemoglobin 27.3 PG Mean Corpuscular Hemoglobin 31.5 % Concent Red Cell Distribution Width 16.8 % Platelet Count 213 TH/MM3 Mean Platelet Volume 7.6 FL Laboratory Tests Test 09/27/16 04:13 Sodium Level 144 MEQ/L Potassium Level 3.8 MEQ/L Chloride Level 111 MEQ/L Carbon Dioxide Level 26.5 MEQ/L Anion Gap 7 MEQ/L Blood Urea Nitrogen 10 MG/DL Creatinine 0.69 MG/DL Estimat Glomerular Filtration 85 ML/MIN Rate Random Glucose 98 MG/DL Calcium Level 7.8 MG/DL Imaging Last Impressions Chest X-Ray 09/26/16 0000 Signed Impressions: Service Date/Time: Monday, September 26, 2016 12:14 - CONCLUSION: Right PICC line in good position. No pneumothorax. Armnado Carmen MD Chest CT 09/26/16 0000 Signed Impressions: Service Date/Time: Monday, September 26, 2016 17:54 - CONCLUSION: I see no evidence for metastatic disease in this patient with possible renal cell carcinoma. Ulises Leonard MD FACR Abdomen MRI 09/25/16 0000 Signed Impressions: Service Date/Time: September 17:38 - CONCLUSION: Right renal mass measures 5.9 cm and has both a solid and cystic component with enhancing septa between the cystic components. The findings are suspicious for malignancy. Nathaniel Chapa MD Renal Ultrasound 09/24/16 0000 Signed Impressions: Service Date/Time: Saturday, September 24, 2016 11:32 - CONCLUSION: 1. Complex cystic mass in the lower pole the right kidney. Abscess is not excluded. CT scan is recommended for further evaluation if clinically indicated. Alan Yadav MD Abdomen/Pelvis CT 09/24/16 0000 Signed Impressions: Service Date/Time: September 01:38 - CONCLUSION: 1. Solid appearing right renal mass measures 3.2 x 4.5 x 5.5 cm. Contrasted MRI recommended. 2. Cholelithiasis. 3. Punctate nonobstructing right renal calculus. 4. Air in urinary bladder likely iatrogenic. Sivakumar Ferguson MD Hepatobiliary Scan Nuclear Medicine 09/18/16 0000 Signed Impressions: Service Date/Time: August 08:12 - CONCLUSION: Negative study Nehemias Gonsales MD Thoracic Spine MRI 09/17/16 0000 Signed Impressions: Service Date/Time: Saturday, September 17, 2016 13:59 - CONCLUSION: I do not see evidence for an abscess. I do not see any radiographic reason for the patient' s inability to ambulate. Ulises Leonard MD FACR Lumbar Spine MRI 09/17/16 0000 Signed Impressions: Service Date/Time: Saturday, September 17, 2016 13:59 - CONCLUSION: 1. No evidence of abscess collection. 2. No spinal stenosis, focal disc herniation, fracture or osteomyelitis. 3. Lipoma of the filum terminale. Antonio Maza MD Lower Extremity Ultrasound 09/16/16 0000 Signed Impressions: Service Date/Time: Friday, September 16, 2016 11:36 - CONCLUSION: No evidence of deep venous thrombosis within the lower extremities. Antonio Maza MD Abdomen Ultrasound 09/16/16 0000 Signed Impressions: Service Date/Time: Friday, September 16, 2016 07:55 - CONCLUSION: 1. Thick- walled gallbladder containing stones. If there is clinical concern for acute cholecystitis a hepatobiliary scan may be helpful to confirm cystic duct obstruction. 2. Mild prominence of the common bile duct. Correlation with alkaline phosphatase and bilirubin levels is suggested to rule out hepatobiliary obstruction. 3. Enlarged fatty liver. 4. Splenomegaly. Antonio Maza MD Physical Exam GENERAL: This is a obese chronically ill pt in no distress SKIN: No rashes, ecchymoses . Cool and dry. Diaphoretic HEAD: Atraumatic. Normocephalic. EYES: Pupils equal round and reactive. Extraocular motions intact. No scleral icterus. No injection or drainage. CARDIOVASCULAR: Regular rate and rhythm with a systolic murmur, no, gallops, or rubs. RESPIRATORY: Clear to auscultation. Breath sounds equal bilaterally. No wheezes , rales, or rhonchi. GASTROINTESTINAL: Abdomen soft, non-tender, nondistended. No hepato-splenomegaly , or palpable masses. No guarding. MUSCULOSKELETAL: Extremities without clubbing, cyanosis, or edema. No joint tenderness, effusion, or edema noted. NEUROLOGICAL: Awake and alert. Cranial nerves II through XII intact. No motor deficit Normal speech PSYCH: pt is calm and cooperative Assessment & Plan Remarks High grade sustained MSSA bacteremia of unknown source - last clx neg @ 4 days - PERLA negative - L spine/T spine MRI negative - abd CT negative for abscess No e/o R renal abscess, solid mass on CT , MRI findings were dw radiologist, infection component can not be ruled aout solely on these studies ARF - resolved Multiple med problems REC's: cont cefazoline, 2 gm q 8, anticipate at least 4 weeks from the 1st negative blood clx, then we will repeat blood clx after 2 weeks of treatment or with fever pt will be scheduled for CT guided bx, will dc pt if no e/o infection on bx/ aspiration sp PICC OK to dc home from [facility] after other bustamante and procedures are completed OPAT forms asn scripts were filled out dw pt dw case mngr dw Tamela Oconnell MD Sep 27, 2016 13:39
--- NOTE | 2016-09-27 14:10 | HHI.PR ---
Subjective Remarks f/u for infection patient has no complaints. remains afebrile. very anxious to go home. Objective Vitals Vital Signs Date Time Temp Pulse Resp B/P Pulse Ox O2 Delivery O2 Flow Rate FiO2 09/27/16 04:00 96.5 74 20 146/72 93 09/27/16 00:00 96.5 73 18 139/84 100 09/26/16 20:00 96.5 73 18 128/59 98 09/26/16 17:59 96.5 83 20 138/66 97 I/O 09/26/16 09/26/16 09/26/16 09/27/16 09/27/16 09/27/16 07:00 15:00 23:00 07:00 15:00 23:00 Intake Total 340 ml 600 ml 100 ml Output Total 1300 ml Balance -960 ml 600 ml 100 ml Intake Oral 240 ml 480 ml IV Total 100 ml 120 ml 100 ml Output Urine Total 1300 ml # Voids 2 3 # Bowel Movements 0 Result Diagram: 09/27/16 0413 09/27/16 0413 Imaging Last Impressions Chest X-Ray 09/26/16 0000 Signed Impressions: Service Date/Time: Monday, September 26, 2016 12:14 - CONCLUSION: Right PICC line in good position. No pneumothorax. Armando Carmen MD Chest CT 09/26/16 0000 Signed Impressions: Service Date/Time: Monday, September 26, 2016 17:54 - CONCLUSION: I see no evidence for metastatic disease in this patient with possible renal cell carcinoma. Ulises Leonard MD FACR Abdomen MRI 09/25/16 0000 Signed Impressions: Service Date/Time: September 17:38 - CONCLUSION: Right renal mass measures 5.9 cm and has both a solid and cystic component with enhancing septa between the cystic components. The findings are suspicious for malignancy. Nathaniel Chapa MD Renal Ultrasound 09/24/16 0000 Signed Impressions: Service Date/Time: Saturday, September 24, 2016 11:32 - CONCLUSION: 1. Complex cystic mass in the lower pole the right kidney. Abscess is not excluded. CT scan is recommended for further evaluation if clinically indicated. Alan Yadav MD Abdomen/Pelvis CT 09/24/16 0000 Signed Impressions: Service Date/Time: September 01:38 - CONCLUSION: 1. Solid appearing right renal mass measures 3.2 x 4.5 x 5.5 cm. Contrasted MRI recommended. 2. Cholelithiasis. 3. Punctate nonobstructing right renal calculus. 4. Air in urinary bladder likely iatrogenic. Sivakumar Ferguson MD Hepatobiliary Scan Nuclear Medicine 09/18/16 0000 Signed Impressions: Service Date/Time: August 08:12 - CONCLUSION: Negative study Nehemias Gonsales MD Thoracic Spine MRI 09/17/16 0000 Signed Impressions: Service Date/Time: Saturday, September 17, 2016 13:59 - CONCLUSION: I do not see evidence for an abscess. I do not see any radiographic reason for the patient' s inability to ambulate. Ulises Leonard MD FACR Lumbar Spine MRI 09/17/16 0000 Signed Impressions: Service Date/Time: Saturday, September 17, 2016 13:59 - CONCLUSION: 1. No evidence of abscess collection. 2. No spinal stenosis, focal disc herniation, fracture or osteomyelitis. 3. Lipoma of the filum terminale. Antonio Maza MD Lower Extremity Ultrasound 09/16/16 0000 Signed Impressions: Service Date/Time: Friday, September 16, 2016 11:36 - CONCLUSION: No evidence of deep venous thrombosis within the lower extremities. Antonio Maza MD Abdomen Ultrasound 09/16/16 0000 Signed Impressions: Service Date/Time: Friday, September 16, 2016 07:55 - CONCLUSION: 1. Thick- walled gallbladder containing stones. If there is clinical concern for acute cholecystitis a hepatobiliary scan may be helpful to confirm cystic duct obstruction. 2. Mild prominence of the common bile duct. Correlation with alkaline phosphatase and bilirubin levels is suggested to rule out hepatobiliary obstruction. 3. Enlarged fatty liver. 4. Splenomegaly. Antonio Maza MD Objective Remarks GENERAL: in NAD SKIN: Warm and dry. HEAD: Normocephalic. EYES: No scleral icterus. No injection or drainage. NECK: Supple, trachea midline. No JVD or lymphadenopathy. CARDIOVASCULAR: Regular rate and rhythm without murmurs, gallops, or rubs. RESPIRATORY: Breath sounds equal bilaterally. No accessory muscle use. GASTROINTESTINAL: Abdomen soft, non-tender, nondistended. MUSCULOSKELETAL: No cyanosis, or edema. BACK: Nontender without obvious deformity. No CVA tenderness. Procedures 09/22- PERLA- negative Medications and IVs Current Medications Sodium Chloride 1,000 ml @ 2,000 mls/hr Q30M ONCE IV Last administered on 09/15 11:51; Start 09/15/16 at 11:16; Stop 09/15/16 at 11:45; Status DC Sodium Chloride (NS 1000 ml Inj) 1,000 ml @ 2,000 mls/hr Q30M ONCE IV Last administered on 09/15/16 11:51; Start 09/15/16 at 11:46; Stop 09/15/16 at 12:15 ; Status DC Sodium Chloride (NS Flush) 2 ml UNSCH PRN IVF FLUSH AFTER USING IV ACCESS Last administered on 09/21/16 21:05; Start 09/15/16 at 11:30 Insulin Human Regular 10 units 10 units ONCE ONCE IV PUSH Last administered on 09/15/16 11:50; Start 09/15/16 at 11:30; Stop 09/15/16 at 11:31; Status DC Ceftriaxone Sodium 1000 mg/ Sodium Chloride 100 ml @ 200 mls/hr ONCE ONCE IV Last administered on 09/15/16 13:04; Start 09/15/16 at 13:00; Stop 09/15/16 at 13:29; Status DC Sodium Chloride 1,000 ml @ 999 mls/hr BOLUS ONCE IV Last administered on 09/15 13:30; Start 09/15/16 at 13:30; Stop 09/15/16 at 14:30; Status DC Sodium Chloride 1,000 ml @ 125 mls/hr Q8H IV Last administered on 09/15/16 14 :39; Start 09/15/16 at 13:30; Stop 09/15/16 at 16:12; Status DC Sodium Chloride 1,000 ml @ 250 mls/hr Q4H IV ; Start 09/15/16 at 15:00; Stop at 15:50; Status DC Dextrose/Sodium Chloride (D5W-NS 1000 ml Inj) 1,000 ml @ 200 mls/hr Q5H IV ; Start 09/15/16 at 15:00; Stop 09/15/16 at 15:50; Status DC Insulin Human Regular 10 units 10 units BOLUS ONCE IV PUSH ; Start 09/15/16 at 15:00; Stop 09/15/16 at 15:50; Status DC Insulin Human Regular 100 units/ Sodium Chloride 100 ml @ 0 mls/hr TITRATE IV ; Start 09/15/16 at 15:00; Stop 09/15/16 at 15:51; Status DC Potassium Chloride 100 ml @ 100 mls/hr Q1H PRN IV SEE LABEL COMMENTS; Start at 14:15; Stop 09/15/16 at 15:51; Status DC Potassium Chloride 100 ml @ 50 mls/hr Q2H PRN IV SEE LABEL COMMENTS; Start at 14:15; Stop 09/15/16 at 15:51; Status DC Potassium Chloride 100 ml @ 100 mls/hr Q1H PRN IV SEE LABEL COMMENTS; Start at 14:15; Stop 09/15/16 at 15:51; Status DC Potassium Chloride 100 ml @ 100 mls/hr Q1H PRN IV SEE LABEL COMMENTS; Start at 14:15; Stop 09/15/16 at 15:52; Status DC Potassium Chloride 100 ml @ 50 mls/hr Q2H PRN IV SEE LABEL COMMENTS; Start at 15:00; Stop 09/15/16 at 15:52; Status DC Potassium Chloride 100 ml @ 50 mls/hr Q2H PRN IV SEE LABEL COMMENTS; Start at 14:15; Stop 09/15/16 at 15:52; Status DC Potassium Chloride 100 ml @ 50 mls/hr Q2H PRN IV SEE LABEL COMMENTS; Start at 14:15; Stop 09/15/16 at 15:52; Status DC Potassium Chloride (KCl 20 Meq Premix Inj) 100 ml @ 50 mls/hr Q2H PRN IV SEE LABEL COMMENTS; Start 09/15/16 at 14:15; Stop 09/15/16 at 15:53; Status DC Sodium Bicarbonate (Sodium Bicarbonate 8.4% Inj) 100 meq UNSCH PRN IV SEE LABEL COMMENTS; Start 09/15/16 at 14:15; Stop 09/15/16 at 15:53; Status DC Sodium Bicarbonate 50 meq 50 meq UNSCH PRN IV SEE LABEL COMMENTS; Start at 14:15; Stop 09/15/16 at 15:53; Status DC Sodium Phosphate/ Sodium Chloride (Sodium Phosphate Inj/NS Inj) 105 ml @ 25 mls /hr UNSCH PRN IV SEE LABEL COMMENTS; Start 09/15/16 at 14:15; Stop 09/15/16 at 15:53; Status DC Miscellaneous Information 1 [id number] XX ; Start 09/15/16 at 14:15; Stop 09/15/16 at 15:50; Status DC Chlorhexidine Gluconate (Chlorhexidine 2% Cloth) 3 pack Taper DAILY@04 TOP ; Start 09/16/16 at 04:00; Stop 09/16/16 at 04:00; Status DC Chlorhexidine Gluconate 3 pack 3 pack UNSCH PRN TOP HYGIENIC CARE; Start at 14:15; Stop 09/15/16 at 15:49; Status DC Ceftriaxone Sodium/Sodium Chloride (Rocephin Inj/NS Inj) 100 ml @ 200 mls/hr Q24H IV ; Start 09/16/16 at 13:00; Stop 09/16/16 at 13:00; Status DC Aspirin (Aspirin Chew) 81 mg DAILY CHEW Last administered on 09/26/16 10:13; Start 09/16/16 at 09:00; Status Hold Insulin Detemir (Levemir Inj) 25 units HS SQ ; Start 09/15/16 at 21:00; Stop at 09:30; Status DC Dextrose (D50w (Vial) Inj) 50 ml UNSCH PRN IV HYPOGLYCEMIA-SEE COMMENTS; Start 09/15/16 at 16:00 Glucagon (Glucagon Inj) 1 mg UNSCH PRN OTHER HYPOGLYCEMIA-SEE COMMENTS Last administered on 09/16/16 05:25; Start 09/15/16 at 16:00 Insulin Aspart 1 1 ACHS SLIDING SCALE SQ Last administered on 09/26/16 21:25; Start 09/15/16 at 16:00 Sodium Chloride 1,000 ml @ 125 mls/hr Q8H IV Last administered on 09/15/16 23 :35; Start 09/15/16 at 16:00; Stop 09/16/16 at 00:27; Status DC Sodium Chloride (NS 1000 ml Inj) 1,000 ml @ 150 mls/hr Q6H40M IV Last administered on 09/16/16 00:30; Start 09/16/16 at 00:30; Stop 09/16/16 at 03:17 ; Status DC Acetaminophen 650 mg 650 mg Q4H PRN PO fever >101 Last administered on 01:13; Start 09/16/16 at 01:15; Stop 09/16/16 at 09:34; Status DC Dextrose/Sodium Chloride (D5W-NS 1000 ml Inj) 1,000 ml @ 100 mls/hr Q10H IV Last administered on 09/16/16 03:24; Start 09/16/16 at 03:30; Stop 09/17/16 at 13:54; Status DC Acetaminophen 650 mg 650 mg Q4H PRN PO FEVER; Start 09/16/16 at 09:45; Stop 09/21/16 at 16:57; Status DC Magnesium Sulfate/ Dextrose (Magnesium Sulfate 1 Gm Premix) 100 ml @ 100 mls/ hr Q1H IV Last administered on 09/16/16 11:46; Start 09/16/16 at 10:15; Stop 09/16/16 at 12:14; Status DC Furosemide 40 mg 40 mg ONCE ONCE IV PUSH Last administered on 09/16/16 10:15 ; Start 09/16/16 at 10:15; Stop 09/16/16 at 10:24; Status DC Piperacillin Sod/ Tazobactam Sod 50 ml @ 100 mls/hr Q6H IV Last administered on 09/17/16 05:53; Start 09/16/16 at 11:00; Stop 09/17/16 at 07:00; Status DC Vancomycin HCl 1000 mg/Sodium Chloride 250 ml @ 250 mls/hr Q24H IV ; Start at 10:15; Status UNV Pharmacy Profile Note 0 ml @ 0 mls/hr UNSCH OTHER ; Start 09/16/16 at 10:15; Status UNV Pharmacy Profile Note 0 ml @ 0 mls/hr UNSCH OTHER ; Start 09/16/16 at 10:15; Stop 09/19/16 at 14:53; Status DC Vancomycin HCl/ Sodium Chloride (Vancomycin Inj/ NS 500 ml Inj) 520 ml @ 250 mls/hr ONCE ONCE IV Last administered on 09/16/16 11:40; Start 09/16/16 at 11 :30; Stop 09/16/16 at 13:35; Status DC Pantoprazole Sodium (Protonix) 40 mg DAILY PO Last administered on 09/27/16 09: 33; Start 09/16/16 at 15:00 Heparin Sodium (Porcine) (Heparin Inj) 5,000 units Q8HR SQ Last administered on 09/27/16 12:28; Start 09/16/16 at 22:00 Morphine Sulfate 2 mg 2 mg ONCE ONCE IV PUSH Last administered on 09/16/16 23 :46; Start 09/16/16 at 23:30; Stop 09/16/16 at 23:31; Status DC Cefazolin Sodium 1000 mg/Sodium Chloride 100 ml @ 200 mls/hr Q8H IV Last administered on 09/24/16 17:49; Start 09/17/16 at 08:00; Stop 09/24/16 at 19:53; Status DC Sodium Chloride (NS 1000 ml Inj) 1,000 ml @ 42 mls/hr [id number] IV Last administered on 09/18/16 12:16; Start 09/17/16 at 14:00; Stop 09/19/16 at 14:15 ; Status DC Gadobenate Dimeglumine 20 ml 20 ml STK-MED ONCE IV Last administered on 15:42; Start 09/17/16 at 15:42; Stop 09/17/16 at 15:43; Status DC Vancomycin HCl/ Sodium Chloride (Vancomycin Inj/ NS 500 ml Inj) 516 ml @ 250 mls/hr Q24H IV Last administered on 09/19/16 14:34; Start 09/18/16 at 12:00; Stop 09/19/16 at 14:53; Status DC Miscellaneous Information SPECIFIC LAB TO BE DRAWN:VANCOMY... ONCE ONCE .XX ; Start 09/21/16 at 11:45; Stop 09/21/16 at 11:46; Status DC Carvedilol (Coreg) 6.25 mg Q12HR PO Last administered on 09/27/16 09:33; Start 09/19/16 at 21:00 Glimepiride (Amaryl) 4 mg DAILY@08 PO Last administered on 09/27/16 09:32; Start 09/21/16 at 08:00 Collagenase (Santyl Oint) 1 applic DAILY TOPICAL Last administered on 09/27/16 09:33; Start 09/21/16 at 09:00 Insulin Detemir (Levemir Inj) 8 units HS SQ Last administered on 09/22/16 21:14 ; Start 09/21/16 at 21:00; Stop 09/23/16 at 08:20; Status DC Lactobacillus Acidophilus (Lactinex) 1 tab Q12HR PO Last administered on 09:33; Start 09/21/16 at 21:00 Acetaminophen (Tylenol) 650 mg Q6H PRN PO Fever, headache, pain 1-4; Start 09/21 at 19:45 Oxycodone/ Acetaminophen (Percocet 7.5-325 Mg) 1 tab Q6H PRN PO PAIN SCALE 5 TO 10 Last administered on 09/21/16 20:50; Start 09/21/16 at 17:00 Insulin Detemir 10 units 10 units HS SQ Last administered on 09/26/16 21:24; Start 09/23/16 at 21:00 Cefazolin Sodium/ Sodium Chloride (Ancef Inj/NS Inj) 100 ml @ 200 mls/hr Q8H IV Last administered on 09/27/16 09:32; Start 09/25/16 at 00:00 Diatrizoate Meglum/ Diatrizoate Sod ( Gastroview Liq) 18 ml ONCE ONCE PO Last administered on 09/24/16 19:15; Start 09/24/16 at 21:15; Stop 09/24/16 at 21: 16; Status DC Iohexol (Omnipaque 350 Inj) 85 ml STK-MED ONCE IV Last administered on 01:54; Start 09/25/16 at 01:54; Stop 09/25/16 at 01:55; Status DC Gadodiamide (Omniscan Pf Inj) 10 ml STK-MED ONCE IV Last administered on 18:08; Start 09/25/16 at 18:08; Stop 09/25/16 at 18:09; Status DC Iohexol (Omnipaque 350 Inj) 70 ml STK-MED ONCE IV Last administered on 18:07; Start 09/26/16 at 18:07; Stop 09/26/16 at 18:08; Status DC Date of Removal: Sep 22, 2016 A/P Problem List: (1) Sepsis ICD Code: A41.9 Status: Acute (2) UTI (urinary tract infection) ICD Code: N39.0 Status: Acute (3) Generalized weakness ICD Code: R53.1 Status: Acute (4) DM2 (diabetes mellitus, type 2) ICD Code: E11.9 Status: Acute (5) HTN (hypertension) ICD Code: I10 Status: Acute Assessment and Plan Sepsis -secondary to MSSA - urinary tract infection/bacteremia. -Improved with treatment. MSSA bacteremia 09/15 09/16 blood cultures positive. Repeat blood cultures 09/20- negative so faR PERLA negative- 09/22 Infectious disease following and stated to continue with cefazoline, 2 gm q 8, anticipate at least 4 weeks from the 1st negative blood clx Acute Kidney injury - resolved. Most likely secondary to sepsis. Renal mass -Found on CT scan. MRI showed right renal mass measures 5.9 cm and has both a solid and cystic component with enhancing septa between the cystic components. -Patient stated that she has a history of left renal mass and had cryotherapy. She stated that mass resolved. -CT guided biopsy/aspiration ordered. scheduled for Thu. NPO at midnight on Thursday and will hold morning dose of heparin. UTI (urinary tract infection)-MSSA 09/15- Candiduria - Asymptomatic Repeat UA- growing yeast - 09/20 UA grew MSSA. babin removed 09/22- voiding Generalized weakness- Improved -Due to sepsis. Seemed to resolved. DM2 (diabetes mellitus, type 2), Uncontrolled -Continue amaryl, levemir 8 units- increase dose (at home was on 25 units -Hemoglobin A1c is 10 -cont ssi - better readings- continue to adjust HTN (hypertension) - cont coreg, and adjust. -Previously hypotensive and medications have been adjusted due to hypotension and acute kidney injury Discharge Planning patient schedule for CT guided biopsy on Thursday. Problem Qualifiers (1) Sepsis: Qualified Code: A41.01 - Sepsis due to methicillin susceptible Staphylococcus aureus (2) UTI (urinary tract infection): Qualified Code: N30.00 - Acute cystitis without hematuria Tsering Germain MD Sep 27, 2016 14:10
[2016-09-27 16:43] VITALS: BP 129/61; PULSE 76; RESP 20; TEMP 97.4; O2SAT 97
[2016-09-27 20:00] VITALS: BP 131/62; PULSE 80; RESP 20; TEMP 96.5; O2SAT 98
[2016-09-27] MEDS: INSULIN DETEMIR 100 UNITS/ML VIAL SQ SCH (21:00)
[2016-09-28] VITALS: BP 130/63; PULSE 80; RESP 20; TEMP 98; O2SAT 94
[2016-09-28 04:00] VITALS: BP 127/70; PULSE 78; RESP 20; TEMP 96.9; O2SAT 96
[2016-09-28] MEDS: HEPARIN SODIUM - SQ 10,000 UNITS/ML VIAL SQ SCH ×3 (06:07→22:10)
[2016-09-28] MEDS: INSULIN ASPART SUPPLEMENTAL SCALE SQ SCH ×4 (06:07→22:16)
[2016-09-28 08:13] VITALS: BP 146/70; PULSE 77; RESP 20; TEMP 96; O2SAT 97
[2016-09-28] MEDS: GLIMEPIRIDE 4 MG TAB PO SCH (08:58)
[2016-09-28] MEDS: COLLAGENASE OINT 30 GM TUBE TOPICAL SCH (09:39)
[2016-09-28] MEDS: LACTOBACILLUS ACIDOPHILUS TAB PO SCH ×2 (09:39→22:10)
[2016-09-28] MEDS: CARVEDILOL 6.25 MG TAB PO SCH ×2 (09:39→22:10)
[2016-09-28] MEDS: PANTOPRAZOLE SOD 40 MG DELAYED RELEASE TAB PO SCH (09:39)
--- NOTE | 2016-09-28 11:35 | HHI.PR ---
Subjective Remarks Follow-up for bacteremia and renal mass Patient has no complaints. She remains afebrile. Objective Vitals Vital Signs Date Time Temp Pulse Resp B/P Pulse Ox O2 Delivery O2 Flow Rate FiO2 09/28/16 08:13 96.0 77 20 146/70 97 09/28/16 04:00 96.9 78 20 127/70 96 09/28/16 00:00 98.0 80 20 130/63 94 09/27/16 20:00 96.5 80 20 131/62 98 09/27/16 16:43 97.4 76 20 129/61 97 I/O 09/27/16 09/27/16 09/27/16 09/28/16 09/28/16 09/28/16 07:00 15:00 23:00 07:00 15:00 23:00 Intake Total 1320 ml 120 ml Balance 1320 ml 120 ml Intake Oral 1320 ml 120 ml # Voids 3 1 2 # Bowel Movements 1 0 0 Result Diagram: 09/27/16 0413 09/27/16 041 Objective Remarks GENERAL: in NAD SKIN: Warm and dry. HEAD: Normocephalic. EYES: No scleral icterus. No injection or drainage. NECK: Supple, trachea midline. No JVD or lymphadenopathy. CARDIOVASCULAR: Regular rate and rhythm without murmurs, gallops, or rubs. RESPIRATORY: Breath sounds equal bilaterally. No accessory muscle use. GASTROINTESTINAL: Abdomen soft, non-tender, nondistended. MUSCULOSKELETAL: No cyanosis, or edema. BACK: Nontender without obvious deformity. No CVA tenderness. Procedures 09/22- PERLA- negative Medications and IVs Current Medications Sodium Chloride 1,000 ml @ 2,000 mls/hr Q30M ONCE IV Last administered on 09/15 11:51; Start 09/15/16 at 11:16; Stop 09/15/16 at 11:45; Status DC Sodium Chloride (NS 1000 ml Inj) 1,000 ml @ 2,000 mls/hr Q30M ONCE IV Last administered on 09/15/16 11:51; Start 09/15/16 at 11:46; Stop 09/15/16 at 12:15 ; Status DC Sodium Chloride (NS Flush) 2 ml UNSCH PRN IVF FLUSH AFTER USING IV ACCESS Last administered on 09/21/16 21:05; Start 09/15/16 at 11:30 Insulin Human Regular 10 units 10 units ONCE ONCE IV PUSH Last administered on 09/15/16 11:50; Start 09/15/16 at 11:30; Stop 09/15/16 at 11:31; Status DC Ceftriaxone Sodium 1000 mg/ Sodium Chloride 100 ml @ 200 mls/hr ONCE ONCE IV Last administered on 09/15/16 13:04; Start 09/15/16 at 13:00; Stop 09/15/16 at 13:29; Status DC Sodium Chloride 1,000 ml @ 999 mls/hr BOLUS ONCE IV Last administered on 09/15 13:30; Start 09/15/16 at 13:30; Stop 09/15/16 at 14:30; Status DC Sodium Chloride 1,000 ml @ 125 mls/hr Q8H IV Last administered on 09/15/16 14 :39; Start 09/15/16 at 13:30; Stop 09/15/16 at 16:12; Status DC Sodium Chloride 1,000 ml @ 250 mls/hr Q4H IV ; Start 09/15/16 at 15:00; Stop at 15:50; Status DC Dextrose/Sodium Chloride (D5W-NS 1000 ml Inj) 1,000 ml @ 200 mls/hr Q5H IV ; Start 09/15/16 at 15:00; Stop 09/15/16 at 15:50; Status DC Insulin Human Regular 10 units 10 units BOLUS ONCE IV PUSH ; Start 09/15/16 at 15:00; Stop 09/15/16 at 15:50; Status DC Insulin Human Regular 100 units/ Sodium Chloride 100 ml @ 0 mls/hr TITRATE IV ; Start 09/15/16 at 15:00; Stop 09/15/16 at 15:51; Status DC Potassium Chloride 100 ml @ 100 mls/hr Q1H PRN IV SEE LABEL COMMENTS; Start at 14:15; Stop 09/15/16 at 15:51; Status DC Potassium Chloride 100 ml @ 50 mls/hr Q2H PRN IV SEE LABEL COMMENTS; Start at 14:15; Stop 09/15/16 at 15:51; Status DC Potassium Chloride 100 ml @ 100 mls/hr Q1H PRN IV SEE LABEL COMMENTS; Start at 14:15; Stop 09/15/16 at 15:51; Status DC Potassium Chloride 100 ml @ 100 mls/hr Q1H PRN IV SEE LABEL COMMENTS; Start at 14:15; Stop 09/15/16 at 15:52; Status DC Potassium Chloride 100 ml @ 50 mls/hr Q2H PRN IV SEE LABEL COMMENTS; Start at 15:00; Stop 09/15/16 at 15:52; Status DC Potassium Chloride 100 ml @ 50 mls/hr Q2H PRN IV SEE LABEL COMMENTS; Start at 14:15; Stop 09/15/16 at 15:52; Status DC Potassium Chloride 100 ml @ 50 mls/hr Q2H PRN IV SEE LABEL COMMENTS; Start at 14:15; Stop 09/15/16 at 15:52; Status DC Potassium Chloride (KCl 20 Meq Premix Inj) 100 ml @ 50 mls/hr Q2H PRN IV SEE LABEL COMMENTS; Start 09/15/16 at 14:15; Stop 09/15/16 at 15:53; Status DC Sodium Bicarbonate (Sodium Bicarbonate 8.4% Inj) 100 meq UNSCH PRN IV SEE LABEL COMMENTS; Start 09/15/16 at 14:15; Stop 09/15/16 at 15:53; Status DC Sodium Bicarbonate 50 meq 50 meq UNSCH PRN IV SEE LABEL COMMENTS; Start at 14:15; Stop 09/15/16 at 15:53; Status DC Sodium Phosphate/ Sodium Chloride (Sodium Phosphate Inj/NS Inj) 105 ml @ 25 mls /hr UNSCH PRN IV SEE LABEL COMMENTS; Start 09/15/16 at 14:15; Stop 09/15/16 at 15:53; Status DC Miscellaneous Information 1 Q361D XX ; Start 09/15/16 at 14:15; Stop 09/15/16 at 15:50; Status DC Chlorhexidine Gluconate (Chlorhexidine 2% Cloth) 3 pack Taper DAILY@04 TOP ; Start 09/16/16 at 04:00; Stop 09/16/16 at 04:00; Status DC Chlorhexidine Gluconate 3 pack 3 pack UNSCH PRN TOP HYGIENIC CARE; Start at 14:15; Stop 09/15/16 at 15:49; Status DC Ceftriaxone Sodium/Sodium Chloride (Rocephin Inj/NS Inj) 100 ml @ 200 mls/hr Q24H IV ; Start 09/16/16 at 13:00; Stop 09/16/16 at 13:00; Status DC Aspirin (Aspirin Chew) 81 mg DAILY CHEW Last administered on 09/26/16 10:13; Start 09/16/16 at 09:00; Status Hold Insulin Detemir (Levemir Inj) 25 units HS SQ ; Start 09/15/16 at 21:00; Stop at 09:30; Status DC Dextrose (D50w (Vial) Inj) 50 ml UNSCH PRN IV HYPOGLYCEMIA-SEE COMMENTS; Start 09/15/16 at 16:00 Glucagon (Glucagon Inj) 1 mg UNSCH PRN OTHER HYPOGLYCEMIA-SEE COMMENTS Last administered on 09/16/16 05:25; Start 09/15/16 at 16:00 Insulin Aspart 1 1 ACHS SLIDING SCALE SQ Last administered on 09/28/16 06:07; Start 09/15/16 at 16:00 Sodium Chloride 1,000 ml @ 125 mls/hr Q8H IV Last administered on 09/15/16 23 :35; Start 09/15/16 at 16:00; Stop 09/16/16 at 00:27; Status DC Sodium Chloride (NS 1000 ml Inj) 1,000 ml @ 150 mls/hr Q6H40M IV Last administered on 09/16/16 00:30; Start 09/16/16 at 00:30; Stop 09/16/16 at 03:17 ; Status DC Acetaminophen 650 mg 650 mg Q4H PRN PO fever >101 Last administered on 01:13; Start 09/16/16 at 01:15; Stop 09/16/16 at 09:34; Status DC Dextrose/Sodium Chloride (D5W-NS 1000 ml Inj) 1,000 ml @ 100 mls/hr Q10H IV Last administered on 09/16/16 03:24; Start 09/16/16 at 03:30; Stop 09/17/16 at 13:54; Status DC Acetaminophen 650 mg 650 mg Q4H PRN PO FEVER; Start 09/16/16 at 09:45; Stop 09/21/16 at 16:57; Status DC Magnesium Sulfate/ Dextrose (Magnesium Sulfate 1 Gm Premix) 100 ml @ 100 mls/ hr Q1H IV Last administered on 09/16/16 11:46; Start 09/16/16 at 10:15; Stop 09/16/16 at 12:14; Status DC Furosemide 40 mg 40 mg ONCE ONCE IV PUSH Last administered on 09/16/16 10:15 ; Start 09/16/16 at 10:15; Stop 09/16/16 at 10:24; Status DC Piperacillin Sod/ Tazobactam Sod 50 ml @ 100 mls/hr Q6H IV Last administered on 09/17/16 05:53; Start 09/16/16 at 11:00; Stop 09/17/16 at 07:00; Status DC Vancomycin HCl 1000 mg/Sodium Chloride 250 ml @ 250 mls/hr Q24H IV ; Start at 10:15; Status UNV Pharmacy Profile Note 0 ml @ 0 mls/hr UNSCH OTHER ; Start 09/16/16 at 10:15; Status UNV Pharmacy Profile Note 0 ml @ 0 mls/hr UNSCH OTHER ; Start 09/16/16 at 10:15; Stop 09/19/16 at 14:53; Status DC Vancomycin HCl/ Sodium Chloride (Vancomycin Inj/ NS 500 ml Inj) 520 ml @ 250 mls/hr ONCE ONCE IV Last administered on 09/16/16 11:40; Start 09/16/16 at 11 :30; Stop 09/16/16 at 13:35; Status DC Pantoprazole Sodium (Protonix) 40 mg DAILY PO Last administered on 09/28/16 09: 39; Start 09/16/16 at 15:00 Heparin Sodium (Porcine) (Heparin Inj) 5,000 units Q8HR SQ Last administered on 09/28/16 06:07; Start 09/16/16 at 22:00 Morphine Sulfate 2 mg 2 mg ONCE ONCE IV PUSH Last administered on 09/16/16 23 :46; Start 09/16/16 at 23:30; Stop 09/16/16 at 23:31; Status DC Cefazolin Sodium 1000 mg/Sodium Chloride 100 ml @ 200 mls/hr Q8H IV Last administered on 09/24/16 17:49; Start 09/17/16 at 08:00; Stop 09/24/16 at 19:53; Status DC Sodium Chloride (NS 1000 ml Inj) 1,000 ml @ 42 mls/hr [id number] IV Last administered on 09/18/16 12:16; Start 09/17/16 at 14:00; Stop 09/19/16 at 14:15 ; Status DC Gadobenate Dimeglumine 20 ml 20 ml STK-MED ONCE IV Last administered on 15:42; Start 09/17/16 at 15:42; Stop 09/17/16 at 15:43; Status DC Vancomycin HCl/ Sodium Chloride (Vancomycin Inj/ NS 500 ml Inj) 516 ml @ 250 mls/hr Q24H IV Last administered on 09/19/16 14:34; Start 09/18/16 at 12:00; Stop 09/19/16 at 14:53; Status DC Miscellaneous Information SPECIFIC LAB TO BE DRAWN:VANCOMY... ONCE ONCE .XX ; Start 09/21/16 at 11:45; Stop 09/21/16 at 11:46; Status DC Carvedilol (Coreg) 6.25 mg Q12HR PO Last administered on 09/28/16 09:39; Start 09/19/16 at 21:00 Glimepiride (Amaryl) 4 mg DAILY@08 PO Last administered on 09/28/16 08:58; Start 09/21/16 at 08:00 Collagenase (Santyl Oint) 1 applic DAILY TOPICAL Last administered on 09/28/16 09:39; Start 09/21/16 at 09:00 Insulin Detemir (Levemir Inj) 8 units HS SQ Last administered on 09/22/16 21:14 ; Start 09/21/16 at 21:00; Stop 09/23/16 at 08:20; Status DC Lactobacillus Acidophilus (Lactinex) 1 tab Q12HR PO Last administered on 09:39; Start 09/21/16 at 21:00 Acetaminophen (Tylenol) 650 mg Q6H PRN PO Fever, headache, pain 1-4; Start 09/21 at 19:45 Oxycodone/ Acetaminophen (Percocet 7.5-325 Mg) 1 tab Q6H PRN PO PAIN SCALE 5 TO 10 Last administered on 09/21/16 20:50; Start 09/21/16 at 17:00 Insulin Detemir 10 units 10 units HS SQ Last administered on 09/27/16 21:00; Start 09/23/16 at 21:00 Cefazolin Sodium/ Sodium Chloride (Ancef Inj/NS Inj) 100 ml @ 200 mls/hr Q8H IV Last administered on 09/28/16 08:10; Start 09/25/16 at 00:00 Diatrizoate Meglum/ Diatrizoate Sod ( Gastroview Liq) 18 ml ONCE ONCE PO Last administered on 09/24/16 19:15; Start 09/24/16 at 21:15; Stop 09/24/16 at 21: 16; Status DC Iohexol (Omnipaque 350 Inj) 85 ml STK-MED ONCE IV Last administered on 01:54; Start 09/25/16 at 01:54; Stop 09/25/16 at 01:55; Status DC Gadodiamide (Omniscan Pf Inj) 10 ml STK-MED ONCE IV Last administered on 18:08; Start 09/25/16 at 18:08; Stop 09/25/16 at 18:09; Status DC Iohexol (Omnipaque 350 Inj) 70 ml STK-MED ONCE IV Last administered on 18:07; Start 09/26/16 at 18:07; Stop 09/26/16 at 18:08; Status DC Date of Removal: Sep 22, 2016 A/P Problem List: (1) Sepsis ICD Code: A41.9 Status: Acute (2) UTI (urinary tract infection) ICD Code: N39.0 Status: Acute (3) Generalized weakness ICD Code: R53.1 Status: Acute (4) DM2 (diabetes mellitus, type 2) ICD Code: E11.9 Status: Acute (5) HTN (hypertension) ICD Code: I10 Status: Acute Assessment and Plan Sepsis -secondary to MSSA - urinary tract infection/bacteremia. -Improved with treatment. MSSA bacteremia 09/15 09/16 blood cultures positive. Repeat blood cultures 09/20- negative so faR PERLA negative- 09/22 Infectious disease following and stated to continue with cefazoline, 2 gm q 8, anticipate at least 4 weeks from the 1st negative blood clx Acute Kidney injury - resolved. Most likely secondary to sepsis. Renal mass -Found on CT scan. MRI showed right renal mass measures 5.9 cm and has both a solid and cystic component with enhancing septa between the cystic components. -Patient stated that she has a history of left renal mass and had cryotherapy. She stated that mass resolved. -CT guided biopsy/aspiration ordered. scheduled for Thu. will make patient nothing by mouth tonight and hold heparin dose in a.m. UTI (urinary tract infection)-MSSA 09/15- Candiduria - Asymptomatic Repeat UA- growing yeast - 09/20 UA grew MSSA. babin removed 09/22- voiding Generalized weakness- Improved -Due to sepsis. Seemed to resolved. DM2 (diabetes mellitus, type 2), Uncontrolled -Continue amaryl, levemir 8 units- increase dose (at home was on 25 units -Hemoglobin A1c is 10 -cont ssi - better readings- continue to adjust HTN (hypertension) - cont coreg, and adjust. -Previously hypotensive and medications have been adjusted due to hypotension and acute kidney injury Discharge Planning patient schedule for CT guided biopsy tomorrow. Problem Qualifiers (1) Sepsis: Qualified Code: A41.01 - Sepsis due to methicillin susceptible Staphylococcus aureus (2) UTI (urinary tract infection): Qualified Code: N30.00 - Acute cystitis without hematuria Tsering Germain MD Sep 28, 2016 11:34
[2016-09-28 11:41] VITALS: BP 127/58; PULSE 86; RESP 20; TEMP 98; O2SAT 94
[2016-09-28 16:08] VITALS: BP 144/67; PULSE 77; RESP 20; TEMP 98.8; O2SAT 95
[2016-09-28 17:17] LABS: APTT (PATIENT) 27.1 SEC (24.3-30.1); INTERNATIONAL NORMALIZED RATIO 1.1 RATIO
[2016-09-28 20:00] VITALS: BP 140/63; PULSE 78; RESP 18; TEMP 97.7; O2SAT 94
[2016-09-28] MEDS: INSULIN DETEMIR 100 UNITS/ML VIAL SQ SCH (21:00)
[2016-09-29] VITALS (10 sets, daily range): BP systolic 118–153; BP diastolic 56–74; PULSE 61–77; RESP 18–20; TEMP 96–98; O2SAT 92–97
[2016-09-29] MEDS: INSULIN ASPART SUPPLEMENTAL SCALE SQ SCH ×4 (05:57→21:47)
[2016-09-29] MEDS: GLIMEPIRIDE 4 MG TAB PO SCH (08:03)
[2016-09-29] MEDS: CARVEDILOL 6.25 MG TAB PO SCH ×2 (08:03→21:49)
[2016-09-29] MEDS: COLLAGENASE OINT 30 GM TUBE TOPICAL SCH (08:03)
[2016-09-29] MEDS: LACTOBACILLUS ACIDOPHILUS TAB PO SCH ×2 (08:03→21:49)
[2016-09-29] MEDS: PANTOPRAZOLE SOD 40 MG DELAYED RELEASE TAB PO SCH (08:03)
--- NOTE | 2016-09-29 09:48 | HHI.PR ---
Subjective Remarks Follow-up for renal mass and infection Patient is no complaints. She remains afebrile. Patient anxious to go home. Patient scheduled for CT-guided renal biopsy today. Objective Vitals Vital Signs Date Time Temp Pulse Resp B/P Pulse Ox O2 Delivery O2 Flow Rate FiO2 09/29/16 08:39 97.5 77 18 134/69 96 09/29/16 04:00 96.4 76 18 138/70 95 09/29/16 00:00 96.5 72 18 138/66 97 09/28/16 20:00 97.7 78 18 140/63 94 09/28/16 16:08 98.8 77 20 144/67 95 09/28/16 11:41 98.0 86 20 127/58 94 I/O 09/28/16 09/28/16 09/28/16 09/29/16 09/29/16 09/29/16 07:00 15:00 23:00 07:00 15:00 23:00 Intake Total 120 ml 1160 ml Balance 120 ml 1160 ml Intake Oral 120 ml 960 ml IV Total 200 ml # Voids 2 3 1 # Bowel Movements 0 1 Result Diagram: 09/27/16 0413 09/27/16 041 Objective Remarks GENERAL: in NAD SKIN: Warm and dry. HEAD: Normocephalic. EYES: No scleral icterus. No injection or drainage. NECK: Supple, trachea midline. No JVD or lymphadenopathy. CARDIOVASCULAR: Regular rate and rhythm without murmurs, gallops, or rubs. RESPIRATORY: Breath sounds equal bilaterally. No accessory muscle use. GASTROINTESTINAL: Abdomen soft, non-tender, nondistended. MUSCULOSKELETAL: No cyanosis, or edema. BACK: Nontender without obvious deformity. No CVA tenderness. Procedures 09/22- PERLA- negative Medications and IVs Current Medications Sodium Chloride 1,000 ml @ 2,000 mls/hr Q30M ONCE IV Last administered on 09/15 11:51; Start 09/15/16 at 11:16; Stop 09/15/16 at 11:45; Status DC Sodium Chloride (NS 1000 ml Inj) 1,000 ml @ 2,000 mls/hr Q30M ONCE IV Last administered on 09/15/16 11:51; Start 09/15/16 at 11:46; Stop 09/15/16 at 12:15 ; Status DC Sodium Chloride (NS Flush) 2 ml UNSCH PRN IVF FLUSH AFTER USING IV ACCESS Last administered on 09/21/16 21:05; Start 09/15/16 at 11:30 Insulin Human Regular 10 units 10 units ONCE ONCE IV PUSH Last administered on 09/15/16 11:50; Start 09/15/16 at 11:30; Stop 09/15/16 at 11:31; Status DC Ceftriaxone Sodium 1000 mg/ Sodium Chloride 100 ml @ 200 mls/hr ONCE ONCE IV Last administered on 09/15/16 13:04; Start 09/15/16 at 13:00; Stop 09/15/16 at 13:29; Status DC Sodium Chloride 1,000 ml @ 999 mls/hr BOLUS ONCE IV Last administered on 09/15 13:30; Start 09/15/16 at 13:30; Stop 09/15/16 at 14:30; Status DC Sodium Chloride 1,000 ml @ 125 mls/hr Q8H IV Last administered on 09/15/16 14 :39; Start 09/15/16 at 13:30; Stop 09/15/16 at 16:12; Status DC Sodium Chloride 1,000 ml @ 250 mls/hr Q4H IV ; Start 09/15/16 at 15:00; Stop at 15:50; Status DC Dextrose/Sodium Chloride (D5W-NS 1000 ml Inj) 1,000 ml @ 200 mls/hr Q5H IV ; Start 09/15/16 at 15:00; Stop 09/15/16 at 15:50; Status DC Insulin Human Regular 10 units 10 units BOLUS ONCE IV PUSH ; Start 09/15/16 at 15:00; Stop 09/15/16 at 15:50; Status DC Insulin Human Regular 100 units/ Sodium Chloride 100 ml @ 0 mls/hr TITRATE IV ; Start 09/15/16 at 15:00; Stop 09/15/16 at 15:51; Status DC Potassium Chloride 100 ml @ 100 mls/hr Q1H PRN IV SEE LABEL COMMENTS; Start at 14:15; Stop 09/15/16 at 15:51; Status DC Potassium Chloride 100 ml @ 50 mls/hr Q2H PRN IV SEE LABEL COMMENTS; Start at 14:15; Stop 09/15/16 at 15:51; Status DC Potassium Chloride 100 ml @ 100 mls/hr Q1H PRN IV SEE LABEL COMMENTS; Start at 14:15; Stop 09/15/16 at 15:51; Status DC Potassium Chloride 100 ml @ 100 mls/hr Q1H PRN IV SEE LABEL COMMENTS; Start at 14:15; Stop 09/15/16 at 15:52; Status DC Potassium Chloride 100 ml @ 50 mls/hr Q2H PRN IV SEE LABEL COMMENTS; Start at 15:00; Stop 09/15/16 at 15:52; Status DC Potassium Chloride 100 ml @ 50 mls/hr Q2H PRN IV SEE LABEL COMMENTS; Start at 14:15; Stop 09/15/16 at 15:52; Status DC Potassium Chloride 100 ml @ 50 mls/hr Q2H PRN IV SEE LABEL COMMENTS; Start at 14:15; Stop 09/15/16 at 15:52; Status DC Potassium Chloride (KCl 20 Meq Premix Inj) 100 ml @ 50 mls/hr Q2H PRN IV SEE LABEL COMMENTS; Start 09/15/16 at 14:15; Stop 09/15/16 at 15:53; Status DC Sodium Bicarbonate (Sodium Bicarbonate 8.4% Inj) 100 meq UNSCH PRN IV SEE LABEL COMMENTS; Start 09/15/16 at 14:15; Stop 09/15/16 at 15:53; Status DC Sodium Bicarbonate 50 meq 50 meq UNSCH PRN IV SEE LABEL COMMENTS; Start at 14:15; Stop 09/15/16 at 15:53; Status DC Sodium Phosphate/ Sodium Chloride (Sodium Phosphate Inj/NS Inj) 105 ml @ 25 mls /hr UNSCH PRN IV SEE LABEL COMMENTS; Start 09/15/16 at 14:15; Stop 09/15/16 at 15:53; Status DC Miscellaneous Information 1 Q361D XX ; Start 09/15/16 at 14:15; Stop 09/15/16 at 15:50; Status DC Chlorhexidine Gluconate (Chlorhexidine 2% Cloth) 3 pack Taper DAILY@04 TOP ; Start 09/16/16 at 04:00; Stop 09/16/16 at 04:00; Status DC Chlorhexidine Gluconate 3 pack 3 pack UNSCH PRN TOP HYGIENIC CARE; Start at 14:15; Stop 09/15/16 at 15:49; Status DC Ceftriaxone Sodium/Sodium Chloride (Rocephin Inj/NS Inj) 100 ml @ 200 mls/hr Q24H IV ; Start 09/16/16 at 13:00; Stop 09/16/16 at 13:00; Status DC Aspirin (Aspirin Chew) 81 mg DAILY CHEW Last administered on 09/26/16 10:13; Start 09/16/16 at 09:00; Status Hold Insulin Detemir (Levemir Inj) 25 units HS SQ ; Start 09/15/16 at 21:00; Stop at 09:30; Status DC Dextrose (D50w (Vial) Inj) 50 ml UNSCH PRN IV HYPOGLYCEMIA-SEE COMMENTS; Start 09/15/16 at 16:00 Glucagon (Glucagon Inj) 1 mg UNSCH PRN OTHER HYPOGLYCEMIA-SEE COMMENTS Last administered on 09/16/16 05:25; Start 09/15/16 at 16:00 Insulin Aspart 1 1 ACHS SLIDING SCALE SQ Last administered on 09/28/16 22:16; Start 09/15/16 at 16:00 Sodium Chloride 1,000 ml @ 125 mls/hr Q8H IV Last administered on 09/15/16 23 :35; Start 09/15/16 at 16:00; Stop 09/16/16 at 00:27; Status DC Sodium Chloride (NS 1000 ml Inj) 1,000 ml @ 150 mls/hr Q6H40M IV Last administered on 09/16/16 00:30; Start 09/16/16 at 00:30; Stop 09/16/16 at 03:17 ; Status DC Acetaminophen 650 mg 650 mg Q4H PRN PO fever >101 Last administered on 01:13; Start 09/16/16 at 01:15; Stop 09/16/16 at 09:34; Status DC Dextrose/Sodium Chloride (D5W-NS 1000 ml Inj) 1,000 ml @ 100 mls/hr Q10H IV Last administered on 09/16/16 03:24; Start 09/16/16 at 03:30; Stop 09/17/16 at 13:54; Status DC Acetaminophen 650 mg 650 mg Q4H PRN PO FEVER; Start 09/16/16 at 09:45; Stop 09/21/16 at 16:57; Status DC Magnesium Sulfate/ Dextrose (Magnesium Sulfate 1 Gm Premix) 100 ml @ 100 mls/ hr Q1H IV Last administered on 09/16/16 11:46; Start 09/16/16 at 10:15; Stop 09/16/16 at 12:14; Status DC Furosemide 40 mg 40 mg ONCE ONCE IV PUSH Last administered on 09/16/16 10:15 ; Start 09/16/16 at 10:15; Stop 09/16/16 at 10:24; Status DC Piperacillin Sod/ Tazobactam Sod 50 ml @ 100 mls/hr Q6H IV Last administered on 09/17/16 05:53; Start 09/16/16 at 11:00; Stop 09/17/16 at 07:00; Status DC Vancomycin HCl 1000 mg/Sodium Chloride 250 ml @ 250 mls/hr Q24H IV ; Start at 10:15; Status UNV Pharmacy Profile Note 0 ml @ 0 mls/hr UNSCH OTHER ; Start 09/16/16 at 10:15; Status UNV Pharmacy Profile Note 0 ml @ 0 mls/hr UNSCH OTHER ; Start 09/16/16 at 10:15; Stop 09/19/16 at 14:53; Status DC Vancomycin HCl/ Sodium Chloride (Vancomycin Inj/ NS 500 ml Inj) 520 ml @ 250 mls/hr ONCE ONCE IV Last administered on 09/16/16 11:40; Start 09/16/16 at 11 :30; Stop 09/16/16 at 13:35; Status DC Pantoprazole Sodium (Protonix) 40 mg DAILY PO Last administered on 09/29/16 08 :03; Start 09/16/16 at 15:00 Heparin Sodium (Porcine) (Heparin Inj) 5,000 units Q8HR SQ Last administered on 09/28/16 22:10; Start 09/16/16 at 22:00; Stop 09/29/16 at 01:00; Status DC Morphine Sulfate 2 mg 2 mg ONCE ONCE IV PUSH Last administered on 09/16/16 23 :46; Start 09/16/16 at 23:30; Stop 09/16/16 at 23:31; Status DC Cefazolin Sodium 1000 mg/Sodium Chloride 100 ml @ 200 mls/hr Q8H IV Last administered on 09/24/16 17:49; Start 09/17/16 at 08:00; Stop 09/24/16 at 19:53; Status DC Sodium Chloride (NS 1000 ml Inj) 1,000 ml @ 42 mls/hr [id number] IV Last administered on 09/18/16 12:16; Start 09/17/16 at 14:00; Stop 09/19/16 at 14:15 ; Status DC Gadobenate Dimeglumine 20 ml 20 ml STK-MED ONCE IV Last administered on 15:42; Start 09/17/16 at 15:42; Stop 09/17/16 at 15:43; Status DC Vancomycin HCl/ Sodium Chloride (Vancomycin Inj/ NS 500 ml Inj) 516 ml @ 250 mls/hr Q24H IV Last administered on 09/19/16 14:34; Start 09/18/16 at 12:00; Stop 09/19/16 at 14:53; Status DC Miscellaneous Information SPECIFIC LAB TO BE DRAWN:VANCOMY... ONCE ONCE .XX ; Start 09/21/16 at 11:45; Stop 09/21/16 at 11:46; Status DC Carvedilol (Coreg) 6.25 mg Q12HR PO Last administered on 09/29/16 08:03; Start 09/19/16 at 21:00 Glimepiride (Amaryl) 4 mg DAILY@08 PO Last administered on 09/29/16 08:03; Start 09/21/16 at 08:00 Collagenase (Santyl Oint) 1 applic DAILY TOPICAL Last administered on 08:03; Start 09/21/16 at 09:00 Insulin Detemir (Levemir Inj) 8 units HS SQ Last administered on 09/22/16 21:14 ; Start 09/21/16 at 21:00; Stop 09/23/16 at 08:20; Status DC Lactobacillus Acidophilus (Lactinex) 1 tab Q12HR PO Last administered on 08:03; Start 09/21/16 at 21:00 Acetaminophen (Tylenol) 650 mg Q6H PRN PO Fever, headache, pain 1-4; Start 09/21 at 19:45 Oxycodone/ Acetaminophen (Percocet 7.5-325 Mg) 1 tab Q6H PRN PO PAIN SCALE 5 TO 10 Last administered on 09/21/16 20:50; Start 09/21/16 at 17:00 Insulin Detemir 10 units 10 units HS SQ Last administered on 09/27/16 21:00; Start 09/23/16 at 21:00 Cefazolin Sodium/ Sodium Chloride (Ancef Inj/NS Inj) 100 ml @ 200 mls/hr Q8H IV Last administered on 09/29/16 08:03; Start 09/25/16 at 00:00 Diatrizoate Meglum/ Diatrizoate Sod ( Gastroview Liq) 18 ml ONCE ONCE PO Last administered on 09/24/16 19:15; Start 09/24/16 at 21:15; Stop 09/24/16 at 21: 16; Status DC Iohexol (Omnipaque 350 Inj) 85 ml STK-MED ONCE IV Last administered on 01:54; Start 09/25/16 at 01:54; Stop 09/25/16 at 01:55; Status DC Gadodiamide (Omniscan Pf Inj) 10 ml STK-MED ONCE IV Last administered on 18:08; Start 09/25/16 at 18:08; Stop 09/25/16 at 18:09; Status DC Iohexol (Omnipaque 350 Inj) 70 ml STK-MED ONCE IV Last administered on 18:07; Start 09/26/16 at 18:07; Stop 09/26/16 at 18:08; Status DC Date of Removal: Sep 22, 2016 A/P Problem List: (1) Sepsis ICD Code: A41.9 Status: Acute (2) UTI (urinary tract infection) ICD Code: N39.0 Status: Acute (3) Generalized weakness ICD Code: R53.1 Status: Acute (4) DM2 (diabetes mellitus, type 2) ICD Code: E11.9 Status: Acute (5) HTN (hypertension) ICD Code: I10 Status: Acute Assessment and Plan Sepsis -secondary to MSSA - urinary tract infection/bacteremia. -Improved with treatment. MSSA bacteremia 09/15 09/16 blood cultures positive. Repeat blood cultures 09/20- negative so faR PERLA negative- 09/22 Infectious disease following and stated to continue with cefazoline, 2 gm q 8, anticipate at least 4 weeks from the 1st negative blood clx Acute Kidney injury - resolved. Most likely secondary to sepsis. Renal mass -Found on CT scan. MRI showed right renal mass measures 5.9 cm and has both a solid and cystic component with enhancing septa between the cystic components. -Patient stated that she has a history of left renal mass and had cryotherapy. She stated that mass resolved. -CT guided biopsy/aspiration ordered. scheduled for Thu. will make patient nothing by mouth tonight and hold heparin dose in a.m. UTI (urinary tract infection)-MSSA 09/15- Candiduria - Asymptomatic Repeat UA- growing yeast - 09/20 UA grew MSSA. babin removed 09/22- voiding Generalized weakness- Improved -Due to sepsis. Seemed to resolved. DM2 (diabetes mellitus, type 2), Uncontrolled -Continue amaryl, levemir 8 units- increase dose (at home was on 25 units -Hemoglobin A1c is 10 -cont ssi - better readings- continue to adjust HTN (hypertension) - cont coreg, and adjust. -Previously hypotensive and medications have been adjusted due to hypotension and acute kidney injury Discharge Planning Patient scheduled for CT-guided renal biopsy today. Problem Qualifiers (1) Sepsis: Qualified Code: A41.01 - Sepsis due to methicillin susceptible Staphylococcus aureus (2) UTI (urinary tract infection): Qualified Code: N30.00 - Acute cystitis without hematuria Tsering Germain MD Sep 29, 2016 09:48
[2016-09-29] MEDS ORDERED: LIDOCAINE 1%/EPINEPHrine 1:100,000 SOLN 20 ML VIAL ONE (13:48)
[2016-09-29] MEDS: oxyCODONE/ACETAMINOPHEN 7.5 MG/325 MG TAB PO PRN (14:05)
[2016-09-29] MEDS ORDERED: MIDAZOLAM HCL 5 MG/5 ML VIAL ONE (14:34)
[2016-09-29] MEDS ORDERED: fentaNYL CITRATE 250 MCG/5 ML AMP ONE (14:34)
--- NOTE | 2016-09-29 15:15 | PD.RAD ---
Post Procedure Progress Note Pre Procedure Diagnosis: (1) Renal mass Post Procedure Diagnosis: (1) Renal mass Procedure Date: Sep 29, 2016 Supervising Radiologist: Igor Leonard Anesthesia: Local, Conscious Sedation Plan of Activity Patient to Unit: ROPU Patient Condition: Fair Additional Comments: Successful Ct guided biopsy of a right renal mass 4 core samples taken. No evidence of complication on post procedure CT. See PACS Report for procedural detail/treatment Igor Leonard MD Sep 29, 2016 15:15
[2016-09-29 15:46] LABS: AUTOMATED NEUTROPHIL # 5.1 TH/MM3 (1.8-7.7); BASOPHIL # 0.1 TH/MM3 (0-0.2); EOSINOPHIL # 0.1 TH/MM3 (0-0.4); EOSINOPHIL % 1.6 % (0.0-4.0); HEMO FLAGS DIFF FINAL; LYMPH % 16.8 % (9.0-44.0); LYMPHOCYTE # 1.1 TH/MM3 (1.0-4.8); MEAN CELL VOLUME 87.7 FL (80.0-100.0); MEAN CORPUSCULAR HEMOGLOBIN 27.7 PG (27.0-34.0); MEAN CORPUSCULAR HGB CONC 31.6 % (32.0-36.0); MONO % 5.9 % (0.0-8.0); NEUT % 74.7 % (16.0-70.0); PLATELET COUNT 212 TH/MM3 (150-450); RED BLOOD COUNT 3.08 MIL/MM3 (4.00-5.30); RED CELL DISTRIBUTION WIDTH 17.7 % (11.6-17.2); WHITE BLOOD COUNT 6.8 TH/MM3 (4.0-11.0)
[2016-09-29 17:31] LABS: AUTOMATED NEUTROPHIL # 4.4 TH/MM3 (1.8-7.7); BASOPHIL # 0.1 TH/MM3 (0-0.2); BASOPHIL % 0.9 % (0.0-2.0); EOSINOPHIL # 0.1 TH/MM3 (0-0.4); EOSINOPHIL % 1.8 % (0.0-4.0); HEMATOCRIT 26.4 % (35.0-46.0); HEMO FLAGS DIFF FINAL; LYMPH % 18.9 % (9.0-44.0); LYMPHOCYTE # 1.2 TH/MM3 (1.0-4.8); MEAN CELL VOLUME 88.1 FL (80.0-100.0); MEAN CORPUSCULAR HEMOGLOBIN 27.4 PG (27.0-34.0); MEAN CORPUSCULAR HGB CONC 31.1 % (32.0-36.0); MONO % 6.5 % (0.0-8.0); NEUT % 71.9 % (16.0-70.0); PLATELET COUNT 200 TH/MM3 (150-450); RED CELL DISTRIBUTION WIDTH 17.7 % (11.6-17.2); WHITE BLOOD COUNT 6.2 TH/MM3 (4.0-11.0)
[2016-09-29] MEDS: INSULIN DETEMIR 100 UNITS/ML VIAL SQ SCH (21:00)
[2016-09-30] VITALS: BP 138/65; PULSE 76; RESP 20; TEMP 97.8; O2SAT 96
[2016-09-30 04:00] VITALS: BP 119/29; PULSE 84; RESP 20; TEMP 98.9; O2SAT 96
[2016-09-30] MEDS: oxyCODONE/ACETAMINOPHEN 7.5 MG/325 MG TAB PO PRN (05:48)
[2016-09-30] MEDS: INSULIN ASPART SUPPLEMENTAL SCALE SQ SCH ×4 (05:48→21:57)
[2016-09-30 06:17] LABS: HEMATOCRIT 26.1 % (35.0-46.0); MEAN CELL VOLUME 86.3 FL (80.0-100.0); MEAN CORPUSCULAR HEMOGLOBIN 27.9 PG (27.0-34.0); MEAN CORPUSCULAR HGB CONC 32.3 % (32.0-36.0); PLATELET COUNT 211 TH/MM3 (150-450); RED BLOOD COUNT 3.02 MIL/MM3 (4.00-5.30); RED CELL DISTRIBUTION WIDTH 17.8 % (11.6-17.2); REVIEW FLAG FINAL; WHITE BLOOD COUNT 5.8 TH/MM3 (4.0-11.0)
[2016-09-30 06:19] LABS: POTASSIUM 4.4 MEQ/L (3.5-5.1)
[2016-09-30 08:00] VITALS: BP 136/61; PULSE 76; RESP 18; TEMP 96.6; O2SAT 94
--- NOTE | 2016-09-30 08:28 | RADRPT ---
EXAM DATE/TIME: 09/29/2016 14:55 [place] COMPARISON: CT ABDOMEN & PELVIS W CONTRAST, September 25, 2016, 1:38. CT THORAX W CONTRAST, September 26, 2016, 17:54. INDICATIONS : Right renal mass. SEDATION TIME: 10 minutes BIOPSY SITE: Right kidney MEDICATION(S): 1.) 2 mg midazolam (Versed) IV 2.) 100 mcg fentanyl (Sublimaze) IV DEVICE(S): 1.) 18 gauge Isaacs blunt needle 2.) 20 gauge Temno core biopsy needle MEDICAL HISTORY : Hypertension. diabetes, left kidney cancer, renal failure SURGICAL HISTORY : Appendectomy. section. hernia repair ENCOUNTER: Initial ACUITY: 1 day PAIN SCORE: 0/10 LOCATION: Bilateral flank A total of four core specimen(s) were obtained and sent to the laboratory for pathologic evaluation. PROCEDURE: 1. CT guided renal biopsy. 2. Conscious sedation with continuous EKG and oximetry monitoring. 3. EKG and oximetry remained stable throughout the procedure. Prior to the procedure informed consent was obtained. Any appropriate prior imaging studies were rev iewed. Using automated exposure control and adjustment of the mA and/or kV according to patient size, radiat ion dose was kept as low as reasonably achievable to obtain optimal diagnostic quality images. DICOM format image data is available electronically for review and comparison. The site was prepped in a sterile fashion. Full sterile technique was used, including cap, mask, jose armando rile gloves and gown and a large sterile sheet. Hand hygiene and 2% chlorhexidine and/or betadine/al cohol prep was utilized per protocol for cutaneous antisepsis. The skin and subcutaneous tissues wer e infiltrated with local anesthetic solution. With CT guidance the previously identified target was localized. Biopsy was performed using the presc ribed needle as above. Adequate hemostasis was obtained with compression at the puncture site. Follow-up CT scan reveals no hemorrhage. The patient tolerated the procedure well and there were no complications. The patient was returned to the Radiology Outpatient Unit in stable condition. CONCLUSION: Uncomplicated CT guided biopsy of the right kidney. Igor Leonard MD on September 30, 2016 at 8:26 Board Certified Radiologist. This report was verified electronically.
[2016-09-30] MEDS: COLLAGENASE OINT 30 GM TUBE TOPICAL SCH (09:00)
[2016-09-30] MEDS: PANTOPRAZOLE SOD 40 MG DELAYED RELEASE TAB PO SCH (09:06)
[2016-09-30] MEDS: GLIMEPIRIDE 4 MG TAB PO SCH (09:06)
[2016-09-30] MEDS: CARVEDILOL 6.25 MG TAB PO SCH ×2 (09:06→21:53)
[2016-09-30] MEDS: LACTOBACILLUS ACIDOPHILUS TAB PO SCH ×2 (09:06→22:02)
--- NOTE | 2016-09-30 10:43 | HHI.DS ---
Discharge Summary Admission Date Sep 15, 2016 at 13:04 Admitting Diagnosis Sepsis (UTI); LEON; Hypotension (1) Sepsis ICD Code: A41.9 (2) UTI (urinary tract infection) ICD Code: N39.0 (3) Generalized weakness ICD Code: R53.1 (4) DM2 (diabetes mellitus, type 2) ICD Code: E11.9 (5) HTN (hypertension) ICD Code: I10 Procedures 09/22- PERLA- negative Brief History - From Admission This is a 66-year-old female with past medical history significant for insulin- dependent diabetes mellitus, renal cancer, who presents to [facility] complaining of chills, weakness as well as inability to urinate this morning. The patient states that she was hospitalized a month ago over at this institution in August 08 and states she was diagnosed with sepsis. Upon review of records it is noted that the patient presented with tachycardia, headache and elevated lactic acid more than 4. At the time the patient was worked up with a negative urinalysis and underwent an LP which did not show any signs of meningitis. The patient states that she never felt fine after she was discharged. The patient states that yesterday she started feeling very weak, had chills, denies fevers however she stated that she felt very hot. The patient also states she vomited and had one episode of diarrhea and vomiting and this morning she could not urinate with her last urination been at 8 PM last night. The patient then called EMS as per ED physician's records the patient's blood pressure was in the systolic 80s and was given IV fluids and Route to the emergency department. In the emergency department the patient has gotten 3 L of IV normal saline bolus and as per RN report the patient has not voided yet. CBC/BMP: 09/30/16 0530 09/30/16 0530 Significant Findings Laboratory Tests Test 09/28/16 09/29/16 09/29/16 09/30/16 16:58 15:35 17:15 05:30 Prothrombin Time 12.0 SEC (9.8-11.6) Red Blood Count 3.08 MIL/MM3 3.00 MIL/MM3 3.02 MIL/MM3 (4.00-5.30) (4.00-5.30) (4.00-5.30) Hemoglobin 8.5 GM/DL 8.2 GM/DL 8.4 GM/DL (11.6-15.3) (11.6-15.3) (11.6-15.3) Hematocrit 27.0 % 26.4 % 26.1 % (35.0-46.0) (35.0-46.0) (35.0-46.0) Mean Corpuscular Hemoglobin 31.6 % 31.1 % Concent (32.0-36.0) (32.0-36.0) Red Cell Distribution Width 17.7 % 17.7 % 17.8 % (11.6-17.2) (11.6-17.2) (11.6-17.2) Neutrophils (%) (Auto) 74.7 % 71.9 % (16.0-70.0) (16.0-70.0) Estimat Glomerular Filtration 69 ML/MIN (>89) Rate Random Glucose 146 MG/DL (74-106) PE at Discharge GENERAL: in NAD SKIN: Warm and dry. HEAD: Normocephalic. EYES: No scleral icterus. No injection or drainage. NECK: Supple, trachea midline. No JVD or lymphadenopathy. CARDIOVASCULAR: Regular rate and rhythm without murmurs, gallops, or rubs. RESPIRATORY: Breath sounds equal bilaterally. No accessory muscle use. GASTROINTESTINAL: Abdomen soft, non-tender, nondistended. MUSCULOSKELETAL: No cyanosis, or edema. BACK: Nontender without obvious deformity. No CVA tenderness. Pt Condition on Discharge: Good Discharge Disposition: Disch w/ Home Health Serv Discharge Instructions DIET: Follow Instructions for: Heart Healthy Diet Activities you can perform: Regular-No Restrictions Tsering Germain MD Sep 30, 2016 10:43
--- NOTE | 2016-09-30 12:39 | HHI.PR ---
Subjective Remarks Follow-up for infection Patient had CT-guided renal biopsy done yesterday she stated she did well. She denies any pain. Patient very anxious to go home. She remains afebrile. Objective Vitals Vital Signs Date Time Temp Pulse Resp B/P Pulse Ox O2 Delivery O2 Flow Rate FiO2 09/30/16 08:00 96.6 76 18 136/61 94 09/30/16 04:00 98.9 84 20 119/29 96 09/30/16 00:00 97.8 76 20 138/65 96 09/29/16 20:00 98.0 77 20 128/60 95 09/29/16 20:00 98.0 77 20 128/60 95 09/29/16 17:35 97.1 76 18 153/74 97 09/29/16 16:50 64 18 121/58 92 09/29/16 16:20 61 20 118/58 92 09/29/16 15:50 69 18 118/56 94 09/29/16 15:25 96.0 70 18 130/62 93 I/O 09/29/16 09/29/16 09/29/16 09/30/16 09/30/16 09/30/16 07:00 15:00 23:00 07:00 15:00 23:00 Intake Total 240 ml Balance 240 ml Intake Oral 240 ml # Voids 1 1 Result Diagram: 09/30/16 0530 09/30/16 0530 Imaging Last Impressions Renal Biopsy CT 09/29/16 0000 Signed Impressions: Service Date/Time: Thursday, September 29, 2016 14:55 - CONCLUSION: Uncomplicated CT guided biopsy of the right kidney. Igor Leonard MD Chest X-Ray 09/26/16 0000 Signed Impressions: Service Date/Time: Monday, September 26, 2016 12:14 - CONCLUSION: Right PICC line in good position. No pneumothorax. Armando Carmen MD Chest CT 09/26/16 0000 Signed Impressions: Service Date/Time: Monday, September 26, 2016 17:54 - CONCLUSION: I see no evidence for metastatic disease in this patient with possible renal cell carcinoma. Ulises Leonard MD FACR Abdomen MRI 09/25/16 0000 Signed Impressions: Service Date/Time: September 17:38 - CONCLUSION: Right renal mass measures 5.9 cm and has both a solid and cystic component with enhancing septa between the cystic components. The findings are suspicious for malignancy. Nathaniel Chapa MD Renal Ultrasound 09/24/16 Signed Impressions: Service Date/Time: Saturday, September 24, 2016 11:32 - CONCLUSION: 1. Complex cystic mass in the lower pole the right kidney. Abscess is not excluded. CT scan is recommended for further evaluation if clinically indicated. Alan Yadav MD Abdomen/Pelvis CT 09/24/16 Signed Impressions: Service Date/Time: September 01:38 - CONCLUSION: 1. Solid appearing right renal mass measures 3.2 x 4.5 x 5.5 cm. Contrasted MRI recommended. 2. Cholelithiasis. 3. Punctate nonobstructing right renal calculus. 4. Air in urinary bladder likely iatrogenic. Sivakumar Ferguson MD Hepatobiliary Scan Nuclear Medicine 09/18/16 Signed Impressions: Service Date/Time: August 08:12 - CONCLUSION: Negative study Nehemisa Gonsales MD Thoracic Spine MRI 09/17/16 Signed Impressions: Service Date/Time: Saturday, September 17, 2016 13:59 - CONCLUSION: I do not see evidence for an abscess. I do not see any radiographic reason for the patient' s inability to ambulate. Ulises Leonard MD FACR Lumbar Spine MRI 09/17/16 Signed Impressions: Service Date/Time: Saturday, September 17, 2016 13:59 - CONCLUSION: 1. No evidence of abscess collection. 2. No spinal stenosis, focal disc herniation, fracture or osteomyelitis. 3. Lipoma of the filum terminale. Antonio Maza MD Lower Extremity Ultrasound 09/16/16 Signed Impressions: Service Date/Time: Friday, September 16, 2016 11:36 - CONCLUSION: No evidence of deep venous thrombosis within the lower extremities. Antonio Maza MD Abdomen Ultrasound 09/16/16 Signed Impressions: Service Date/Time: Friday, September 16, 2016 07:55 - CONCLUSION: 1. Thick- walled gallbladder containing stones. If there is clinical concern for acute cholecystitis a hepatobiliary scan may be helpful to confirm cystic duct obstruction. 2. Mild prominence of the common bile duct. Correlation with alkaline phosphatase and bilirubin levels is suggested to rule out hepatobiliary obstruction. 3. Enlarged fatty liver. 4. Splenomegaly. Antonio Maza MD Objective Remarks GENERAL: in NAD SKIN: Warm and dry. HEAD: Normocephalic. EYES: No scleral icterus. No injection or drainage. NECK: Supple, trachea midline. No JVD or lymphadenopathy. CARDIOVASCULAR: Regular rate and rhythm without murmurs, gallops, or rubs. RESPIRATORY: Breath sounds equal bilaterally. No accessory muscle use. GASTROINTESTINAL: Abdomen soft, non-tender, nondistended. MUSCULOSKELETAL: No cyanosis, or edema. BACK: Nontender without obvious deformity. No CVA tenderness. Procedures 09/22- PERLA- negative Medications and IVs Current Medications Sodium Chloride 1,000 ml @ 2,000 mls/hr Q30M ONCE IV Last administered on 09/15 11:51; Start 09/15/16 at 11:16; Stop 09/15/16 at 11:45; Status DC Sodium Chloride (NS 1000 ml Inj) 1,000 ml @ 2,000 mls/hr Q30M ONCE IV Last administered on 09/15/16 11:51; Start 09/15/16 at 11:46; Stop 09/15/16 at 12:15 ; Status DC Sodium Chloride (NS Flush) 2 ml UNSCH PRN IVF FLUSH AFTER USING IV ACCESS Last administered on 09/21/16 21:05; Start 09/15/16 at 11:30 Insulin Human Regular 10 units 10 units ONCE ONCE IV PUSH Last administered on 09/15/16 11:50; Start 09/15/16 at 11:30; Stop 09/15/16 at 11:31; Status DC Ceftriaxone Sodium 1000 mg/ Sodium Chloride 100 ml @ 200 mls/hr ONCE ONCE IV Last administered on 09/15/16 13:04; Start 09/15/16 at 13:00; Stop 09/15/16 at 13:29; Status DC Sodium Chloride 1,000 ml @ 999 mls/hr BOLUS ONCE IV Last administered on 09/15 13:30; Start 09/15/16 at 13:30; Stop 09/15/16 at 14:30; Status DC Sodium Chloride 1,000 ml @ 125 mls/hr Q8H IV Last administered on 6/26/17at 14 :39; Start 09/15/16 at 13:30; Stop 09/15/16 at 16:12; Status DC Sodium Chloride 1,000 ml @ 250 mls/hr Q4H IV ; Start 09/15/16 at 15:00; Stop at 15:50; Status DC Dextrose/Sodium Chloride (D5W-NS 1000 ml Inj) 1,000 ml @ 200 mls/hr Q5H IV ; Start 09/15/16 at 15:00; Stop 09/15/16 at 15:50; Status DC Insulin Human Regular 10 units 10 units BOLUS ONCE IV PUSH ; Start 09/15/16 at 15:00; Stop 09/15/16 at 15:50; Status DC Insulin Human Regular 100 units/ Sodium Chloride 100 ml @ 0 mls/hr TITRATE IV ; Start 09/15/16 at 15:00; Stop 09/15/16 at 15:51; Status DC Potassium Chloride 100 ml @ 100 mls/hr Q1H PRN IV SEE LABEL COMMENTS; Start at 14:15; Stop 09/15/16 at 15:51; Status DC Potassium Chloride 100 ml @ 50 mls/hr Q2H PRN IV SEE LABEL COMMENTS; Start at 14:15; Stop 09/15/16 at 15:51; Status DC Potassium Chloride 100 ml @ 100 mls/hr Q1H PRN IV SEE LABEL COMMENTS; Start at 14:15; Stop 09/15/16 at 15:51; Status DC Potassium Chloride 100 ml @ 100 mls/hr Q1H PRN IV SEE LABEL COMMENTS; Start at 14:15; Stop 09/15/16 at 15:52; Status DC Potassium Chloride 100 ml @ 50 mls/hr Q2H PRN IV SEE LABEL COMMENTS; Start at 15:00; Stop 09/15/16 at 15:52; Status DC Potassium Chloride 100 ml @ 50 mls/hr Q2H PRN IV SEE LABEL COMMENTS; Start at 14:15; Stop 09/15/16 at 15:52; Status DC Potassium Chloride 100 ml @ 50 mls/hr Q2H PRN IV SEE LABEL COMMENTS; Start at 14:15; Stop 09/15/16 at 15:52; Status DC Potassium Chloride (KCl 20 Meq Premix Inj) 100 ml @ 50 mls/hr Q2H PRN IV SEE LABEL COMMENTS; Start 09/15/16 at 14:15; Stop 09/15/16 at 15:53; Status DC Sodium Bicarbonate (Sodium Bicarbonate 8.4% Inj) 100 meq UNSCH PRN IV SEE LABEL COMMENTS; Start 09/15/16 at 14:15; Stop 09/15/16 at 15:53; Status DC Sodium Bicarbonate 50 meq 50 meq UNSCH PRN IV SEE LABEL COMMENTS; Start at 14:15; Stop 09/15/16 at 15:53; Status DC Sodium Phosphate/ Sodium Chloride (Sodium Phosphate Inj/NS Inj) 105 ml @ 25 mls /hr UNSCH PRN IV SEE LABEL COMMENTS; Start 09/15/16 at 14:15; Stop 09/15/16 at 15:53; Status DC Miscellaneous Information 1 [id number] XX ; Start 09/15/16 at 14:15; Stop 09/15/16 at 15:50; Status DC Chlorhexidine Gluconate (Chlorhexidine 2% Cloth) 3 pack Taper DAILY@04 TOP ; Start 09/16/16 at 04:00; Stop 09/16/16 at 04:00; Status DC Chlorhexidine Gluconate 3 pack 3 pack UNSCH PRN TOP HYGIENIC CARE; Start at 14:15; Stop 09/15/16 at 15:49; Status DC Ceftriaxone Sodium/Sodium Chloride (Rocephin Inj/NS Inj) 100 ml @ 200 mls/hr Q24H IV ; Start 09/16/16 at 13:00; Stop 09/16/16 at 13:00; Status DC Aspirin (Aspirin Chew) 81 mg DAILY CHEW Last administered on 09/26/16 10:13; Start 09/16/16 at 09:00; Status Hold Insulin Detemir (Levemir Inj) 25 units HS SQ ; Start 09/15/16 at 21:00; Stop at 09:30; Status DC Dextrose (D50w (Vial) Inj) 50 ml UNSCH PRN IV HYPOGLYCEMIA-SEE COMMENTS Last administered on 09/29/16 13:01; Start 09/15/16 at 16:00 Glucagon (Glucagon Inj) 1 mg UNSCH PRN OTHER HYPOGLYCEMIA-SEE COMMENTS Last administered on 09/16/16 05:25; Start 09/15/16 at 16:00 Insulin Aspart 1 1 ACHS SLIDING SCALE SQ Last administered on 09/29/16 21:47 ; Start 09/15/16 at 16:00 Sodium Chloride 1,000 ml @ 125 mls/hr Q8H IV Last administered on 09/15/16 23 :35; Start 09/15/16 at 16:00; Stop 09/16/16 at 00:27; Status DC Sodium Chloride (NS 1000 ml Inj) 1,000 ml @ 150 mls/hr Q6H40M IV Last administered on 09/16/16 00:30; Start 09/16/16 at 00:30; Stop 09/16/16 at 03:17 ; Status DC Acetaminophen 650 mg 650 mg Q4H PRN PO fever >101 Last administered on 01:13; Start 09/16/16 at 01:15; Stop 09/16/16 at 09:34; Status DC Dextrose/Sodium Chloride (D5W-NS 1000 ml Inj) 1,000 ml @ 100 mls/hr Q10H IV Last administered on 09/16/16 03:24; Start 09/16/16 at 03:30; Stop 09/17/16 at 13:54; Status DC Acetaminophen 650 mg 650 mg Q4H PRN PO FEVER; Start 09/16/16 at 09:45; Stop 09/21/16 at 16:57; Status DC Magnesium Sulfate/ Dextrose (Magnesium Sulfate 1 Gm Premix) 100 ml @ 100 mls/ hr Q1H IV Last administered on 09/16/16 11:46; Start 09/16/16 at 10:15; Stop 09/16/16 at 12:14; Status DC Furosemide 40 mg 40 mg ONCE ONCE IV PUSH Last administered on 09/16/16 10:15 ; Start 09/16/16 at 10:15; Stop 09/16/16 at 10:24; Status DC Piperacillin Sod/ Tazobactam Sod 50 ml @ 100 mls/hr Q6H IV Last administered on 09/17/16 05:53; Start 09/16/16 at 11:00; Stop 09/17/16 at 07:00; Status DC Vancomycin HCl 1000 mg/Sodium Chloride 250 ml @ 250 mls/hr Q24H IV ; Start at 10:15; Status UNV Pharmacy Profile Note 0 ml @ 0 mls/hr UNSCH OTHER ; Start 09/16/16 at 10:15; Status UNV Pharmacy Profile Note 0 ml @ 0 mls/hr UNSCH OTHER ; Start 09/16/16 at 10:15; Stop 09/19/16 at 14:53; Status DC Vancomycin HCl/ Sodium Chloride (Vancomycin Inj/ NS 500 ml Inj) 520 ml @ 250 mls/hr ONCE ONCE IV Last administered on 09/16/16 11:40; Start 09/16/16 at 11 :30; Stop 09/16/16 at 13:35; Status DC Pantoprazole Sodium (Protonix) 40 mg DAILY PO Last administered on 09/30/16 09 :06; Start 09/16/16 at 15:00 Heparin Sodium (Porcine) (Heparin Inj) 5,000 units Q8HR SQ Last administered on 09/28/16 22:10; Start 09/16/16 at 22:00; Stop 09/29/16 at 01:00; Status DC Morphine Sulfate 2 mg 2 mg ONCE ONCE IV PUSH Last administered on 09/16/16 23 :46; Start 09/16/16 at 23:30; Stop 09/16/16 at 23:31; Status DC Cefazolin Sodium 1000 mg/Sodium Chloride 100 ml @ 200 mls/hr Q8H IV Last administered on 09/24/16 17:49; Start 09/17/16 at 08:00; Stop 09/24/16 at 19:53; Status DC Sodium Chloride (NS 1000 ml Inj) 1,000 ml @ 42 mls/hr [id number] IV Last administered on 09/18/16 12:16; Start 09/17/16 at 14:00; Stop 09/19/16 at 14:15 ; Status DC Gadobenate Dimeglumine 20 ml 20 ml STK-MED ONCE IV Last administered on 15:42; Start 09/17/16 at 15:42; Stop 09/17/16 at 15:43; Status DC Vancomycin HCl/ Sodium Chloride (Vancomycin Inj/ NS 500 ml Inj) 516 ml @ 250 mls/hr Q24H IV Last administered on 6/30/17at 14:34; Start 09/18/16 at 12:00; Stop 09/19/16 at 14:53; Status DC Miscellaneous Information SPECIFIC LAB TO BE DRAWN:VANCOMY... ONCE ONCE .XX ; Start 09/21/16 at 11:45; Stop 09/21/16 at 11:46; Status DC Carvedilol (Coreg) 6.25 mg Q12HR PO Last administered on 09/30/16 09:06; Start 09/19/16 at 21:00 Glimepiride (Amaryl) 4 mg DAILY@08 PO Last administered on 09/30/16 09:06; Start 09/21/16 at 08:00 Collagenase (Santyl Oint) 1 applic DAILY TOPICAL Last administered on 09:00; Start 09/21/16 at 09:00 Insulin Detemir (Levemir Inj) 8 units HS SQ Last administered on 09/22/16 21:14 ; Start 09/21/16 at 21:00; Stop 09/23/16 at 08:20; Status DC Lactobacillus Acidophilus (Lactinex) 1 tab Q12HR PO Last administered on 09:06; Start 09/21/16 at 21:00 Acetaminophen (Tylenol) 650 mg Q6H PRN PO Fever, headache, pain 1-4; Start 09/21 at 19:45 Oxycodone/ Acetaminophen (Percocet 7.5-325 Mg) 1 tab Q6H PRN PO PAIN SCALE 5 TO 10 Last administered on 09/30/16 05:48; Start 09/21/16 at 17:00 Insulin Detemir 10 units 10 units HS SQ Last administered on 09/29/16 21:00; Start 09/23/16 at 21:00 Cefazolin Sodium/ Sodium Chloride (Ancef Inj/NS Inj) 100 ml @ 200 mls/hr Q8H IV Last administered on 09/30/16 09:06; Start 09/25/16 at 00:00 Diatrizoate Meglum/ Diatrizoate Sod ( Gastroview Liq) 18 ml ONCE ONCE PO Last administered on 09/24/16 19:15; Start 09/24/16 at 21:15; Stop 09/24/16 at 21: 16; Status DC Iohexol (Omnipaque 350 Inj) 85 ml STK-MED ONCE IV Last administered on 01:54; Start 09/25/16 at 01:54; Stop 09/25/16 at 01:55; Status DC Gadodiamide (Omniscan Pf Inj) 10 ml STK-MED ONCE IV Last administered on 18:08; Start 09/25/16 at 18:08; Stop 09/25/16 at 18:09; Status DC Iohexol (Omnipaque 350 Inj) 70 ml STK-MED ONCE IV Last administered on 18:07; Start 09/26/16 at 18:07; Stop 09/26/16 at 18:08; Status DC Lidocaine/ Epinephrine (Xylocaine-Epi 1%-1:100,000 Inj) 20 ml STK-MED ONCE .ROUTE Last administered on 09/29/16 13:48; Start 09/29/16 at 13:48; Stop 01/06 at 13:49; Status DC Fentanyl Citrate (fentaNYL INJ) 250 mcg STK-MED ONCE .ROUTE Last administered on 09/29/16 14:34; Start 09/29/16 at 14:34; Stop 09/29/16 at 14:35; Status DC Midazolam HCl (Versed Inj) 5 mg STK-MED ONCE .ROUTE Last administered on 14:34; Start 09/29/16 at 14:34; Stop 09/29/16 at 14:35; Status DC Date of Removal: Sep 22, 2016 A/P Problem List: (1) Sepsis ICD Code: A41.9 Status: Acute (2) UTI (urinary tract infection) ICD Code: N39.0 Status: Acute (3) Generalized weakness ICD Code: R53.1 Status: Acute (4) DM2 (diabetes mellitus, type 2) ICD Code: E11.9 Status: Acute (5) HTN (hypertension) ICD Code: I10 Status: Acute Assessment and Plan Sepsis -secondary to MSSA - urinary tract infection/bacteremia. -Improved with treatment. MSSA bacteremia -09/15 and 09/16 blood cultures positive. -Repeat blood cultures 09/20- negative -PERLA negative- 09/22 -Infectious disease following and stated to continue with cefazoline, 2 gm q 8 , anticipate at least 4 weeks from the 1st negative blood clx -Found to have renal abscess. See treatment as below. Acute Kidney injury -resolved. Most likely secondary to sepsis. Renal mass/abscess -Found on CT scan. MRI showed right renal mass measures 5.9 cm and has both a solid and cystic component with enhancing septa between the cystic components. -Patient stated that she has a history of left renal mass and had cryotherapy. She stated that mass resolved. -s/p CT guided biopsy/aspiration on 09/29 -Biopsy showed acute inflammatory exudate and no malignancy. -d/w Dr. Shahid and will need to repeat CT scan with UTI (urinary tract infection) -MSSA 09/15- Candiduria -Asymptomatic -Repeat UA- growing yeast- 09/20 -UA grew MSSA. -babin removed 09/22- voiding Generalized weakness- Improved -Due to sepsis. Seemed to resolved. DM2 (diabetes mellitus, type 2), Uncontrolled -Continue amaryl, levemir 8 units (at home was on 25 units). -Hemoglobin A1c is 10 -cont ssi -better readings- continue to adjust HTN (hypertension) - cont coreg, and adjust. -Previously hypotensive and medications have been adjusted due to hypotension and acute kidney injury DVT prophylaxis -Restart heparin. Discharge Planning Renal biopsy showed acute inflammatory exudate. patient will need repeat CT scan on with possible drainage of the abscess. Problem Qualifiers (1) Sepsis: Qualified Code: A41.01 - Sepsis due to methicillin susceptible Staphylococcus aureus (2) UTI (urinary tract infection): Qualified Code: N30.00 - Acute cystitis without hematuria Tsering Germain MD Sep 30, 2016 12:39
[2016-09-30 16:00] VITALS: BP 141/66; PULSE 82; RESP 18; TEMP 96.8; O2SAT 98
--- NOTE | 2016-09-30 16:11 | HHI.IDPN ---
Subjective Subjective Remarks afebrile Feeling fine no co path with acute inlammation, no malignancy Antibiotics IV Cefazolin Past Medical History 1. Insulin-dependent diabetes mellitus. 2. Left renal cancer status post freezing 3. Hypertriglyceridemia. Past Surgical History 1. 8 incisional hernia repairs. 2. C-sections. 3. Bilateral carpal tunnel surgery 4. Left kidney freezing and right lumpectomy. Reported Medications IV Vancomycin and Zosyn Family History Positive for Diabetes Social History Lives with boyfriend Non smoker Allergies: Coded Allergies: Rifampin (Verified Allergy, Severe, Nausea/Vomiting, 09/15/16) STOMACH CRAMPS Objective . Vital Signs Date Time Temp Pulse Resp B/P Pulse Ox O2 Delivery O2 Flow Rate FiO2 09/30/16 08:00 96.6 76 18 136/61 94 09/30/16 04:00 98.9 84 20 119/29 96 09/30/16 00:00 97.8 76 20 138/65 96 09/29/16 20:00 98.0 77 20 128/60 95 09/29/16 20:00 98.0 77 20 128/60 95 09/29/16 17:35 97.1 76 18 153/74 97 09/29/16 16:50 64 18 121/58 92 09/29/16 16:20 61 20 118/58 92 09/29/16 09/29/16 09/30/16 15:00 23:00 07:00 Intake Total 240 ml Balance 240 ml Intake Oral 240 ml # Voids 1 . Laboratory Tests Test 09/29/16 09/29/16 09/30/16 15:35 17:15 05:30 White Blood Count 6.8 TH/MM3 6.2 TH/MM3 5.8 TH/MM3 Red Blood Count 3.08 MIL/MM3 3.00 MIL/MM3 3.02 MIL/MM3 Hemoglobin 8.5 GM/DL 8.2 GM/DL 8.4 GM/DL Hematocrit 27.0 % 26.4 % 26.1 % Mean Corpuscular Volume 87.7 FL 88.1 FL 86.3 FL Mean Corpuscular Hemoglobin 27.7 PG 27.4 PG 27.9 PG Mean Corpuscular Hemoglobin 31.6 % 31.1 % 32.3 % Concent Red Cell Distribution Width 17.7 % 17.7 % 17.8 % Platelet Count 212 TH/MM3 200 TH/MM3 211 TH/MM3 Mean Platelet Volume 7.6 FL 7.6 FL 7.6 FL Neutrophils (%) (Auto) 74.7 % 71.9 % Lymphocytes (%) (Auto) 16.8 % 18.9 % Monocytes (%) (Auto) 5.9 % 6.5 % Eosinophils (%) (Auto) 1.6 % 1.8 % Basophils (%) (Auto) 1.0 % 0.9 % Neutrophils # (Auto) 5.1 TH/MM3 4.4 TH/MM3 Lymphocytes # (Auto) 1.1 TH/MM3 1.2 TH/MM3 Monocytes # (Auto) 0.4 TH/MM3 0.4 TH/MM3 Eosinophils # (Auto) 0.1 TH/MM3 0.1 TH/MM3 Basophils # (Auto) 0.1 TH/MM3 0.1 TH/MM3 CBC Comment DIFF FINAL DIFF FINAL Differential Comment Laboratory Tests Test 09/30/16 05:30 Sodium Level 139 MEQ/L Potassium Level 4.4 MEQ/L Chloride Level 102 MEQ/L Carbon Dioxide Level 29.0 MEQ/L Anion Gap 8 MEQ/L Blood Urea Nitrogen 12 MG/DL Creatinine 0.83 MG/DL Estimat Glomerular Filtration 69 ML/MIN Rate Random Glucose 146 MG/DL Calcium Level 8.5 MG/DL Imaging Last Impressions Renal Biopsy CT 09/29/16 0000 Signed Impressions: Service Date/Time: Thursday, September 29, 2016 14:55 - CONCLUSION: Uncomplicated CT guided biopsy of the right kidney. Igor Leonard MD Chest X-Ray 09/26/16 0000 Signed Impressions: Service Date/Time: Monday, September 26, 2016 12:14 - CONCLUSION: Right PICC line in good position. No pneumothorax. Armando Carmen MD Chest CT 09/26/16 0000 Signed Impressions: Service Date/Time: Monday, September 26, 2016 17:54 - CONCLUSION: I see no evidence for metastatic disease in this patient with possible renal cell carcinoma. Ulises Leonard MD FACR Abdomen MRI 09/25/16 0000 Signed Impressions: Service Date/Time: September 17:38 - CONCLUSION: Right renal mass measures 5.9 cm and has both a solid and cystic component with enhancing septa between the cystic components. The findings are suspicious for malignancy. Nathaniel Chapa MD Renal Ultrasound 09/24/16 0000 Signed Impressions: Service Date/Time: Saturday, September 24, 2016 11:32 - CONCLUSION: 1. Complex cystic mass in the lower pole the right kidney. Abscess is not excluded. CT scan is recommended for further evaluation if clinically indicated. Alan Yadav MD Abdomen/Pelvis CT 09/24/16 0000 Signed Impressions: Service Date/Time: September 01:38 - CONCLUSION: 1. Solid appearing right renal mass measures 3.2 x 4.5 x 5.5 cm. Contrasted MRI recommended. 2. Cholelithiasis. 3. Punctate nonobstructing right renal calculus. 4. Air in urinary bladder likely iatrogenic. Sivakumar Ferguson MD Hepatobiliary Scan Nuclear Medicine 09/18/16 0000 Signed Impressions: Service Date/Time: August 08:12 - CONCLUSION: Negative study Nehemias Gonsales MD Thoracic Spine MRI 09/17/16 0000 Signed Impressions: Service Date/Time: Saturday, September 17, 2016 13:59 - CONCLUSION: I do not see evidence for an abscess. I do not see any radiographic reason for the patient' s inability to ambulate. Ulises Leonard MD FACR Lumbar Spine MRI 09/17/16 0000 Signed Impressions: Service Date/Time: Saturday, September 17, 2016 13:59 - CONCLUSION: 1. No evidence of abscess collection. 2. No spinal stenosis, focal disc herniation, fracture or osteomyelitis. 3. Lipoma of the filum terminale. Antonio Maza MD Lower Extremity Ultrasound 09/16/16 0000 Signed Impressions: Service Date/Time: Friday, September 16, 2016 11:36 - CONCLUSION: No evidence of deep venous thrombosis within the lower extremities. Antonio Maza MD Abdomen Ultrasound 09/16/16 0000 Signed Impressions: Service Date/Time: Friday, September 16, 2016 07:55 - CONCLUSION: 1. Thick- walled gallbladder containing stones. If there is clinical concern for acute cholecystitis a hepatobiliary scan may be helpful to confirm cystic duct obstruction. 2. Mild prominence of the common bile duct. Correlation with alkaline phosphatase and bilirubin levels is suggested to rule out hepatobiliary obstruction. 3. Enlarged fatty liver. 4. Splenomegaly. Antonio Maza MD Physical Exam GENERAL: This is a obese chronically ill pt in no distress SKIN: No rashes, ecchymoses . Cool and dry. Diaphoretic EYES: Pupils equal round and reactive. No scleral icterus. No injection or drainage. CARDIOVASCULAR: Regular rate and rhythm with a systolic murmur, no, gallops, or rubs. RESPIRATORY: Clear to auscultation. Breath sounds equal bilaterally. No wheezes , rales, or rhonchi. GASTROINTESTINAL: Abdomen soft, non-tender, nondistended. No hepato-splenomegaly , or palpable masses. No guarding. MUSCULOSKELETAL: Extremities without clubbing, cyanosis, or edema. No joint tenderness, effusion, or edema noted. NEUROLOGICAL: Awake and alert. Cranial nerves II through XII intact. No motor deficit Normal speech PSYCH: pt is calm and cooperative Assessment & Plan Remarks High grade sustained MSSA bacteremia of unknown source - last clx neg @ 4 days - PERLA negative - L spine/T spine MRI negative - abd CT negative for abscess R sided nephronia, no cancer - sp CT guided bx ARF - resolved Multiple med problems REC's: cont cefazoline, 2 gm q 8, anticipate at least 4 weeks from the 1st negative blood clx, then we will repeat blood clx after 2 weeks of treatment or with fever repeat CT on thursday or ; drainif needed sp PICC OK to dc home from [facility] after other bustamante and procedures are completed OPAT forms asn scripts were filled out dw pt dw case mngr dw Tamela Oconnell MD Sep 30, 2016 16:11
[2016-09-30 20:04] VITALS: BP 166/72; PULSE 95; RESP 17; TEMP 100.3; O2SAT 97
[2016-09-30] MEDS: INSULIN DETEMIR 100 UNITS/ML VIAL SQ SCH (21:00)
[2016-09-30] MEDS: HEPARIN SODIUM - SQ 10,000 UNITS/ML VIAL SQ SCH (21:53)
[2016-10-01 00:22] VITALS: BP 139/65; PULSE 86; RESP 17; TEMP 98.4; O2SAT 96
[2016-10-01 05:01] VITALS: BP 143/67; PULSE 73; RESP 17; TEMP 98.2; O2SAT 96
[2016-10-01] MEDS: INSULIN ASPART SUPPLEMENTAL SCALE SQ SCH ×5 (06:05→20:54)
[2016-10-01] MEDS: HEPARIN SODIUM - SQ 10,000 UNITS/ML VIAL SQ SCH ×2 (06:06→14:04)
[2016-10-01 07:57] VITALS: BP 142/67; PULSE 82; RESP 20; TEMP 97.6; O2SAT 95
[2016-10-01] MEDS: CARVEDILOL 6.25 MG TAB PO SCH ×2 (08:19→20:57)
[2016-10-01] MEDS: LACTOBACILLUS ACIDOPHILUS TAB PO SCH ×2 (08:19→20:57)
[2016-10-01] MEDS: PANTOPRAZOLE SOD 40 MG DELAYED RELEASE TAB PO SCH (08:19)
[2016-10-01] MEDS: GLIMEPIRIDE 4 MG TAB PO SCH (08:19)
[2016-10-01] MEDS: COLLAGENASE OINT 30 GM TUBE TOPICAL SCH (08:19)
[2016-10-01 12:11] VITALS: BP 136/63; PULSE 99; RESP 20; TEMP 97.6; O2SAT 95
--- NOTE | 2016-10-01 12:26 | HHI.PR ---
Subjective Remarks Follow-up for renal abscess Patient remains afebrile. She stated that she pulled a muscle otherwise she has no complaints. Objective Vitals Vital Signs Date Time Temp Pulse Resp B/P Pulse Ox O2 Delivery O2 Flow Rate FiO2 10/01/16 12:11 97.6 99 20 136/63 95 10/01/16 07:57 97.6 82 20 142/67 95 10/01/16 05:01 98.2 73 17 143/67 96 10/01/16 00:22 98.4 86 17 139/65 96 09/30/16 20:04 100.3 95 17 166/72 97 09/30/16 16:00 96.8 82 18 141/66 98 I/O 09/30/16 09/30/16 09/30/16 10/01/16 10/01/16 10/01/16 07:00 15:00 23:00 07:00 15:00 23:00 Intake Total 480 ml 460 ml Balance 480 ml 460 ml Intake Oral 480 ml 360 ml IV Total 100 ml # Voids 1 5 # Bowel Movements 1 Result Diagram: 09/30/16 0530 09/30/16 0530 Objective Remarks GENERAL: in NAD SKIN: Warm and dry. HEAD: Normocephalic. EYES: No scleral icterus. No injection or drainage. NECK: Supple, trachea midline. No JVD or lymphadenopathy. CARDIOVASCULAR: Regular rate and rhythm without murmurs, gallops, or rubs. RESPIRATORY: Breath sounds equal bilaterally. No accessory muscle use. GASTROINTESTINAL: Abdomen soft, non-tender, nondistended. MUSCULOSKELETAL: No cyanosis, or edema. BACK: Nontender without obvious deformity. No CVA tenderness. Procedures 09/22- PERLA- negative Medications and IVs Current Medications Sodium Chloride 1,000 ml @ 2,000 mls/hr Q30M ONCE IV Last administered on 09/15 11:51; Start 09/15/16 at 11:16; Stop 09/15/16 at 11:45; Status DC Sodium Chloride (NS 1000 ml Inj) 1,000 ml @ 2,000 mls/hr Q30M ONCE IV Last administered on 09/15/16 11:51; Start 09/15/16 at 11:46; Stop 09/15/16 at 12:15 ; Status DC Sodium Chloride (NS Flush) 2 ml UNSCH PRN IVF FLUSH AFTER USING IV ACCESS Last administered on 09/21/16 21:05; Start 09/15/16 at 11:30 Insulin Human Regular 10 units 10 units ONCE ONCE IV PUSH Last administered on 09/15/16 11:50; Start 09/15/16 at 11:30; Stop 09/15/16 at 11:31; Status DC Ceftriaxone Sodium 1000 mg/ Sodium Chloride 100 ml @ 200 mls/hr ONCE ONCE IV Last administered on 09/15/16 13:04; Start 09/15/16 at 13:00; Stop 09/15/16 at 13:29; Status DC Sodium Chloride 1,000 ml @ 999 mls/hr BOLUS ONCE IV Last administered on 09/15 13:30; Start 09/15/16 at 13:30; Stop 09/15/16 at 14:30; Status DC Sodium Chloride 1,000 ml @ 125 mls/hr Q8H IV Last administered on 09/15/16 14 :39; Start 09/15/16 at 13:30; Stop 09/15/16 at 16:12; Status DC Sodium Chloride 1,000 ml @ 250 mls/hr Q4H IV ; Start 09/15/16 at 15:00; Stop at 15:50; Status DC Dextrose/Sodium Chloride (D5W-NS 1000 ml Inj) 1,000 ml @ 200 mls/hr Q5H IV ; Start 09/15/16 at 15:00; Stop 09/15/16 at 15:50; Status DC Insulin Human Regular 10 units 10 units BOLUS ONCE IV PUSH ; Start 09/15/16 at 15:00; Stop 09/15/16 at 15:50; Status DC Insulin Human Regular 100 units/ Sodium Chloride 100 ml @ 0 mls/hr TITRATE IV ; Start 09/15/16 at 15:00; Stop 09/15/16 at 15:51; Status DC Potassium Chloride 100 ml @ 100 mls/hr Q1H PRN IV SEE LABEL COMMENTS; Start at 14:15; Stop 09/15/16 at 15:51; Status DC Potassium Chloride 100 ml @ 50 mls/hr Q2H PRN IV SEE LABEL COMMENTS; Start at 14:15; Stop 09/15/16 at 15:51; Status DC Potassium Chloride 100 ml @ 100 mls/hr Q1H PRN IV SEE LABEL COMMENTS; Start at 14:15; Stop 09/15/16 at 15:51; Status DC Potassium Chloride 100 ml @ 100 mls/hr Q1H PRN IV SEE LABEL COMMENTS; Start at 14:15; Stop 09/15/16 at 15:52; Status DC Potassium Chloride 100 ml @ 50 mls/hr Q2H PRN IV SEE LABEL COMMENTS; Start at 15:00; Stop 09/15/16 at 15:52; Status DC Potassium Chloride 100 ml @ 50 mls/hr Q2H PRN IV SEE LABEL COMMENTS; Start at 14:15; Stop 09/15/16 at 15:52; Status DC Potassium Chloride 100 ml @ 50 mls/hr Q2H PRN IV SEE LABEL COMMENTS; Start at 14:15; Stop 09/15/16 at 15:52; Status DC Potassium Chloride (KCl 20 Meq Premix Inj) 100 ml @ 50 mls/hr Q2H PRN IV SEE LABEL COMMENTS; Start 09/15/16 at 14:15; Stop 09/15/16 at 15:53; Status DC Sodium Bicarbonate (Sodium Bicarbonate 8.4% Inj) 100 meq UNSCH PRN IV SEE LABEL COMMENTS; Start 09/15/16 at 14:15; Stop 09/15/16 at 15:53; Status DC Sodium Bicarbonate 50 meq 50 meq UNSCH PRN IV SEE LABEL COMMENTS; Start at 14:15; Stop 09/15/16 at 15:53; Status DC Sodium Phosphate/ Sodium Chloride (Sodium Phosphate Inj/NS Inj) 105 ml @ 25 mls /hr UNSCH PRN IV SEE LABEL COMMENTS; Start 09/15/16 at 14:15; Stop 09/15/16 at 15:53; Status DC Miscellaneous Information 1 [id number] XX ; Start 09/15/16 at 14:15; Stop 09/15/16 at 15:50; Status DC Chlorhexidine Gluconate (Chlorhexidine 2% Cloth) 3 pack Taper DAILY@04 TOP ; Start 09/16/16 at 04:00; Stop 09/16/16 at 04:00; Status DC Chlorhexidine Gluconate 3 pack 3 pack UNSCH PRN TOP HYGIENIC CARE; Start at 14:15; Stop 09/15/16 at 15:49; Status DC Ceftriaxone Sodium/Sodium Chloride (Rocephin Inj/NS Inj) 100 ml @ 200 mls/hr Q24H IV ; Start 09/16/16 at 13:00; Stop 09/16/16 at 13:00; Status DC Aspirin (Aspirin Chew) 81 mg DAILY CHEW Last administered on 09/26/16 10:13; Start 09/16/16 at 09:00; Status Hold Insulin Detemir (Levemir Inj) 25 units HS SQ ; Start 09/15/16 at 21:00; Stop at 09:30; Status DC Dextrose (D50w (Vial) Inj) 50 ml UNSCH PRN IV HYPOGLYCEMIA-SEE COMMENTS Last administered on 09/29/16 13:01; Start 09/15/16 at 16:00 Glucagon (Glucagon Inj) 1 mg UNSCH PRN OTHER HYPOGLYCEMIA-SEE COMMENTS Last administered on 09/16/16 05:25; Start 09/15/16 at 16:00 Insulin Aspart 1 1 ACHS SLIDING SCALE SQ Last administered on 10/01/16 06:05 ; Start 09/15/16 at 16:00 Sodium Chloride 1,000 ml @ 125 mls/hr Q8H IV Last administered on 09/15/16 23 :35; Start 09/15/16 at 16:00; Stop 09/16/16 at 00:27; Status DC Sodium Chloride (NS 1000 ml Inj) 1,000 ml @ 150 mls/hr Q6H40M IV Last administered on 09/16/16 00:30; Start 09/16/16 at 00:30; Stop 09/16/16 at 03:17 ; Status DC Acetaminophen 650 mg 650 mg Q4H PRN PO fever >101 Last administered on 01:13; Start 09/16/16 at 01:15; Stop 09/16/16 at 09:34; Status DC Dextrose/Sodium Chloride (D5W-NS 1000 ml Inj) 1,000 ml @ 100 mls/hr Q10H IV Last administered on 09/16/16 03:24; Start 09/16/16 at 03:30; Stop 09/17/16 at 13:54; Status DC Acetaminophen 650 mg 650 mg Q4H PRN PO FEVER; Start 09/16/16 at 09:45; Stop 09/21/16 at 16:57; Status DC Magnesium Sulfate/ Dextrose (Magnesium Sulfate 1 Gm Premix) 100 ml @ 100 mls/ hr Q1H IV Last administered on 09/16/16 11:46; Start 09/16/16 at 10:15; Stop 09/16/16 at 12:14; Status DC Furosemide 40 mg 40 mg ONCE ONCE IV PUSH Last administered on 09/16/16 10:15 ; Start 09/16/16 at 10:15; Stop 09/16/16 at 10:24; Status DC Piperacillin Sod/ Tazobactam Sod 50 ml @ 100 mls/hr Q6H IV Last administered on 09/17/16 05:53; Start 09/16/16 at 11:00; Stop 09/17/16 at 07:00; Status DC Vancomycin HCl 1000 mg/Sodium Chloride 250 ml @ 250 mls/hr Q24H IV ; Start at 10:15; Status UNV Pharmacy Profile Note 0 ml @ 0 mls/hr UNSCH OTHER ; Start 09/16/16 at 10:15; Status UNV Pharmacy Profile Note 0 ml @ 0 mls/hr UNSCH OTHER ; Start 09/16/16 at 10:15; Stop 09/19/16 at 14:53; Status DC Vancomycin HCl/ Sodium Chloride (Vancomycin Inj/ NS 500 ml Inj) 520 ml @ 250 mls/hr ONCE ONCE IV Last administered on 09/16/16 11:40; Start 09/16/16 at 11 :30; Stop 09/16/16 at 13:35; Status DC Pantoprazole Sodium (Protonix) 40 mg DAILY PO Last administered on 10/01/16 08 :19; Start 09/16/16 at 15:00 Heparin Sodium (Porcine) (Heparin Inj) 5,000 units Q8HR SQ Last administered on 09/28/16 22:10; Start 09/16/16 at 22:00; Stop 09/29/16 at 01:00; Status DC Morphine Sulfate 2 mg 2 mg ONCE ONCE IV PUSH Last administered on 09/16/16 23 :46; Start 09/16/16 at 23:30; Stop 09/16/16 at 23:31; Status DC Cefazolin Sodium 1000 mg/Sodium Chloride 100 ml @ 200 mls/hr Q8H IV Last administered on 09/24/16 17:49; Start 09/17/16 at 08:00; Stop 09/24/16 at 19:53; Status DC Sodium Chloride (NS 1000 ml Inj) 1,000 ml @ 42 mls/hr [id number] IV Last administered on 09/18/16 12:16; Start 09/17/16 at 14:00; Stop 09/19/16 at 14:15 ; Status DC Gadobenate Dimeglumine 20 ml 20 ml STK-MED ONCE IV Last administered on 15:42; Start 09/17/16 at 15:42; Stop 09/17/16 at 15:43; Status DC Vancomycin HCl/ Sodium Chloride (Vancomycin Inj/ NS 500 ml Inj) 516 ml @ 250 mls/hr Q24H IV Last administered on 09/19/16 14:34; Start 09/18/16 at 12:00; Stop 09/19/16 at 14:53; Status DC Miscellaneous Information SPECIFIC LAB TO BE DRAWN:VANCOMY... ONCE ONCE .XX ; Start 09/21/16 at 11:45; Stop 09/21/16 at 11:46; Status DC Carvedilol (Coreg) 6.25 mg Q12HR PO Last administered on 10/01/16 08:19; Start 09/19/16 at 21:00 Glimepiride (Amaryl) 4 mg DAILY@08 PO Last administered on 10/01/16 08:19; Start 09/21/16 at 08:00 Collagenase (Santyl Oint) 1 applic DAILY TOPICAL Last administered on 09:00; Start 09/21/16 at 09:00 Insulin Detemir (Levemir Inj) 8 units HS SQ Last administered on 09/22/16 21:14 ; Start 09/21/16 at 21:00; Stop 09/23/16 at 08:20; Status DC Lactobacillus Acidophilus (Lactinex) 1 tab Q12HR PO Last administered on 08:19; Start 09/21/16 at 21:00 Acetaminophen (Tylenol) 650 mg Q6H PRN PO Fever, headache, pain 1-4; Start 09/21 at 19:45 Oxycodone/ Acetaminophen (Percocet 7.5-325 Mg) 1 tab Q6H PRN PO PAIN SCALE 5 TO 10 Last administered on 09/30/16 05:48; Start 09/21/16 at 17:00 Insulin Detemir 10 units 10 units HS SQ Last administered on 09/30/16 21:00; Start 09/23/16 at 21:00 Cefazolin Sodium/ Sodium Chloride (Ancef Inj/NS Inj) 100 ml @ 200 mls/hr Q8H IV Last administered on 10/01/16 08:19; Start 09/25/16 at 00:00 Diatrizoate Meglum/ Diatrizoate Sod ( Gastroview Liq) 18 ml ONCE ONCE PO Last administered on 09/24/16 19:15; Start 09/24/16 at 21:15; Stop 09/24/16 at 21: 16; Status DC Iohexol (Omnipaque 350 Inj) 85 ml STK-MED ONCE IV Last administered on 01:54; Start 09/25/16 at 01:54; Stop 09/25/16 at 01:55; Status DC Gadodiamide (Omniscan Pf Inj) 10 ml STK-MED ONCE IV Last administered on 18:08; Start 09/25/16 at 18:08; Stop 09/25/16 at 18:09; Status DC Iohexol (Omnipaque 350 Inj) 70 ml STK-MED ONCE IV Last administered on 18:07; Start 09/26/16 at 18:07; Stop 09/26/16 at 18:08; Status DC Lidocaine/ Epinephrine (Xylocaine-Epi 1%-1:100,000 Inj) 20 ml STK-MED ONCE .ROUTE Last administered on 09/29/16 13:48; Start 09/29/16 at 13:48; Stop 01/06 at 13:49; Status DC Fentanyl Citrate (fentaNYL INJ) 250 mcg STK-MED ONCE .ROUTE Last administered on 09/29/16 14:34; Start 09/29/16 at 14:34; Stop 09/29/16 at 14:35; Status DC Midazolam HCl (Versed Inj) 5 mg STK-MED ONCE .ROUTE Last administered on 14:34; Start 09/29/16 at 14:34; Stop 09/29/16 at 14:35; Status DC Heparin Sodium (Porcine) (Heparin Inj) 5,000 units Q8HR SQ Last administered on 10/01/16 06:06; Start 09/30/16 at 22:00 Date of Removal: Sep 22, 2016 A/P Problem List: (1) Sepsis ICD Code: A41.9 Status: Acute (2) UTI (urinary tract infection) ICD Code: N39.0 Status: Acute (3) Generalized weakness ICD Code: R53.1 Status: Acute (4) DM2 (diabetes mellitus, type 2) ICD Code: E11.9 Status: Acute (5) HTN (hypertension) ICD Code: I10 Status: Acute Assessment and Plan Sepsis -secondary to MSSA, urinary tract infection/bacteremia. -Improved with treatment. MSSA bacteremia -09/15 and 09/16 blood cultures positive. -Repeat blood cultures 09/20- negative -PERLA negative- 09/22 -Infectious disease following and stated to continue with cefazoline, 2 gm q 8 , anticipate at least 4 weeks from the 1st negative blood clx then will need repeat blood clx after 2 weeks of treatment or with fever. -Found to have renal abscess. See treatment below. Acute Kidney injury -resolved. Most likely secondary to sepsis. Renal abscess -Found on CT scan. MRI showed right renal mass measures 5.9 cm and has both a solid and cystic component with enhancing septa between the cystic components. -Patient stated that she has a history of left renal mass. -s/p CT guided biopsy/aspiration on 09/29 which showed acute inflammatory exudate and no malignancy. -d/w Dr. Shahid and will need to repeat CT scan for possible drainage tomorrow. Ordered place. UTI (urinary tract infection) -MSSA 09/15- Candiduria -Asymptomatic -Repeat UA- growing yeast- 09/20 -UA grew MSSA. -babin removed 09/22- voiding Generalized weakness -Due to sepsis. Seemed to resolved. DM2 (diabetes mellitus, type 2), Uncontrolled -Continue amaryl, levemir 8 units (at home was on 25 units). -Hemoglobin A1c is 10 -cont ssi -better readings- continue to adjust HTN (hypertension) - cont coreg, and adjust. -Previously hypotensive and medications have been adjusted due to hypotension and acute kidney injury DVT prophylaxis -hold heparin tonight. Discharge Planning Will obtain CT of renal abscess for possible drainage schedule for tomorrow. Problem Qualifiers (1) Sepsis: Qualified Code: A41.01 - Sepsis due to methicillin susceptible Staphylococcus aureus (2) UTI (urinary tract infection): Qualified Code: N30.00 - Acute cystitis without hematuria Tsering Germain MD Oct 01, 2016 12:26
[2016-10-01 16:10] VITALS: BP 131/63; PULSE 83; RESP 20; TEMP 98.9; O2SAT 96
[2016-10-01 20:00] VITALS: BP 156/68; PULSE 100; RESP 18; TEMP 99.7; O2SAT 94
[2016-10-01] MEDS: INSULIN DETEMIR 100 UNITS/ML VIAL SQ SCH (20:48)
[2016-10-02] MEDS: SODIUM CHLORIDE 0.9% FLUSH 10 ML FLUSH IVF PRN (02:29)
[2016-10-02] MEDS: HEPARIN SODIUM - SQ 10,000 UNITS/ML VIAL SQ SCH ×5 (02:29→21:04)
[2016-10-02 04:00] VITALS: BP 137/68; PULSE 89; RESP 18; TEMP 97.2; O2SAT 94
[2016-10-02] MEDS: INSULIN ASPART SUPPLEMENTAL SCALE SQ SCH ×4 (07:00→21:04)
[2016-10-02] MEDS: oxyCODONE/ACETAMINOPHEN 7.5 MG/325 MG TAB PO PRN ×2 (07:35→14:35)
[2016-10-02 08:07] VITALS: BP 123/68; PULSE 83; RESP 20; TEMP 98.4; O2SAT 96
[2016-10-02] MEDS ORDERED: IOHEXOL 350 MG/ML 10 ML VIAL (for RAD DIAG) IV ONE (08:39)
[2016-10-02] MEDS: LACTOBACILLUS ACIDOPHILUS TAB PO SCH ×2 (08:56→20:37)
[2016-10-02] MEDS: PANTOPRAZOLE SOD 40 MG DELAYED RELEASE TAB PO SCH (08:56)
[2016-10-02] MEDS: GLIMEPIRIDE 4 MG TAB PO SCH (08:56)
[2016-10-02] MEDS: CARVEDILOL 6.25 MG TAB PO SCH ×2 (08:56→20:37)
[2016-10-02] MEDS: COLLAGENASE OINT 30 GM TUBE TOPICAL SCH (08:57)
--- NOTE | 2016-10-02 09:55 | RADRPT ---
EXAM DATE/TIME: 10/02/2016 08:30 [facility] COMPARISON: CT ABDOMEN & PELVIS W CONTRAST, September 25, 2016, 1:38. INDICATIONS : Evaluate right renal abscess IV CONTRAST: 95 cc Omnipaque 350 (iohexol) IV ORAL CONTRAST: No oral contrast ingested. RADIATION DOSE: 16.64 CTDIvol (mGy) MEDICAL HISTORY : Hypertension. Diabetes mellitus type 1. Renal cell carcinoma. SURGICAL HISTORY : Appendectomy. ENCOUNTER: Initial ACUITY: 3 days PAIN SCALE: 4/10 LOCATION: Right flank TECHNIQUE: Volumetric scanning of the abdomen was performed. Using automated exposure control and adjustment of the mA and/or kV according to patient size, radiation dose was kept as low as reasonably achievable to obtain optimal diagnostic quality images. DICOM format image data is available electronically for review and comparison. FINDINGS: The previously seen right renal mass which is presumably an abscess has not significantly change d in size measures 5.2 cm in craniocaudal dimension, 5.1 x 3.2 cm in oblique diameters. There is hazi ness in the surrounding fat planes extending down to the tip of the liver there is slight fluid at th is site within the leaves of the mesentery adjacent to duodenum not present previously. Tiny bilatera l renal stones are again seen. The liver measures 24 cm and the spleen measures 17 cm in craniocaudal dimension without focal lesions. The gallbladder demonstrates multiple stones without gallbladder wa ll thickening, or pericholecystic fluid. Small right pleural effusion is seen. There is minimal atele ctasis and/or infiltrate left lower lung. The rest of the examination has not significantly changed. CONCLUSION: 1. The right renal mass presumed abscess has not significantly changed in size, however there is more inflammatory changes surrounding it extending into the fat planes with slight fluid dissecting to th e level of the duodenum. 2. Hepatosplenomegaly, cholelithiasis and renal stones. Ailyn Rose MD on October 02, 2016 at 9:46 Board Certified Radiologist. This report was verified electronically.
[2016-10-02 12:26] VITALS: BP 121/60; PULSE 77; RESP 20; TEMP 97.1; O2SAT 97
--- NOTE | 2016-10-02 13:31 | HHI.IDPN ---
Subjective Subjective Remarks afebrile co R side pain that started after bx Not improving CT showed unresolving abscess with worsning surrounding inflammation Antibiotics IV Cefazolin Past Medical History 1. Insulin-dependent diabetes mellitus. 2. Left renal cancer status post freezing 3. Hypertriglyceridemia. Past Surgical History 1. 8 incisional hernia repairs. 2. C-sections. 3. Bilateral carpal tunnel surgery 4. Left kidney freezing and right lumpectomy. Reported Medications IV Vancomycin and Zosyn Family History Positive for Diabetes Social History Lives with boyfriend Non smoker Allergies: Coded Allergies: Rifampin (Verified Allergy, Severe, Nausea/Vomiting, 09/15/16) STOMACH CRAMPS Objective . Vital Signs Date Time Temp Pulse Resp B/P Pulse Ox O2 Delivery O2 Flow Rate FiO2 10/02/16 12:26 97.1 77 20 121/60 97 10/02/16 08:57 18 10/02/16 08:07 98.4 83 20 123/68 96 10/02/16 04:00 97.2 89 18 137/68 94 10/01/16 20:00 99.7 100 18 156/68 94 10/01/16 16:10 98.9 83 20 131/63 96 10/01/16 10/01/16 10/02/16 15:00 23:00 07:00 Intake Total 480 ml 480 ml Balance 480 ml 480 ml Intake Oral 480 ml 480 ml # Voids 4 3 # Bowel Movements 1 Imaging Last Impressions Abdomen CT 10/02/16 0600 Signed Impressions: Service Date/Time: September 08:30 - CONCLUSION: 1. The right renal mass presumed abscess has not significantly changed in size, however there is more inflammatory changes surrounding it extending into the fat planes with slight fluid dissecting to the level of the duodenum. 2. Hepatosplenomegaly, cholelithiasis and renal stones. Ailyn Rose MD Renal Biopsy CT 09/29/16 0000 Signed Impressions: Service Date/Time: Thursday, September 29, 2016 14:55 - CONCLUSION: Uncomplicated CT guided biopsy of the right kidney. Igor Leonard MD Chest X-Ray 09/26/16 0000 Signed Impressions: Service Date/Time: Monday, September 26, 2016 12:14 - CONCLUSION: Right PICC line in good position. No pneumothorax. Armando Carmen MD Chest CT 09/26/16 0000 Signed Impressions: Service Date/Time: Monday, September 26, 2016 17:54 - CONCLUSION: I see no evidence for metastatic disease in this patient with possible renal cell carcinoma. Ulises Leonard MD FACR Abdomen MRI 09/25/16 0000 Signed Impressions: Service Date/Time: , September 25, 2016 17:38 - CONCLUSION: Right renal mass measures 5.9 cm and has both a solid and cystic component with enhancing septa between the cystic components. The findings are suspicious for malignancy. Nathaniel Chapa MD Renal Ultrasound 09/24/16 0000 Signed Impressions: Service Date/Time: Saturday, September 24, 2016 11:32 - CONCLUSION: 1. Complex cystic mass in the lower pole the right kidney. Abscess is not excluded. CT scan is recommended for further evaluation if clinically indicated. Alan Yadav MD Abdomen/Pelvis CT 09/24/16 0000 Signed Impressions: Service Date/Time: September 01:38 - CONCLUSION: 1. Solid appearing right renal mass measures 3.2 x 4.5 x 5.5 cm. Contrasted MRI recommended. 2. Cholelithiasis. 3. Punctate nonobstructing right renal calculus. 4. Air in urinary bladder likely iatrogenic. Sivakumar Ferguson MD Hepatobiliary Scan Nuclear Medicine 09/18/16 0000 Signed Impressions: Service Date/Time: August 08:12 - CONCLUSION: Negative study Nehemias Gonsales MD Thoracic Spine MRI 09/17/16 0000 Signed Impressions: Service Date/Time: Saturday, September 17, 2016 13:59 - CONCLUSION: I do not see evidence for an abscess. I do not see any radiographic reason for the patient' s inability to ambulate. Ulises Leonard MD FACR Lumbar Spine MRI 09/17/16 0000 Signed Impressions: Service Date/Time: Saturday, September 17, 2016 13:59 - CONCLUSION: 1. No evidence of abscess collection. 2. No spinal stenosis, focal disc herniation, fracture or osteomyelitis. 3. Lipoma of the filum terminale. Antonio Maza MD Lower Extremity Ultrasound 09/16/16 0000 Signed Impressions: Service Date/Time: Friday, September 16, 2016 11:36 - CONCLUSION: No evidence of deep venous thrombosis within the lower extremities. Antonio Maza MD Abdomen Ultrasound 09/16/16 0000 Signed Impressions: Service Date/Time: Friday, September 16, 2016 07:55 - CONCLUSION: 1. Thick- walled gallbladder containing stones. If there is clinical concern for acute cholecystitis a hepatobiliary scan may be helpful to confirm cystic duct obstruction. 2. Mild prominence of the common bile duct. Correlation with alkaline phosphatase and bilirubin levels is suggested to rule out hepatobiliary obstruction. 3. Enlarged fatty liver. 4. Splenomegaly. Antonio Maza MD Physical Exam GENERAL: This is a obese chronically ill pt in no distress SKIN: No rashes, ecchymoses . Cool and dry. Diaphoretic EYES: Pupils equal round and reactive. No scleral icterus. No injection or drainage. CARDIOVASCULAR: Regular rate and rhythm with a systolic murmur, no, gallops, or rubs. RESPIRATORY: Clear to auscultation. Breath sounds equal bilaterally. No wheezes , rales, or rhonchi. GASTROINTESTINAL: Abdomen soft, markedly tender to palpation RLQ, nondistended. No hepato-splenomegaly, or palpable masses. No guarding. : no CVA tenderness b/l MUSCULOSKELETAL: Extremities without clubbing, cyanosis, or edema. No joint tenderness, effusion, or edema noted. NEUROLOGICAL: Awake and alert. Cranial nerves II through XII intact. No motor deficit Normal speech PSYCH: pt is calm and cooperative Assessment & Plan Remarks High grade sustained MSSA bacteremia - source is R sided nephronia/renal abscess - last clx negative - PERLA negative R sided nephronia, no cancer - sp CT guided bx ARF - resolved Multiple med problems REC's: cont cefazoline, 2 gm q 8, anticipate at least 4 weeks from the 1st negative blood clx, then we will repeat blood clx after 2 weeks of treatment or with fever CT guided abscess drainage with clx dw pt dw radiologist Tamela Shahid MD Oct 02, 2016 13:31
[2016-10-02 15:55] VITALS: BP 140/66; PULSE 97; RESP 20; TEMP 100.8; O2SAT 96
--- NOTE | 2016-10-02 16:25 | HHI.PR ---
Subjective Remarks PT states that she just got some pain meds and has helped her pain, she rates it a 2/10 right now as long as she doesn't press on the area or move. denies any CP/SOB/N/V she is supposed to go to IR around 7pm today Objective Vitals Vital Signs Date Time Temp Pulse Resp B/P Pulse Ox O2 Delivery O2 Flow Rate FiO2 10/02/16 15:55 100.8 97 20 140/66 96 10/02/16 12:26 97.1 77 20 121/60 97 10/02/16 08:57 18 10/02/16 08:07 98.4 83 20 123/68 96 10/02/16 04:00 97.2 89 18 137/68 94 10/01/16 20:00 99.7 100 18 156/68 94 10/01/16 16:10 98.9 83 20 131/63 96 I/O 10/01/16 10/01/16 10/01/16 10/02/16 10/02/16 10/02/16 07:00 15:00 23:00 07:00 15:00 23:00 Intake Total 460 ml 480 ml 480 ml 480 ml Balance 460 ml 480 ml 480 ml 480 ml Intake Oral 360 ml 480 ml 480 ml 480 ml IV Total 100 ml # Voids 5 4 3 6 # Bowel Movements 1 1 Result Diagram: 09/30/16 0530 09/30/16 0530 Imaging Last Impressions Abdomen CT 10/02/16 0600 Signed Impressions: Service Date/Time: September 08:30 - CONCLUSION: 1. The right renal mass presumed abscess has not significantly changed in size, however there is more inflammatory changes surrounding it extending into the fat planes with slight fluid dissecting to the level of the duodenum. 2. Hepatosplenomegaly, cholelithiasis and renal stones. Ailyn Rose MD Renal Biopsy CT 09/29/16 0000 Signed Impressions: Service Date/Time: Thursday, September 29, 2016 14:55 - CONCLUSION: Uncomplicated CT guided biopsy of the right kidney. Igor Leonard MD Chest X-Ray 09/26/16 0000 Signed Impressions: Service Date/Time: Monday, September 26, 2016 12:14 - CONCLUSION: Right PICC line in good position. No pneumothorax. Armando Carmen MD Chest CT 09/26/16 0000 Signed Impressions: Service Date/Time: Monday, September 26, 2016 17:54 - CONCLUSION: I see no evidence for metastatic disease in this patient with possible renal cell carcinoma. Ulises Leonard MD FACR Abdomen MRI 09/25/16 0000 Signed Impressions: Service Date/Time: , September 25, 2016 17:38 - CONCLUSION: Right renal mass measures 5.9 cm and has both a solid and cystic component with enhancing septa between the cystic components. The findings are suspicious for malignancy. Nathaniel Chapa MD Renal Ultrasound 09/24/16 0000 Signed Impressions: Service Date/Time: Saturday, September 24, 2016 11:32 - CONCLUSION: 1. Complex cystic mass in the lower pole the right kidney. Abscess is not excluded. CT scan is recommended for further evaluation if clinically indicated. Alan Yadav MD Abdomen/Pelvis CT 09/24/16 0000 Signed Impressions: Service Date/Time: September 01:38 - CONCLUSION: 1. Solid appearing right renal mass measures 3.2 x 4.5 x 5.5 cm. Contrasted MRI recommended. 2. Cholelithiasis. 3. Punctate nonobstructing right renal calculus. 4. Air in urinary bladder likely iatrogenic. Sivakumar Ferguson MD Hepatobiliary Scan Nuclear Medicine 09/18/16 0000 Signed Impressions: Service Date/Time: August 08:12 - CONCLUSION: Negative study Nehemias Gonsales MD Thoracic Spine MRI 09/17/16 0000 Signed Impressions: Service Date/Time: Saturday, September 17, 2016 13:59 - CONCLUSION: I do not see evidence for an abscess. I do not see any radiographic reason for the patient' s inability to ambulate. Ulises Leonard MD FACR Lumbar Spine MRI 09/17/16 0000 Signed Impressions: Service Date/Time: Saturday, September 17, 2016 13:59 - CONCLUSION: 1. No evidence of abscess collection. 2. No spinal stenosis, focal disc herniation, fracture or osteomyelitis. 3. Lipoma of the filum terminale. Antonio Maza MD Lower Extremity Ultrasound 09/16/16 0000 Signed Impressions: Service Date/Time: Friday, September 16, 2016 11:36 - CONCLUSION: No evidence of deep venous thrombosis within the lower extremities. Antonio Maza MD Abdomen Ultrasound 09/16/16 0000 Signed Impressions: Service Date/Time: Friday, September 16, 2016 07:55 - CONCLUSION: 1. Thick- walled gallbladder containing stones. If there is clinical concern for acute cholecystitis a hepatobiliary scan may be helpful to confirm cystic duct obstruction. 2. Mild prominence of the common bile duct. Correlation with alkaline phosphatase and bilirubin levels is suggested to rule out hepatobiliary obstruction. 3. Enlarged fatty liver. 4. Splenomegaly. Antonio Maza MD Objective Remarks GENERAL: in NAD SKIN: Warm and dry. HEAD: Normocephalic. EYES: No scleral icterus. No injection or drainage. NECK: Supple, trachea midline. No JVD or lymphadenopathy. CARDIOVASCULAR: Regular rate and rhythm without murmurs RESPIRATORY: Breath sounds equal bilaterally. No accessory muscle use. now wheezing GASTROINTESTINAL: Abdomen soft, tender to palpation in the right upper quadrant and flank kellie, nondistended. MUSCULOSKELETAL: moves extremities Procedures 09/22- PERLA- negative Date of Removal: Sep 22, 2016 A/P Problem List: (1) Sepsis ICD Code: A41.9 Status: Acute (2) UTI (urinary tract infection) ICD Code: N39.0 Status: Acute (3) Generalized weakness ICD Code: R53.1 Status: Acute (4) DM2 (diabetes mellitus, type 2) ICD Code: E11.9 Status: Acute (5) HTN (hypertension) ICD Code: I10 Status: Acute Assessment and Plan Sepsis -secondary to MSSA, urinary tract infection/bacteremia. -Improved with treatment. MSSA bacteremia -09/15 and 09/16 blood cultures positive. -Repeat blood cultures 09/20- negative to date -PERLA negative- 09/22 -Infectious disease following and stated to continue with cefazoline, 2 gm q 8 , anticipate at least 4 weeks from the 1st negative blood clx then will need repeat blood clx after 2 weeks of treatment or with fever. -Found to have renal abscess. See treatment below. Acute Kidney injury -resolved. Most likely secondary to sepsis. Renal abscess -Found on CT scan, The right renal mass presumed abscess has not significantly changed in size, however there is more inflammatory changes surrounding it extending into the fat planes with slight fluid dissecting to the level of the duodenum. MRI showed right renal mass measures 5.9 cm and has both a solid and cystic component with enhancing septa between the cystic components. -Patient stated that she has a history of left renal mass. -s/p CT guided biopsy/aspiration on 09/29 which showed acute inflammatory exudate and no malignancy. -Repeat CT scan showed "The right renal mass presumed abscess has not significantly changed in size, however there is more inflammatory changes surrounding it extending into the fat planes with slight fluid dissecting to the level of the duodenum." plan for drainage today by IR UTI (urinary tract infection) -MSSA 09/15- Candiduria -Asymptomatic -Repeat UA- growing yeast- 09/20 and 09/24 -UA grew MSSA. -babin removed 09/22- voiding Generalized weakness -Due to sepsis. Seemed to resolved. DM2 (diabetes mellitus, type 2), Uncontrolled -Continue amaryl, levemir 8 units (at home was on 25 units). well controlled at this time. monitor. -Hemoglobin A1c is 10 -cont ssi -better readings- continue to adjust HTN (hypertension) - cont coreg, and adjust. -Previously hypotensive and medications have been adjusted due to hypotension and acute kidney injury DVT prophylaxis -hold heparin Discharge Planning d/c pending further work-up and clinical improvement. Problem Qualifiers (1) Sepsis: Qualified Code: A41.01 - Sepsis due to methicillin susceptible Staphylococcus aureus (2) UTI (urinary tract infection): Qualified Code: N30.00 - Acute cystitis without hematuria Darlene Mayo MD Oct 02, 2016 16:25
[2016-10-02] MEDS ORDERED: LIDOCAINE HCL 1% 20 ML VIAL ONE (16:42)
[2016-10-02] MEDS ORDERED: fentaNYL CITRATE 250 MCG/5 ML AMP ONE (16:45)
[2016-10-02] MEDS ORDERED: LORazepam 2 MG/ML VIAL ONE (16:45)
--- NOTE | 2016-10-02 17:37 | PD.RAD ---
Post CT Procedure Prog Note Pre Procedure Diagnosis: (1) Renal abscess Post Procedure Diagnosis: (1) Renal abscess Procedure Date: Oct 02, 2016 Supervising Radiologist: Igor Leonard Anesthesia: Local, Analgesia Plan of Activity Patient to Unit: Nursing Unit Patient Condition: Fair Additional Comments: CT evaluated today lesion on the right kidney was now a formed fluid collection. 8 [place] drain placed into it and 30 cc of pus was removed. Samples were sent for culture Drainage cath in good position See PACS Report for procedural detail/treatment Igor Leonard MD Oct 02, 2016 17:37
[2016-10-02 20:57] VITALS: BP 130/64; PULSE 102; RESP 17; TEMP 99.3; O2SAT 97
[2016-10-02] MEDS: INSULIN DETEMIR 100 UNITS/ML VIAL SQ SCH (21:03)
[2016-10-03 00:28] VITALS: BP 117/59; PULSE 97; RESP 17; TEMP 98.7; O2SAT 97
[2016-10-03] MEDS: SODIUM CHLORIDE 0.9% FLUSH 10 ML FLUSH IVF PRN ×2 (00:52→20:20)
[2016-10-03 04:00] VITALS: BP 132/64; PULSE 83; RESP 17; TEMP 99.1; O2SAT 96
[2016-10-03] MEDS: oxyCODONE/ACETAMINOPHEN 7.5 MG/325 MG TAB PO PRN ×3 (04:52→18:34)
[2016-10-03] MEDS: HEPARIN SODIUM - SQ 10,000 UNITS/ML VIAL SQ SCH ×3 (06:00→20:20)
[2016-10-03] MEDS: INSULIN ASPART SUPPLEMENTAL SCALE SQ SCH ×4 (06:52→20:23)
[2016-10-03 08:04] VITALS: BP 127/61; PULSE 74; RESP 18; TEMP 96.1; O2SAT 96
--- NOTE | 2016-10-03 08:09 | RADRPT ---
EXAM DATE/TIME: 10/02/2016 17:05 [facility] COMPARISON: CT ABDOMEN W CONTRAST, October 02, 2016, 8:30. INDICATIONS : Abscess right kidney SEDATION TIME: 30 MEDICATION(S): 1.) 50 mcg fentanyl (Sublimaze) IV 2.) 0.5 mg lorazepam (Ativan) IV DEVICE(S): 1.) 8 Fr [place] Total volume of 20cc cc of cloudy, red fluid was removed. Fluid was sent for laboratory ordered studies. MEDICAL HISTORY : Arthritis. Hypertension. Renal failure, chronic. Diabetes SURGICAL HISTORY : Appendectomy. hernia repair,cryo left kidney ENCOUNTER: Initial ACUITY: 1 day PAIN SCORE: 0/10 LOCATION: Right Renal PROCEDURE : 1. CT guided drainage of the right renal abscess 2. Conscious sedation with continuous EKG and oximetry monitoring. The risks, benefits and alternatives to the procedure were explained and verbal and written consent w as obtained. Using automated exposure control and adjustment of the mA and/or kV according to patient size, radiation dose was kept as low as reasonably achievable to obtain optimal diagnostic quality i mages. The site was prepped in sterile fashion. Full sterile technique was used, including cap, ma sk, sterile gloves and gown and a large sterile sheet. Hand hygiene and 2% chlorhexidine and/or beta dine/alcohol prep was utilized per protocol for cutaneous antisepsis. The skin and subcutaneous tiss ues were infiltrated with local anesthetic solution. DICOM format image data is available electronic ally for review and comparison. Using CT guidance the prescribed site was localized. Drainage was performed using the prescribed cat heter The patient tolerated the procedure well and there were no complications. Conscious sedation was per formed with the prescribed dosages and duration as above in the presence of an independent trained ra diology nurse to assist in the monitoring of the patient. EKG and oximetry remained stable throughou t the procedure. The patient tolerated the procedure well and there were no complications. The patient was sent to pos t anesthesia recovery in stable condition. CONCLUSION: Uncomplicated CT guided drainage of the right renal abscess. 25-30 cc of purulent material was remove dErik Leonard MD on October 03, 2016 at 8:07 Board Certified Radiologist. This report was verified electronically.
[2016-10-03] MEDS: GLIMEPIRIDE 4 MG TAB PO SCH (08:38)
[2016-10-03] MEDS: LACTOBACILLUS ACIDOPHILUS TAB PO SCH ×2 (08:38→20:20)
[2016-10-03] MEDS: CARVEDILOL 6.25 MG TAB PO SCH ×2 (08:38→20:20)
[2016-10-03] MEDS: PANTOPRAZOLE SOD 40 MG DELAYED RELEASE TAB PO SCH (08:38)
[2016-10-03] MEDS: COLLAGENASE OINT 30 GM TUBE TOPICAL SCH (08:39)
--- NOTE | 2016-10-03 09:54 | HHI.PR ---
Subjective Remarks PT states that she still has pain however it seems to be improving. pain controlled w current pain meds. denies any CP/SOB/N/V She did go to IR last night and currently has a drain in place. Objective Vitals Vital Signs Date Time Temp Pulse Resp B/P Pulse Ox O2 Delivery O2 Flow Rate FiO2 10/03/16 08:04 96.1 74 18 127/61 96 10/03/16 04:00 99.1 83 17 132/64 96 10/03/16 00:28 98.7 97 17 117/59 97 10/02/16 20:57 99.3 102 17 130/64 97 10/02/16 15:55 100.8 97 20 140/66 96 10/02/16 12:26 97.1 77 20 121/60 97 I/O 10/02/16 10/02/16 10/02/16 10/03/16 10/03/16 10/03/16 07:00 15:00 23:00 07:00 15:00 23:00 Intake Total 480 ml 240 ml 240 ml Balance 480 ml 240 ml 240 ml Intake Oral 480 ml 240 ml 240 ml # Voids 6 3 2 # Bowel Movements 1 Result Diagram: 09/30/16 0530 09/30/16 0530 Imaging Last Impressions Abdomen CT 10/02/16 0600 Signed Impressions: Service Date/Time: September 08:30 - CONCLUSION: 1. The right renal mass presumed abscess has not significantly changed in size, however there is more inflammatory changes surrounding it extending into the fat planes with slight fluid dissecting to the level of the duodenum. 2. Hepatosplenomegaly, cholelithiasis and renal stones. Ailyn Rose MD Abscess Drainage CT 10/02/16 0000 Signed Impressions: Service Date/Time: September 17:05 - CONCLUSION: Uncomplicated CT guided drainage of the right renal abscess. 25-30 cc of purulent material was removed. Igor Leonard MD Renal Biopsy CT 09/29/16 0000 Signed Impressions: Service Date/Time: Thursday, September 29, 2016 14:55 - CONCLUSION: Uncomplicated CT guided biopsy of the right kidney. Igor Leonard MD Chest X-Ray 09/26/16 0000 Signed Impressions: Service Date/Time: Monday, September 26, 2016 12:14 - CONCLUSION: Right PICC line in good position. No pneumothorax. Armando Carmen MD Chest CT 09/26/16 Signed Impressions: Service Date/Time: Monday, September 26, 2016 17:54 - CONCLUSION: I see no evidence for metastatic disease in this patient with possible renal cell carcinoma. Ulises Leonard MD FACR Abdomen MRI 09/25/16 Signed Impressions: Service Date/Time: September 17:38 - CONCLUSION: Right renal mass measures 5.9 cm and has both a solid and cystic component with enhancing septa between the cystic components. The findings are suspicious for malignancy. Nathaniel Chapa MD Renal Ultrasound 09/24/16 Signed Impressions: Service Date/Time: Saturday, September 24, 2016 11:32 - CONCLUSION: 1. Complex cystic mass in the lower pole the right kidney. Abscess is not excluded. CT scan is recommended for further evaluation if clinically indicated. Alan Yadav MD Abdomen/Pelvis CT 09/24/16 Signed Impressions: Service Date/Time: September 01:38 - CONCLUSION: 1. Solid appearing right renal mass measures 3.2 x 4.5 x 5.5 cm. Contrasted MRI recommended. 2. Cholelithiasis. 3. Punctate nonobstructing right renal calculus. 4. Air in urinary bladder likely iatrogenic. Sivakumar Ferguson MD Hepatobiliary Scan Nuclear Medicine 09/18/16 Signed Impressions: Service Date/Time: August 08:12 - CONCLUSION: Negative study Nehemias Gonsales MD Thoracic Spine MRI 09/17/16 0000 Signed Impressions: Service Date/Time: Saturday, September 17, 2016 13:59 - CONCLUSION: I do not see evidence for an abscess. I do not see any radiographic reason for the patient' s inability to ambulate. Ulises Leonard MD FACR Lumbar Spine MRI 09/17/16 0000 Signed Impressions: Service Date/Time: Saturday, September 17, 2016 13:59 - CONCLUSION: 1. No evidence of abscess collection. 2. No spinal stenosis, focal disc herniation, fracture or osteomyelitis. 3. Lipoma of the filum terminale. Antonio Maza MD Lower Extremity Ultrasound 09/16/16 0000 Signed Impressions: Service Date/Time: Friday, September 16, 2016 11:36 - CONCLUSION: No evidence of deep venous thrombosis within the lower extremities. Antonio Maza MD Abdomen Ultrasound 09/16/16 0000 Signed Impressions: Service Date/Time: Friday, September 16, 2016 07:55 - CONCLUSION: 1. Thick- walled gallbladder containing stones. If there is clinical concern for acute cholecystitis a hepatobiliary scan may be helpful to confirm cystic duct obstruction. 2. Mild prominence of the common bile duct. Correlation with alkaline phosphatase and bilirubin levels is suggested to rule out hepatobiliary obstruction. 3. Enlarged fatty liver. 4. Splenomegaly. Antonio Maza MD Objective Remarks GENERAL: in NAD SKIN: Warm and dry. HEAD: Normocephalic. EYES: No scleral icterus. No injection or drainage. NECK: Supple, trachea midline. No JVD or lymphadenopathy. CARDIOVASCULAR: Regular rate and rhythm without murmurs RESPIRATORY: Breath sounds equal bilaterally. No accessory muscle use. no wheezing GASTROINTESTINAL: Abdomen soft, non tender to palpation in the right upper quadrant and flank ekllie this morning, nondistended. no guarding or rebound. Drain in place in posterior right back MUSCULOSKELETAL: moves extremities Procedures 09/22- PERLA- negative Date of Removal: Sep 22, 2016 A/P Problem List: (1) Sepsis ICD Code: A41.9 Status: Acute (2) UTI (urinary tract infection) ICD Code: N39.0 Status: Acute (3) Generalized weakness ICD Code: R53.1 Status: Acute (4) DM2 (diabetes mellitus, type 2) ICD Code: E11.9 Status: Acute (5) HTN (hypertension) ICD Code: I10 Status: Acute Assessment and Plan Sepsis -secondary to MSSA, urinary tract infection/bacteremia. -Improved with treatment. MSSA bacteremia -09/15 and 09/16 blood cultures positive. -Repeat blood cultures 09/20- negative to date -PERLA negative- 09/22 -Infectious disease following and stated to continue with cefazoline, 2 gm q 8 , anticipate at least 4 weeks from the 1st negative blood clx then will need repeat blood clx after 2 weeks of treatment or with fever. -Found to have renal abscess. See treatment below. -Pt had a fever or 100.8, will repeat Blood cx 10/03/16 Acute Kidney injury -resolved. Most likely secondary to sepsis. Renal abscess -Found on CT scan, The right renal mass presumed abscess has not significantly changed in size, however there is more inflammatory changes surrounding it extending into the fat planes with slight fluid dissecting to the level of the duodenum. MRI showed right renal mass measures 5.9 cm and has both a solid and cystic component with enhancing septa between the cystic components. -Patient stated that she has a history of left renal mass. -s/p CT guided biopsy/aspiration on 09/29 which showed acute inflammatory exudate and no malignancy. -Repeat CT scan showed "The right renal mass presumed abscess has not significantly changed in size, however there is more inflammatory changes surrounding it extending into the fat planes with slight fluid dissecting to the level of the duodenum." s/p drain placement 10/03/16 (30 cc of purulent drainage). Fluid cultures pending. UTI (urinary tract infection) -MSSA 09/15- Candiduria -Asymptomatic -Repeat UA- growing yeast- 09/20 and 09/24 -UA grew MSSA. -babin removed 09/22- voiding Generalized weakness -Due to sepsis. Seemed to resolved. DM2 (diabetes mellitus, type 2), Uncontrolled -Continue amaryl, levemir 8 units (at home was on 25 units). well controlled at this time. monitor. -Hemoglobin A1c is 10 -cont ssi -better readings- continue to adjust HTN (hypertension) - cont coreg, and adjust. -Previously hypotensive and medications have been adjusted due to hypotension and acute kidney injury DVT prophylaxis -heparin (pt refused morning dose) Discharge Planning d/c pending further work-up and clinical improvement. Problem Qualifiers (1) Sepsis: Qualified Code: A41.01 - Sepsis due to methicillin susceptible Staphylococcus aureus (2) UTI (urinary tract infection): Qualified Code: N30.00 - Acute cystitis without hematuria Darlene Mayo MD Oct 03, 2016 09:54
[2016-10-03 12:53] VITALS: BP_SYST 125; BP_SYST 146; BP_DIAS 74; BP_DIAS 92; PULSE 101; PULSE 96; RESP 18; RESP 19; TEMP 97; TEMP 98.1; O2SAT 94; O2SAT 96
[2016-10-03 16:19] VITALS: BP 118/56; PULSE 94; RESP 18; TEMP 97; O2SAT 97
[2016-10-03 19:00] VITALS: BP 119/58; PULSE 99; RESP 18; TEMP 99.6; O2SAT 98
[2016-10-03] MEDS: INSULIN DETEMIR 100 UNITS/ML VIAL SQ SCH (20:23)
[2016-10-03] MEDS ORDERED: SODIUM CHLORIDE 0.9% FLUSH 10 ML FLUSH IV FLUSH PRN (23:30)
[2016-10-04] MEDS ORDERED: ALTEPLASE RECOMBINANT 2 MG VIAL INTRACATH ONE (00:30)
[2016-10-04] MEDS: oxyCODONE/ACETAMINOPHEN 7.5 MG/325 MG TAB PO PRN ×3 (01:04→16:47)
[2016-10-04 01:31] VITALS: BP 122/62; PULSE 76; RESP 20; TEMP 98.9; O2SAT 97
[2016-10-04 04:45] VITALS: BP 114/48; PULSE 72; RESP 17; TEMP 98.6; O2SAT 98
[2016-10-04] MEDS: HEPARIN SODIUM - SQ 10,000 UNITS/ML VIAL SQ SCH ×3 (05:27→21:39)
[2016-10-04] MEDS: INSULIN ASPART SUPPLEMENTAL SCALE SQ SCH ×4 (05:27→21:41)
[2016-10-04 08:13] VITALS: BP 149/70; PULSE 84; RESP 18; TEMP 97.4; O2SAT 98
[2016-10-04] MEDS: SODIUM CHLORIDE 0.9% FLUSH 10 ML FLUSH IV FLUSH SCH (08:51)
[2016-10-04] MEDS: CARVEDILOL 6.25 MG TAB PO SCH ×2 (08:52→21:39)
[2016-10-04] MEDS: LACTOBACILLUS ACIDOPHILUS TAB PO SCH ×2 (08:52→21:39)
[2016-10-04] MEDS: COLLAGENASE OINT 30 GM TUBE TOPICAL SCH (08:52)
[2016-10-04] MEDS: GLIMEPIRIDE 4 MG TAB PO SCH (08:52)
[2016-10-04] MEDS: PANTOPRAZOLE SOD 40 MG DELAYED RELEASE TAB PO SCH (08:52)
[2016-10-04] MEDS: SODIUM CHLORIDE 0.9% 10 ML VIAL IRRIGATION SCH (08:57)
[2016-10-04 12:12] VITALS: BP 133/58; PULSE 78; RESP 18; TEMP 97.6; O2SAT 95
[2016-10-04 13:47] LABS: AUTOMATED NEUTROPHIL # 3.8 TH/MM3 (1.8-7.7); BASOPHIL % 0.7 % (0.0-2.0); EOSINOPHIL # 0.1 TH/MM3 (0-0.4); EOSINOPHIL % 1.9 % (0.0-4.0); HEMATOCRIT 26.8 % (35.0-46.0); HEMO FLAGS DIFF FINAL; LYMPH % 24.6 % (9.0-44.0); LYMPHOCYTE # 1.4 TH/MM3 (1.0-4.8); MEAN CELL VOLUME 87.7 FL (80.0-100.0); MEAN CORPUSCULAR HEMOGLOBIN 28.4 PG (27.0-34.0); MEAN CORPUSCULAR HGB CONC 32.3 % (32.0-36.0); MONO % 7.7 % (0.0-8.0); NEUT % 65.1 % (16.0-70.0); PLATELET COUNT 220 TH/MM3 (150-450); RED BLOOD COUNT 3.05 MIL/MM3 (4.00-5.30); RED CELL DISTRIBUTION WIDTH 17.5 % (11.6-17.2); WHITE BLOOD COUNT 5.8 TH/MM3 (4.0-11.0)
[2016-10-04 14:05] LABS: POTASSIUM 4.1 MEQ/L (3.5-5.1)
--- NOTE | 2016-10-04 15:54 | HHI.PR ---
Subjective Remarks Follow-up bacteremia, renal abscess. Patient states that she is still having some right-sided abdominal pain, but less than yesterday. Drain is in place. PICC line is not working. She denies chest pain, dyspnea, nausea, vomiting, diarrhea. Objective Vitals Vital Signs Date Time Temp Pulse Resp B/P Pulse Ox O2 Delivery O2 Flow Rate FiO2 10/04/16 12:12 97.6 78 18 133/58 95 10/04/16 08:13 97.4 84 18 149/70 98 10/04/16 04:45 98.6 72 17 114/48 98 10/04/16 01:31 98.9 76 20 122/62 97 10/03/16 19:00 99.6 99 18 119/58 98 10/03/16 16:19 97.0 94 18 118/56 97 I/O 10/03/16 10/03/16 10/03/16 10/04/16 10/04/16 10/04/16 07:00 15:00 23:00 07:00 15:00 23:00 Intake Total 240 ml 10 ml 240 ml 240 ml Output Total 40 ml 10 ml Balance 240 ml -30 ml 240 ml 230 ml Intake Oral 240 ml 240 ml 240 ml IV Total 10 ml Drainage Total 40 ml 10 ml # Voids 2 2 # Bowel Movements 1 Result Diagram: 10/04/16 1325 10/04/16 1325 Imaging Last Impressions Abdomen CT 10/02/16 0600 Signed Impressions: Service Date/Time: September 08:30 - CONCLUSION: 1. The right renal mass presumed abscess has not significantly changed in size, however there is more inflammatory changes surrounding it extending into the fat planes with slight fluid dissecting to the level of the duodenum. 2. Hepatosplenomegaly, cholelithiasis and renal stones. Ailyn Rose MD Abscess Drainage CT 10/02/16 0000 Signed Impressions: Service Date/Time: September 17:05 - CONCLUSION: Uncomplicated CT guided drainage of the right renal abscess. 25-30 cc of purulent material was removed. Igor Leonard MD Renal Biopsy CT 09/29/16 0000 Signed Impressions: Service Date/Time: Thursday, September 29, 2016 14:55 - CONCLUSION: Uncomplicated CT guided biopsy of the right kidney. Igor Leonard MD Chest X-Ray 09/26/16 Signed Impressions: Service Date/Time: Monday, September 26, 2016 12:14 - CONCLUSION: Right PICC line in good position. No pneumothorax. Armando Carmen MD Chest CT 09/26/16 Signed Impressions: Service Date/Time: Monday, September 26, 2016 17:54 - CONCLUSION: I see no evidence for metastatic disease in this patient with possible renal cell carcinoma. Ulises Leonard MD FACR Abdomen MRI 09/25/16 Signed Impressions: Service Date/Time: September 17:38 - CONCLUSION: Right renal mass measures 5.9 cm and has both a solid and cystic component with enhancing septa between the cystic components. The findings are suspicious for malignancy. Nathaniel Chapa MD Renal Ultrasound 09/24/16 Signed Impressions: Service Date/Time: Saturday, September 24, 2016 11:32 - CONCLUSION: 1. Complex cystic mass in the lower pole the right kidney. Abscess is not excluded. CT scan is recommended for further evaluation if clinically indicated. Alan Yadav MD Abdomen/Pelvis CT 09/24/16 Signed Impressions: Service Date/Time: September 01:38 - CONCLUSION: 1. Solid appearing right renal mass measures 3.2 x 4.5 x 5.5 cm. Contrasted MRI recommended. 2. Cholelithiasis. 3. Punctate nonobstructing right renal calculus. 4. Air in urinary bladder likely iatrogenic. Sivakumar Ferguson MD Hepatobiliary Scan Nuclear Medicine 09/18/16 Signed Impressions: Service Date/Time: August 08:12 - CONCLUSION: Negative study Nehemias Gonsales MD Thoracic Spine MRI 09/17/16 0000 Signed Impressions: Service Date/Time: Saturday, September 17, 2016 13:59 - CONCLUSION: I do not see evidence for an abscess. I do not see any radiographic reason for the patient' s inability to ambulate. Ulises Leonard MD FACR Lumbar Spine MRI 09/17/16 0000 Signed Impressions: Service Date/Time: Saturday, September 17, 2016 13:59 - CONCLUSION: 1. No evidence of abscess collection. 2. No spinal stenosis, focal disc herniation, fracture or osteomyelitis. 3. Lipoma of the filum terminale. Antonio Maza MD Lower Extremity Ultrasound 09/16/16 0000 Signed Impressions: Service Date/Time: Friday, September 16, 2016 11:36 - CONCLUSION: No evidence of deep venous thrombosis within the lower extremities. Antonio Maza MD Abdomen Ultrasound 09/16/16 0000 Signed Impressions: Service Date/Time: Friday, September 16, 2016 07:55 - CONCLUSION: 1. Thick- walled gallbladder containing stones. If there is clinical concern for acute cholecystitis a hepatobiliary scan may be helpful to confirm cystic duct obstruction. 2. Mild prominence of the common bile duct. Correlation with alkaline phosphatase and bilirubin levels is suggested to rule out hepatobiliary obstruction. 3. Enlarged fatty liver. 4. Splenomegaly. Antonio Maza MD Objective Remarks General: Obese female in no acute distress. Heart: Regular rate and rhythm. No murmur. Lungs: Clear to auscultation bilaterally. No wheezes, rales, or rhonchi. Breathing is nonlabored. Abdomen: Soft, nontender, nondistended. Drain in place, right flank. Extremities: No lower extremity edema. Psych: Alert and oriented. Procedures 09/22- PERLA- negative Urinary Catheter: No Date of Removal: Sep 22, 2016 Vascular Central Line Catheter: Yes Line: PICC Side: Right A/P Problem List: (1) Sepsis ICD Code: A41.9 Status: Acute (2) UTI (urinary tract infection) ICD Code: N39.0 Status: Acute (3) Generalized weakness ICD Code: R53.1 Status: Acute (4) DM2 (diabetes mellitus, type 2) ICD Code: E11.9 Status: Acute (5) HTN (hypertension) ICD Code: I10 Status: Acute Assessment and Plan 1. Sepsis, bacteremia, renal abscess: Blood cultures growing MSSA. CT-guided drainage done 10/02/16 with drain placement. Continue IV antibiotics. Appreciate infectious disease recommendations. Repeat blood cultures are negative so far. Wound culture negative so far. 2. UTI: Urine culture growing MSSA. Repeat UA growing yeast. Barney removed . Continue antibiotics. 3. Generalized weakness: Likely secondary to sepsis. Improved. 4. Diabetes mellitus type 2, poorly controlled: Continue Amaryl, Levemir. He will been A1c is 10. Monitor Accu-Cheks and cover with sliding scale insulin. 5. Hypertension: Continue Coreg. Medications have been adjusted secondary to hypotension, acute kidney injury. 6. DVT prophylaxis: Heparin. Problem Qualifiers (1) Sepsis: Qualified Code: A41.01 - Sepsis due to methicillin susceptible Staphylococcus aureus (2) UTI (urinary tract infection): Qualified Code: N30.00 - Acute cystitis without hematuria Claude Stewart MD Oct 04, 2016 15:54
[2016-10-04 16:41] VITALS: BP 131/65; PULSE 84; RESP 18; TEMP 97.8; O2SAT 95
[2016-10-04 20:00] VITALS: BP 120/99; PULSE 78; RESP 18; TEMP 97.5; O2SAT 94
[2016-10-04] MEDS: INSULIN DETEMIR 100 UNITS/ML VIAL SQ SCH (21:41)
[2016-10-05] VITALS: BP 134/62; PULSE 81; RESP 18; TEMP 96.4; O2SAT 96
[2016-10-05] MEDS: oxyCODONE/ACETAMINOPHEN 7.5 MG/325 MG TAB PO PRN ×3 (00:01→16:37)
[2016-10-05 04:00] VITALS: BP 133/65; PULSE 72; RESP 18; TEMP 97.1; O2SAT 95
[2016-10-05] MEDS: HEPARIN SODIUM - SQ 10,000 UNITS/ML VIAL SQ SCH ×3 (05:48→22:08)
[2016-10-05] MEDS: INSULIN ASPART SUPPLEMENTAL SCALE SQ SCH ×3 (06:38→16:00)
[2016-10-05 08:10] VITALS: BP 132/59; PULSE 80; RESP 19; TEMP 97.3; O2SAT 96
[2016-10-05] MEDS: LACTOBACILLUS ACIDOPHILUS TAB PO SCH ×2 (08:17→22:08)
[2016-10-05] MEDS: PANTOPRAZOLE SOD 40 MG DELAYED RELEASE TAB PO SCH (08:17)
[2016-10-05] MEDS: SODIUM CHLORIDE 0.9% FLUSH 10 ML FLUSH IV FLUSH SCH (08:18)
[2016-10-05] MEDS: GLIMEPIRIDE 4 MG TAB PO SCH (08:18)
[2016-10-05] MEDS: CARVEDILOL 6.25 MG TAB PO SCH ×2 (08:18→22:08)
[2016-10-05] MEDS: COLLAGENASE OINT 30 GM TUBE TOPICAL SCH (09:00)
[2016-10-05 12:03] VITALS: BP 120/62; PULSE 93; RESP 19; TEMP 97.3; O2SAT 96
--- NOTE | 2016-10-05 13:31 | HHI.PR ---
Subjective Remarks Follow up bacteremia, renal abscess. No complaints at this time. Denies chest pain, dyspnea. PICC still not working. Objective Vitals Vital Signs Date Time Temp Pulse Resp B/P Pulse Ox O2 Delivery O2 Flow Rate FiO2 10/05/16 12:03 97.3 93 19 120/62 96 10/05/16 08:10 97.3 80 19 132/59 96 10/05/16 04:00 97.1 72 18 133/65 95 10/05/16 00:00 96.4 81 18 134/62 96 10/04/16 20:00 97.5 78 18 120/99 94 10/04/16 16:41 97.8 84 18 131/65 95 I/O 10/04/16 10/04/16 10/04/16 10/05/16 10/05/16 10/05/16 06:59 14:59 22:59 06:59 14:59 22:59 Intake Total 240 ml 100 ml Output Total 10 ml 2 ml Balance 230 ml -2 ml 100 ml Intake Oral 240 ml IV Total 100 ml Output Urine Total 2 ml Drainage Total 10 ml # Voids 1 # Bowel Movements 0 0 Result Diagram: 10/04/16 1325 10/04/16 1325 Imaging Last Impressions Abdomen CT 10/02/16 0600 Signed Impressions: Service Date/Time: September 08:30 - CONCLUSION: 1. The right renal mass presumed abscess has not significantly changed in size, however there is more inflammatory changes surrounding it extending into the fat planes with slight fluid dissecting to the level of the duodenum. 2. Hepatosplenomegaly, cholelithiasis and renal stones. Ailyn Rose MD Abscess Drainage CT 10/02/16 0000 Signed Impressions: Service Date/Time: September 17:05 - CONCLUSION: Uncomplicated CT guided drainage of the right renal abscess. 25-30 cc of purulent material was removed. Igor Leonard MD Renal Biopsy CT 09/29/16 0000 Signed Impressions: Service Date/Time: Thursday, September 29, 2016 14:55 - CONCLUSION: Uncomplicated CT guided biopsy of the right kidney. Igor Leonard MD Chest X-Ray 09/26/16 0000 Signed Impressions: Service Date/Time: Monday, September 26, 2016 12:14 - CONCLUSION: Right PICC line in good position. No pneumothorax. Armando Carmen MD Chest CT 09/26/16 0000 Signed Impressions: Service Date/Time: Monday, September 26, 2016 17:54 - CONCLUSION: I see no evidence for metastatic disease in this patient with possible renal cell carcinoma. Ulises Leonard MD FACR Abdomen MRI 09/25/16 0000 Signed Impressions: Service Date/Time: September 17:38 - CONCLUSION: Right renal mass measures 5.9 cm and has both a solid and cystic component with enhancing septa between the cystic components. The findings are suspicious for malignancy. Nathaniel Chapa MD Renal Ultrasound 09/24/16 0000 Signed Impressions: Service Date/Time: Saturday, September 24, 2016 11:32 - CONCLUSION: 1. Complex cystic mass in the lower pole the right kidney. Abscess is not excluded. CT scan is recommended for further evaluation if clinically indicated. Alan Yadav MD Abdomen/Pelvis CT 09/24/16 0000 Signed Impressions: Service Date/Time: September 01:38 - CONCLUSION: 1. Solid appearing right renal mass measures 3.2 x 4.5 x 5.5 cm. Contrasted MRI recommended. 2. Cholelithiasis. 3. Punctate nonobstructing right renal calculus. 4. Air in urinary bladder likely iatrogenic. Sivakumar Ferguson MD Hepatobiliary Scan Nuclear Medicine 09/18/16 0000 Signed Impressions: Service Date/Time: August 08:12 - CONCLUSION: Negative study Nehemias Gonsales MD Thoracic Spine MRI 09/17/16 0000 Signed Impressions: Service Date/Time: Saturday, September 17, 2016 13:59 - CONCLUSION: I do not see evidence for an abscess. I do not see any radiographic reason for the patient' s inability to ambulate. Ulises Leonard MD FACR Lumbar Spine MRI 09/17/16 0000 Signed Impressions: Service Date/Time: Saturday, September 17, 2016 13:59 - CONCLUSION: 1. No evidence of abscess collection. 2. No spinal stenosis, focal disc herniation, fracture or osteomyelitis. 3. Lipoma of the filum terminale. Antonio Maza MD Lower Extremity Ultrasound 09/16/16 0000 Signed Impressions: Service Date/Time: Friday, September 16, 2016 11:36 - CONCLUSION: No evidence of deep venous thrombosis within the lower extremities. Antonio Maza MD Abdomen Ultrasound 09/16/16 0000 Signed Impressions: Service Date/Time: Friday, September 16, 2016 07:55 - CONCLUSION: 1. Thick- walled gallbladder containing stones. If there is clinical concern for acute cholecystitis a hepatobiliary scan may be helpful to confirm cystic duct obstruction. 2. Mild prominence of the common bile duct. Correlation with alkaline phosphatase and bilirubin levels is suggested to rule out hepatobiliary obstruction. 3. Enlarged fatty liver. 4. Splenomegaly. Antonio Maza MD Objective Remarks General: Obese female in no acute distress. Heart: Regular rate and rhythm. No murmur. Lungs: Clear to auscultation bilaterally. No wheezes, rales, or rhonchi. Breathing is nonlabored. Abdomen: Soft, nontender, nondistended. Drain in place, right flank. Extremities: No lower extremity edema. Psych: Alert and oriented. Procedures 09/22- PERLA- negative Urinary Catheter: No Date of Removal: Sep 22, 2016 Vascular Central Line Catheter: Yes Line: PICC Side: Right A/P Problem List: (1) Sepsis ICD Code: A41.9 Status: Acute (2) UTI (urinary tract infection) ICD Code: N39.0 Status: Acute (3) Generalized weakness ICD Code: R53.1 Status: Acute (4) DM2 (diabetes mellitus, type 2) ICD Code: E11.9 Status: Acute (5) HTN (hypertension) ICD Code: I10 Status: Acute Assessment and Plan 1. Sepsis, bacteremia, renal abscess: Blood cultures growing MSSA. CT-guided drainage done 10/02/16 with drain placement. Continue IV antibiotics. Appreciate infectious disease recommendations. Repeat blood cultures are negative so far. Wound culture negative so far. 2. UTI: Urine culture growing MSSA. Repeat UA growing yeast. Barney removed . Continue antibiotics. 3. Generalized weakness: Likely secondary to sepsis. Improved. 4. Diabetes mellitus type 2, poorly controlled: Continue Amaryl, Levemir. Hemoglobin A1c is 10. Monitor Accu-Cheks and cover with sliding scale insulin. 5. Hypertension: Continue Coreg. Medications have been adjusted secondary to hypotension, acute kidney injury. 6. DVT prophylaxis: Heparin. 7. PICC line malfunctioning. Patient has working peripheral line. Vascular access team consult to exchange PICC. Problem Qualifiers (1) Sepsis: Qualified Code: A41.01 - Sepsis due to methicillin susceptible Staphylococcus aureus (2) UTI (urinary tract infection): Qualified Code: N30.00 - Acute cystitis without hematuria Claude Stewart MD Oct 05, 2016 13:31
[2016-10-05] MEDS: ALTEPLASE RECOMBINANT 2 MG VIAL INTRACATH ONE ×2 (15:52→15:53)
[2016-10-05 16:11] VITALS: BP 133/65; PULSE 78; RESP 18; TEMP 97.9; O2SAT 95
[2016-10-05] MEDS ORDERED: GLUCAGON 1 MG/ML VIAL OTHER PRN (20:45)
[2016-10-05] MEDS ORDERED: DEXTROSE 50% IN WATER 50 ML VIAL(D50) IV PUSH PRN (20:45)
[2016-10-05 21:40] VITALS: BP 141/72; PULSE 79; RESP 16; TEMP 98.1; O2SAT 96
[2016-10-05] MEDS: INSULIN DETEMIR 100 UNITS/ML VIAL SQ SCH (22:13)
[2016-10-05] MEDS: LOW DOSE INSULIN NOVOLOG SUPPLEMENTAL SCALE SQ SCH (22:13)
[2016-10-06 00:40] VITALS: BP 135/65; PULSE 67; RESP 17; TEMP 97.7; O2SAT 97
[2016-10-06] MEDS: oxyCODONE/ACETAMINOPHEN 7.5 MG/325 MG TAB PO PRN ×3 (04:55→18:42)
[2016-10-06] MEDS: HEPARIN SODIUM - SQ 10,000 UNITS/ML VIAL SQ SCH ×3 (05:00→22:05)
[2016-10-06 05:30] VITALS: BP 128/68; PULSE 66; RESP 16; TEMP 97.3; O2SAT 98
[2016-10-06] MEDS: LOW DOSE INSULIN NOVOLOG SUPPLEMENTAL SCALE SQ SCH ×4 (06:33→22:04)
[2016-10-06 08:01] VITALS: BP 142/65; PULSE 69; RESP 18; TEMP 97.5; O2SAT 97
[2016-10-06] MEDS: GLIMEPIRIDE 4 MG TAB PO SCH (08:46)
[2016-10-06] MEDS: CARVEDILOL 6.25 MG TAB PO SCH ×2 (08:48→21:57)
[2016-10-06] MEDS: PANTOPRAZOLE SOD 40 MG DELAYED RELEASE TAB PO SCH (08:48)
[2016-10-06] MEDS: LACTOBACILLUS ACIDOPHILUS TAB PO SCH ×2 (08:48→21:57)
[2016-10-06] MEDS: SODIUM CHLORIDE 0.9% FLUSH 10 ML FLUSH IV FLUSH SCH ×2 (08:52→09:32)
[2016-10-06] MEDS: SODIUM CHLORIDE 0.9% 10 ML VIAL IRRIGATION SCH (09:00)
[2016-10-06] MEDS: COLLAGENASE OINT 30 GM TUBE TOPICAL SCH (09:33)
[2016-10-06 12:12] VITALS: BP 131/62; PULSE 96; RESP 18; TEMP 98.6; O2SAT 96
--- NOTE | 2016-10-06 13:50 | HHI.PR ---
Subjective Remarks Follow-up renal abscess, bacteremia. The patient has no complaints at this time. Abdominal pain has resolved. No nausea or vomiting. Objective Vitals Vital Signs Date Time Temp Pulse Resp B/P Pulse Ox O2 Delivery O2 Flow Rate FiO2 10/06/16 12:12 98.6 96 18 131/62 96 10/06/16 08:01 97.5 69 18 142/65 97 10/06/16 05:30 97.3 66 16 128/68 98 10/06/16 00:40 97.7 67 17 135/65 97 10/05/16 21:40 98.1 79 16 141/72 96 10/05/16 16:11 97.9 78 18 133/65 95 I/O 10/05/16 10/05/16 10/05/16 10/06/16 10/06/16 10/06/16 07:00 15:00 23:00 07:00 15:00 23:00 Intake Total 520 ml 675 ml 950 ml Output Total 30 ml Balance 520 ml 675 ml 920 ml Intake Oral 420 ml 675 ml 850 ml IV Total 100 ml 100 ml Drainage Total 30 ml # Voids 1 2 1 5 # Bowel Movements 0 0 0 Result Diagram: 10/04/16 1325 10/05/16 1830 Imaging Last Impressions Abdomen CT 10/02/16 0600 Signed Impressions: Service Date/Time: September 08:30 - CONCLUSION: 1. The right renal mass presumed abscess has not significantly changed in size, however there is more inflammatory changes surrounding it extending into the fat planes with slight fluid dissecting to the level of the duodenum. 2. Hepatosplenomegaly, cholelithiasis and renal stones. Ailyn Rose MD Abscess Drainage CT 10/02/16 0000 Signed Impressions: Service Date/Time: September 17:05 - CONCLUSION: Uncomplicated CT guided drainage of the right renal abscess. 25-30 cc of purulent material was removed. Igor Leonard MD Renal Biopsy CT 09/29/16 0000 Signed Impressions: Service Date/Time: Thursday, September 29, 2016 14:55 - CONCLUSION: Uncomplicated CT guided biopsy of the right kidney. Igor Leonard MD Chest X-Ray 09/26/16 0000 Signed Impressions: Service Date/Time: Monday, September 26, 2016 12:14 - CONCLUSION: Right PICC line in good position. No pneumothorax. Armando Carmen MD Chest CT 09/26/16 0000 Signed Impressions: Service Date/Time: Monday, September 26, 2016 17:54 - CONCLUSION: I see no evidence for metastatic disease in this patient with possible renal cell carcinoma. Ulises Leonard MD FACR Abdomen MRI 09/25/16 Signed Impressions: Service Date/Time: September 17:38 - CONCLUSION: Right renal mass measures 5.9 cm and has both a solid and cystic component with enhancing septa between the cystic components. The findings are suspicious for malignancy. Nathaniel Chapa MD Renal Ultrasound 09/24/16 Signed Impressions: Service Date/Time: Saturday, September 24, 2016 11:32 - CONCLUSION: 1. Complex cystic mass in the lower pole the right kidney. Abscess is not excluded. CT scan is recommended for further evaluation if clinically indicated. Alan Yadav MD Abdomen/Pelvis CT 09/24/16 Signed Impressions: Service Date/Time: September 01:38 - CONCLUSION: 1. Solid appearing right renal mass measures 3.2 x 4.5 x 5.5 cm. Contrasted MRI recommended. 2. Cholelithiasis. 3. Punctate nonobstructing right renal calculus. 4. Air in urinary bladder likely iatrogenic. Sivakumar Ferguson MD Hepatobiliary Scan Nuclear Medicine 09/18/16 0000 Signed Impressions: Service Date/Time: August 08:12 - CONCLUSION: Negative study Nehemias Gonsales MD Thoracic Spine MRI 09/17/16 0000 Signed Impressions: Service Date/Time: Saturday, September 17, 2016 13:59 - CONCLUSION: I do not see evidence for an abscess. I do not see any radiographic reason for the patient' s inability to ambulate. Ulises Leonard MD FACR Lumbar Spine MRI 09/17/16 0000 Signed Impressions: Service Date/Time: Saturday, September 17, 2016 13:59 - CONCLUSION: 1. No evidence of abscess collection. 2. No spinal stenosis, focal disc herniation, fracture or osteomyelitis. 3. Lipoma of the filum terminale. Antonio Maza MD Lower Extremity Ultrasound 09/16/16 0000 Signed Impressions: Service Date/Time: Friday, September 16, 2016 11:36 - CONCLUSION: No evidence of deep venous thrombosis within the lower extremities. Antonio Maza MD Abdomen Ultrasound 09/16/16 0000 Signed Impressions: Service Date/Time: Friday, September 16, 2016 07:55 - CONCLUSION: 1. Thick- walled gallbladder containing stones. If there is clinical concern for acute cholecystitis a hepatobiliary scan may be helpful to confirm cystic duct obstruction. 2. Mild prominence of the common bile duct. Correlation with alkaline phosphatase and bilirubin levels is suggested to rule out hepatobiliary obstruction. 3. Enlarged fatty liver. 4. Splenomegaly. Antonio Maza MD Objective Remarks General: Obese female in no acute distress. Heart: Regular rate and rhythm. No murmur. Lungs: Clear to auscultation bilaterally. No wheezes, rales, or rhonchi. Breathing is nonlabored. Abdomen: Soft, nontender, nondistended. Drain in place, right flank. Extremities: No lower extremity edema. Psych: Alert and oriented. Procedures 09/22- PERLA- negative Urinary Catheter: No Date of Removal: Sep 22, 2016 Vascular Central Line Catheter: Yes Assessment to: Continue Line: PICC Side: Right A/P Problem List: (1) Sepsis ICD Code: A41.9 Status: Acute (2) UTI (urinary tract infection) ICD Code: N39.0 Status: Acute (3) Generalized weakness ICD Code: R53.1 Status: Acute (4) DM2 (diabetes mellitus, type 2) ICD Code: E11.9 Status: Acute (5) HTN (hypertension) ICD Code: I10 Status: Acute Assessment and Plan 1. Sepsis, bacteremia, renal abscess: Blood cultures growing MSSA. CT-guided drainage done 10/02/16 with drain placement. Continue IV antibiotics. Appreciate infectious disease recommendations. Repeat blood cultures are negative so far. Wound culture growing MSSA. 2. UTI: Urine culture growing MSSA. Repeat UA growing yeast. Barney removed . Continue antibiotics. 3. Generalized weakness: Likely secondary to sepsis. Improved. 4. Diabetes mellitus type 2, poorly controlled: Continue Amaryl, Levemir. Hemoglobin A1c is 10. Monitor Accu-Cheks and cover with sliding scale insulin. 5. Hypertension: Continue Coreg. Medications have been adjusted secondary to hypotension, acute kidney injury. 6. DVT prophylaxis: Heparin. 7. PICC line malfunctioning. Will check x-ray to evaluate placement of PICC line. Problem Qualifiers (1) Sepsis: Qualified Code: A41.01 - Sepsis due to methicillin susceptible Staphylococcus aureus (2) UTI (urinary tract infection): Qualified Code: N30.00 - Acute cystitis without hematuria Claude Stewart MD Oct 06, 2016 13:50
--- NOTE | 2016-10-06 14:44 | RADRPT ---
EXAM DATE/TIME: 10/06/2016 14:07 [facility] COMPARISON: No previous studies available for comparison. INDICATIONS : Previous PICC line placement, please evaluate to determine if it is still in correct positon MEDICAL HISTORY : Hypertension. renal cell carcinoma SURGICAL HISTORY : Appendectomy. ENCOUNTER: Subsequent ACUITY: 4 - 6 days PAIN SCORE: 0/10 LOCATION: Right chest FINDINGS: A single view of the chest demonstrates the lungs to be symmetrically aerated without evidence of mas s, infiltrate or effusion. The cardiomediastinal contours are unremarkable. Osseous structures are intact. CONCLUSION: Normal examination. PICC line has been placed on the right side which extends to the mid subclavian v ein. The tip overlies the right lung apex. Tae Delgado MD on October 06, 2016 at 14:42 Board Certified Radiologist. This report was verified electronically.
[2016-10-06 16:11] VITALS: BP 127/58; PULSE 89; RESP 17; TEMP 97.1; O2SAT 94
--- NOTE | 2016-10-06 18:47 | RADRPT ---
EXAM DATE/TIME: 10/06/2016 18:41 [facility] COMPARISON: CHEST SINGLE AP, October 06, 2016, 14:07. INDICATIONS : PICC line placement. MEDICAL HISTORY : Hypertension. renal cell carcinoma SURGICAL HISTORY : Appendectomy. ENCOUNTER: Subsequent ACUITY: 4 - 6 days PAIN SCORE: 0/10 LOCATION: Bilateral chest FINDINGS: Right PICC line tip overlies the SVC. Cardiac lead. Clear lungs. Osseous structures are intact. CONCLUSION: No acute disease. Trip Sosa MD on October 06, 2016 at 18:46 Board Certified Radiologist. This report was verified electronically.
[2016-10-06] MEDS ORDERED: SODIUM CHLORIDE 0.9% FLUSH 10 ML FLUSH IV FLUSH PRN (20:15)
[2016-10-06 20:28] VITALS: BP 144/64; PULSE 82; RESP 20; TEMP 97.4; O2SAT 94
[2016-10-06] MEDS: INSULIN DETEMIR 100 UNITS/ML VIAL SQ SCH (22:04)
--- NOTE | 2016-10-06 22:55 | HHI.IDPN ---
Subjective Subjective Remarks Delayed entry pt wsa seen earlier today afebrile R side pain slowly improving sp drainage palcment Antibiotics IV Cefazolin Past Medical History 1. Insulin-dependent diabetes mellitus. 2. Left renal cancer status post freezing 3. Hypertriglyceridemia. Past Surgical History 1. 8 incisional hernia repairs. 2. C-sections. 3. Bilateral carpal tunnel surgery 4. Left kidney freezing and right lumpectomy. Reported Medications IV Vancomycin and Zosyn Family History Positive for Diabetes Social History Lives with boyfriend Non smoker Allergies: Coded Allergies: Rifampin (Verified Allergy, Severe, Nausea/Vomiting, 09/15/16) STOMACH CRAMPS Objective . Vital Signs Date Time Temp Pulse Resp B/P Pulse Ox O2 Delivery O2 Flow Rate FiO2 10/06/16 20:28 97.4 82 20 144/64 94 10/06/16 16:11 97.1 89 17 127/58 94 10/06/16 12:12 98.6 96 18 131/62 96 10/06/16 08:01 97.5 69 18 142/65 97 10/06/16 05:30 97.3 66 16 128/68 98 10/06/16 00:40 97.7 67 17 135/65 97 10/05/16 10/05/16 10/06/16 15:00 23:00 07:00 Intake Total 520 ml 675 ml 950 ml Output Total 30 ml Balance 520 ml 675 ml 920 ml Intake Oral 420 ml 675 ml 850 ml IV Total 100 ml 100 ml Drainage Total 30 ml # Voids 2 1 5 # Bowel Movements 0 0 . Laboratory Tests Test 10/05/16 18:30 Random Glucose 184 MG/DL Imaging Last Impressions Chest X-Ray 10/06/16 1419 Signed Impressions: Service Date/Time: Thursday, October 06, 2016 14:07 - CONCLUSION: Normal examination. PICC line has been placed on the right side which extends to the mid subclavian vein. The tip overlies the right lung apex. Tae Delgado MD Abdomen CT 10/02/16 0600 Signed Impressions: Service Date/Time: September 08:30 - CONCLUSION: 1. The right renal mass presumed abscess has not significantly changed in size, however there is more inflammatory changes surrounding it extending into the fat planes with slight fluid dissecting to the level of the duodenum. 2. Hepatosplenomegaly, cholelithiasis and renal stones. KErik Rose MD Abscess Drainage CT 10/02/16 0000 Signed Impressions: Service Date/Time: September 17:05 - CONCLUSION: Uncomplicated CT guided drainage of the right renal abscess. 25-30 cc of purulent material was removed. Igor Leonard MD Renal Biopsy CT 09/29/16 0000 Signed Impressions: Service Date/Time: Thursday, September 29, 2016 14:55 - CONCLUSION: Uncomplicated CT guided biopsy of the right kidney. Igor Leonard MD Chest CT 09/26/16 0000 Signed Impressions: Service Date/Time: Monday, September 26, 2016 17:54 - CONCLUSION: I see no evidence for metastatic disease in this patient with possible renal cell carcinoma. Ulises Leonard MD FACR Abdomen MRI 09/25/16 0000 Signed Impressions: Service Date/Time: September 17:38 - CONCLUSION: Right renal mass measures 5.9 cm and has both a solid and cystic component with enhancing septa between the cystic components. The findings are suspicious for malignancy. Nathaniel Chapa MD Renal Ultrasound 09/24/16 0000 Signed Impressions: Service Date/Time: Saturday, September 24, 2016 11:32 - CONCLUSION: 1. Complex cystic mass in the lower pole the right kidney. Abscess is not excluded. CT scan is recommended for further evaluation if clinically indicated. Alan Yadav MD Abdomen/Pelvis CT 09/24/16 0000 Signed Impressions: Service Date/Time: September 01:38 - CONCLUSION: 1. Solid appearing right renal mass measures 3.2 x 4.5 x 5.5 cm. Contrasted MRI recommended. 2. Cholelithiasis. 3. Punctate nonobstructing right renal calculus. 4. Air in urinary bladder likely iatrogenic. Sivakumar Ferguson MD Hepatobiliary Scan Nuclear Medicine 09/18/16 0000 Signed Impressions: Service Date/Time: August 08:12 - CONCLUSION: Negative study Nehemias Gonsales MD Thoracic Spine MRI 09/17/16 0000 Signed Impressions: Service Date/Time: Saturday, September 17, 2016 13:59 - CONCLUSION: I do not see evidence for an abscess. I do not see any radiographic reason for the patient' s inability to ambulate. Ulises Leonard MD FACR Lumbar Spine MRI 09/17/16 0000 Signed Impressions: Service Date/Time: Saturday, September 17, 2016 13:59 - CONCLUSION: 1. No evidence of abscess collection. 2. No spinal stenosis, focal disc herniation, fracture or osteomyelitis. 3. Lipoma of the filum terminale. Antonio Maza MD Lower Extremity Ultrasound 09/16/16 0000 Signed Impressions: Service Date/Time: Friday, September 16, 2016 11:36 - CONCLUSION: No evidence of deep venous thrombosis within the lower extremities. Antonio Maza MD Abdomen Ultrasound 09/16/16 0000 Signed Impressions: Service Date/Time: Friday, September 16, 2016 07:55 - CONCLUSION: 1. Thick- walled gallbladder containing stones. If there is clinical concern for acute cholecystitis a hepatobiliary scan may be helpful to confirm cystic duct obstruction. 2. Mild prominence of the common bile duct. Correlation with alkaline phosphatase and bilirubin levels is suggested to rule out hepatobiliary obstruction. 3. Enlarged fatty liver. 4. Splenomegaly. Antonio Maza MD Physical Exam GENERAL: This is a obese chronically ill pt in no distress SKIN: No rashes, ecchymoses . Cool and dry. Diaphoretic EYES: Pupils equal round and reactive. No scleral icterus. No injection or drainage. CARDIOVASCULAR: Regular rate and rhythm with a systolic murmur, no, gallops, or rubs. RESPIRATORY: Clear to auscultation. Breath sounds equal bilaterally. No wheezes , rales, or rhonchi. GASTROINTESTINAL: Abdomen soft, markedly tender to palpation RLQ, nondistended. No hepato-splenomegaly, or palpable masses. No guarding. : no CVA tenderness b/l Drain in place R side with thick bloody pus MUSCULOSKELETAL: Extremities without clubbing, cyanosis, or edema. No joint tenderness, effusion, or edema noted. NEUROLOGICAL: Awake and alert. Cranial nerves II through XII intact. No motor deficit Normal speech PSYCH: pt is calm and cooperative Assessment & Plan Remarks High grade sustained MSSA bacteremia - source is R sided nephronia/renal abscess - last clx negative - PERLA negative R sided nephronia, kidney abscess, no cancer - sp CT guided drain placement, clx + for MSSA ARF - resolved Multiple med problems REC's: cont cefazoline, 2 gm q 8, anticipate at least 4 weeks from the 1st negative blood clx, then we will repeat blood clx after 2 weeks of treatment or with fever Pt OK to be discharged from [facility] after her drain is removed and PICC line problems resolv dw pt dw Dr Chalo vance case mngr Tamela Shahid MD Oct 06, 2016 22:55
[2016-10-07 00:30] VITALS: BP 131/66; PULSE 75; RESP 20; TEMP 95.9; O2SAT 97
[2016-10-07] MEDS: HEPARIN SODIUM - SQ 10,000 UNITS/ML VIAL SQ SCH ×3 (05:41→22:41)
[2016-10-07] MEDS: LOW DOSE INSULIN NOVOLOG SUPPLEMENTAL SCALE SQ SCH ×4 (05:42→22:45)
[2016-10-07 05:43] LABS: AUTOMATED NEUTROPHIL # 2.6 TH/MM3 (1.8-7.7); BASOPHIL % 0.7 % (0.0-2.0); EOSINOPHIL # 0.1 TH/MM3 (0-0.4); EOSINOPHIL % 2.8 % (0.0-4.0); HEMATOCRIT 26.3 % (35.0-46.0); HEMO FLAGS DIFF FINAL; LYMPH % 27.7 % (9.0-44.0); LYMPHOCYTE # 1.2 TH/MM3 (1.0-4.8); MEAN CELL VOLUME 87.3 FL (80.0-100.0); MEAN CORPUSCULAR HEMOGLOBIN 28.1 PG (27.0-34.0); MEAN CORPUSCULAR HGB CONC 32.1 % (32.0-36.0); MONO % 7.1 % (0.0-8.0); NEUT % 61.7 % (16.0-70.0); PLATELET COUNT 225 TH/MM3 (150-450); RED BLOOD COUNT 3.02 MIL/MM3 (4.00-5.30); RED CELL DISTRIBUTION WIDTH 17.5 % (11.6-17.2); WHITE BLOOD COUNT 4.3 TH/MM3 (4.0-11.0)
[2016-10-07 05:45] VITALS: BP 148/69; PULSE 79; RESP 20; TEMP 96.5; O2SAT 99
[2016-10-07 06:15] LABS: BICARBONATE 27.6 MEQ/L (21.0-32.0); POTASSIUM 4.4 MEQ/L (3.5-5.1)
[2016-10-07] MEDS: oxyCODONE/ACETAMINOPHEN 7.5 MG/325 MG TAB PO PRN ×2 (07:23→15:32)
[2016-10-07 08:08] VITALS: BP 148/78; PULSE 83; RESP 19; TEMP 98; O2SAT 97
[2016-10-07] MEDS: GLIMEPIRIDE 4 MG TAB PO SCH (08:42)
[2016-10-07] MEDS: PANTOPRAZOLE SOD 40 MG DELAYED RELEASE TAB PO SCH (08:42)
[2016-10-07] MEDS: CARVEDILOL 6.25 MG TAB PO SCH ×2 (08:42→22:41)
[2016-10-07] MEDS: LACTOBACILLUS ACIDOPHILUS TAB PO SCH ×2 (08:42→22:41)
[2016-10-07] MEDS: COLLAGENASE OINT 30 GM TUBE TOPICAL SCH (08:43)
[2016-10-07] MEDS: SODIUM CHLORIDE 0.9% FLUSH 10 ML FLUSH IV FLUSH SCH (08:43)
[2016-10-07 12:31] VITALS: BP 131/75; PULSE 96; RESP 18; TEMP 98.3; O2SAT 97
--- NOTE | 2016-10-07 14:30 | HHI.PR ---
Subjective Remarks Follow-up renal abscess, bacteremia. Patient states that she is feeling better today. She wants to go home if possible. Denies abdominal pain. Minimal if any drainage from the drain. Objective Vitals Vital Signs Date Time Temp Pulse Resp B/P Pulse Ox O2 Delivery O2 Flow Rate FiO2 10/07/16 12:31 98.3 96 18 131/75 97 10/07/16 08:08 98.0 83 19 148/78 97 10/07/16 05:45 96.5 79 20 148/69 99 10/07/16 00:30 95.9 75 20 131/66 97 10/06/16 20:28 97.4 82 20 144/64 94 10/06/16 16:11 97.1 89 17 127/58 94 I/O 10/06/16 10/06/16 10/06/16 10/07/16 10/07/16 10/07/16 07:00 15:00 23:00 07:00 15:00 23:00 Intake Total 950 ml 480 ml 480 ml Output Total 30 ml Balance 920 ml 480 ml 480 ml Intake Oral 850 ml 480 ml 480 ml IV Total 100 ml Drainage Total 30 ml # Voids 5 3 2 3 # Bowel Movements 0 1 1 1 Result Diagram: 10/07/16 0530 10/07/16 0530 Imaging Last Impressions Chest X-Ray 10/06/16 1419 Signed Impressions: Service Date/Time: Thursday, October 06, 2016 14:07 - CONCLUSION: Normal examination. PICC line has been placed on the right side which extends to the mid subclavian vein. The tip overlies the right lung apex. Tae Delgado MD Abdomen CT 10/02/16 0600 Signed Impressions: Service Date/Time: September 08:30 - CONCLUSION: 1. The right renal mass presumed abscess has not significantly changed in size, however there is more inflammatory changes surrounding it extending into the fat planes with slight fluid dissecting to the level of the duodenum. 2. Hepatosplenomegaly, cholelithiasis and renal stones. Ailyn Rose MD Abscess Drainage CT 10/02/16 0000 Signed Impressions: Service Date/Time: September 17:05 - CONCLUSION: Uncomplicated CT guided drainage of the right renal abscess. 25-30 cc of purulent material was removed. Igor Leonard MD Renal Biopsy CT 09/29/16 Signed Impressions: Service Date/Time: Thursday, September 29, 2016 14:55 - CONCLUSION: Uncomplicated CT guided biopsy of the right kidney. Igor Leonard MD Chest CT 09/26/16 Signed Impressions: Service Date/Time: Monday, September 26, 2016 17:54 - CONCLUSION: I see no evidence for metastatic disease in this patient with possible renal cell carcinoma. Ulises Leonard MD FACR Abdomen MRI 09/25/16 Signed Impressions: Service Date/Time: September 17:38 - CONCLUSION: Right renal mass measures 5.9 cm and has both a solid and cystic component with enhancing septa between the cystic components. The findings are suspicious for malignancy. Nathaniel Chapa MD Renal Ultrasound 09/24/16 Signed Impressions: Service Date/Time: Saturday, September 24, 2016 11:32 - CONCLUSION: 1. Complex cystic mass in the lower pole the right kidney. Abscess is not excluded. CT scan is recommended for further evaluation if clinically indicated. Alan Yadav MD Abdomen/Pelvis CT 09/24/16 Signed Impressions: Service Date/Time: September 01:38 - CONCLUSION: 1. Solid appearing right renal mass measures 3.2 x 4.5 x 5.5 cm. Contrasted MRI recommended. 2. Cholelithiasis. 3. Punctate nonobstructing right renal calculus. 4. Air in urinary bladder likely iatrogenic. Sivakumar Ferguson MD Hepatobiliary Scan Nuclear Medicine 09/18/16 Signed Impressions: Service Date/Time: August 08:12 - CONCLUSION: Negative study Nehemias Gonsales MD Thoracic Spine MRI 09/17/16 Signed Impressions: Service Date/Time: Saturday, September 17, 2016 13:59 - CONCLUSION: I do not see evidence for an abscess. I do not see any radiographic reason for the patient' s inability to ambulate. Ulises Leonard MD FACR Lumbar Spine MRI 09/17/16 Signed Impressions: Service Date/Time: Saturday, September 17, 2016 13:59 - CONCLUSION: 1. No evidence of abscess collection. 2. No spinal stenosis, focal disc herniation, fracture or osteomyelitis. 3. Lipoma of the filum terminale. Antonio Maza MD Lower Extremity Ultrasound 09/16/16 0000 Signed Impressions: Service Date/Time: Friday, September 16, 2016 11:36 - CONCLUSION: No evidence of deep venous thrombosis within the lower extremities. Antonio Maza MD Abdomen Ultrasound 09/16/16 0000 Signed Impressions: Service Date/Time: Friday, September 16, 2016 07:55 - CONCLUSION: 1. Thick- walled gallbladder containing stones. If there is clinical concern for acute cholecystitis a hepatobiliary scan may be helpful to confirm cystic duct obstruction. 2. Mild prominence of the common bile duct. Correlation with alkaline phosphatase and bilirubin levels is suggested to rule out hepatobiliary obstruction. 3. Enlarged fatty liver. 4. Splenomegaly. Antonio Maza MD Objective Remarks General: Obese female in no acute distress. Heart: Regular rate and rhythm. No murmur. Lungs: Clear to auscultation bilaterally. No wheezes, rales, or rhonchi. Breathing is nonlabored. Abdomen: Soft, nontender, nondistended. Drain in place, right flank. Minimal drainage. Extremities: No lower extremity edema. Psych: Alert and oriented. Procedures 09/22- PERLA- negative Urinary Catheter: No Date of Removal: Sep 22, 2016 Vascular Central Line Catheter: Yes Assessment to: Continue Line: PICC Side: Right A/P Problem List: (1) Sepsis ICD Code: A41.9 Status: Acute (2) UTI (urinary tract infection) ICD Code: N39.0 Status: Acute (3) Generalized weakness ICD Code: R53.1 Status: Acute (4) DM2 (diabetes mellitus, type 2) ICD Code: E11.9 Status: Acute (5) HTN (hypertension) ICD Code: I10 Status: Acute Assessment and Plan 1. Sepsis, bacteremia, renal abscess: Blood cultures growing MSSA. CT-guided drainage done 10/02/16 with drain placement. Continue IV antibiotics. Appreciate infectious disease recommendations. Repeat blood cultures are negative so far. Wound culture growing MSSA. Per infectious disease, can discharge home with outpatient IV antibiotics when drain is removed. Radiology has ordered a CT scan to evaluate the area of abscess. 2. UTI: Urine culture growing MSSA. Repeat UA growing yeast. Barney removed . Continue antibiotics. 3. Generalized weakness: Likely secondary to sepsis. Improved. 4. Diabetes mellitus type 2, poorly controlled: Continue Amaryl, Levemir. Hemoglobin A1c is 10. Monitor Accu-Cheks and cover with sliding scale insulin. 5. Hypertension: Continue Coreg. Medications have been adjusted secondary to hypotension, acute kidney injury. 6. DVT prophylaxis: Heparin. Discharge Planning Possible discharge home later today if drain is removed. Problem Qualifiers (1) Sepsis: Qualified Code: A41.01 - Sepsis due to methicillin susceptible Staphylococcus aureus (2) UTI (urinary tract infection): Qualified Code: N30.00 - Acute cystitis without hematuria Claude Stewart MD Oct 07, 2016 14:30
[2016-10-07] MEDS ORDERED: OXYC1TAB35 PO (14:33)
[2016-10-07 16:24] VITALS: BP 167/80; PULSE 90; RESP 18; TEMP 98.8; O2SAT 97
--- NOTE | 2016-10-07 16:45 | RADRPT ---
EXAM DATE/TIME: 10/07/2016 16:21 [place] COMPARISON: CT ABDOMEN W CONTRAST, October 02, 2016, 8:30. INDICATIONS : Follow up right renal abscess drain, drain placed 10/02/16. ORAL CONTRAST: No oral contrast ingested. RADIATION DOSE: 16.75 CTDIvol (mGy) MEDICAL HISTORY : Hypertension. Diabetes mellitus type 1. renal cancer SURGICAL HISTORY : Appendectomy. ENCOUNTER: Initial ACUITY: 1 week PAIN SCALE: 5/10 LOCATION: Right Renal TECHNIQUE: Volumetric scanning of the abdomen was performed. Using automated exposure control and adjustment of the mA and/or kV according to patient size, radiation dose was kept as low as reasonably achievable to obtain optimal diagnostic quality images. DICOM format image data is available electronically for review and comparison. FINDINGS: LOWER LUNGS: The visualized lower lungs are clear. LIVER: Homogeneous density without lesion. There is no dilation of the biliary tree. Solitary calcified gal lstone is noted. SPLEEN: Normal size without lesion. PANCREAS: Within normal limits. KIDNEYS: A pigtail drainage catheter remains posterolateral to the right kidney with considerable improvement in the appearance of the abscess identified previously . There some minimal stranding around the cat heter but no significant residual fluid collection . Normal in size and shape. There is no mass, o r hydronephrosis. Small stone lower pole right kidney ADRENAL GLANDS: Within normal limits. Surgical clips medial to left adrenal gland AORTA/RETROPERITONEAL: There is no aneurysm or lymphadenopathy. BOWEL/MESENTERY: There is a small amount of edema within the mesentery medial to the right lobe of the liver adjacent to second portion of the duodenum. MUSCULOSKELETAL: Within normal limits for patient age. Some fluid in the anterior abdominal wall CONCLUSION: Pigtail catheter remains in position posterolateral to the right kidney. The majority of the abscess has drained. Gallstone remains. Mild persistent mesenteric edema medial to the right lobe of the live r without drainable fluid collection. Tae Delgado MD on October 07, 2016 at 16:41 Board Certified Radiologist. This report was verified electronically.
[2016-10-07 20:19] VITALS: BP 148/73; PULSE 84; RESP 16; TEMP 97.9; O2SAT 97
[2016-10-07] MEDS: INSULIN DETEMIR 100 UNITS/ML VIAL SQ SCH (22:44)
[2016-10-08 00:25] VITALS: BP 137/64; PULSE 80; RESP 16; TEMP 98.6; O2SAT 96
[2016-10-08] MEDS: oxyCODONE/ACETAMINOPHEN 7.5 MG/325 MG TAB PO PRN ×2 (02:11→09:32)
[2016-10-08 04:33] VITALS: BP 131/60; PULSE 66; RESP 16; TEMP 97.5; O2SAT 97
[2016-10-08] MEDS: LOW DOSE INSULIN NOVOLOG SUPPLEMENTAL SCALE SQ SCH ×3 (06:09→16:00)
[2016-10-08] MEDS: HEPARIN SODIUM - SQ 10,000 UNITS/ML VIAL SQ SCH ×2 (06:09→13:54)
[2016-10-08 07:59] VITALS: BP 138/72; PULSE 77; RESP 18; TEMP 97.7; O2SAT 96
[2016-10-08] MEDS: LACTOBACILLUS ACIDOPHILUS TAB PO SCH (08:16)
[2016-10-08] MEDS: PANTOPRAZOLE SOD 40 MG DELAYED RELEASE TAB PO SCH (08:16)
[2016-10-08] MEDS: CARVEDILOL 6.25 MG TAB PO SCH (08:16)
[2016-10-08] MEDS: GLIMEPIRIDE 4 MG TAB PO SCH (08:16)
[2016-10-08] MEDS: SODIUM CHLORIDE 0.9% 10 ML VIAL IRRIGATION SCH (08:17)
[2016-10-08] MEDS: COLLAGENASE OINT 30 GM TUBE TOPICAL SCH ×2 (08:17→08:22)
[2016-10-08] MEDS: SODIUM CHLORIDE 0.9% FLUSH 10 ML FLUSH IV FLUSH SCH (08:17)
[2016-10-08 12:07] VITALS: BP 125/62; PULSE 68; RESP 18; TEMP 97.9; O2SAT 95
--- NOTE | 2016-10-08 14:49 | HHI.FF ---
Face to Face Verification Diagnosis: (1) Staphylococcus aureus bacteremia with sepsis (2) Renal abscess (3) DM2 (diabetes mellitus, type 2) (4) HTN (hypertension) Home Health Nursing Order: Signs/symptoms of disease process Diabetic education Medication education-adverse effect Wound care and dressing changes Nursing assessment with vital signs IV medication administration Instructions: Change bandage on drain site daily and as needed. I have seen patient Alley Lewis on 10/08/16. My clinical findings support the need for the requested home health care services because: Ltd mobility - disease progression Infection w/ risk of complications Injectable med education/admin I certify that my clinical findings support that this patient is homebound because: Unsafe to leave home unassisted Claude Stewart MD Oct 08, 2016 14:49
--- NOTE | 2016-10-08 14:53 | HHI.DS ---
Discharge Summary Admission Date Sep 15, 2016 at 13:04 Discharge Date: Oct 08, 2016 Admitting Diagnosis Sepsis (UTI); LEON; Hypotension (1) Sepsis ICD Code: A41.9 (2) UTI (urinary tract infection) ICD Code: N39.0 (3) Generalized weakness ICD Code: R53.1 (4) DM2 (diabetes mellitus, type 2) ICD Code: E11.9 (5) HTN (hypertension) ICD Code: I10 Procedures 09/22- PERLA- negative Brief History - From Admission This is a 66-year-old female with past medical history significant for insulin- dependent diabetes mellitus, renal cancer, who presents to [facility] complaining of chills, weakness as well as inability to urinate this morning. The patient states that she was hospitalized a month ago over at this institution in August 08 and states she was diagnosed with sepsis. Upon review of records it is noted that the patient presented with tachycardia, headache and elevated lactic acid more than 4. At the time the patient was worked up with a negative urinalysis and underwent an LP which did not show any signs of meningitis. The patient states that she never felt fine after she was discharged. The patient states that yesterday she started feeling very weak, had chills, denies fevers however she stated that she felt very hot. The patient also states she vomited and had one episode of diarrhea and vomiting and this morning she could not urinate with her last urination been at 8 PM last night. The patient then called EMS as per ED physician's records the patient's blood pressure was in the systolic 80s and was given IV fluids and Route to the emergency department. In the emergency department the patient has gotten 3 L of IV normal saline bolus and as per RN report the patient has not voided yet. CBC/BMP: 10/07/16 0530 10/07/16 0530 Significant Findings Laboratory Tests Test 10/05/16 10/07/16 18:30 05:30 Random Glucose 184 MG/DL 176 MG/DL (74-106) (74-106) Red Blood Count 3.02 MIL/MM3 (4.00-5.30) Hemoglobin 8.5 GM/DL (11.6-15.3) Hematocrit 26.3 % (35.0-46.0) Red Cell Distribution Width 17.5 % (11.6-17.2) Mean Platelet Volume 6.8 FL (7.0-11.0) Estimat Glomerular Filtration 60 ML/MIN (>89) Rate Imaging Last Impressions Abdomen CT 10/07/16 0000 Signed Impressions: Service Date/Time: Friday, October 07, 2016 16:21 - CONCLUSION: Pigtail catheter remains in position posterolateral to the right kidney. The majority of the abscess has drained. Gallstone remains. Mild persistent mesenteric edema medial to the right lobe of the liver without drainable fluid collection. Tae Delgado MD Chest X-Ray 10/06/16 1419 Signed Impressions: Service Date/Time: Thursday, October 06, 2016 14:07 - CONCLUSION: Normal examination. PICC line has been placed on the right side which extends to the mid subclavian vein. The tip overlies the right lung apex. Tae Delgado MD Abscess Drainage CT 10/02/16 0000 Signed Impressions: Service Date/Time: September 17:05 - CONCLUSION: Uncomplicated CT guided drainage of the right renal abscess. 25-30 cc of purulent material was removed. Igor Leonard MD Renal Biopsy CT 09/29/16 0000 Signed Impressions: Service Date/Time: Thursday, September 29, 2016 14:55 - CONCLUSION: Uncomplicated CT guided biopsy of the right kidney. Igor Leonard MD Chest CT 09/26/16 0000 Signed Impressions: Service Date/Time: Monday, September 26, 2016 17:54 - CONCLUSION: I see no evidence for metastatic disease in this patient with possible renal cell carcinoma. Ulises Leonard MD FACR Abdomen MRI 09/25/16 0000 Signed Impressions: Service Date/Time: September 17:38 - CONCLUSION: Right renal mass measures 5.9 cm and has both a solid and cystic component with enhancing septa between the cystic components. The findings are suspicious for malignancy. Nathaniel Chapa MD Renal Ultrasound 09/24/16 0000 Signed Impressions: Service Date/Time: Saturday, September 24, 2016 11:32 - CONCLUSION: 1. Complex cystic mass in the lower pole the right kidney. Abscess is not excluded. CT scan is recommended for further evaluation if clinically indicated. Alan Yadav MD Abdomen/Pelvis CT 09/24/16 Signed Impressions: Service Date/Time: September 01:38 - CONCLUSION: 1. Solid appearing right renal mass measures 3.2 x 4.5 x 5.5 cm. Contrasted MRI recommended. 2. Cholelithiasis. 3. Punctate nonobstructing right renal calculus. 4. Air in urinary bladder likely iatrogenic. Sivakumar Ferguson MD Hepatobiliary Scan Nuclear Medicine 09/18/16 Signed Impressions: Service Date/Time: August 08:12 - CONCLUSION: Negative study Nehemias Gonsales MD Thoracic Spine MRI 09/17/16 Signed Impressions: Service Date/Time: Saturday, September 17, 2016 13:59 - CONCLUSION: I do not see evidence for an abscess. I do not see any radiographic reason for the patient' s inability to ambulate. Ulises Leonard MD FACR Lumbar Spine MRI 09/17/16 0000 Signed Impressions: Service Date/Time: Saturday, September 17, 2016 13:59 - CONCLUSION: 1. No evidence of abscess collection. 2. No spinal stenosis, focal disc herniation, fracture or osteomyelitis. 3. Lipoma of the filum terminale. Antonio Maza MD Lower Extremity Ultrasound 09/16/16 Signed Impressions: Service Date/Time: Friday, September 16, 2016 11:36 - CONCLUSION: No evidence of deep venous thrombosis within the lower extremities. Antonio Maza MD Abdomen Ultrasound 09/16/16 0000 Signed Impressions: Service Date/Time: Friday, September 16, 2016 07:55 - CONCLUSION: 1. Thick- walled gallbladder containing stones. If there is clinical concern for acute cholecystitis a hepatobiliary scan may be helpful to confirm cystic duct obstruction. 2. Mild prominence of the common bile duct. Correlation with alkaline phosphatase and bilirubin levels is suggested to rule out hepatobiliary obstruction. 3. Enlarged fatty liver. 4. Splenomegaly. Antonio Maza MD PE at Discharge General: Obese female in no acute distress. Heart: Regular rate and rhythm. No murmur. Lungs: Clear to auscultation bilaterally. No wheezes, rales, or rhonchi. Breathing is nonlabored. Abdomen: Soft, nontender, nondistended. Extremities: No lower extremity edema. Psych: Alert and oriented. Pt update on day of discharge The patient's drain was removed this morning. She has no complaints at this time. She wants to go home. Hospital Course The patient was admitted for management of sepsis secondary to UTI. She was found to have renal abscess, which was drained by interventional radiology. A drain was left in place, and as the drainage slowed, the drain was removed. Blood and abscess cultures grew MSSA. Patient was continued on IV antibiotics. Infectious disease was consulted. Repeat blood cultures were negative. PICC line was placed. Arrangements were made for outpatient IV antibiotics. Pt Condition on Discharge: Good Discharge Disposition: Disch w/ Home Health Serv Discharge Time: > 30 minutes Discharge Instructions DIET: Follow Instructions for: Heart Healthy Diet Activities you can perform: Regular-No Restrictions Follow up Referrals: Infectious Disease - 2 Weeks with Janice Whaley PCP Follow-up - 1 Week Urology - 1 Week with Jonathan Quintero MD New Medications: Cefazolin Inj (Cefazolin Inj) 2 Gm/50 Ml Bagp 2 GM IV Q8H Infection Days 20 Ref 0 BAG Epinephrine Inj (Epinephrine Inj) 1 Mg/Ml Inj 0.3 MG IV PUSH ONCE PRN ALLERGIC REACTION #1 VIAL Epinephrine Inj (Epinephrine Inj) 1 Mg/Ml Inj 0.3 MG SQ ONCE Give with any signs of respiratory distress. PRN ALLERGIC REACTION #1 VIAL Hydrocortisone Inj (Solu-Cortef Inj) 250 Mg Inj 250 MG IV PUSH ONCE Give over 30-60 seconds. PRN ALLERGIC REACTION #1 Ref 0 VIAL Carvedilol (Coreg) 6.25 Mg Tab 6.25 MG PO Q12HR hypertension #60 Ref 0 TAB Lactobacillus Acidophilus (Acidophilus/l-Sporogenes) 1 Tab Tab 1 TAB PO Q12HR prevent diarrhea #60 Ref 0 TAB Oxycodone-Acetaminophen (Oxycodone-Acetaminophen) 7.5-325 mg Tab 1 TAB PO Q6H PRN PAIN SCALE 5 TO 10 #15 Ref 0 TAB Changed Medications: Insulin Detemir Inj (Levemir Inj) 1,000 unit/ 10 ML Vial 10 UNITS SQ HS Do not mix with any other Insulin. Blood Sugar Management #1 Ref 0 VIAL (Changed from: 25 UNITS) Continued Medications: Alendronate (Alendronate) 70 Mg Tab 70 MG PO Q7D Osteporosis Treatment #4 Ref 0 TAB Aspirin (Aspirin 81 Low Dose) 81 Mg Chew 81 MG CHEW DAILY Blood Clot Prevention #30 TAB Calcium Carbonate-Cholecalciferol (Calcium 600 with Vitamin D) 600-400 mg-Unit Tab 1 TAB PO BID Calcium Supplement Ref 0 TAB Cholecalciferol (D-2000 Maximum Strength) 2,000 Unit Tab 2000 UNITS PO DAILY Nutritional Supplement #30 Ref 0 TAB Cyanocobalamin (B-12) 1,000 Mcg Subl 1000 MCG SL DAILY Nutritional Supplement Ref 0 TAB.SL Fenofibrate (Fenofibrate) 145 Mg Tab 145 MG PO DAILY triglycerides #30 Ref 0 TAB Gabapentin (Gabapentin) 100 Mg Cap 100 MG PO TID neuropathy #90 Ref 0 CAP Glimepiride (Glimepiride) 4 Mg Tab 4 MG PO DAILY Take with breakfast or first main meal Blood Sugar Management #30 Ref 0 TAB Multiple Vitamin (Multi-Day Vitamins) 1 Tab Tab 1 TAB PO DAILY Nutritional Supplement [place]-3 Fatty Acids (Fish Oil) 1,000 Mg Cap 1 CAP PO TID Nutritional Supplement Sertraline (Sertraline) 50 Mg Tab 50 MG PO HS #30 Ref 0 TAB Discontinued Medications: Diltiazem (Diltiazem) 30 Mg Tab 30 MG PO BID Angina #120 Ref 0 TAB Lisinopril (Lisinopril) 5 Mg Tab 10 MG PO DAILY Blood Pressure Management #30 Ref 0 TAB Meloxicam (Mobic) 7.5 Mg Tab 15 MG PO DAILY Pain Ref 0 TAB Claude Stewart MD Oct 08, 2016 14:53
== END 2016-10-08 16:17 | disposition home health service (06) | DRG 871 ==
LOC: PHED 10:47 → PHEDA 13:04 → PH3B 16:48 → PH3A 09-16 00:59 → HCIN 09-21 13:02 → N05A 09-26 14:35
PROVIDERS: ADMIT Family Medicine; ATTEND Family Medicine
PROC: B246ZZ4 Ultrasonography of Right and Left Heart, Transesophageal (ICD-10-PCS; principal; 2016-09-22)
PROC: 0TB03ZX Excision of Right Kidney, Percutaneous Approach, Diagnostic (ICD-10-PCS; 2016-09-29)
PROC: 0T903ZX Drainage of Right Kidney, Percutaneous Approach, Diagnostic (ICD-10-PCS; 2016-10-02)
DX: A41.01 Sepsis due to Methicillin susceptible Staphylococcus aureus (principal); E13.10 Other specified diabetes mellitus with ketoacidosis without coma; N17.9 Acute kidney failure, unspecified; N15.1 Renal and perinephric abscess; E11.22 Type 2 diabetes mellitus with diabetic chronic kidney disease; R16.1 Splenomegaly, not elsewhere classified; E87.1 Hypo-osmolality and hyponatremia; E83.42 Hypomagnesemia; B37.49 Other urogenital candidiasis; N18.3 Chronic kidney disease, stage 3 (moderate); I12.9 Hypertensive chronic kidney disease with stage 1 through stage 4 chronic kidney disease, or unspecified chronic kidney disease; M19.90 Unspecified osteoarthritis, unspecified site; F32.9 Major depressive disorder, single episode, unspecified; Z85.528 Personal history of other malignant neoplasm of kidney; E78.00 Pure hypercholesterolemia, unspecified; R65.20 Severe sepsis without septic shock; E86.0 Dehydration; K76.0 Fatty (change of) liver, not elsewhere classified; E87.70 Fluid overload, unspecified; Z79.4 Long term (current) use of insulin; E78.1 Pure hyperglyceridemia; Z83.3 Family history of diabetes mellitus; K80.20 Calculus of gallbladder without cholecystitis without obstruction; E63.9 Nutritional deficiency, unspecified
CPT/HCPCS: 36569; 50200; 71010; 71260; 72157; 72158; 74150; 74160; 74177; 74183; 75989; 76700; 76775; 76937; 77012; 78226; 80048; 80053; 80202; 81001; 82010; 82550; 82565; 82947; 82948; 83036; 83605; 83735; 83880; 84100; 84443; 84484; 85025; 85027; 85610; 85730; 86403; 87015; 87040; 87070; 87086; 87116; 87147; 87149; 87186; 87205; 87206; 88305; 93005; 93306; 93312; 93320; 93325; 93970; 96361; 96374; A9537; A9577; A9579; C1729; C1769; J0690; J0696; J1610; J1642; J1644; J1815; J1940; J2060; J2250; J2270; J2543; J2997; J3010; J3370; J3475; J7030; J7040; J7042; Q9963; Q9967